=== PATIENT | male | born 1935 | race Asian ===

== ENCOUNTER 2019-03-13 15:57 | Inpatient (IN) | payer BC ==
[~2019-03-13] VITALS: Ht 165.1 cm; Wt 59.9 kg
[~2019-03-13 15:57] MED LIST: AMIODARONE HCL200 MG PO; AMLODIPINE BESY10 MG ORAL; ATORVASTATIN CA10 MG PO; CARTEOLOL HCL5 ML BOTH EYES; CIPRO500 MG PO; DUONEB 0.5-3(2.53 ML HHN; HEPARIN SO5000 UNIT2 SUBQ; LATANOPROST2.5 ML BOTH EYES; MECLIZINE HCL25 M1 ORAL; MIRALAX17 GM ORAL; NORVASC2.5 MG ORAL; ONGLYZA2.5 MG PO; PILOCARPINE BOTH EYES; QVAR7.3 G2 IH; TAMSULOSIN HCL0.4 MG PO; TELMISARTAN80 MG PO; TRUFORM COMPRE1 EACH MC; ZETIA10 MG
[2019-03-13 18:00] VITALS: BP 152/66
--- NOTE | 2019-03-13 18:00 | NUR ---
NURSE NOTES: Pt admitted form ED at [facility] via gurney with 3EMTS and family members. No c/o pAIN. No signs of distress noted. IV RFA 18G SL patent and intact. AOX4. Bed rails x2 up and bed placed in its lowest position and locked. Report recived from Malcolm OLIVEIRA at [phone]). Admitting dx with Syncope but denied LOC. Denied head trauma. Br CT from [place] showing negative for mass or bleed. potline monitor applied. ID band applied. Inventory list updated. Dr. De will be paged for adm orders.
[2019-03-13] MEDS ORDERED: LEVOTHYROXINE75 MCG ORAL (19:39)
--- NOTE | 2019-03-13 19:40 | NUR ---
HAND-OFF: Report given to estephania RN. Pt remains stable..
--- NOTE | 2019-03-13 19:45 | NUR ---
NURSE NOTES: Received report from Ifrah Plata RN. Patient in bed AAO X4 with no complaints of acute pain or discomfort noted. Kept clean, dry, and comfortable in bed. Tolerates RA with no S/S of SOB or resp. distress observed. IV line intact and patent and on continuous cardiac monitoring per protocol. Ambulates with minimal assist to the bathroom and offered urinal PRN at bedside. Safety precaution in place; siderails X2 up, call light within reach, bed in lowest position, brakes and alarm on at all times. Needs and wants anticipated and attended. Will continue plan of care and monitor for any changes noted.
[2019-03-13 20:00] VITALS: BP 132/66
[2019-03-13] MEDS ORDERED: EDARBI40 MG ORAL (20:03)
[2019-03-13] MEDS: NovoLOG Insulin Flexpen SUBQ SCH (21:00)
[2019-03-13] MEDS ORDERED: Pilocarpine 4% Opth 15ml Soln BOTH EYES SCH ×2 (21:00→22:30)
[2019-03-13] MEDS ORDERED: Latanoprost 0.005% Opth 2.5ml Soln BOTH EYES SCH ×2 (21:00→22:30)
[2019-03-13] MEDS: Heparin 5000 units/ml inj SUBQ SCH (21:36)
[2019-03-13] MEDS ORDERED: Pilocarpine 4% Opth Soln BOTH EYES SCH (22:30)
--- NOTE | 2019-03-13 22:45 | NUR ---
NURSE NOTES: Spoke with PX regarding adjusting patient's medication admin time. Will continue to monitor.
--- NOTE | 2019-03-13 23:44 | NUR ---
NURSE NOTES: Spoke with Hiram (Son) regarding patient's condition. Patient in bed comfortable with no complaints of pain or discomfort. Will continue plan of care
[2019-03-14] VITALS (7 sets, daily range): BP systolic 121–160; BP diastolic 60–72
--- NOTE | 2019-03-14 03:00 | NUR ---
NURSE NOTES: Patient in bed asleep with no S/S of distress. Will continue plan of care
[2019-03-14] MEDS: Pilocarpine 4% Opth Soln BOTH EYES SCH ×4 (05:03→23:07)
[2019-03-14] MEDS: NovoLOG Insulin Flexpen SUBQ SCH ×4 (05:30→20:42)
[2019-03-14] MEDS ORDERED: Levothyroxine 25mcg tab ORAL SCH ×2 (06:30→21:00)
--- NOTE | 2019-03-14 07:00 | NUR ---
NURSE NOTES: Received report from Kong OLIVEIRA. Patient AO X4. Denied pain. No complaints of distress noted. On RA. IV line intact and asymptomatic. Ambulates with minimal assist to the bathroom. Bed in its lowest position and locked. Side rails X2 up for safety and call light within reach.
--- NOTE | 2019-03-14 07:00 | NUR ---
HAND-OFF: Report given to Ifrah Plata RN. Patient in bed with no S/S of distress. Endorsed plan of care.
[2019-03-14 07:15] LABS: BASOPHILS % (AUTO) 1.3 % (0.0-2.0); EOSINOPHILS % (AUTO) 6.2 % (0.0-3.0); HEMATOCRIT 40.6 % (42.0-52.0); HEMOGLOBIN 13.7 G/DL (14.2-18.0); LYMPHOCYTES % (AUTO) 29.8 % (20.0-45.0); MEAN CORPUSCULAR VOLUME 102 FL (80-99); MONOCYTES % (AUTO) 10.7 % (1.0-10.0); NEUTROPHILS % (AUTO) 52.1 % (45.0-75.0); PLATELET COUNT 260 K/UL (150-450); RED BLOOD COUNT 3.97 M/UL (4.70-6.10); RED CELL DISTRIBUTION WIDTH 12.7 % (11.6-14.8); WHITE BLOOD COUNT 7.6 K/UL (4.8-10.8)
--- NOTE | 2019-03-14 07:20 | NUR ---
HAND-OFF: Report given to Kong RN. Pt remains stable.
[2019-03-14 07:34] LABS: ANION GAP 6 mmol/L (5-15); BLOOD UREA NITROGEN 17 mg/dL (7-18); CALCIUM 8.5 MG/DL (8.5-10.1); CARBON DIOXIDE 29 MMOL/L (21-32); CHLORIDE 100 MMOL/L (98-107); CHOLESTEROL 133 MG/DL (< 200); CREATININE 1.2 MG/DL (0.55-1.30); HDL CHOLESTEROL 53 MG/DL (40-60); POTASSIUM 4.8 MMOL/L (3.5-5.1); SODIUM 135 MMOL/L (136-145); TRIGLYCERIDES 87 MG/DL (30-150)
--- NOTE | 2019-03-14 08:16 | Consultation ---
History of Present Illness General Date patient seen: Mar 14, 2019 Present Illness HPI 83-year-old with past medical history of hypertension, COPD, and diabetes. The patient presented to the emergency room at [facility] with a chief complaint of dizziness and syncopal episode. Pt was hypotensive with SBP of 70's in the scene. He had a CT of head at [place] which was negative. Allergies: Coded Allergies: AMOXICILLIN (Verified Allergy, Unknown, 03/13/19) CLINDAMYCIN (Verified Allergy, Unknown, 03/13/19) Medication History Scheduled Amiodarone Hcl* (Cordarone*), 200 MG PO DAILY, (Reported) Amlodipine Besylate (Norvasc), 2.5 MG ORAL DAILY Amlodipine Besylate* (Amlodipine Besylate*), 20 MG ORAL DAILY, (Reported) Atorvastatin Calcium* (Lipitor*), 40 MG PO HS, (Reported) Azilsartan Medoxomil (Edarbi), 40 MG ORAL DAILY, (Reported) Carteolol Hcl (Carteolol Hcl), 1 DRP BOTH EYES BID, (Reported) Ciprofloxacin* (Cipro*), 500 MG PO BID Heparin Sod (Porcine) (Heparin Sodium*), 5,000 UNITS SUBQ EVERY 12 HOURS Latanoprost* (Xalatan*), 1 DRP BOTH EYES QID, (Reported) Levothyroxine Sodium* (Levothyroxine Sodium*), 25 MCG ORAL DAILY, (Reported) Meclizine Hcl (Meclizine Hcl), 25 MG ORAL THREE TIMES A DAY, (Reported) Pilocarpine HCl (Pilocarpine HCl), 1 DRP BOTH EYES HS, (Reported) Saxagliptin Hcl (Onglyza), 2.5 MG PO DAILY, (Reported) Tamsulosin Hcl (Tamsulosin Hcl*), 0.4 MG PO DAILY, (Reported) Telmisartan (Telmisartan), 80 MG PO DAILY, (Reported) Scheduled PRN Beclomethasone Dipropionate (Qvar), 7.3 GM IH for Shortness of Breath, (Reported ) Ipratropium/Albuterol Sulfate (DuoNeb 0.5-3(2.5)mg/3ml), 3 ML HHN Q4H PRN for Shortness of Breath Polyethylene Glycol* (Miralax*), 17 GM ORAL HSPRN PRN for Constipation Miscellaneous Medications Ezetimibe (Zetia*), (Reported) Durable Medical Equipment Comp.stocking,Knee,Regular,Lrg (Truform Compression Stocking), 1 EACH , (DME) Patient History Healthcare decision maker Hiram(son) Resuscitation status Full Code Advanced Directive on File Past Medical/Surgical History Past Medical/Surgical History: (1) Cardiac arrhythmia (2) BPH (benign prostatic hyperplasia) (3) Hypothyroid (4) Diabetes mellitus Physical Exam General Appearance: WD/WN, no apparent distress Lines, tubes and drains: peripheral HEENT: normocephalic, atraumatic Neck: non-tender, supple Respiratory/Chest: chest wall non-tender, lungs clear, normal breath sounds Cardiovascular/Chest: normal peripheral pulses Abdomen: normal bowel sounds, non tender Genitourinary/Rectal: normal genital exam Extremities: normal range of motion Last 24 Hour Vital Signs Date Time Temp Pulse Resp B/P (MAP) Pulse Ox O2 Delivery O2 Flow Rate FiO2 03/14/19 04:00 49 03/14/19 04:00 97.9 54 18 160/72 (101) 95 03/14/19 00:00 97.5 56 18 136/65 (88) 97 03/14/19 00:00 55 03/13/19 21:00 61 59 59 03/13/19 21:00 Room Air 03/13/19 20:00 62 03/13/19 20:00 97.9 61 18 132/66 (88) 96 03/13/19 18:25 Room Air 03/13/19 18:00 53 03/13/19 18:00 98.1 52 18 152/66 (94) 96 Laboratory Tests Test 03/14/19 05:50 White Blood Count 7.6 K/UL (4.8-10.8) Red Blood Count 3.97 M/UL (4.70-6.10) L Hemoglobin 13.7 G/DL (14.2-18.0) L Hematocrit 40.6 % (42.0-52.0) L Mean Corpuscular Volume 102 FL (80-99) H Mean Corpuscular Hemoglobin 34.5 PG (27.0-31.0) H Mean Corpuscular Hemoglobin Concent 33.8 G/DL (32.0-36.0) Red Cell Distribution Width 12.7 % (11.6-14.8) Platelet Count 260 K/UL (150-450) Mean Platelet Volume 5.6 FL (6.5-10.1) L Neutrophils (%) (Auto) 52.1 % (45.0-75.0) Lymphocytes (%) (Auto) 29.8 % (20.0-45.0) Monocytes (%) (Auto) 10.7 % (1.0-10.0) H Eosinophils (%) (Auto) 6.2 % (0.0-3.0) H Basophils (%) (Auto) 1.3 % (0.0-2.0) Sodium Level 135 MMOL/L (136-145) L Potassium Level 4.8 MMOL/L (3.5-5.1) Chloride Level 100 MMOL/L (98-107) Carbon Dioxide Level 29 MMOL/L (21-32) Anion Gap 6 mmol/L (5-15) Blood Urea Nitrogen 17 mg/dL (7-18) Creatinine 1.2 MG/DL (0.55-1.30) Estimat Glomerular Filtration Rate mL/min (>60) Glucose Level 88 MG/DL (74-106) Hemoglobin A1c Pending Calcium Level 8.5 MG/DL (8.5-10.1) Troponin I 0.007 ng/mL (0.000-0.056) Pro-B-Type Natriuretic Peptide 454 pg/mL (0-125) H Triglycerides Level 87 MG/DL (30-150) Cholesterol Level 133 MG/DL (< 200) LDL Cholesterol 70 mg/dL (<100) HDL Cholesterol 53 MG/DL (40-60) Cholesterol/HDL Ratio 2.5 (3.3-4.4) L Thyroid Stimulating Hormone (TSH) 81.885 uiU/mL (0.358-3.740) Height (Feet): 5 Height (Inches): 5.00 Weight (Pounds): 133 Medications Current Medications Medications (Trade) Dose Ordered Sig/Lisa Route PRN Reason Start Time Stop Time Status Last Admin Dose Admin Acetaminophen (Tylenol) 650 mg Q6H PRN ORAL Mild Pain/Temp > 100.5 03/14/19 00:00 04/13/19 00:00 Aspirin (Ecotrin) 81 mg DAILY ORAL 03/14/19 09:00 04/13/19 08:59 Atorvastatin Calcium (Lipitor) 40 mg QHS ORAL 03/13/19 21:00 04/12/19 20:59 03/13/19 21:30 Dextrose (Dextrose 50%) 25 ml Q30M PRN IV Hypoglycemia 03/13/19 18:30 04/12/19 18:29 Dextrose (Dextrose 50%) 50 ml Q30M PRN IV Hypoglycemia 03/13/19 18:30 04/12/19 18:29 Heparin Sodium (Porcine) (Heparin 5000 units/ml) 5,000 units EVERY 12 HOURS SUBQ 03/13/19 21:00 04/12/19 20:59 03/13/19 21:36 Insulin Aspart (NovoLOG) BEFORE MEALS AND HS SUBQ 03/13/19 21:00 04/12/19 20:59 Latanoprost (Xalatan) 1 drop Q24H BOTH EYES 03/14/19 23:00 04/13/19 22:59 Levothyroxine Sodium (Synthroid) 25 mcg QHS ORAL 03/14/19 21:00 04/13/19 20:59 Patient Own Medication (Patient's Own Med) 1 ea Q12H BOTH EYES 03/14/19 11:00 04/13/19 10:59 Patient Own Medication (Patient's Own Med) 1 ea Q6H BOTH EYES 03/14/19 05:00 04/13/19 04:59 03/14/19 05:03 Assessment/Plan Problem List: (1) Acute encephalopathy ICD Codes: G93.40 - Encephalopathy, unspecified SNOMED: 68356384, 314437134 (2) Sinus bradycardia ICD Codes: R00.1 - Bradycardia, unspecified SNOMED: 47405903 (3) Severe hypothyroidism ICD Codes: E03.8 - Other specified hypothyroidism SNOMED: 95918693 (4) Cardiac arrhythmia ICD Codes: I49.9 - Cardiac arrhythmia, unspecified SNOMED: 683901900 (5) BPH (benign prostatic hyperplasia) ICD Codes: N40.0 - Benign prostatic hyperplasia without lower urinary tract symptoms SNOMED: 760454952 (6) Diabetes mellitus ICD Codes: E11.9 - Type 2 diabetes mellitus without complications SNOMED: 74182268 Assessment/Plan: echo Endo evaluation hypothyroid most likely causing bradycardia sliding scale hold Amiodarone, check PSA b/o hx of BPH dvt prophylaxis Zoe Lynn MD Mar 14, 2019 08:16
[2019-03-14] MEDS ORDERED: Enalaprilat 1.25mg/ml Inj IV PRN (08:30)
[2019-03-14] MEDS: Aspirin EC 81mg tab ORAL SCH (08:39)
[2019-03-14] MEDS: Heparin 5000 units/ml inj SUBQ SCH ×2 (08:40→20:42)
[2019-03-14] MEDS ORDERED: [UNRECOGNIZED DRUG - OTHER] BOTH EYES SCH (09:00)
[2019-03-14] MEDS: [UNRECOGNIZED DRUG - OTHER] BOTH EYES SCH ×2 (11:25→23:07)
--- NOTE | 2019-03-14 15:15 | NUR ---
CASE MANAGEMENT: INITIAL REVIEW 83 YO M DIRECT ADMIT FROM [place] CC: DIZZINESS AND SYNCOPAL EPISODE PMHx: HTN. COPD. DM. SI:SYNCOPE. T 98.1 HR 52 RR 18 B/P 152/66 SATS 96% ON RA NONE PROVIDED IS: CT HEAD (-) PATIENT ADMITTED TO TELE 03/13/2019 @ 8375 DCP: PATIENT TO BE DISCHARGED TO HOME ONCE MEDICALLY CLEARED. PLAN OF CARE: CAROTID VERTEBRAL DUPLEX VENOUS DUPLEX ORTHO BPs CARDIO EVAL 03/14/2019 SI:SYNCOPE. T 97.5 HR 56 RR 18 B/P 136/65 SATS 97% ON RA NA 135 HA1C 6.2 BNP 454 TSH 81.885 IS: ASA PO QD SYNTHROID PO QD INSULIN ASPART SUBQ AC/HS LIPITOR PO QHS TELE STATUS DCP: PATIENT TO BE DISCHARGED TO HOME ONCE MEDICALLY CLEARED. PLAN OF CARE: CAROTID VERTEBRAL DUPLEX VENOUS DUPLEX ORTHO BPs CARDIO EVAL Addendum: 03/14/19 at 1834 by Alisha Lai CM INTERQUAL MET
--- NOTE | 2019-03-14 16:50 | History & Physical ---
History and Physical History & Physicial Dictated for Int Med-Dr De no. [id number] Micah Contreras MD Mar 14, 2019 16:50
--- NOTE | 2019-03-14 19:15 | Consultation ---
DATE OF CONSULTATION: 03/14/2019 ENDOCRINOLOGY CONSULTATION REFERRING PHYSICIAN: Zoe Lynn M.D. REASON FOR CONSULTATION: Hypothyroidism and diabetes. HISTORY OF PRESENT ILLNESS: The patient is an 83-year-old male with past medical history of diabetes, hypertension, and recently diagnosed hypothyroidism who presented to the emergency room at [facility] with chief complaint of dizziness, syncopal episode, and bradycardia. The patient's blood pressure was low in the 70s. He had a CT of the brain, which was negative. He was bradycardic. At [place], the TSH was obtained, which was 88. A few months ago, the patient was diagnosed with hypothyroidism, afterwards was started on amiodarone and he was started on Synthroid 25 mcg by his division leader and later on most recently he was evaluated by an irs agent, Dr. Kerry Ellis at [facility] and the dosage was increased to 50 mcg, which the patient has not been taking it yet. T4 is normal at 0.8. A1c is 6.2. ALLERGIES: To clindamycin and amoxicillin. MEDICATIONS: Reviewed and reconciled. REVIEW OF SYSTEMS: A 12-point review of systems was performed and pertinent positives and negatives are mentioned in history of present illness. PAST MEDICAL HISTORY: 1. Atrial fibrillation. 2. Cardiac arrhythmia. 3. Hypothyroidism. 4. Diabetes. 5. Hypertension. PAST SURGICAL HISTORY: None. FAMILY HISTORY: Noncontributory. PHYSICAL EXAMINATION: GENERAL: The patient is awake. VITAL SIGNS: Blood pressure is 139/65, pulse of 52, temperature of 97.7 degrees, and respiratory rate of 20. HEENT: Pupils are equal and reactive to light. Sclerae anicteric. NECK: No JVD. HEART: Bradycardic. LUNGS: Clear. ABDOMEN: Positive bowel sounds. EXTREMITIES: No clubbing, cyanosis, or edema. LABORATORY VALUES: Thyroid function and A1c discussed in the history of present illness. WBC 7.6, hemoglobin 13.7, hematocrit 40, and platelets of 260,000. Sodium 135, potassium 4.8, chloride 100, bicarbonate 29, BUN 17, and creatinine 1.2. DIAGNOSES: 1. Asymptomatic bradycardia. 2. Hypertension. 3. Diabetes. 4. Hypothyroidism. PLAN: 1. The patient received a dose of levothyroxine IV. Starting tomorrow, we will start the patient on levothyroxine 75 mcg tablet every morning. 2. TSH and free T4 should be repeated by Dr. Ellis in four weeks. 3. The patient's diabetes seems to be controlled on Onglyza 2.5 mg monotherapy, not formally at [place]. We will start the patient on NovoLog sliding scale a.c. and h.s. If the blood glucose rise, we will start Januvia 50 mg daily. I will follow the patient during the stay. Thank you, Dr. Lynn, for the courtesy of this consultation. Enrique Parks M.D. DR: Carl JOB#: [id number] CC: TOBIN
--- NOTE | 2019-03-14 19:28 | NUR ---
NURSE NOTES: Received report from Ifrah Plata RN. Patient in bed AAO X4 with no complaints of acute pain or discomfort noted. Kept clean, dry, and comfortable in bed. Tolerates RA with no S/S of SOB or resp. distress observed. IV line intact and patent and on continuous cardiac monitoring per protocol. Ambulates with minimal assist to the bathroom and offered urinal PRN at bedside. Safety precaution in place; siderails X2 up, call light within reach, bed in lowest position, brakes and alarm on at all times. Needs and wants anticipated and attended. Will continue plan of care and monitor for any changes noted. Home meds brought in by family. Current medication updated per MD. Will continue plan of care. Orthostatic VS QS
--- NOTE | 2019-03-14 21:15 | History and Physical Report ---
DATE OF ADMISSION: 03/13/2019 CHIEF COMPLAINT: The patient is an 83-year-old male, presents with complaint of "I almost passed out." HISTORY OF PRESENT ILLNESS: The patient himself speaks Kyrgyz. Much of the history and physical is obtained from the patient's daughter and from the patient's chart. The patient apparently was at the grocery store with his daughter when he suddenly felt weak. The patient appeared to have a syncopal episode. Daughter states she was able to catch him before he hit the floor. The patient was transported initially to [facility] Emergency Room. The patient is transferred to [facility] for insurance purposes. The patient is admitted with near syncopal episode. REVIEW OF SYSTEMS: CONSTITUTIONAL: The patient denies weight loss or weight gain. The patient denies fevers or chills. HEENT: The patient denies ear or throat pain. The patient denies headache. CARDIOVASCULAR: The patient denies palpitations or chest pain. CHEST: The patient denies wheeze or shortness of breath. ABDOMEN: The patient denies nausea, vomiting, diarrhea, or constipation. GENITOURINARY: The patient denies dysuria or increased frequency of urination. NEUROMUSCULAR: The patient denies seizures. The patient denies generalized weakness. The patient complains of near syncopal episode as above. PAST MEDICAL HISTORY: Significant for: 1. Atrial fibrillation. 2. Diabetes type 2. 3. Hypertension. 4. Chronic obstructive pulmonary disease. PAST SURGICAL HISTORY: The patient denies. CURRENT MEDICATIONS: 1. Amiodarone 200 mg 1 tab p.o. daily. 2. Amlodipine 10 mg p.o. daily. 3. Atorvastatin 40 mg p.o. at bedtime. 4. Azilsartan 40 mg p.o. daily. 5. Qvar 1 puff p.o. twice daily. 6. Zetia 10 mg p.o. daily. 7. DuoNeb nebulized q. 4h. p.r.n. 8. Latanoprost 1 drop to both eyes 4 times daily. 9. Levothyroxine 25 mcg p.o. daily. 10. Meclizine 25 mg p.o. 3 times daily. 11. Pilocarpine 1 drop to both eyes at bedtime. 12. 2.5 mg p.o. daily. 13. Flomax 0.4 mg p.o. at bedtime.s 14. Telmisartan 80 mg p.o. daily. ALLERGIES: To amoxicillin and clindamycin. SOCIAL HISTORY: The patient is . The patient denies tobacco or alcohol use. PHYSICAL EXAMINATION: VITAL SIGNS: Temperature 97.5, respirations 18, pulse 56, blood pressure 136/65. GENERAL: The patient is well-developed, well-nourished, thin-appearing male, in no apparent distress. HEENT: Eyes, pupils equal responsive to light and accommodation. Extraocular movements are intact. NECK: Supple without lymphadenopathy. CHEST: Lungs are clear to auscultation bilaterally without wheezes or rales. CARDIOVASCULAR: Regular rate. S1, S2 normal without murmurs, rubs, or gallops. ABDOMEN: Soft, nontender, and nondistended. Positive bowel sounds. No evidence of hepatosplenomegaly. Currently, no rebound or guarding noted. EXTREMITIES: Negative for clubbing, cyanosis, or edema. RECTAL/GENITAL: Not performed. NEUROLOGIC: Cranial nerves II through XII are grossly intact without focal deficits. Motor strength is 5/5 bilaterally. Deep tendon reflexes are 2+ plantar. LABORATORY AND DIAGNOSTIC STUDIES: WBC 6.6, hemoglobin 13.2, hematocrit 38.9, platelets 241,000. Sodium 137, potassium 4.9, chloride 101, CO2 25, BUN 17, creatinine 1.45. Glucose 104. Troponin less than 0.02. TSH was elevated at 81.9. A CT scan of the brain from [place] was reported as no acute disease. An EKG demonstrated sinus bradycardia with no acute ST changes or Q-waves noted. ASSESSMENT: This is an 83-year-old male. 1. Near syncopal episode. 2. Bradycardia. 3. History of atrial fibrillation. 4. Diabetes type 2. 5. Hypertension. 6. Chronic obstructive pulmonary disease. 7. Hypothyroidism. 8. Hypercholesterolemia. 9. Glaucoma. 10. Benign prostatic hypertrophy. 11. Near syncope/bradycardia. Cardiology consultation with Dr. Irving Kumar. Bradycardia may be secondary to amiodarone versus underlying cardiac arrhythmia. We will follow recommendations of Cardiology. 12. History of atrial fibrillation. The patient is currently in sinus bradycardia rhythm. 13. Diabetes type 2. The patient has been placed on a NovoLog sliding scale. 14. Hypertension. Continue Norvasc as above. 15. Chronic obstructive pulmonary disease. A Pulmonary consultation obtained with Dr. Zoe Lynn. Continue DuoNeb as above. 16. Hypothyroidism. The patient's TSH is elevated. Continue Synthroid as above. A thyroid panel is pending. 17. Hypercholesterolemia. Continue Zetia as above. 18. Glaucoma. Continue eye drops as above. 19. Benign prostatic hypertrophy. Continue Flomax as above. Micah Contreras M.D. DR: VILMA JOB#: [id number] CC:
[2019-03-14] MEDS: Latanoprost 0.005% Opth 2.5ml Soln BOTH EYES SCH (23:07)
--- NOTE | 2019-03-15 03:04 | NUR ---
NURSE NOTES: Patient in bed with no S/S of distress noted. Will continue to monitor.
[2019-03-15 04:00] VITALS: BP 154/65
[2019-03-15] MEDS: Pilocarpine 4% Opth Soln BOTH EYES SCH ×4 (05:47→23:15)
[2019-03-15] MEDS: NovoLOG Insulin Flexpen SUBQ SCH ×4 (05:53→20:55)
--- NOTE | 2019-03-15 06:28 | General Progress Note ---
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) ICD Codes: E22.2 - SIADH (syndrome of inappropriate ADH production) SNOMED: 39550719 (2) Syncope ICD Codes: R55 - Syncope and collapse SNOMED: 327597385 (3) Diabetes mellitus ICD Codes: E11.9 - Type 2 diabetes mellitus without complications SNOMED: 87406293 (4) Hypothyroid ICD Codes: E03.9 - Hypothyroidism, unspecified SNOMED: 56599052 (5) Sinus bradycardia ICD Codes: R00.1 - Bradycardia, unspecified SNOMED: 64715927 Assessment/Plan: continue Levothyroxine 75 mcg daily repeat thyroid function in one month - followed by endo Dr Kerry Ellis at [facility] NISS ac / hs Subjective Allergies: Coded Allergies: AMOXICILLIN (Verified Allergy, Unknown, 03/13/19) CLINDAMYCIN (Verified Allergy, Unknown, 03/13/19) All Systems: reviewed and negative except above Subjective events noted glucose values are controlled Item Value Date Time Bedside Blood Glucose 81 mg/dl 03/15/19 0609 Bedside Blood Glucose 107 mg/dl 03/14/19 2100 Bedside Blood Glucose 122 mg/dl H 03/14/19 1630 Bedside Blood Glucose 104 mg/dl 03/14/19 1132 Bedside Blood Glucose 83 mg/dl 03/14/19 0630 Objective Last 24 Hour Vital Signs Date Time Temp Pulse Resp B/P (MAP) Pulse Ox O2 Delivery O2 Flow Rate FiO2 03/15/19 04:00 98.0 51 20 154/65 (94) 98 03/15/19 04:00 52 03/15/19 00:00 49 03/14/19 23:23 98.2 52 18 133/65 (87) 98 03/14/19 21:00 Room Air 03/14/19 21:00 51 52 53 03/14/19 20:00 53 03/14/19 20:00 98.0 51 20 121/63 (82) 98 03/14/19 16:00 51 03/14/19 16:00 97.5 52 20 138/63 (88) 94 03/14/19 12:00 97.7 52 20 139/65 (89) 94 03/14/19 12:00 55 03/14/19 09:00 57 53 50 03/14/19 09:00 Room Air 03/14/19 08:00 55 03/14/19 08:00 97.9 51 21 124/60 (81) 94 Intake and Output 03/14/19 03/15/19 19:00 07:00 Intake Total 240 ml Output Total 700 ml Balance -460 ml Intake Oral 240 ml Output Urine Total 700 ml # Voids 7 3 Height (Feet): 5 Height (Inches): 5.00 Weight (Pounds): 133 General Appearance: no apparent distress Neck: normal alignment Cardiovascular: bradycardia Respiratory/Chest: lungs clear Abdomen: normal bowel sounds Pelvis: normal external exam Objective Current Medications Medications (Trade) Dose Ordered Sig/Lisa Route PRN Reason Start Time Stop Time Status Last Admin Dose Admin Acetaminophen (Tylenol) 650 mg Q6H PRN ORAL Mild Pain/Temp > 100.5 03/14/19 00:00 04/13/19 00:00 Aspirin (Ecotrin) 81 mg DAILY ORAL 03/14/19 09:00 04/13/19 08:59 03/14/19 08:39 Atorvastatin Calcium (Lipitor) 40 mg QHS ORAL 03/13/19 21:00 04/12/19 20:59 03/14/19 20:41 Dextrose (Dextrose 50%) 25 ml Q30M PRN IV Hypoglycemia 03/13/19 18:30 04/12/19 18:29 Dextrose (Dextrose 50%) 50 ml Q30M PRN IV Hypoglycemia 03/13/19 18:30 04/12/19 18:29 Enalaprilat (Vasotec) 2.5 mg Q4H PRN IV sbp more than 180 03/14/19 08:30 04/13/19 08:29 Heparin Sodium (Porcine) (Heparin 5000 units/ml) 5,000 units EVERY 12 HOURS SUBQ 03/13/19 21:00 04/12/19 20:59 03/14/19 20:42 Hydralazine HCl (Apresoline) 20 mg Q4H PRN IV sbp more than 160 03/14/19 08:30 04/13/19 08:29 Insulin Aspart (NovoLOG) BEFORE MEALS AND HS SUBQ 03/13/19 21:00 04/12/19 20:59 Latanoprost (Xalatan) 1 drop Q24H BOTH EYES 03/14/19 23:00 04/13/19 22:59 03/14/19 23:07 Levothyroxine Sodium (Synthroid) 75 mcg DAILY@0630 ORAL 03/15/19 06:30 04/14/19 06:29 03/15/19 05:47 Patient Own Medication (Patient's Own Med) 1 ea DAILY ORAL 03/15/19 09:00 04/14/19 08:59 Patient Own Medication (Patient's Own Med) 1 ea DAILY ORAL 03/15/19 09:00 04/14/19 08:59 Patient Own Medication (Patient's Own Med) 1 ea Q12H BOTH EYES 03/14/19 11:00 04/13/19 10:59 03/14/19 23:07 Patient Own Medication (Patient's Own Med) 1 ea Q6H BOTH EYES 03/14/19 05:00 04/13/19 04:59 03/15/19 05:47 Enrique Parks MD Mar 15, 2019 06:28
--- NOTE | 2019-03-15 07:33 | NUR ---
HAND-OFF: Report given to Esteban Plata RN. Patient in bed AAO X3 in stable condition, endorsed plan of care.
[2019-03-15 07:34] LABS: BASOPHILS % (AUTO) 1.4 % (0.0-2.0); EOSINOPHILS % (AUTO) 8.6 % (0.0-3.0); HEMATOCRIT 43.5 % (42.0-52.0); HEMOGLOBIN 14.7 G/DL (14.2-18.0); LYMPHOCYTES % (AUTO) 31.8 % (20.0-45.0); MEAN CORPUSCULAR VOLUME 102 FL (80-99); MONOCYTES % (AUTO) 10.3 % (1.0-10.0); NEUTROPHILS % (AUTO) 47.9 % (45.0-75.0); PLATELET COUNT 273 K/UL (150-450); RED BLOOD COUNT 4.27 M/UL (4.70-6.10); RED CELL DISTRIBUTION WIDTH 12.3 % (11.6-14.8)
--- NOTE | 2019-03-15 07:34 | NUR ---
NURSE NOTES: Received report from ROXANNE Triana. The patient is resting on the bed without acute distress or shortness of breath. The patient's bed in the lowest position, call light in reach, and fall and aspiration precaution reinforced. IV is patent and intact. Will continue plan of care.
[2019-03-15 07:56] LABS: ANION GAP 7 mmol/L (5-15); BLOOD UREA NITROGEN 15 mg/dL (7-18); CALCIUM 8.7 MG/DL (8.5-10.1); CARBON DIOXIDE 28 MMOL/L (21-32); CHLORIDE 101 MMOL/L (98-107); CREATININE 1.1 MG/DL (0.55-1.30); POTASSIUM 4.4 MMOL/L (3.5-5.1); SODIUM 136 MMOL/L (136-145)
[2019-03-15 08:00] VITALS: BP 160/73
[2019-03-15] MEDS: Aspirin EC 81mg tab ORAL SCH (08:29)
[2019-03-15] MEDS: EDARBI 40 MG ORAL SCH (08:29)
[2019-03-15] MEDS: ONGLYZA 2.5 MG ORAL SCH (08:30)
[2019-03-15] MEDS: Heparin 5000 units/ml inj SUBQ SCH ×2 (08:31→21:25)
--- NOTE | 2019-03-15 09:25 | NUR ---
CASE MANAGEMENT:REVIEW 03/15/19 SI: SYNCOPE. BRADYCARDIA. COPD HYPOTHYROIDISM 97.9 54 20 160/73 97% ON RA TSH+88.219 IS: SYNTHROID 75 MCG PO QD ASA PO QD SS INSULIN AC+HS HEPARIN SQ Q12 : TELEMETRY STATUS DCP: FROM HOME PLAN: SYNTHROID DOSE INCREASED
[2019-03-15] MEDS: [UNRECOGNIZED DRUG - OTHER] BOTH EYES SCH ×2 (11:18→23:15)
--- NOTE | 2019-03-15 11:35 | Pulmonology Progress Note ---
Assessment/Plan Problems: (1) Acute encephalopathy (2) Sinus bradycardia (3) Severe hypothyroidism (4) Cardiac arrhythmia (5) BPH (benign prostatic hyperplasia) (6) Diabetes mellitus Assessment/Plan all reviewed On synthyroid 75 ugm/dialy blood sugar controlled off all negative chronotrop agents, still bradycardic cardio to see keep in teli Subjective ROS Limited/Unobtainable: No Constitutional: Reports: no symptoms HEENT: Repors: no symptoms, other Allergies: Coded Allergies: AMOXICILLIN (Verified Allergy, Unknown, 03/13/19) CLINDAMYCIN (Verified Allergy, Unknown, 03/13/19) Objective Last 24 Hour Vital Signs Date Time Temp Pulse Resp B/P (MAP) Pulse Ox O2 Delivery O2 Flow Rate FiO2 03/15/19 09:00 Room Air 03/15/19 08:00 97.9 54 20 160/73 (102) 97 03/15/19 08:00 57 03/15/19 04:00 98.0 51 20 154/65 (94) 98 03/15/19 04:00 52 03/15/19 00:00 49 03/14/19 23:23 98.2 52 18 133/65 (87) 98 03/14/19 21:00 Room Air 03/14/19 21:00 51 52 53 03/14/19 20:00 53 03/14/19 20:00 98.0 51 20 121/63 (82) 98 03/14/19 16:00 51 03/14/19 16:00 97.5 52 20 138/63 (88) 94 03/14/19 12:00 97.7 52 20 139/65 (89) 94 03/14/19 12:00 55 Intake and Output 03/14/19 03/15/19 19:00 07:00 Intake Total 380 ml Output Total 700 ml Balance -320 ml Intake Oral 380 ml Output Urine Total 700 ml # Voids 7 3 General Appearance: WD/WN HEENT: normocephalic, atraumatic Respiratory/Chest: chest wall non-tender, lungs clear Cardiovascular: normal peripheral pulses, regular rhythm Abdomen: normal bowel sounds, soft, non tender Genitourinary: normal external genitalia Neurologic/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 Laboratory Tests 03/15/19 06:27: White Blood Count 7.0, Red Blood Count 4.27L, Hemoglobin 14.7, Hematocrit 43.5, Mean Corpuscular Volume 102H, Mean Corpuscular Hemoglobin 34.3H, Mean Corpuscular Hemoglobin Concent 33.7, Red Cell Distribution Width 12.3, Platelet Count 273, Mean Platelet Volume 6.0L, Neutrophils (%) (Auto) 47.9, Lymphocytes ( %) (Auto) 31.8, Monocytes (%) (Auto) 10.3H, Eosinophils (%) (Auto) 8.6H, Basophils (%) (Auto) 1.4, Sodium Level 136, Potassium Level 4.4, Chloride Level 101, Carbon Dioxide Level 28, Anion Gap 7, Blood Urea Nitrogen 15, Creatinine 1.1, Estimat Glomerular Filtration Rate , Glucose Level 86, Calcium Level 8.7, Troponin I 0.000, Thyroid Stimulating Hormone (TSH) 88.219H, Free Thyroxine 0.91 , Free Triiodothyronine 1.5L Current Medications Medications (Trade) Dose Ordered Sig/Lisa Route PRN Reason Start Time Stop Time Status Last Admin Dose Admin Acetaminophen (Tylenol) 650 mg Q6H PRN ORAL Mild Pain/Temp > 100.5 03/14/19 00:00 04/13/19 00:00 Aspirin (Ecotrin) 81 mg DAILY ORAL 03/14/19 09:00 04/13/19 08:59 03/15/19 08:29 Atorvastatin Calcium (Lipitor) 40 mg QHS ORAL 03/13/19 21:00 04/12/19 20:59 03/14/19 20:41 Dextrose (Dextrose 50%) 25 ml Q30M PRN IV Hypoglycemia 03/13/19 18:30 04/12/19 18:29 Dextrose (Dextrose 50%) 50 ml Q30M PRN IV Hypoglycemia 03/13/19 18:30 04/12/19 18:29 Enalaprilat (Vasotec) 2.5 mg Q4H PRN IV sbp more than 180 03/14/19 08:30 04/13/19 08:29 Heparin Sodium (Porcine) (Heparin 5000 units/ml) 5,000 units EVERY 12 HOURS SUBQ 03/13/19 21:00 04/12/19 20:59 03/15/19 08:31 Hydralazine HCl (Apresoline) 20 mg Q4H PRN IV sbp more than 160 03/14/19 08:30 04/13/19 08:29 Insulin Aspart (NovoLOG) BEFORE MEALS AND HS SUBQ 03/13/19 21:00 04/12/19 20:59 Latanoprost (Xalatan) 1 drop Q24H BOTH EYES 03/14/19 23:00 04/13/19 22:59 03/14/19 23:07 Levothyroxine Sodium (Synthroid) 75 mcg DAILY@0630 ORAL 03/15/19 06:30 04/14/19 06:29 03/15/19 05:47 Patient Own Medication (Patient's Own Med) 1 ea DAILY ORAL 03/15/19 09:00 04/14/19 08:59 03/15/19 08:29 Patient Own Medication (Patient's Own Med) 1 ea DAILY ORAL 03/15/19 09:00 04/14/19 08:59 03/15/19 08:30 Patient Own Medication (Patient's Own Med) 1 ea Q12H BOTH EYES 03/14/19 11:00 04/13/19 10:59 03/15/19 11:18 Patient Own Medication (Patient's Own Med) 1 ea Q6H BOTH EYES 03/14/19 05:00 04/13/19 04:59 03/15/19 11:19 Zoe Lynn MD Mar 15, 2019 11:35
[2019-03-15 12:00] VITALS: BP 128/64
--- NOTE | 2019-03-15 12:00 | NUR ---
NURSE NOTES: The patient is stable without acute distress or shortness of breath. Dr. Kumar was at the bedside and did assessment. Orthostatic vital signs taken. Will continue plan of care for the patient.
--- NOTE | 2019-03-15 14:03 | NUR ---
*-* INSURANCE *-* ALL CLINICALS AND REVIEWS HAVE BEEN FAXED TO: GAY[facility] SHARP FAX ALL CLINICALS TO: [phone] Addendum: 03/16/19 at 1026 by STACEY GUZMÁN CM RICHY REF# [id number] F:[phone]
--- NOTE | 2019-03-15 15:31 | Cardiac Electrophysiology PN ---
Subjective Subjective [id number] Objective Last 24 Hour Vital Signs Date Time Temp Pulse Resp B/P (MAP) Pulse Ox O2 Delivery O2 Flow Rate FiO2 03/15/19 12:00 97.7 54 20 128/64 (85) 96 03/15/19 09:00 Room Air 03/15/19 08:00 97.9 54 20 160/73 (102) 97 03/15/19 08:00 57 03/15/19 04:00 98.0 51 20 154/65 (94) 98 03/15/19 04:00 52 03/15/19 00:00 49 03/14/19 23:23 98.2 52 18 133/65 (87) 98 03/14/19 21:00 Room Air 03/14/19 21:00 51 52 53 03/14/19 20:00 53 03/14/19 20:00 98.0 51 20 121/63 (82) 98 03/14/19 16:00 51 03/14/19 16:00 97.5 52 20 138/63 (88) 94 Intake and Output 03/14/19 03/15/19 18:59 06:59 Intake Total 240 ml Output Total 700 ml Balance -460 ml Intake Oral 240 ml Output Urine Total 700 ml # Voids 7 3 Laboratory Tests Test 03/15/19 06:27 White Blood Count 7.0 K/UL (4.8-10.8) Red Blood Count 4.27 M/UL (4.70-6.10) L Hemoglobin 14.7 G/DL (14.2-18.0) Hematocrit 43.5 % (42.0-52.0) Mean Corpuscular Volume 102 FL (80-99) H Mean Corpuscular Hemoglobin 34.3 PG (27.0-31.0) H Mean Corpuscular Hemoglobin Concent 33.7 G/DL (32.0-36.0) Red Cell Distribution Width 12.3 % (11.6-14.8) Platelet Count 273 K/UL (150-450) Mean Platelet Volume 6.0 FL (6.5-10.1) L Neutrophils (%) (Auto) 47.9 % (45.0-75.0) Lymphocytes (%) (Auto) 31.8 % (20.0-45.0) Monocytes (%) (Auto) 10.3 % (1.0-10.0) H Eosinophils (%) (Auto) 8.6 % (0.0-3.0) H Basophils (%) (Auto) 1.4 % (0.0-2.0) Sodium Level 136 MMOL/L (136-145) Potassium Level 4.4 MMOL/L (3.5-5.1) Chloride Level 101 MMOL/L (98-107) Carbon Dioxide Level 28 MMOL/L (21-32) Anion Gap 7 mmol/L (5-15) Blood Urea Nitrogen 15 mg/dL (7-18) Creatinine 1.1 MG/DL (0.55-1.30) Estimat Glomerular Filtration Rate mL/min (>60) Glucose Level 86 MG/DL (74-106) Calcium Level 8.7 MG/DL (8.5-10.1) Troponin I 0.000 ng/mL (0.000-0.056) Thyroid Stimulating Hormone (TSH) 88.219 uiU/mL (0.358-3.740) Free Thyroxine 0.91 NG/DL (0.76-1.46) Free Triiodothyronine 1.5 pg/mL (2.3-4.2) Irving Tavarez MD Mar 15, 2019 15:31
[2019-03-15 16:00] VITALS: BP 139/75
--- NOTE | 2019-03-15 18:00 | NUR ---
NURSE NOTES: The patient asked laxative for bowel movement. Communicated with Dr. De. Will carry out the order of Miralax and Colace. Will continue plan of care.
[2019-03-15] MEDS ORDERED: Miralax 17gm pkt ORAL PRN (19:00)
--- NOTE | 2019-03-15 19:01 | Internal Med Progress Note ---
Subjective Date of Service: Mar 15, 2019 Physician Name Micah Contreras Attending Physician Neel De MD Current Medications Medications (Trade) Dose Ordered Sig/Lisa Route PRN Reason Start Time Stop Time Status Last Admin Dose Admin Acetaminophen (Tylenol) 650 mg Q6H PRN ORAL Mild Pain/Temp > 100.5 03/14/19 00:00 04/13/19 00:00 Aspirin (Ecotrin) 81 mg DAILY ORAL 03/14/19 09:00 04/13/19 08:59 03/15/19 08:29 Atorvastatin Calcium (Lipitor) 40 mg QHS ORAL 03/15/19 21:00 04/12/19 20:59 Dextrose (Dextrose 50%) 25 ml Q30M PRN IV Hypoglycemia 03/13/19 18:30 04/12/19 18:29 Dextrose (Dextrose 50%) 50 ml Q30M PRN IV Hypoglycemia 03/13/19 18:30 04/12/19 18:29 Docusate Sodium (Colace) 100 mg TWICE A DAY ORAL 03/16/19 09:00 04/15/19 08:59 UNV Enalaprilat (Vasotec) 2.5 mg Q4H PRN IV sbp more than 180 03/14/19 08:30 04/13/19 08:29 Heparin Sodium (Porcine) (Heparin 5000 units/ml) 5,000 units EVERY 12 HOURS SUBQ 03/13/19 21:00 04/12/19 20:59 03/15/19 08:31 Hydralazine HCl (Apresoline) 20 mg Q4H PRN IV sbp more than 160 03/14/19 08:30 04/13/19 08:29 Insulin Aspart (NovoLOG) BEFORE MEALS AND HS SUBQ 03/13/19 21:00 04/12/19 20:59 03/15/19 17:20 Latanoprost (Xalatan) 1 drop Q24H BOTH EYES 03/14/19 23:00 04/13/19 22:59 03/14/19 23:07 Levothyroxine Sodium (Synthroid) 75 mcg DAILY@0630 ORAL 03/15/19 06:30 04/14/19 06:29 03/15/19 05:47 Patient Own Medication (Patient's Own Med) 1 ea DAILY ORAL 03/15/19 09:00 04/14/19 08:59 03/15/19 08:29 Patient Own Medication (Patient's Own Med) 1 ea DAILY ORAL 03/15/19 09:00 04/14/19 08:59 03/15/19 08:30 Patient Own Medication (Patient's Own Med) 1 ea Q12H BOTH EYES 03/14/19 11:00 04/13/19 10:59 03/15/19 11:18 Patient Own Medication (Patient's Own Med) 1 ea Q6H BOTH EYES 03/14/19 05:00 04/13/19 04:59 03/15/19 16:55 Polyethylene Glycol (Miralax) 17 gm DAILY PRN ORAL Constipation 03/15/19 19:00 04/14/19 18:59 UNV Allergies: Coded Allergies: AMOXICILLIN (Verified Allergy, Unknown, 03/13/19) CLINDAMYCIN (Verified Allergy, Unknown, 03/13/19) ROS Limited/Unobtainable: No Constitutional: Reports: no symptoms HEENT: Reports: no symptoms Cardiovascular: Reports: no symptoms Respiratory: Reports: no symptoms Gastrointestinal/Abdominal: Reports: no symptoms Genitourinary: Reports: no symptoms Neurologic/Psychiatric: Reports: no symptoms Subjective 83 YO M admitted with syncope. Now bradycardia. Cover for Int med-Dr De Objective Last Vital Signs Date Time Temp Pulse Resp B/P (MAP) Pulse Ox O2 Delivery O2 Flow Rate FiO2 03/15/19 16:00 98.0 64 18 139/75 (96) 97 03/15/19 09:00 Room Air Laboratory Tests Test 03/15/19 06:27 White Blood Count 7.0 K/UL (4.8-10.8) Red Blood Count 4.27 M/UL (4.70-6.10) L Hemoglobin 14.7 G/DL (14.2-18.0) Hematocrit 43.5 % (42.0-52.0) Mean Corpuscular Volume 102 FL (80-99) H Mean Corpuscular Hemoglobin 34.3 PG (27.0-31.0) H Mean Corpuscular Hemoglobin Concent 33.7 G/DL (32.0-36.0) Red Cell Distribution Width 12.3 % (11.6-14.8) Platelet Count 273 K/UL (150-450) Mean Platelet Volume 6.0 FL (6.5-10.1) L Neutrophils (%) (Auto) 47.9 % (45.0-75.0) Lymphocytes (%) (Auto) 31.8 % (20.0-45.0) Monocytes (%) (Auto) 10.3 % (1.0-10.0) H Eosinophils (%) (Auto) 8.6 % (0.0-3.0) H Basophils (%) (Auto) 1.4 % (0.0-2.0) Sodium Level 136 MMOL/L (136-145) Potassium Level 4.4 MMOL/L (3.5-5.1) Chloride Level 101 MMOL/L (98-107) Carbon Dioxide Level 28 MMOL/L (21-32) Anion Gap 7 mmol/L (5-15) Blood Urea Nitrogen 15 mg/dL (7-18) Creatinine 1.1 MG/DL (0.55-1.30) Estimat Glomerular Filtration Rate mL/min (>60) Glucose Level 86 MG/DL (74-106) Calcium Level 8.7 MG/DL (8.5-10.1) Troponin I 0.000 ng/mL (0.000-0.056) Thyroid Stimulating Hormone (TSH) 88.219 uiU/mL (0.358-3.740) Free Thyroxine 0.91 NG/DL (0.76-1.46) Free Triiodothyronine 1.5 pg/mL (2.3-4.2) L Intake and Output 03/14/19 03/15/19 18:59 06:59 Intake Total 240 ml Output Total 700 ml Balance -460 ml Intake Oral 240 ml Output Urine Total 700 ml # Voids 7 3 Objective PHYSICAL EXAMINATION: GENERAL: The patient is well-developed, well-nourished, thin-appearing male, in no apparent distress. HEENT: Eyes, pupils equal responsive to light and accommodation. Extraocular movements are intact. NECK: Supple without lymphadenopathy. CHEST: Lungs are clear to auscultation bilaterally without wheezes or rales. CARDIOVASCULAR: Regular rate. S1, S2 normal without murmurs, rubs, or gallops. ABDOMEN: Soft, nontender, and nondistended. Positive bowel sounds. No evidence of hepatosplenomegaly. Currently, no rebound or guarding noted. EXTREMITIES: Negative for clubbing, cyanosis, or edema. RECTAL/GENITAL: Not performed. NEUROLOGIC: Cranial nerves II through XII are grossly intact without focal deficits. Motor strength is 5/5 bilaterally. Deep tendon reflexes are 2+ plantar. Assessment/Plan Assessment/Plan ASSESSMENT: This is an 83-year-old male. 1. Near syncopal episode. 2. Bradycardia. 3. History of atrial fibrillation. 4. Diabetes type 2. 5. Hypertension. 6. Chronic obstructive pulmonary disease. 7. Hypothyroidism. 8. Hypercholesterolemia. 9. Glaucoma. 10. Benign prostatic hypertrophy. Plan: 1. Near syncope/bradycardia. Cardiology consultation with Dr. Irving Kumar. Bradycardia may be secondary to amiodarone versus underlying cardiac arrhythmia. We will follow recommendations of Cardiology. 2. History of atrial fibrillation. The patient is currently in sinus bradycardia rhythm. 3. Diabetes type 2. The patient has been placed on a NovoLog sliding scale. 4. Hypertension. Continue Norvasc as above. 5. Chronic obstructive pulmonary disease. A Pulmonary consultation obtained with Dr. Zoe Lynn. Continue DuoNeb as above. 6. Hypothyroidism. The patient's TSH is elevated. Continue Synthroid as above. A thyroid panel is pending. 7. Hypercholesterolemia. Continue Zetia as above. 8. Glaucoma. Continue eye drops as above. 9. Benign prostatic hypertrophy. Continue Flomax as above. Micah Contreras MD Mar 15, 2019 19:01
--- NOTE | 2019-03-15 19:30 | NUR ---
HAND-OFF: Report given to ROXANNE Triana. The patient is resting on the bed without acute distress or shortness of breath. The patient's bed in the lowest position, call light in reach, and fall and aspiration precaution reinforced. Endorsed plan of care.
--- NOTE | 2019-03-15 19:35 | NUR ---
NURSE NOTES: Received report from Esteban Plata RN. Patient in bed AAO X4 with family at bedside, no complaints of acute pain or discomfort noted. Kept clean, dry, and comfortable in bed. Tolerates RA with no S/S of SOB or resp. distress observed. IV line intact and patent and on continuous cardiac monitoring per protocol. Ambulates with minimal assist to the bathroom and offered urinal PRN at bedside. Safety precaution in place; siderails X2 up, call light within reach, bed in lowest position, brakes and alarm on at all times. Needs and wants anticipated and attended. Will continue plan of care and monitor for any changes noted. Seen and examined by MD today, new orders received and carried out.
[2019-03-15 20:00] VITALS: BP 141/69
[2019-03-15] MEDS: Atorvastatin 20mg tab ORAL SCH (21:25)
--- NOTE | 2019-03-15 23:00 | Consultation ---
DATE OF CONSULTATION: 03/15/2019 CARDIOLOGY CONSULTATION CONSULTING PHYSICIAN: Irving Kumar M.D. REFERRING PHYSICIAN: Neel De M.D. REASON FOR CONSULTATION: Syncope and bradycardia. HISTORY OF PRESENT ILLNESS: The patient is an 83-year-old gentleman with history of hypertension, diabetes, and atrial fibrillation, who was recently diagnosed with hypothyroidism, presented to the emergency room at [facility] complaining of dizziness and syncopal episodes. The patient is also noted to be bradycardic. The patient's blood pressure was also low in the 70s. CT of the brain was negative. The patient was then transferred to [facility] and the TSH was 88. The patient was recently diagnosed with hypothyroidism after we started her on amiodarone and then was started on Synthroid. Overnight, the heart rate has remained in the high 40s and low 50s. REVIEW OF SYSTEMS: Negative other than what was mentioned in the history of present illness. PAST MEDICAL HISTORY: As mentioned above. FAMILY HISTORY: Noncontributory. SOCIAL HISTORY: He lives at home with the family. Does not smoke or drink alcohol. PHYSICAL EXAMINATION: VITAL SIGNS: Blood pressure is 128/64, pulse is 54 as well as 49, respirations 18, and temperature 97.7. HEAD AND NECK: Showed no JVD. LUNGS: Clear. CARDIOVASCULAR: Shows bradycardic S1 and S2 with no gallop or murmur. ABDOMEN: Soft. EXTREMITIES: No pitting edema. LABORATORY AND DIAGNOSTIC DATA: His carotid duplex showed no critical stenosis. His labs show white count of 7, hemoglobin of 14, hematocrit of 43, and platelet count of 273,000. Sodium is 136, potassium 4.4, BUN of 15, and creatinine 1.1. Troponin negative x2. ASSESSMENT AND PLAN: 1. Syncope and bradycardia. The patient will be ruled out for myocardial infarction. His TSH is 88 and free T4 of 0.91 and free T3 of 1.5. This may be due to the patient's hypothyroidism. The patient's Synthroid was increased to [address] Parks. We will watch the patient on telemetry. Avoid the patient on any AV trinh blockers. 2. History of atrial fibrillation. The patient is only on aspirin, not on any other anticoagulation. Currently in sinus rhythm. The patient may have sick sinus syndrome due to paroxysmal atrial fibrillation. 3. Hyperlipidemia. On Lipitor. 4. Hypothyroidism. On Synthroid. 5. Hypertension. On p.r.n. hydralazine. Thank you very much, Dr. De, for allowing me to participate in the care of this patient. Please do not hesitate to contact me for any questions regarding my evaluation. Irving Kumar M.D. DR: JAZZY JOB#: [id number] CC:
[2019-03-15] MEDS: Latanoprost 0.005% Opth 2.5ml Soln BOTH EYES SCH (23:14)
[2019-03-16] VITALS: BP 127/70
--- NOTE | 2019-03-16 03:34 | NUR ---
NURSE NOTES: Patient in bed asleep with no S/S of distress. Will continue to monitor.
[2019-03-16 04:00] VITALS: BP 145/82
[2019-03-16] MEDS: Pilocarpine 4% Opth Soln BOTH EYES SCH ×4 (04:52→23:12)
[2019-03-16] MEDS: NovoLOG Insulin Flexpen SUBQ SCH ×4 (05:41→21:53)
[2019-03-16 06:41] LABS: BASOPHILS % (AUTO) 1.1 % (0.0-2.0); EOSINOPHILS % (AUTO) 6.7 % (0.0-3.0); HEMATOCRIT 43.1 % (42.0-52.0); HEMOGLOBIN 14.6 G/DL (14.2-18.0); LYMPHOCYTES % (AUTO) 26.6 % (20.0-45.0); MEAN CORPUSCULAR VOLUME 103 FL (80-99); NEUTROPHILS % (AUTO) 55.6 % (45.0-75.0); PLATELET COUNT 275 K/UL (150-450); RED CELL DISTRIBUTION WIDTH 12.8 % (11.6-14.8); WHITE BLOOD COUNT 8.7 K/UL (4.8-10.8)
[2019-03-16 06:48] LABS: ANION GAP 5 mmol/L (5-15); BLOOD UREA NITROGEN 18 mg/dL (7-18); CALCIUM 9.1 MG/DL (8.5-10.1); CARBON DIOXIDE 31 MMOL/L (21-32); CHLORIDE 101 MMOL/L (98-107); CREATININE 1.2 MG/DL (0.55-1.30); POTASSIUM 4.8 MMOL/L (3.5-5.1); SODIUM 137 MMOL/L (136-145)
--- NOTE | 2019-03-16 07:09 | NUR ---
HAND-OFF: Report given to Esteban Plata RN. Patient in bed in stable condition, endorsed plan of care.
--- NOTE | 2019-03-16 07:10 | NUR ---
NURSE NOTES: Received report from ROXANNE Triana. The patient is having a breakfast on the bed without acute distress or shortness of breath. The patient's bed in the lowest position, call light in reach, and fall and aspiration precaution reinforced. IV is intact and patent. Will continue plan of care.
--- NOTE | 2019-03-16 07:10 | General Progress Note ---
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) ICD Codes: E22.2 - SIADH (syndrome of inappropriate ADH production) SNOMED: 65781349 (2) Syncope ICD Codes: R55 - Syncope and collapse SNOMED: 431370880 (3) Diabetes mellitus ICD Codes: E11.9 - Type 2 diabetes mellitus without complications SNOMED: 74919268 (4) Hypothyroid ICD Codes: E03.9 - Hypothyroidism, unspecified SNOMED: 86808436 (5) Sinus bradycardia ICD Codes: R00.1 - Bradycardia, unspecified SNOMED: 67989176 Assessment/Plan: continue Levothyroxine 75 mcg daily repeat thyroid function in one month - followed by endo Dr Kerry Ellis at [facility] NISS ac / hs Subjective Allergies: Coded Allergies: AMOXICILLIN (Verified Allergy, Unknown, 03/13/19) CLINDAMYCIN (Verified Allergy, Unknown, 03/13/19) All Systems: reviewed and negative except above Subjective events noted glucose values are controlled Item Value Date Time Bedside Blood Glucose 93 mg/dl 03/16/19 0612 Bedside Blood Glucose 96 mg/dl 03/15/19 2100 Bedside Blood Glucose 129 mg/dl H 03/15/19 1720 Bedside Blood Glucose 110 mg/dl 03/15/19 1130 Bedside Blood Glucose 81 mg/dl 03/15/19 0609 Objective Last 24 Hour Vital Signs Date Time Temp Pulse Resp B/P (MAP) Pulse Ox O2 Delivery O2 Flow Rate FiO2 03/16/19 04:00 97.5 52 18 145/82 (103) 96 03/16/19 04:00 51 03/16/19 00:00 56 03/16/19 00:00 97.6 56 19 127/70 (89) 96 03/15/19 21:00 Room Air 03/15/19 21:00 56 57 56 03/15/19 20:00 57 03/15/19 20:00 97.5 58 18 141/69 (93) 95 03/15/19 16:00 57 03/15/19 16:00 98.0 64 18 139/75 (96) 97 03/15/19 12:00 52 03/15/19 12:00 97.7 54 20 128/64 (85) 96 03/15/19 09:10 60 03/15/19 09:05 60 03/15/19 09:00 64 7/29/19 09:00 Room Air 03/15/19 08:00 97.9 54 20 160/73 (102) 97 03/15/19 08:00 57 Intake and Output 03/15/19 03/16/19 19:00 07:00 Intake Total 420 ml 120 ml Output Total 600 ml Balance 420 ml -480 ml Intake Oral 420 ml 120 ml Output Urine Total 600 ml # Voids 3 3 Laboratory Tests 03/16/19 06:00: White Blood Count 8.7, Red Blood Count 4.20L, Hemoglobin 14.6, Hematocrit 43.1, Mean Corpuscular Volume 103H, Mean Corpuscular Hemoglobin 34.7H, Mean Corpuscular Hemoglobin Concent 33.8, Red Cell Distribution Width 12.8, Platelet Count 275, Mean Platelet Volume 5.4L, Neutrophils (%) (Auto) 55.6, Lymphocytes ( %) (Auto) 26.6, Monocytes (%) (Auto) 10.0, Eosinophils (%) (Auto) 6.7H, Basophils (%) (Auto) 1.1, Sodium Level 137, Potassium Level 4.8, Chloride Level 101, Carbon Dioxide Level 31, Anion Gap 5, Blood Urea Nitrogen 18, Creatinine 1.2, Estimat Glomerular Filtration Rate , Glucose Level 102, Calcium Level 9.1 Height (Feet): 5 Height (Inches): 5.00 Weight (Pounds): 133 General Appearance: no apparent distress Neck: normal alignment Cardiovascular: bradycardia Respiratory/Chest: lungs clear Abdomen: normal bowel sounds Objective Current Medications Medications (Trade) Dose Ordered Sig/Lisa Route PRN Reason Start Time Stop Time Status Last Admin Dose Admin Acetaminophen (Tylenol) 650 mg Q6H PRN ORAL Mild Pain/Temp > 100.5 03/14/19 00:00 04/13/19 00:00 Aspirin (Ecotrin) 81 mg DAILY ORAL 03/14/19 09:00 04/13/19 08:59 03/15/19 08:29 Atorvastatin Calcium (Lipitor) 40 mg QHS ORAL 03/15/19 21:00 04/12/19 20:59 03/15/19 21:25 Dextrose (Dextrose 50%) 25 ml Q30M PRN IV Hypoglycemia 03/13/19 18:30 04/12/19 18:29 Dextrose (Dextrose 50%) 50 ml Q30M PRN IV Hypoglycemia 03/13/19 18:30 04/12/19 18:29 Docusate Sodium (Colace) 100 mg TWICE A DAY ORAL 03/16/19 09:00 04/15/19 08:59 Enalaprilat (Vasotec) 2.5 mg Q4H PRN IV sbp more than 180 03/14/19 08:30 04/13/19 08:29 Heparin Sodium (Porcine) (Heparin 5000 units/ml) 5,000 units EVERY 12 HOURS SUBQ 03/13/19 21:00 04/12/19 20:59 03/15/19 21:25 Hydralazine HCl (Apresoline) 20 mg Q4H PRN IV sbp more than 160 03/14/19 08:30 04/13/19 08:29 Insulin Aspart (NovoLOG) BEFORE MEALS AND HS SUBQ 03/13/19 21:00 04/12/19 20:59 03/15/19 17:20 Latanoprost (Xalatan) 1 drop Q24H BOTH EYES 03/14/19 23:00 04/13/19 22:59 03/15/19 23:14 Levothyroxine Sodium (Synthroid) 75 mcg DAILY@0630 ORAL 03/15/19 06:30 04/14/19 06:29 03/16/19 06:00 Patient Own Medication (Patient's Own Med) 1 ea DAILY ORAL 03/15/19 09:00 04/14/19 08:59 03/15/19 08:29 Patient Own Medication (Patient's Own Med) 1 ea DAILY ORAL 03/15/19 09:00 04/14/19 08:59 03/15/19 08:30 Patient Own Medication (Patient's Own Med) 1 ea Q12H BOTH EYES 03/14/19 11:00 04/13/19 10:59 03/15/19 23:15 Patient Own Medication (Patient's Own Med) 1 ea Q6H BOTH EYES 03/14/19 05:00 04/13/19 04:59 03/16/19 04:52 Polyethylene Glycol (Miralax) 17 gm DAILY PRN ORAL Constipation 03/15/19 19:00 04/14/19 18:59 03/15/19 19:04 Enrique Parks MD Mar 16, 2019 07:10
[2019-03-16 08:00] VITALS: BP 138/78
[2019-03-16] MEDS: Docusate 100mg cap ORAL SCH ×2 (08:30→17:10)
[2019-03-16] MEDS: Aspirin EC 81mg tab ORAL SCH (08:30)
[2019-03-16] MEDS: EDARBI 40 MG ORAL SCH (08:30)
[2019-03-16] MEDS: ONGLYZA 2.5 MG ORAL SCH (08:31)
[2019-03-16] MEDS: Heparin 5000 units/ml inj SUBQ SCH ×2 (08:32→21:52)
--- NOTE | 2019-03-16 10:41 | Pulmonology Progress Note ---
Assessment/Plan Problems: (1) Acute encephalopathy (2) Sinus bradycardia (3) Severe hypothyroidism (4) Cardiac arrhythmia (5) BPH (benign prostatic hyperplasia) (6) Diabetes mellitus Assessment/Plan lowest heart rater was 50, right now it is 71. On synthyroid 75 ugm/dialy blood sugar controlled off all negative chronotrop agents, still bradycardic cardio to see keep in teli Subjective ROS Limited/Unobtainable: No Interval Events: cardio note reviewed Constitutional: Reports: no symptoms HEENT: Repors: no symptoms Allergies: Coded Allergies: AMOXICILLIN (Verified Allergy, Unknown, 03/13/19) CLINDAMYCIN (Verified Allergy, Unknown, 03/13/19) Objective Last 24 Hour Vital Signs Date Time Temp Pulse Resp B/P (MAP) Pulse Ox O2 Delivery O2 Flow Rate FiO2 03/16/19 09:10 58 03/16/19 09:05 58 03/16/19 09:00 56 03/16/19 09:00 Room Air 03/16/19 08:00 97.4 58 18 138/78 (98) 96 03/16/19 04:00 97.5 52 18 145/82 (103) 96 03/16/19 04:00 51 03/16/19 00:00 56 03/16/19 00:00 97.6 56 19 127/70 (89) 96 03/15/19 21:00 Room Air 03/15/19 21:00 56 57 56 03/15/19 20:00 57 03/15/19 20:00 97.5 58 18 141/69 (93) 95 03/15/19 16:00 57 03/15/19 16:00 98.0 64 18 139/75 (96) 97 03/15/19 12:00 52 03/15/19 12:00 97.7 54 20 128/64 (85) 96 Intake and Output 03/15/19 03/16/19 19:00 07:00 Intake Total 420 ml 120 ml Output Total 600 ml Balance 420 ml -480 ml Intake Oral 420 ml 120 ml Output Urine Total 600 ml # Voids 3 3 General Appearance: WD/WN HEENT: normocephalic, atraumatic Respiratory/Chest: chest wall non-tender, no respiratory distress Cardiovascular: normal peripheral pulses, normal rate Abdomen: normal bowel sounds, soft, non tender Genitourinary: normal external genitalia Extremities: no cyanosis Laboratory Tests 03/16/19 06:00: White Blood Count 8.7, Red Blood Count 4.20L, Hemoglobin 14.6, Hematocrit 43.1, Mean Corpuscular Volume 103H, Mean Corpuscular Hemoglobin 34.7H, Mean Corpuscular Hemoglobin Concent 33.8, Red Cell Distribution Width 12.8, Platelet Count 275, Mean Platelet Volume 5.4L, Neutrophils (%) (Auto) 55.6, Lymphocytes ( %) (Auto) 26.6, Monocytes (%) (Auto) 10.0, Eosinophils (%) (Auto) 6.7H, Basophils (%) (Auto) 1.1, Sodium Level 137, Potassium Level 4.8, Chloride Level 101, Carbon Dioxide Level 31, Anion Gap 5, Blood Urea Nitrogen 18, Creatinine 1.2, Estimat Glomerular Filtration Rate , Glucose Level 102, Calcium Level 9.1 Current Medications Medications (Trade) Dose Ordered Sig/Lisa Route PRN Reason Start Time Stop Time Status Last Admin Dose Admin Acetaminophen (Tylenol) 650 mg Q6H PRN ORAL Mild Pain/Temp > 100.5 03/14/19 00:00 04/13/19 00:00 Aspirin (Ecotrin) 81 mg DAILY ORAL 03/14/19 09:00 04/13/19 08:59 03/16/19 08:30 Atorvastatin Calcium (Lipitor) 40 mg QHS ORAL 03/15/19 21:00 04/12/19 20:59 03/15/19 21:25 Dextrose (Dextrose 50%) 25 ml Q30M PRN IV Hypoglycemia 03/13/19 18:30 04/12/19 18:29 Dextrose (Dextrose 50%) 50 ml Q30M PRN IV Hypoglycemia 03/13/19 18:30 04/12/19 18:29 Docusate Sodium (Colace) 100 mg TWICE A DAY ORAL 03/16/19 09:00 04/15/19 08:59 03/16/19 08:30 Enalaprilat (Vasotec) 2.5 mg Q4H PRN IV sbp more than 180 03/14/19 08:30 04/13/19 08:29 Heparin Sodium (Porcine) (Heparin 5000 units/ml) 5,000 units EVERY 12 HOURS SUBQ 03/13/19 21:00 04/12/19 20:59 03/16/19 08:32 Hydralazine HCl (Apresoline) 20 mg Q4H PRN IV sbp more than 160 03/14/19 08:30 04/13/19 08:29 Insulin Aspart (NovoLOG) BEFORE MEALS AND HS SUBQ 03/13/19 21:00 04/12/19 20:59 03/15/19 17:20 Latanoprost (Xalatan) 1 drop Q24H BOTH EYES 03/14/19 23:00 04/13/19 22:59 03/15/19 23:14 Levothyroxine Sodium (Synthroid) 75 mcg DAILY@0630 ORAL 03/15/19 06:30 04/14/19 06:29 03/16/19 06:00 Patient Own Medication (Patient's Own Med) 1 ea DAILY ORAL 03/15/19 09:00 04/14/19 08:59 03/16/19 08:30 Patient Own Medication (Patient's Own Med) 1 ea DAILY ORAL 03/15/19 09:00 04/14/19 08:59 03/16/19 08:31 Patient Own Medication (Patient's Own Med) 1 ea Q12H BOTH EYES 03/14/19 11:00 04/13/19 10:59 03/15/19 23:15 Patient Own Medication (Patient's Own Med) 1 ea Q6H BOTH EYES 03/14/19 05:00 04/13/19 04:59 03/16/19 04:52 Polyethylene Glycol (Miralax) 17 gm DAILY PRN ORAL Constipation 03/15/19 19:00 04/14/19 18:59 03/15/19 19:04 Zoe Lynn MD Mar 16, 2019 10:41
[2019-03-16] MEDS: [UNRECOGNIZED DRUG - OTHER] BOTH EYES SCH ×2 (11:09→23:12)
[2019-03-16 12:00] VITALS: BP 138/72
--- NOTE | 2019-03-16 12:00 | NUR ---
NURSE NOTES: The patient is stable without acute distress or shortness of breath. The patient is bed in the lowest position, call light in reach, and fall and aspiration precaution reinforced. Will continue plan of care.
--- NOTE | 2019-03-16 12:32 | CDS Physician Query ---
Clarification is required for compliance, coding accuracy, and to reflect severity of illness for this patient Dear Dr. Zoe Lynn Date: 03/16/2019 Coal Inspector/CDS Name: Bree Beth Clinical documentation shows: 03/13 consult: 83-year-old with past medical history of hypertension, COPD, and diabetes. The patient presented to the emergency room at [facility] with a chief complaint of dizziness and syncopal episode. Pt was hypotensive with SBP of 70's in the scene. He had a CT of head at [facility] which was negative... Acute encephalopathy 03/15 cardio note: Syncope and bradycardia. The patient will be ruled out for myocardial infarction. His TSH is 88 and free T4 of 0.91 and free T3 of 1.5. This may be due to the patient's hypothyroidism Care trends: neurologic: GCS 9 on 03/13 Please indicate the nature and chronicity of the condition below: [x] Metabolic Encephalopathy [] Toxic Encephalopathy [] Toxic - Metabolic Encephalopathy [] Encephalopathy, Other [] Dementia with Delirium [] Hypoxic encephalopathy [] Other: [] Not Applicable Present on Admission: [x] Yes [] No [] Clinically Undetermined Physician signature Date Please also document in your Progress Notes and/or Discharge Summary and indicate if the condition was present on admission. ANGELICD
--- NOTE | 2019-03-16 13:27 | NUR ---
CASE MANAGEMENT:REVIEW 03/16/19 SI: ACUTE ENCEPHALOPATHY BRADYCARDIA. COPD HYPOTHYROIDISM 97.7 57 18 138/72 96% ON RA IS: SYNTHROID 75 MCG PO QD ASA PO QD SS INSULIN AC+HS HEPARIN SQ Q12 : TELEMETRY STATUS DCP: FROM HOME PLAN: SYNTHROID DOSE WAS INCREASED CARDIO WAS CONSULTED WILL CONTINUE TO
--- NOTE | 2019-03-16 15:45 | NUR ---
*-* INSURANCE *-* ALL CLINICALS AND REVIEWS HAVE BEEN FAXED TO: [facility] REF# [id number] F:[phone]
[2019-03-16 16:00] VITALS: BP 132/67
--- NOTE | 2019-03-16 16:57 | Internal Med Progress Note ---
Subjective Date of Service: Mar 16, 2019 Physician Name Micah Contreras Attending Physician Neel De MD Current Medications Medications (Trade) Dose Ordered Sig/Lisa Route PRN Reason Start Time Stop Time Status Last Admin Dose Admin Acetaminophen (Tylenol) 650 mg Q6H PRN ORAL Mild Pain/Temp > 100.5 03/14/19 00:00 04/13/19 00:00 Aspirin (Ecotrin) 81 mg DAILY ORAL 03/14/19 09:00 04/13/19 08:59 03/16/19 08:30 Atorvastatin Calcium (Lipitor) 40 mg QHS ORAL 03/15/19 21:00 04/12/19 20:59 03/15/19 21:25 Dextrose (Dextrose 50%) 25 ml Q30M PRN IV Hypoglycemia 03/13/19 18:30 04/12/19 18:29 Dextrose (Dextrose 50%) 50 ml Q30M PRN IV Hypoglycemia 03/13/19 18:30 04/12/19 18:29 Docusate Sodium (Colace) 100 mg TWICE A DAY ORAL 03/16/19 09:00 04/15/19 08:59 03/16/19 08:30 Enalaprilat (Vasotec) 2.5 mg Q4H PRN IV sbp more than 180 03/14/19 08:30 04/13/19 08:29 Heparin Sodium (Porcine) (Heparin 5000 units/ml) 5,000 units EVERY 12 HOURS SUBQ 03/13/19 21:00 04/12/19 20:59 03/16/19 08:32 Hydralazine HCl (Apresoline) 20 mg Q4H PRN IV sbp more than 160 03/14/19 08:30 04/13/19 08:29 Insulin Aspart (NovoLOG) BEFORE MEALS AND HS SUBQ 03/13/19 21:00 04/12/19 20:59 03/15/19 17:20 Latanoprost (Xalatan) 1 drop Q24H BOTH EYES 03/14/19 23:00 04/13/19 22:59 03/15/19 23:14 Levothyroxine Sodium (Synthroid) 75 mcg DAILY@0630 ORAL 03/15/19 06:30 04/14/19 06:29 03/16/19 06:00 Patient Own Medication (Patient's Own Med) 1 ea DAILY ORAL 03/15/19 09:00 04/14/19 08:59 03/16/19 08:30 Patient Own Medication (Patient's Own Med) 1 ea DAILY ORAL 03/15/19 09:00 04/14/19 08:59 03/16/19 08:31 Patient Own Medication (Patient's Own Med) 1 ea Q12H BOTH EYES 03/14/19 11:00 04/13/19 10:59 03/16/19 11:09 Patient Own Medication (Patient's Own Med) 1 ea Q6H BOTH EYES 03/14/19 05:00 04/13/19 04:59 03/16/19 11:10 Polyethylene Glycol (Miralax) 17 gm DAILY PRN ORAL Constipation 03/15/19 19:00 04/14/19 18:59 03/15/19 19:04 Allergies: Coded Allergies: AMOXICILLIN (Verified Allergy, Unknown, 03/13/19) CLINDAMYCIN (Verified Allergy, Unknown, 03/13/19) ROS Limited/Unobtainable: No Constitutional: Reports: no symptoms HEENT: Reports: no symptoms Cardiovascular: Reports: no symptoms Respiratory: Reports: no symptoms Gastrointestinal/Abdominal: Reports: no symptoms Genitourinary: Reports: no symptoms Neurologic/Psychiatric: Reports: no symptoms Subjective 83 YO M admitted with syncope. Now bradycardia. Cover for Int med-Dr De Objective Last Vital Signs Date Time Temp Pulse Resp B/P (MAP) Pulse Ox O2 Delivery O2 Flow Rate FiO2 03/16/19 12:00 97.7 57 18 138/72 (94) 96 03/16/19 09:00 Room Air Laboratory Tests Test 03/16/19 06:00 White Blood Count 8.7 K/UL (4.8-10.8) Red Blood Count 4.20 M/UL (4.70-6.10) L Hemoglobin 14.6 G/DL (14.2-18.0) Hematocrit 43.1 % (42.0-52.0) Mean Corpuscular Volume 103 FL (80-99) H Mean Corpuscular Hemoglobin 34.7 PG (27.0-31.0) H Mean Corpuscular Hemoglobin Concent 33.8 G/DL (32.0-36.0) Red Cell Distribution Width 12.8 % (11.6-14.8) Platelet Count 275 K/UL (150-450) Mean Platelet Volume 5.4 FL (6.5-10.1) L Neutrophils (%) (Auto) 55.6 % (45.0-75.0) Lymphocytes (%) (Auto) 26.6 % (20.0-45.0) Monocytes (%) (Auto) 10.0 % (1.0-10.0) Eosinophils (%) (Auto) 6.7 % (0.0-3.0) H Basophils (%) (Auto) 1.1 % (0.0-2.0) Sodium Level 137 MMOL/L (136-145) Potassium Level 4.8 MMOL/L (3.5-5.1) Chloride Level 101 MMOL/L (98-107) Carbon Dioxide Level 31 MMOL/L (21-32) Anion Gap 5 mmol/L (5-15) Blood Urea Nitrogen 18 mg/dL (7-18) Creatinine 1.2 MG/DL (0.55-1.30) Estimat Glomerular Filtration Rate mL/min (>60) Glucose Level 102 MG/DL (74-106) Calcium Level 9.1 MG/DL (8.5-10.1) Intake and Output 03/15/19 03/16/19 19:00 07:00 Intake Total 420 ml 120 ml Output Total 600 ml Balance 420 ml -480 ml Intake Oral 420 ml 120 ml Output Urine Total 600 ml # Voids 3 3 Objective PHYSICAL EXAMINATION: GENERAL: The patient is well-developed, well-nourished, thin-appearing male, in no apparent distress. HEENT: Eyes, pupils equal responsive to light and accommodation. Extraocular movements are intact. NECK: Supple without lymphadenopathy. CHEST: Lungs are clear to auscultation bilaterally without wheezes or rales. CARDIOVASCULAR: Regular rate. S1, S2 normal without murmurs, rubs, or gallops. ABDOMEN: Soft, nontender, and nondistended. Positive bowel sounds. No evidence of hepatosplenomegaly. Currently, no rebound or guarding noted. EXTREMITIES: Negative for clubbing, cyanosis, or edema. RECTAL/GENITAL: Not performed. NEUROLOGIC: Cranial nerves II through XII are grossly intact without focal deficits. Motor strength is 5/5 bilaterally. Deep tendon reflexes are 2+ plantar. Assessment/Plan Assessment/Plan ASSESSMENT: This is an 83-year-old male. 1. Near syncopal episode. 2. Bradycardia. 3. History of atrial fibrillation. 4. Diabetes type 2. 5. Hypertension. 6. Chronic obstructive pulmonary disease. 7. Hypothyroidism. 8. Hypercholesterolemia. 9. Glaucoma. 10. Benign prostatic hypertrophy. Plan: 1. Near syncope/bradycardia. Cardiology consultation with Dr. Irving Kumar. Bradycardia may be secondary to amiodarone versus underlying cardiac arrhythmia. We will follow recommendations of Cardiology. 2. History of atrial fibrillation. The patient is currently in sinus bradycardia rhythm. 3. Diabetes type 2. The patient has been placed on a NovoLog sliding scale. 4. Hypertension. Continue Norvasc as above. 5. Chronic obstructive pulmonary disease. A Pulmonary consultation obtained with Dr. Zoe Lynn. Continue DuoNeb as above. 6. Hypothyroidism. The patient's TSH is elevated. Continue Synthroid as above. A thyroid panel is pending. 7. Hypercholesterolemia. Continue Zetia as above. 8. Glaucoma. Continue eye drops as above. 9. Benign prostatic hypertrophy. Continue Flomax as above. Micah Contreras MD Mar 16, 2019 16:57
--- NOTE | 2019-03-16 17:14 | Cardiac Electrophysiology PN ---
Assessment/Plan Assessment/Plan 1. Syncope and bradycardia. Ruled out for myocardial infarction. His TSH is 88 and free T4 of 0.91 and free T3 of 1.5. This may be due to the patient's hypothyroidism. The patient's Synthroid was increased to [address] Parks. We will watch the patient on telemetry. Avoid the patient on any AV trinh blockers. Echo EF 60%. Needs Zio patch as out patient 2. History of atrial fibrillation. The patient is only on aspirin, not on any other anticoagulation. Currently in sinus rhythm. The patient may have sick sinus syndrome due to paroxysmal atrial fibrillation. 3. Hyperlipidemia. On Lipitor. 4. Hypothyroidism. On Synthroid. 5. Hypertension. On p.r.n. hydralazine. DW and son at bedside Subjective Subjective Remained in SR/ SB. No CP or SOB. Family at bedside Objective Last 24 Hour Vital Signs Date Time Temp Pulse Resp B/P (MAP) Pulse Ox O2 Delivery O2 Flow Rate FiO2 03/16/19 12:00 97.7 57 18 138/72 (94) 96 03/16/19 12:00 57 03/16/19 09:10 58 03/16/19 09:05 58 03/16/19 09:00 56 03/16/19 09:00 Room Air 03/16/19 08:00 57 03/16/19 08:00 97.4 58 18 138/78 (98) 96 03/16/19 04:00 97.5 52 18 145/82 (103) 96 03/16/19 04:00 51 03/16/19 00:00 56 03/16/19 00:00 97.6 56 19 127/70 (89) 96 03/15/19 21:00 Room Air 03/15/19 21:00 56 57 56 03/15/19 20:00 57 03/15/19 20:00 97.5 58 18 141/69 (93) 95 Intake and Output 03/15/19 03/16/19 18:59 06:59 Intake Total 560 ml 120 ml Output Total 600 ml Balance 560 ml -480 ml Intake Oral 560 ml 120 ml Output Urine Total 600 ml # Voids 3 3 Laboratory Tests Test 03/16/19 06:00 White Blood Count 8.7 K/UL (4.8-10.8) Red Blood Count 4.20 M/UL (4.70-6.10) L Hemoglobin 14.6 G/DL (14.2-18.0) Hematocrit 43.1 % (42.0-52.0) Mean Corpuscular Volume 103 FL (80-99) H Mean Corpuscular Hemoglobin 34.7 PG (27.0-31.0) H Mean Corpuscular Hemoglobin Concent 33.8 G/DL (32.0-36.0) Red Cell Distribution Width 12.8 % (11.6-14.8) Platelet Count 275 K/UL (150-450) Mean Platelet Volume 5.4 FL (6.5-10.1) L Neutrophils (%) (Auto) 55.6 % (45.0-75.0) Lymphocytes (%) (Auto) 26.6 % (20.0-45.0) Monocytes (%) (Auto) 10.0 % (1.0-10.0) Eosinophils (%) (Auto) 6.7 % (0.0-3.0) H Basophils (%) (Auto) 1.1 % (0.0-2.0) Sodium Level 137 MMOL/L (136-145) Potassium Level 4.8 MMOL/L (3.5-5.1) Chloride Level 101 MMOL/L (98-107) Carbon Dioxide Level 31 MMOL/L (21-32) Anion Gap 5 mmol/L (5-15) Blood Urea Nitrogen 18 mg/dL (7-18) Creatinine 1.2 MG/DL (0.55-1.30) Estimat Glomerular Filtration Rate mL/min (>60) Glucose Level 102 MG/DL (74-106) Calcium Level 9.1 MG/DL (8.5-10.1) Objective HEAD AND NECK: Showed no JVD. LUNGS: Clear. CARDIOVASCULAR: Shows bradycardic S1 and S2 with no gallop or murmur. ABDOMEN: Soft. EXTREMITIES: No pitting edema. Irving Kumar MD Mar 16, 2019 17:14
--- NOTE | 2019-03-16 17:43 | Cardiology Report ---
APPROVED REPORT EKG Measurement Heart [id number] Sinus bradycardia Left anterior fascicular block Nonspecific ST and T wave abnormality Prolonged QT Abnormal ECG
--- NOTE | 2019-03-16 19:45 | NUR ---
NURSE NOTES: Received report from ROXANNE Mcdowell. Patient sitting up high hassan in bed showing no signs of acute distress. Respiration even and non labored on room air. No sob noted. IV noted on right FA 18g SL. Patent and intact. Call light within reach, bed in lowest position, wheels locked and side rails up x2. All needs attended and met. Will continue plan of care.
[2019-03-16 20:00] VITALS: BP 148/75
[2019-03-16] MEDS: Atorvastatin 20mg tab ORAL SCH (21:51)
[2019-03-16] MEDS: Latanoprost 0.005% Opth 2.5ml Soln BOTH EYES SCH (23:12)
[2019-03-17] VITALS: BP 135/70
[2019-03-17 04:00] VITALS: BP 124/98
[2019-03-17] MEDS: NovoLOG Insulin Flexpen SUBQ SCH ×2 (06:01→11:30)
[2019-03-17 06:09] LABS: BASOPHILS % (AUTO) 1.2 % (0.0-2.0); EOSINOPHILS % (AUTO) 6.9 % (0.0-3.0); HEMATOCRIT 41.5 % (42.0-52.0); LYMPHOCYTES % (AUTO) 32.4 % (20.0-45.0); MEAN CORPUSCULAR VOLUME 102 FL (80-99); MONOCYTES % (AUTO) 9.2 % (1.0-10.0); NEUTROPHILS % (AUTO) 50.4 % (45.0-75.0); PLATELET COUNT 263 K/UL (150-450); RED BLOOD COUNT 4.06 M/UL (4.70-6.10); RED CELL DISTRIBUTION WIDTH 12.6 % (11.6-14.8); WHITE BLOOD COUNT 7.4 K/UL (4.8-10.8)
[2019-03-17] MEDS: Pilocarpine 4% Opth Soln BOTH EYES SCH ×2 (06:16→11:14)
[2019-03-17 06:21] LABS: ANION GAP 4 mmol/L (5-15); BLOOD UREA NITROGEN 18 mg/dL (7-18); CALCIUM 8.9 MG/DL (8.5-10.1); CARBON DIOXIDE 29 MMOL/L (21-32); CHLORIDE 101 MMOL/L (98-107); CREATININE 1.1 MG/DL (0.55-1.30); POTASSIUM 4.5 MMOL/L (3.5-5.1); SODIUM 134 MMOL/L (136-145)
--- NOTE | 2019-03-17 07:14 | NUR ---
HAND-OFF: Report given to ROXANNE Mcdowell.
--- NOTE | 2019-03-17 07:15 | NUR ---
NURSE NOTES: Received report from ROXANNE White. The patient is resting on the bed without acute distress, shortness of breath, or dizziness. The patient's bed in the lowest position, call light in reach, and fall and aspiration precaution reinforced. IV intact and patent. Will continue plan of care.
--- NOTE | 2019-03-17 07:23 | General Progress Note ---
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) ICD Codes: E22.2 - SIADH (syndrome of inappropriate ADH production) SNOMED: 40818873 (2) Syncope ICD Codes: R55 - Syncope and collapse SNOMED: 237280758 (3) Diabetes mellitus ICD Codes: E11.9 - Type 2 diabetes mellitus without complications SNOMED: 60410270 (4) Hypothyroid ICD Codes: E03.9 - Hypothyroidism, unspecified SNOMED: 93726874 (5) Sinus bradycardia ICD Codes: R00.1 - Bradycardia, unspecified SNOMED: 16907085 Assessment/Plan: continue Levothyroxine 75 mcg daily repeat thyroid function in one month - followed by endo Dr Kerry Ellis at [facility] ac / hs Subjective Allergies: Coded Allergies: AMOXICILLIN (Verified Allergy, Unknown, 03/13/19) CLINDAMYCIN (Verified Allergy, Unknown, 03/13/19) All Systems: reviewed and negative except above Subjective events noted glucose values are controlled Item Value Date Time Bedside Blood Glucose 101 mg/dl 03/17/19 0630 Bedside Blood Glucose 119 mg/dl 03/16/19 2153 Bedside Blood Glucose 127 mg/dl H 03/16/19 1709 Bedside Blood Glucose 102 mg/dl 03/16/19 1130 Bedside Blood Glucose 93 mg/dl 03/16/19 0612 Objective Last 24 Hour Vital Signs Date Time Temp Pulse Resp B/P (MAP) Pulse Ox O2 Delivery O2 Flow Rate FiO2 03/17/19 04:00 97.0 56 19 124/98 (107) 97 03/17/19 04:00 53 03/17/19 00:00 97.3 56 18 135/70 (91) 99 03/17/19 00:00 58 03/16/19 21:00 Room Air 03/16/19 21:00 56 55 57 03/16/19 20:00 60 03/16/19 20:00 97.1 59 19 148/75 (99) 99 03/16/19 16:00 97.7 55 18 132/67 (88) 95 03/16/19 16:00 54 03/16/19 12:00 97.7 57 18 138/72 (94) 96 03/16/19 12:00 57 03/16/19 09:10 58 03/16/19 09:05 58 03/16/19 09:00 56 03/16/19 09:00 Room Air 03/16/19 08:00 57 03/16/19 08:00 97.4 58 18 138/78 (98) 96 Intake and Output 03/16/19 03/17/19 19:00 07:00 Intake Total 360 ml Output Total 700 ml 800 ml Balance -340 ml -800 ml Intake Oral 360 ml Output Urine Total 700 ml 800 ml # Voids 3 Laboratory Tests 03/17/19 05:50: White Blood Count 7.4, Red Blood Count 4.06L, Hemoglobin 14.0L, Hematocrit 41.5L , Mean Corpuscular Volume 102H, Mean Corpuscular Hemoglobin 34.5H, Mean Corpuscular Hemoglobin Concent 33.7, Red Cell Distribution Width 12.6, Platelet Count 263, Mean Platelet Volume 5.3L, Neutrophils (%) (Auto) 50.4, Lymphocytes ( %) (Auto) 32.4, Monocytes (%) (Auto) 9.2, Eosinophils (%) (Auto) 6.9H, Basophils (%) (Auto) 1.2, Sodium Level 134L, Potassium Level 4.5, Chloride Level 101, Carbon Dioxide Level 29, Anion Gap 4L, Blood Urea Nitrogen 18, Creatinine 1.1, Estimat Glomerular Filtration Rate , Glucose Level 107H, Calcium Level 8.9 Height (Feet): 5 Height (Inches): 5.00 Weight (Pounds): 132 General Appearance: no apparent distress Neck: normal alignment Cardiovascular: normal rate Respiratory/Chest: lungs clear Abdomen: normal bowel sounds Pelvis: normal external exam Objective Current Medications Medications (Trade) Dose Ordered Sig/Lisa Route PRN Reason Start Time Stop Time Status Last Admin Dose Admin Acetaminophen (Tylenol) 650 mg Q6H PRN ORAL Mild Pain/Temp > 100.5 03/14/19 00:00 04/13/19 00:00 Aspirin (Ecotrin) 81 mg DAILY ORAL 03/14/19 09:00 04/13/19 08:59 03/16/19 08:30 Atorvastatin Calcium (Lipitor) 40 mg QHS ORAL 03/15/19 21:00 04/12/19 20:59 03/16/19 21:51 Dextrose (Dextrose 50%) 25 ml Q30M PRN IV Hypoglycemia 03/13/19 18:30 04/12/19 18:29 Dextrose (Dextrose 50%) 50 ml Q30M PRN IV Hypoglycemia 03/13/19 18:30 04/12/19 18:29 Docusate Sodium (Colace) 100 mg TWICE A DAY ORAL 03/16/19 09:00 04/15/19 08:59 03/16/19 17:10 Enalaprilat (Vasotec) 2.5 mg Q4H PRN IV sbp more than 180 03/14/19 08:30 04/13/19 08:29 Heparin Sodium (Porcine) (Heparin 5000 units/ml) 5,000 units EVERY 12 HOURS SUBQ 03/13/19 21:00 04/12/19 20:59 03/16/19 21:52 Hydralazine HCl (Apresoline) 20 mg Q4H PRN IV sbp more than 160 03/14/19 08:30 04/13/19 08:29 Insulin Aspart (NovoLOG) BEFORE MEALS AND HS SUBQ 03/13/19 21:00 04/12/19 20:59 03/16/19 21:53 Latanoprost (Xalatan) 1 drop Q24H BOTH EYES 03/14/19 23:00 04/13/19 22:59 03/16/19 23:12 Levothyroxine Sodium (Synthroid) 75 mcg DAILY@0630 ORAL 03/15/19 06:30 04/14/19 06:29 03/17/19 06:17 Patient Own Medication (Patient's Own Med) 1 ea DAILY ORAL 03/15/19 09:00 04/14/19 08:59 03/16/19 08:30 Patient Own Medication (Patient's Own Med) 1 ea DAILY ORAL 03/15/19 09:00 04/14/19 08:59 03/16/19 08:31 Patient Own Medication (Patient's Own Med) 1 ea Q12H BOTH EYES 03/14/19 11:00 04/13/19 10:59 03/16/19 23:12 Patient Own Medication (Patient's Own Med) 1 ea Q6H BOTH EYES 03/14/19 05:00 04/13/19 04:59 03/17/19 06:16 Polyethylene Glycol (Miralax) 17 gm DAILY PRN ORAL Constipation 03/15/19 19:00 04/14/19 18:59 03/15/19 19:04 Enrique Parks MD Mar 17, 2019 07:23
[2019-03-17 08:00] VITALS: BP 144/72
[2019-03-17] MEDS: Docusate 100mg cap ORAL SCH (08:44)
[2019-03-17] MEDS: Aspirin EC 81mg tab ORAL SCH (08:44)
[2019-03-17] MEDS: ONGLYZA 2.5 MG ORAL SCH (08:45)
[2019-03-17] MEDS: EDARBI 40 MG ORAL SCH (08:45)
[2019-03-17] MEDS: Heparin 5000 units/ml inj SUBQ SCH (08:46)
--- NOTE | 2019-03-17 08:57 | Diagnostic Imaging Report ---
APPROVED REPORT CPT Code: 69208 Present Symptoms Comments: Screening BILATERAL: Imaging reveals a patent deep venous system bilaterally. There is no evidence of thrombus within the femoral, popliteal or tibial segments. The greater saphenous veins are also within normal limits. Doppler indicates normal spontaneous flow within these segments.
--- NOTE | 2019-03-17 08:58 | Diagnostic Imaging Report ---
APPROVED REPORT CPT Code: 29632 Vascular Symptoms Comments: Syncope Doppler Spectral Velocity Analysis RightLeft RIGHT SIDE: CCA - Imaging reveals no significant plaque in the common carotid artery. ICA arteries. The Doppler signal indicates the degree of stenosis is minimal (10-20%) in the internal carotid, and (10-20%) in the external carotid arteries. LEFT SIDE: CCA - Imaging reveals no significant plaque within the extracranial carotid arteries. The Doppler spectral flow analysis is within normal limits throughout the extracranial carotid arteries. VERTEBRAL - The vertebral artery is within normal limits. VERTEBRAL/SUBCLAVIAN- The vertebral artery and subclavian artery are patent, without evidence of stenosis or steal, bilaterally.
--- NOTE | 2019-03-17 10:05 | NUR ---
DISCHARGE PLANNING PER MD'S ORDER REFERRED TO [facility] T: [phone] F: [phone]
--- NOTE | 2019-03-17 11:11 | Pulmonology Progress Note ---
Assessment/Plan Problems: (1) Acute encephalopathy (2) Sinus bradycardia (3) Severe hypothyroidism (4) Cardiac arrhythmia (5) BPH (benign prostatic hyperplasia) (6) Diabetes mellitus Assessment/Plan lowest heart rater was 47-58 On synthyroid 75 ugm/dialy blood sugar controlled off all negative chronotrop agents, still bradycardic cardio f/u dc planning as per cardio Subjective ROS Limited/Unobtainable: No Constitutional: Reports: no symptoms HEENT: Repors: no symptoms Respiratory: Reports: no symptoms Allergies: Coded Allergies: AMOXICILLIN (Verified Allergy, Unknown, 03/13/19) CLINDAMYCIN (Verified Allergy, Unknown, 03/13/19) Objective Last 24 Hour Vital Signs Date Time Temp Pulse Resp B/P (MAP) Pulse Ox O2 Delivery O2 Flow Rate FiO2 03/17/19 09:00 Room Air 03/17/19 08:00 98.4 53 18 144/72 (96) 97 03/17/19 07:59 58 03/17/19 04:00 97.0 56 19 124/98 (107) 97 03/17/19 04:00 53 03/17/19 00:00 97.3 56 18 135/70 (91) 99 03/17/19 00:00 58 03/16/19 21:00 Room Air 03/16/19 21:00 56 55 57 03/16/19 20:00 60 03/16/19 20:00 97.1 59 19 148/75 (99) 99 03/16/19 16:00 97.7 55 18 132/67 (88) 95 03/16/19 16:00 54 03/16/19 12:00 97.7 57 18 138/72 (94) 96 03/16/19 12:00 57 Intake and Output 03/16/19 03/17/19 19:00 07:00 Intake Total 360 ml 140 ml Output Total 700 ml 800 ml Balance -340 ml -660 ml Intake Oral 360 ml 140 ml Output Urine Total 700 ml 800 ml # Voids 3 General Appearance: WD/WN HEENT: normocephalic, atraumatic Respiratory/Chest: chest wall non-tender, lungs clear Cardiovascular: normal peripheral pulses, normal rate Abdomen: normal bowel sounds, no organomegaly Extremities: no cyanosis Skin: no rash 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 Laboratory Tests 03/17/19 05:50: White Blood Count 7.4, Red Blood Count 4.06L, Hemoglobin 14.0L, Hematocrit 41.5L , Mean Corpuscular Volume 102H, Mean Corpuscular Hemoglobin 34.5H, Mean Corpuscular Hemoglobin Concent 33.7, Red Cell Distribution Width 12.6, Platelet Count 263, Mean Platelet Volume 5.3L, Neutrophils (%) (Auto) 50.4, Lymphocytes ( %) (Auto) 32.4, Monocytes (%) (Auto) 9.2, Eosinophils (%) (Auto) 6.9H, Basophils (%) (Auto) 1.2, Sodium Level 134L, Potassium Level 4.5, Chloride Level 101, Carbon Dioxide Level 29, Anion Gap 4L, Blood Urea Nitrogen 18, Creatinine 1.1, Estimat Glomerular Filtration Rate , Glucose Level 107H, Calcium Level 8.9 Current Medications Medications (Trade) Dose Ordered Sig/Lisa Route PRN Reason Start Time Stop Time Status Last Admin Dose Admin Acetaminophen (Tylenol) 650 mg Q6H PRN ORAL Mild Pain/Temp > 100.5 03/14/19 00:00 04/13/19 00:00 Aspirin (Ecotrin) 81 mg DAILY ORAL 03/14/19 09:00 04/13/19 08:59 03/17/19 08:44 Atorvastatin Calcium (Lipitor) 40 mg QHS ORAL 03/15/19 21:00 04/12/19 20:59 03/16/19 21:51 Dextrose (Dextrose 50%) 25 ml Q30M PRN IV Hypoglycemia 03/13/19 18:30 04/12/19 18:29 Dextrose (Dextrose 50%) 50 ml Q30M PRN IV Hypoglycemia 03/13/19 18:30 04/12/19 18:29 Docusate Sodium (Colace) 100 mg TWICE A DAY ORAL 03/16/19 09:00 04/15/19 08:59 03/17/19 08:44 Enalaprilat (Vasotec) 2.5 mg Q4H PRN IV sbp more than 180 03/14/19 08:30 04/13/19 08:29 Heparin Sodium (Porcine) (Heparin 5000 units/ml) 5,000 units EVERY 12 HOURS SUBQ 03/13/19 21:00 04/12/19 20:59 03/17/19 08:46 Hydralazine HCl (Apresoline) 20 mg Q4H PRN IV sbp more than 160 03/14/19 08:30 04/13/19 08:29 Insulin Aspart (NovoLOG) BEFORE MEALS AND HS SUBQ 03/13/19 21:00 04/12/19 20:59 03/16/19 21:53 Latanoprost (Xalatan) 1 drop Q24H BOTH EYES 03/14/19 23:00 04/13/19 22:59 03/16/19 23:12 Levothyroxine Sodium (Synthroid) 75 mcg DAILY@0630 ORAL 03/15/19 06:30 04/14/19 06:29 03/17/19 06:17 Patient Own Medication (Patient's Own Med) 1 ea DAILY ORAL 03/15/19 09:00 04/14/19 08:59 03/17/19 08:45 Patient Own Medication (Patient's Own Med) 1 ea DAILY ORAL 03/15/19 09:00 04/14/19 08:59 03/17/19 08:45 Patient Own Medication (Patient's Own Med) 1 ea Q12H BOTH EYES 03/14/19 11:00 04/13/19 10:59 03/16/19 23:12 Patient Own Medication (Patient's Own Med) 1 ea Q6H BOTH EYES 03/14/19 05:00 04/13/19 04:59 03/17/19 06:16 Polyethylene Glycol (Miralax) 17 gm DAILY PRN ORAL Constipation 03/15/19 19:00 04/14/19 18:59 03/15/19 19:04 Zoe Lynn MD Mar 17, 2019 11:11
[2019-03-17] MEDS: [UNRECOGNIZED DRUG - OTHER] BOTH EYES SCH (11:14)
[2019-03-17] MEDS ORDERED: LEVOTHYROXINE75 MCG ORAL (11:51)
--- NOTE | 2019-03-17 11:54 | NUR ---
NURSE NOTES: Per Dr. Contreras, the patient can be discharged to home with home health. Will carry out the order.
--- NOTE | 2019-03-17 11:59 | Internal Med Progress Note ---
Subjective Date of Service: Mar 17, 2019 Physician Name DianeMicah Attending Physician Neel De MD Current Medications Medications (Trade) Dose Ordered Sig/Lisa Route PRN Reason Start Time Stop Time Status Last Admin Dose Admin Acetaminophen (Tylenol) 650 mg Q6H PRN ORAL Mild Pain/Temp > 100.5 03/14/19 00:00 04/13/19 00:00 Aspirin (Ecotrin) 81 mg DAILY ORAL 03/14/19 09:00 04/13/19 08:59 03/17/19 08:44 Atorvastatin Calcium (Lipitor) 40 mg QHS ORAL 03/15/19 21:00 04/12/19 20:59 03/16/19 21:51 Dextrose (Dextrose 50%) 25 ml Q30M PRN IV Hypoglycemia 03/13/19 18:30 04/12/19 18:29 Dextrose (Dextrose 50%) 50 ml Q30M PRN IV Hypoglycemia 03/13/19 18:30 04/12/19 18:29 Docusate Sodium (Colace) 100 mg TWICE A DAY ORAL 03/16/19 09:00 04/15/19 08:59 03/17/19 08:44 Enalaprilat (Vasotec) 2.5 mg Q4H PRN IV sbp more than 180 03/14/19 08:30 04/13/19 08:29 Heparin Sodium (Porcine) (Heparin 5000 units/ml) 5,000 units EVERY 12 HOURS SUBQ 03/13/19 21:00 04/12/19 20:59 03/17/19 08:46 Hydralazine HCl (Apresoline) 20 mg Q4H PRN IV sbp more than 160 03/14/19 08:30 04/13/19 08:29 Insulin Aspart (NovoLOG) BEFORE MEALS AND HS SUBQ 03/13/19 21:00 04/12/19 20:59 03/16/19 21:53 Latanoprost (Xalatan) 1 drop Q24H BOTH EYES 03/14/19 23:00 04/13/19 22:59 03/16/19 23:12 Levothyroxine Sodium (Synthroid) 75 mcg DAILY@0630 ORAL 03/15/19 06:30 04/14/19 06:29 03/17/19 06:17 Patient Own Medication (Patient's Own Med) 1 ea DAILY ORAL 03/15/19 09:00 04/14/19 08:59 03/17/19 08:45 Patient Own Medication (Patient's Own Med) 1 ea DAILY ORAL 03/15/19 09:00 04/14/19 08:59 03/17/19 08:45 Patient Own Medication (Patient's Own Med) 1 ea Q12H BOTH EYES 03/14/19 11:00 04/13/19 10:59 03/17/19 11:14 Patient Own Medication (Patient's Own Med) 1 ea Q6H BOTH EYES 03/14/19 05:00 04/13/19 04:59 03/17/19 11:14 Polyethylene Glycol (Miralax) 17 gm DAILY PRN ORAL Constipation 03/15/19 19:00 04/14/19 18:59 03/15/19 19:04 Allergies: Coded Allergies: AMOXICILLIN (Verified Allergy, Unknown, 03/13/19) CLINDAMYCIN (Verified Allergy, Unknown, 03/13/19) ROS Limited/Unobtainable: No Constitutional: Reports: no symptoms HEENT: Reports: no symptoms Cardiovascular: Reports: no symptoms Respiratory: Reports: no symptoms Gastrointestinal/Abdominal: Reports: no symptoms Genitourinary: Reports: no symptoms Neurologic/Psychiatric: Reports: no symptoms Subjective 83 YO M admitted with syncope. Now bradycardia. Cover for Int med-Dr De Objective Last Vital Signs Date Time Temp Pulse Resp B/P (MAP) Pulse Ox O2 Delivery O2 Flow Rate FiO2 03/17/19 09:00 Room Air 03/17/19 08:00 98.4 53 18 144/72 (96) 97 Laboratory Tests Test 03/17/19 05:50 White Blood Count 7.4 K/UL (4.8-10.8) Red Blood Count 4.06 M/UL (4.70-6.10) L Hemoglobin 14.0 G/DL (14.2-18.0) L Hematocrit 41.5 % (42.0-52.0) L Mean Corpuscular Volume 102 FL (80-99) H Mean Corpuscular Hemoglobin 34.5 PG (27.0-31.0) H Mean Corpuscular Hemoglobin Concent 33.7 G/DL (32.0-36.0) Red Cell Distribution Width 12.6 % (11.6-14.8) Platelet Count 263 K/UL (150-450) Mean Platelet Volume 5.3 FL (6.5-10.1) L Neutrophils (%) (Auto) 50.4 % (45.0-75.0) Lymphocytes (%) (Auto) 32.4 % (20.0-45.0) Monocytes (%) (Auto) 9.2 % (1.0-10.0) Eosinophils (%) (Auto) 6.9 % (0.0-3.0) H Basophils (%) (Auto) 1.2 % (0.0-2.0) Sodium Level 134 MMOL/L (136-145) L Potassium Level 4.5 MMOL/L (3.5-5.1) Chloride Level 101 MMOL/L (98-107) Carbon Dioxide Level 29 MMOL/L (21-32) Anion Gap 4 mmol/L (5-15) L Blood Urea Nitrogen 18 mg/dL (7-18) Creatinine 1.1 MG/DL (0.55-1.30) Estimat Glomerular Filtration Rate mL/min (>60) Glucose Level 107 MG/DL (74-106) H Calcium Level 8.9 MG/DL (8.5-10.1) Intake and Output 03/16/19 03/17/19 19:00 07:00 Intake Total 360 ml 140 ml Output Total 700 ml 800 ml Balance -340 ml -660 ml Intake Oral 360 ml 140 ml Output Urine Total 700 ml 800 ml # Voids 3 Objective PHYSICAL EXAMINATION: GENERAL: The patient is well-developed, well-nourished, thin-appearing male, in no apparent distress. HEENT: Eyes, pupils equal responsive to light and accommodation. Extraocular movements are intact. NECK: Supple without lymphadenopathy. CHEST: Lungs are clear to auscultation bilaterally without wheezes or rales. CARDIOVASCULAR: Regular rate. S1, S2 normal without murmurs, rubs, or gallops. ABDOMEN: Soft, nontender, and nondistended. Positive bowel sounds. No evidence of hepatosplenomegaly. Currently, no rebound or guarding noted. EXTREMITIES: Negative for clubbing, cyanosis, or edema. RECTAL/GENITAL: Not performed. NEUROLOGIC: Cranial nerves II through XII are grossly intact without focal deficits. Motor strength is 5/5 bilaterally. Deep tendon reflexes are 2+ plantar. Assessment/Plan Assessment/Plan ASSESSMENT: This is an 83-year-old male. 1. Near syncopal episode. 2. Bradycardia. 3. History of atrial fibrillation. 4. Diabetes type 2. 5. Hypertension. 6. Chronic obstructive pulmonary disease. 7. Hypothyroidism. 8. Hypercholesterolemia. 9. Glaucoma. 10. Benign prostatic hypertrophy. Plan: 1. Near syncope/bradycardia. Cardiology consultation with Dr. Irving Kumar. Bradycardia may be secondary to amiodarone versus underlying cardiac arrhythmia. D/C amiodarone per recommendations of Cardiology. 2. History of atrial fibrillation. The patient is currently in sinus bradycardia rhythm. 3. Diabetes type 2. The patient has been placed on a NovoLog sliding scale. 4. Hypertension. Continue Norvasc as above. 5. Chronic obstructive pulmonary disease. A Pulmonary consultation obtained with Dr. Zoe Lynn. Continue DuoNeb as above. 6. Hypothyroidism. The patient's TSH is elevated. Increase Synthroid to 75 mcg daily. See endocrinology note. 7. Hypercholesterolemia. Continue Zetia as above. 8. Glaucoma. Continue eye drops as above. 9. Benign prostatic hypertrophy. Continue Flomax as above. 10. Discharge home today with home health Micah Contreras MD Mar 17, 2019 11:59
[2019-03-17 12:00] VITALS: BP 100/58
--- NOTE | 2019-03-17 13:30 | NUR ---
NURSE NOTES: The patient got discharged to home with home health in a safe manner. Dr. Contreras was at the bedside to explain about the discharge. Informed discharge order to Heather, spouse and Hiram, son. Heather and Hiram was at the bedside to grape picker the patient. The patient denies of acute distress, shortness of breath, or dizziness. The patient's vital signs were stable. The patient's discharge instruction given to the patient and family members and signed by the patient. The patient's belongings checked with the patient and family members and signed by the patient. Prescription given to the patient and signed by the patient. Medication that the patient brought to the hospital was given back to the patient. IV, telebox, and nameband removed. The patient got discharged back to home with home health with family members assistance in a safe manner.
--- NOTE | 2019-03-18 09:15 | Discharge Summary ---
Discharge Summary Discharge Summary _ DATE OF ADMISSION: 03/13/2019 DATE OF DISCHARGE: 03/17/2019 DISCHARGED BY: Dr. De REASON FOR ADMISSION: 83 years old male with past medical history of hypertension, COPD, diabetes mellitus, presented initially to emergency room at [facility] with chief complaint of dizziness and near syncopal episode. Patient was in the grocery store with his daughter , when he felt weak and dizzy, but the daughter was able to catch him before he hit the floor. Patient subsequently was transferred initially to [facility] emergency department. Patient was hypotensive with systolic blood pressure of 70 on the scene per EMS. CT of the head at [place] revealed no evidence of acute intracranial bleeding or mass-effect. Troponin was negative. EKG revealed sinus bradycardia , with no acute ischemic changes. Patient was stabilized and transferred to [facility] for insurance purposes. CONSULTANTS: automatic pinsetter mechanic Dr. Albrecht pulmonary/critical care Dr Lynn financial operations analyst Dr. Parks [facility] COURSE: Patient admitted to telemetry floor. Service Delivery Manager and latcher closely followed. Serial troponin were negative. EKG revealed no acute ischemic changes. Patient was ruled out for acute myocardial infarction. Echocardiogram revealed preserved ejection fraction of 60%. All AV trinh blockers were avoided. Carotid duplex revealed minimal degree of stenosis in the internal and external carotid arteries on the right side. Venous duplex bilateral lower extremity reveal no evidence of acute DVT. Lipid panel was stable. Statin continued. Orthostatic vital signs initially reveal evidence of orthostatic changes. Patient provided with IV hydration. Telemetry showed sinus rhythm. Patient had a history of atrial fibrillation. Patient was not on any anticoagulation , except antiplatelet therapy with aspirin. Per automatic pinsetter mechanic patient may have sick sinus syndrome , due to paroxysmal atrial fibrillation. Service Delivery Manager recommended Zio patch as outpatient. Supplemental oxygen provided as needed to keep pulse oximetry above 92%. Laboratory workup revealed elevated TSH 81.9. BUN 17, creatinine 1.45 Thyroid dose was increased as per financial operations analyst , who closely followed. Repeat thyroid function test in 1 month. Patient follow-up as outpatient with financial operations analyst at [facility]. Per automatic pinsetter mechanic, bradycardia was likely due to severe hypothyroidism,. Blood sugar was managed with sliding scale of insulin. Hemoglobin A1c at goal , 6.2. Glaucoma drops continued. DVT prophylaxis provided. Bowel regimen instituted. Supportive care provided. Patient clinically stabilized and was ready for discharge home with home health services to follow. FINAL DIAGNOSES: Near syncopal episode with bradycardia, possibly due to severe hypothyroidism Severe hypothyroidism with elevated TSH Acute metabolic encephalopathy History of atrial fibrillation Diabetes mellitus type 2 Hypertension Hyperlipidemia COPD Hypercholesterolemia Glaucoma BPH DISCHARGE MEDICATIONS: See Medication Reconciliation list. DISCHARGE INSTRUCTIONS: Patient was discharged home with home health services. Follow up with primary care provider in one week. I have been assigned to dictate discharge summary for this account. I was not involved in the patient's management. Jeanette Willams NP Mar 18, 2019 09:15
--- NOTE | 2019-03-18 14:00 | NUR ---
*-* INSURANCE *-* discharge summary HAVE BEEN FAXED TO: [facility] REF# [id number] F:[phone]
== END 2019-03-17 13:30 | disposition home health service (06) | DRG 308 ==
LOC: 2E 17:20
DX: R00.1 Bradycardia, unspecified (principal); G93.41 Metabolic encephalopathy; E22.2 Syndrome of inappropriate secretion of antidiuretic hormone; R55 Syncope and collapse; E03.9 Hypothyroidism, unspecified; E11.9 Type 2 diabetes mellitus without complications; J44.9 Chronic obstructive pulmonary disease, unspecified; Z88.1 Allergy status to other antibiotic agents; N40.0 Benign prostatic hyperplasia without lower urinary tract symptoms; I48.91 Unspecified atrial fibrillation; E78.00 Pure hypercholesterolemia, unspecified; H40.9 Unspecified glaucoma; I10 Essential (primary) hypertension
CPT/HCPCS: 36415; 80048; 80061; 82962; 83036; 83880; 84439; 84443; 84481; 84484; 85025; 93005; 93306; 93880; 93970; J1815

== ENCOUNTER 2020-01-16 15:50 | Inpatient (IN) | payer BC, MEDICARE ==
[~2020-01-16] VITALS: Ht 154.9 cm; Wt 61.7 kg
[~2020-01-16 15:50] MED LIST changes: +EDARBI40 MG ORAL; +LEVOTHYROXINE75 MCG ORAL
[2020-01-16 16:05] VITALS: BP 143/54
--- NOTE | 2020-01-16 16:05 | NUR ---
ED Nurse Note: Patient walked in to ED from home c/o syncopal episode and low back pain x couple of days. Per pt, he passed out and fell last Friday. Pt is unsure if he hit his head. AAOx4, not in any distress. Pt placed on monitoring coordinator.
[2020-01-16] MEDS ORDERED: Acetaminophen 500mg (ES) tab ORAL ONE (16:15)
[2020-01-16] MEDS ORDERED: Morphine Sulfate 2mg/ml Inj(IV/IM USE ONLY) IVP ONE (16:15)
--- NOTE | 2020-01-16 16:20 | NUR ---
ED Nurse Note: IV line established. Blood specimen collected and sent to lab.
--- NOTE | 2020-01-16 16:41 | NUR ---
ED Nurse Note: Xray at bedside.
[2020-01-16 16:42] LABS: BASOPHILS % (AUTO) 1.3 % (0.0-2.0); EOSINOPHILS % (AUTO) 7.2 % (0.0-3.0); HEMATOCRIT 42.5 % (42.0-52.0); HEMOGLOBIN 13.5 G/DL (14.2-18.0); LYMPHOCYTES % (AUTO) 21.2 % (20.0-45.0); MEAN CORPUSCULAR VOLUME 101 FL (80-99); MONOCYTES % (AUTO) 11.8 % (1.0-10.0); NEUTROPHILS % (AUTO) 58.4 % (45.0-75.0); PLATELET COUNT 251 K/UL (150-450); RED BLOOD COUNT 4.22 M/UL (4.70-6.10); RED CELL DISTRIBUTION WIDTH 12.4 % (11.6-14.8)
--- NOTE | 2020-01-16 16:56 | Diagnostic Imaging Report ---
EXAM: XR Chest, 1 View CLINICAL HISTORY: SYNCOPE TECHNIQUE: Frontal view of the chest. COMPARISON: No relevant prior studies available. FINDINGS: Lungs: Mild infrahilar atelectasis bilaterally. No consolidation. No interstitial edema. Pleural space: No pleural effusion. No pneumothorax. Heart: Unremarkable. No cardiomegaly. Bones/joints: No fracture. IMPRESSION: No acute findings in the chest.
[2020-01-16 17:02] LABS: ANION GAP 11 mmol/L (5-15); BLOOD UREA NITROGEN 15 mg/dL (7-18); CALCIUM 8.6 MG/DL (8.5-10.1); CARBON DIOXIDE 25 MMOL/L (21-32); CHLORIDE 100 MMOL/L (98-107); CREATININE 1.1 MG/DL (0.55-1.30); POTASSIUM 4.4 MMOL/L (3.5-5.1); SODIUM 136 MMOL/L (136-145)
--- NOTE | 2020-01-16 17:11 | Emergency Room Report ---
History of Present Illness General Chief Complaint: Dyspnea/Respdistress Source: Patient Present Illness HPI 84-year-old male presents ED for evaluation. States that a few days ago he fell and passed out. Complaining of back pain. Unsure if he hit his head. States he is also feeling short of breath that day. States he feels okay today. Denies shortness of breath or chest pain at this time. Is complaining of some lower back pain. Dull, 5 out of 10, nonradiating. Is able to walk. Denies any other injuries. No other aggravating relieving factors. 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 Patient History Past Medical History: DM, HTN, COPD Past Surgical History: none Pertinent Family History: none Social History: Denies: smoking, alcohol use, drug use Immunizations: UTD Reviewed Nursing Documentation: PMH: Agreed; PSxH: Agreed Nursing Documentation-PMH Past Medical History: No History, Except For Hx Cardiac Problems: Yes Hx Hypertension: Yes Hx COPD: Yes Hx Diabetes: Yes Hx Cancer: No Hx Gastrointestinal Problems: No Hx Neurological Problems: No Hx Syncope: Yes Hx Weakness: Yes Review of Systems All Other Systems: negative except mentioned in HPI Physical Exam Vital Signs Date Time Temp Pulse Resp B/P (MAP) Pulse Ox O2 Delivery O2 Flow Rate FiO2 01/16/20 16:00 61 14 143/54 (83) 95 Room Air 01/16/20 16:05 98.5 Sp02 EP Interpretation: reviewed, normal General Appearance: no apparent distress, alert, GCS 15, non-toxic Head: normocephalic, atraumatic Eyes: bilateral eye normal inspection, bilateral eye PERRL ENT: hearing grossly normal, normal pharynx, no angioedema, normal voice Neck: full range of motion, supple/symm/no masses Respiratory: chest non-tender, lungs clear, normal breath sounds, speaking full sentences Cardiovascular #1: regular rate, rhythm, no edema Cardiovascular #2: 2+ carotid (R), 2+ carotid (L), 2+ radial (R), 2+ radial (L) , 2+ dorsalis pedis (R), 2+ dorsalis pedis (L) Gastrointestinal: normal bowel sounds, non tender, soft, non-distended, no guarding, no rebound Rectal: deferred Genitourinary: normal inspection, no CVA tenderness Musculoskeletal: back normal, normal range of motion, gait/station normal, non- tender Neurologic: alert, motor strength/tone normal, oriented x3, sensory intact, responsive, speech normal Psychiatric: judgement/insight normal, memory normal, mood/affect normal, no suicidal/homicidal ideation Reflexes: 3+ bicep (R), 3+ bicep (L), 3+ tricep (R), 3+ tricep (L), 3+ knee (R) , 3+ knee (L) Skin: other - see nursing skin notes Lymphatic: no adenopathy Medical Decision Making Diagnostic Impression: Primary Impression: Syncope Qualified Codes: R55 - Syncope and collapse Additional Impressions: Compression fracture of L2 Qualified Codes: S32.020A - Wedge compression fracture of second lumbar vertebra, initial encounter for closed fracture PVCs (premature ventricular contractions) ER Course Hospital Course 84-year-old M presents ED s/p syncopal episode. . c/o back pain due to fall Differential diagnoses include: TX/unstable angina, arrythmia, dehydration, CVA/ TIA Clinical course Patient placed on stretcher. on quality assurance monitor final. After initial history and physical I ordered labs, EKG, chest x-ray, CT L spine, CT Brain labs reviewed- no leukocytosis, hemoglobin/hematocrit ok, electrolytes okay, troponins negative EKG- PVCS noted. no acute ischemic changes interpreted by me Chest x-ray- no acute process CT brain-unremarkable CT L spine - L2 compression fx Patient continues to have pain. Runs of PVCs noted on monitor. I discussed with patient. I believe patient would benefit from admission and observation. Case discussed with Dr. De and he agreed to accept the patient to his service for further care and support I. I feel this is a highly complex case requiring extensive working including EKG/Rhythm strip, Xray/CT/US, Blood/urine lab work, repeat exams while in ED, and administration of strong opiates/narcotics for pain control, admission to hospital or close patient follow up. Diagnosis - syncope, compression fx of L2, PVCs admitted to telemetry in serious condition Labs Test 01/16/20 16:05 White Blood Count 8.0 K/UL (4.8-10.8) Red Blood Count 4.22 M/UL (4.70-6.10) Hemoglobin 13.5 G/DL (14.2-18.0) Hematocrit 42.5 % (42.0-52.0) Mean Corpuscular Volume 101 FL (80-99) Mean Corpuscular Hemoglobin 32.0 PG (27.0-31.0) Mean Corpuscular Hemoglobin Concent 31.8 G/DL (32.0-36.0) Red Cell Distribution Width 12.4 % (11.6-14.8) Platelet Count 251 K/UL (150-450) Mean Platelet Volume 7.9 FL (6.5-10.1) Neutrophils (%) (Auto) 58.4 % (45.0-75.0) Lymphocytes (%) (Auto) 21.2 % (20.0-45.0) Monocytes (%) (Auto) 11.8 % (1.0-10.0) Eosinophils (%) (Auto) 7.2 % (0.0-3.0) Basophils (%) (Auto) 1.3 % (0.0-2.0) Sodium Level 136 MMOL/L (136-145) Potassium Level 4.4 MMOL/L (3.5-5.1) Chloride Level 100 MMOL/L (98-107) Carbon Dioxide Level 25 MMOL/L (21-32) Anion Gap 11 mmol/L (5-15) Blood Urea Nitrogen 15 mg/dL (7-18) Creatinine 1.1 MG/DL (0.55-1.30) Estimat Glomerular Filtration Rate > 60 mL/min (>60) Glucose Level 137 MG/DL (74-106) Calcium Level 8.6 MG/DL (8.5-10.1) Total Bilirubin 0.5 MG/DL (0.2-1.0) Aspartate Amino Transf (AST/SGOT) 20 U/L (15-37) Alanine Aminotransferase (ALT/SGPT) 20 U/L (12-78) Alkaline Phosphatase 85 U/L (46-116) Troponin I 0.000 ng/mL (0.000-0.056) Pro-B-Type Natriuretic Peptide 432 pg/mL (0-125) Total Protein 7.6 G/DL (6.4-8.2) Albumin 3.5 G/DL (3.4-5.0) Globulin 4.1 g/dL Albumin/Globulin Ratio 0.9 (1.0-2.7) EKG Diagnostic Results Rate: normal Rhythm: NSR ST Segments: other - PVCs ASA given to the pt in ED: No Rhythm Strip Diag. Results EP Interpretation: yes Rhythm: NSR, no ectopy Chest X-Ray Diagnostic Results Chest X-Ray Diagnostic Results : Chest X-Ray Ordered: Yes # of Views/Limited/Complete: 1 View Indication: Other - syncope EP Interpretation: Yes Interpretation: no consolidation, no effusion, no pneumothorax, no acute cardiopulmonary disease Impression: No acute disease Electronically Signed by: Electronically signed by Guevara Mohr MD CT/MRI/US Diagnostic Results CT/MRI/US Diagnostic Results #1: Imaging Test Ordered: CT head Impression Procedure: CT Head no Contrast EXAM: CT Head Without Intravenous Contrast CLINICAL HISTORY: SYNCOPE TECHNIQUE: Axial computed tomography images of the head/brain without intravenous contrast. CTDI is 53.4 mGy and DLP is 992 mGy-cm. One or more of the following dose reduction techniques were used: automated exposure control, adjustment of the mA and/or kV according to patient size, use of iterative reconstruction technique. COMPARISON: 03/13/2015 FINDINGS: Brain: No hemorrhage, extra-axial fluid collection, mass effect, or edema. Chronic microvascular ischemic changes. Age-related volume loss. Ventricles: Unremarkable. Bones/joints: Unremarkable. Soft tissues: Unremarkable. Sinuses: Unremarkable as visualized. Mastoid air cells: Unremarkable as visualized. IMPRESSION: 1. No acute intracranial abnormality. CT/MRI/US Diagnostic Results #2: Imaging Test Ordered: CT L spine Impression Procedure: CT L Spine no Contrast EXAM: CT Lumbar Spine Without Intravenous Contrast CLINICAL HISTORY: SYNCOPE TECHNIQUE: Axial computed tomography images of the lumbar spine without intravenous contrast. CTDI is 5.7 mGy and DLP is 250.7 mGy-cm. One or more of the following dose reduction techniques were used: automated exposure control, adjustment of the mA and/or kV according to patient size, use of iterative reconstruction technique. COMPARISON: No relevant prior studies available. FINDINGS: Vertebrae: Superior endplate compression fracture at L2 with approximately 25% height loss and extension to the posterior cortex where there is mild osseous retropulsion causing mild canal stenosis. The bones are osteopenic. There is an additional lucency through the anterior inferior endplate at L1 which is favored chronic. No other fractures. Soft tissues: No acute abnormality. IMPRESSION: Superior endplate compression fracture at L2 with approximately 25% height loss and extension to the posterior cortex where there is mild osseous retropulsion causing mild canal stenosis. Last Vital Signs Date Time Temp Pulse Resp B/P (MAP) Pulse Ox O2 Delivery O2 Flow Rate FiO2 01/16/20 16:05 61 14 Room Air 01/16/20 16:05 98.5 143/54 95 Status: improved Disposition: ADMITTED INPATIENT Condition: Serious Referrals: NON PHYSICIAN (PCP) Guevara Mohr MD January 16, 2020 17:11
[2020-01-16 17:12] LABS: ALANINE AMINOTRANSFERASE 20 U/L (12-78); ALBUMIN 3.5 G/DL (3.4-5.0); ALBUMIN/GLOBULIN RATIO 0.9 (1.0-2.7); ALKALINE PHOSPHATASE 85 U/L (46-116); ASPARTATE AMINO TRANSFERASE 20 U/L (15-37); BILIRUBIN,TOTAL 0.5 MG/DL (0.2-1.0)
--- NOTE | 2020-01-16 17:39 | NUR ---
ED Nurse Note: Pt was taken to CT via gelacio, accompanied by a tech.
--- NOTE | 2020-01-16 17:54 | NUR ---
ED Nurse Note: Pt returned from CT, not in any distress.
--- NOTE | 2020-01-16 18:12 | Diagnostic Imaging Report ---
EXAM: CT Head Without Intravenous Contrast CLINICAL HISTORY: SYNCOPE TECHNIQUE: Axial computed tomography images of the head/brain without intravenous contrast. CTDI is 53.4 mGy and DLP is 992 mGy-cm. One or more of the following dose reduction techniques were used: automated exposure control, adjustment of the mA and/or kV according to patient size, use of iterative reconstruction technique. COMPARISON: 03/13/2015 FINDINGS: Brain: No hemorrhage, extra-axial fluid collection, mass effect, or edema. Chronic microvascular ischemic changes. Age-related volume loss. Ventricles: Unremarkable. Bones/joints: Unremarkable. Soft tissues: Unremarkable. Sinuses: Unremarkable as visualized. Mastoid air cells: Unremarkable as visualized. IMPRESSION: 1. No acute intracranial abnormality.
--- NOTE | 2020-01-16 18:17 | Diagnostic Imaging Report ---
EXAM: CT Lumbar Spine Without Intravenous Contrast CLINICAL HISTORY: SYNCOPE TECHNIQUE: Axial computed tomography images of the lumbar spine without intravenous contrast. CTDI is 5.7 mGy and DLP is 250.7 mGy-cm. One or more of the following dose reduction techniques were used: automated exposure control, adjustment of the mA and/or kV according to patient size, use of iterative reconstruction technique. COMPARISON: No relevant prior studies available. FINDINGS: Vertebrae: Superior endplate compression fracture at L2 with approximately 25% height loss and extension to the posterior cortex where there is mild osseous retropulsion causing mild canal stenosis. The bones are osteopenic. There is an additional lucency through the anterior inferior endplate at L1 which is favored chronic. No other fractures. Soft tissues: No acute abnormality. IMPRESSION: Superior endplate compression fracture at L2 with approximately 25% height loss and extension to the posterior cortex where there is mild osseous retropulsion causing mild canal stenosis.
[2020-01-16 18:30] VITALS: BP 135/72
[2020-01-16] MEDS ORDERED: HYDROcodone/Acetamin 10/325 tab ORAL PRN (19:15)
--- NOTE | 2020-01-16 19:36 | NUR ---
HAND-OFF: Report given to Lizzie OLIVEIRA.
--- NOTE | 2020-01-16 19:45 | NUR ---
ED Nurse Note: Recieved report from am nurse to resume care, pt in bed lying supine, awake, alert and oriented x 4, pt waiting for room for admission, pt has fracture to L2 in spine and c/o pain at 7-8/10, on cardiac monitoring, v/s stable, no cp, or sob, saline lock intact and patent, will resume care as ordered, medicate for pain and monitor for effectiveness while waiting for room for admission.
[2020-01-16] MEDS: Morphine Sulfate 2mg/ml Inj(IV/IM USE ONLY) IVP PRN (20:30)
[2020-01-16 20:35] VITALS: BP 123/60
[2020-01-16] MEDS ORDERED: Zolpidem 5mg tab ORAL PRN (21:00)
[2020-01-16] MEDS ORDERED: Miralax 17gm pkt ORAL PRN (21:00)
--- NOTE | 2020-01-16 21:25 | NUR ---
ED Nurse Note: Placed call to floor nurse for report, waiting for return call. pt resting quietly, belonging list completed.
--- NOTE | 2020-01-16 22:10 | NUR ---
ED Nurse Note: Recieved call back from ROXANNE Jon on floor unit for admission, pt taken to bed via gelacio with rn x 2 and cardiac monitoring, all bleongings with pt, nad noted during pt transfer to floor bed.
--- NOTE | 2020-01-16 22:35 | NUR ---
NURSE NOTES: RECEIVED PT FROM ROXANNE SARAVIA. PT AWAKE, ALERT, AND TALKATIVE. BED IN LOWEST POSITION. SKIN INTACT. PT AMBULATES STEADILY BUT WAS ADVISED TO STAY IN BED. CALL LIGHT WITHIN REACH. DR. ROJAS ENTERED ORDERS IN ALREADY. WILL CONTINUE TO MONITOR.
[2020-01-16 22:36] VITALS: BP 150/53
[2020-01-17 00:21] VITALS: BP 136/51
[2020-01-17 04:00] VITALS: BP 143/55
--- NOTE | 2020-01-17 07:22 | NUR ---
HAND-OFF: Report given to ROXANNE PARKER. PT STABLE.
--- NOTE | 2020-01-17 07:23 | NUR ---
NURSE NOTES: Received patient in bed awake. No SOB or acute distress. IV line intact and patent. HOB elevated. Bed locked in lowest position. Call light within reach. Will continue plan of care.
[2020-01-17 07:32] LABS: BASOPHILS % (AUTO) 1.7 % (0.0-2.0); EOSINOPHILS % (AUTO) 11.9 % (0.0-3.0); HEMOGLOBIN 13.2 G/DL (14.2-18.0); LYMPHOCYTES % (AUTO) 28.3 % (20.0-45.0); MEAN CORPUSCULAR VOLUME 93 FL (80-99); MONOCYTES % (AUTO) 11.1 % (1.0-10.0); PLATELET COUNT 236 K/UL (150-450); RED BLOOD COUNT 4.09 M/UL (4.70-6.10); RED CELL DISTRIBUTION WIDTH 11.5 % (11.6-14.8); WHITE BLOOD COUNT 7.8 K/UL (4.8-10.8)
[2020-01-17 07:50] LABS: ALANINE AMINOTRANSFERASE 15 U/L (12-78); ALBUMIN 3.1 G/DL (3.4-5.0); ALBUMIN/GLOBULIN RATIO 0.8 (1.0-2.7); ALKALINE PHOSPHATASE 76 U/L (46-116); ANION GAP 9 mmol/L (5-15); ASPARTATE AMINO TRANSFERASE 16 U/L (15-37); BILIRUBIN,TOTAL 0.5 MG/DL (0.2-1.0); BLOOD UREA NITROGEN 12 mg/dL (7-18); CALCIUM 8.7 MG/DL (8.5-10.1); CARBON DIOXIDE 26 MMOL/L (21-32); CHLORIDE 102 MMOL/L (98-107); CHOLESTEROL 143 MG/DL (< 200); HDL CHOLESTEROL 32 MG/DL (40-60); SODIUM 137 MMOL/L (136-145); TRIGLYCERIDES 143 MG/DL (30-150)
[2020-01-17 08:00] VITALS: BP 147/48
[2020-01-17] MEDS: Tamsulosin 0.4mg cap ORAL SCH (08:28)
--- NOTE | 2020-01-17 10:20 | NUR ---
*-* NO INSURANCE INFORMATION IN THE BAR UNABLE TO SEND CLINICALS *-*
--- NOTE | 2020-01-17 10:25 | NUR ---
*-* INSURANCE *-* ALL AVAILABLE CLINICALS HAVE BEEN FAXED TO: [employer] F: [phone] Addendum: 01/17/20 at 1652 by STACEY GUZMÁN CM [employer] Ref# [id number] #[phone] fax#[phone]
[2020-01-17 12:00] VITALS: BP 134/59
--- NOTE | 2020-01-17 12:09 | Consultation ---
History of Present Illness General Date patient seen: Jan 17, 2020 Chief Complaint: Dyspnea/Respdistress Present Illness HPI 84-year-old with past medical history of hypertension, COPD, hypothyroid and diabetes presented to ED for evaluation after a fall and passing out. He was complaining of back pain which is dull, 5 out of 10, nonradiating. A CT of L spine showed L2 plate fracture. Pt is admitted for further management. Allergies: Coded Allergies: AMOXICILLIN (Verified Allergy, Unknown, 03/13/19) CLINDAMYCIN (Verified Allergy, Unknown, 03/13/19) Medication History Scheduled Levothyroxine Sodium* (Levothyroxine Sodium*), 75 MCG ORAL DAILY@0630 Pilocarpine HCl (Pilocarpine HCl), 1 DRP BOTH EYES HS, (Reported) Tamsulosin Hcl (Tamsulosin Hcl*), 0.4 MG PO DAILY, (Reported) Patient History Healthcare decision maker Resuscitation status Advanced Directive on File Past Medical/Surgical History Past Medical/Surgical History: (1) Severe hypothyroidism (2) Diabetes mellitus (3) Hypothyroid (4) BPH (benign prostatic hyperplasia) (5) Cardiac arrhythmia Review of Systems Constitutional: Reports: no symptoms Eye: Reports: no symptoms Physical Exam General Appearance: WD/WN Lines, tubes and drains: peripheral HEENT: normocephalic, atraumatic Neck: non-tender, normal alignment Respiratory/Chest: chest wall non-tender, lungs clear Cardiovascular/Chest: normal peripheral pulses, regularly irregular Abdomen: normal bowel sounds Genitourinary/Rectal: normal genital exam Extremities: normal range of motion Skin Exam: normal pigmentation 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 II-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 grossly normal Last 24 Hour Vital Signs Date Time Temp Pulse Resp B/P (MAP) Pulse Ox O2 Delivery O2 Flow Rate FiO2 01/17/20 09:00 Room Air 01/17/20 08:00 70 01/17/20 08:00 98.1 68 147/48 (81) 94 01/17/20 04:00 97.9 62 143/55 (84) 95 01/17/20 03:56 59 01/17/20 00:21 97.5 56 136/51 (79) 95 01/17/20 00:00 59 01/16/20 22:47 Room Air 01/16/20 22:36 97.7 53 150/53 (85) 97 01/16/20 22:10 98.5 60 16 123/60 99 Room Air 01/16/20 21:00 98.5 01/16/20 20:35 98.5 60 16 123/60 99 Room Air 01/16/20 18:30 98.5 59 16 135/72 99 Room Air 01/16/20 16:54 98.5 01/16/20 16:54 98.5 01/16/20 16:05 61 14 Room Air 01/16/20 16:05 98.5 61 14 143/54 95 Room Air 01/16/20 16:00 61 14 143/54 (83) 95 Room Air Intake and Output 01/16/20 01/17/20 19:00 07:00 Output Total 600 ml Balance -600 ml Output Urine Total 600 ml # Voids 1 Laboratory Tests Test 01/16/20 16:05 01/17/20 06:35 White Blood Count 8.0 K/UL (4.8-10.8) 7.8 K/UL (4.8-10.8) Red Blood Count 4.22 M/UL (4.70-6.10) L 4.09 M/UL (4.70-6.10) L Hemoglobin 13.5 G/DL (14.2-18.0) L 13.2 G/DL (14.2-18.0) L Hematocrit 42.5 % (42.0-52.0) 38.0 % (42.0-52.0) L Mean Corpuscular Volume 101 FL (80-99) H 93 FL (80-99) Mean Corpuscular Hemoglobin 32.0 PG (27.0-31.0) H 32.2 PG (27.0-31.0) H Mean Corpuscular Hemoglobin Concent 31.8 G/DL (32.0-36.0) L 34.6 G/DL (32.0-36.0) Red Cell Distribution Width 12.4 % (11.6-14.8) 11.5 % (11.6-14.8) L Platelet Count 251 K/UL (150-450) 236 K/UL (150-450) Mean Platelet Volume 7.9 FL (6.5-10.1) 5.5 FL (6.5-10.1) L Neutrophils (%) (Auto) 58.4 % (45.0-75.0) 47.0 % (45.0-75.0) Lymphocytes (%) (Auto) 21.2 % (20.0-45.0) 28.3 % (20.0-45.0) Monocytes (%) (Auto) 11.8 % (1.0-10.0) H 11.1 % (1.0-10.0) H Eosinophils (%) (Auto) 7.2 % (0.0-3.0) H 11.9 % (0.0-3.0) H Basophils (%) (Auto) 1.3 % (0.0-2.0) 1.7 % (0.0-2.0) Sodium Level 136 MMOL/L (136-145) 137 MMOL/L (136-145) Potassium Level 4.4 MMOL/L (3.5-5.1) 4.0 MMOL/L (3.5-5.1) Chloride Level 100 MMOL/L (98-107) 102 MMOL/L (98-107) Carbon Dioxide Level 25 MMOL/L (21-32) 26 MMOL/L (21-32) Anion Gap 11 mmol/L (5-15) 9 mmol/L (5-15) Blood Urea Nitrogen 15 mg/dL (7-18) 12 mg/dL (7-18) Creatinine 1.1 MG/DL (0.55-1.30) 1.0 MG/DL (0.55-1.30) Estimat Glomerular Filtration Rate > 60 mL/min (>60) > 60 mL/min (>60) Glucose Level 137 MG/DL (74-106) H 99 MG/DL (74-106) Calcium Level 8.6 MG/DL (8.5-10.1) 8.7 MG/DL (8.5-10.1) Total Bilirubin 0.5 MG/DL (0.2-1.0) 0.5 MG/DL (0.2-1.0) Aspartate Amino Transf (AST/SGOT) 20 U/L (15-37) 16 U/L (15-37) Alanine Aminotransferase (ALT/SGPT) 20 U/L (12-78) 15 U/L (12-78) Alkaline Phosphatase 85 U/L (46-116) 76 U/L (46-116) Troponin I 0.000 ng/mL (0.000-0.056) Pro-B-Type Natriuretic Peptide 432 pg/mL (0-125) H Total Protein 7.6 G/DL (6.4-8.2) 7.0 G/DL (6.4-8.2) Albumin 3.5 G/DL (3.4-5.0) 3.1 G/DL (3.4-5.0) L Globulin 4.1 g/dL 3.9 g/dL Albumin/Globulin Ratio 0.9 (1.0-2.7) L 0.8 (1.0-2.7) L Triglycerides Level 143 MG/DL (30-150) Cholesterol Level 143 MG/DL (< 200) LDL Cholesterol 89 mg/dL (<100) HDL Cholesterol 32 MG/DL (40-60) L Cholesterol/HDL Ratio 4.5 (3.3-4.4) H Thyroid Stimulating Hormone (TSH) 7.842 uiU/mL (0.358-3.740) Height (Feet): 5 Height (Inches): 2.00 Weight (Pounds): 130 Medications Current Medications Medications (Trade) Dose Ordered Sig/Lisa Route PRN Reason Start Time Stop Time Status Last Admin Dose Admin Acetaminophen (Tylenol) 650 mg Q4H PRN ORAL fever 01/16/20 19:15 02/15/20 19:14 Acetaminophen/ Hydrocodone Bitart ([place] 10/325) 1 tab Q4H PRN ORAL For Pain 4-6 01/16/20 19:15 01/23/20 19:14 Dextrose (Dextrose 50%) 25 ml Q30MIN PRN IV Hypoglycemia 01/16/20 19:15 04/15/20 19:14 Dextrose (Dextrose 50%) 50 ml Q30MIN PRN IV Hypoglycemia 01/16/20 19:15 04/15/20 19:14 Levothyroxine Sodium (Synthroid) 75 mcg DAILY@0630 ORAL 01/17/20 06:30 02/16/20 06:29 01/17/20 05:53 Morphine Sulfate (Morphine Sulfate) 2 mg EVERY 4 HOURS PRN IVP severe pain 7-10 01/16/20 19:15 01/23/20 19:14 01/16/20 20:30 Ondansetron HCl (Zofran) 4 mg Q6H PRN IVP Nausea & Vomiting 01/16/20 19:15 02/15/20 19:14 Polyethylene Glycol (Miralax) 17 gm HSPRN PRN ORAL Constipation 01/16/20 21:00 02/15/20 20:59 Tamsulosin HCl (Flomax) 0.4 mg DAILY ORAL 01/17/20 09:00 02/16/20 08:59 01/17/20 08:28 Zolpidem Tartrate (Ambien) 5 mg HSPRN PRN ORAL Insomnia 01/16/20 21:00 01/23/20 20:59 Assessment/Plan Problem List: (1) Suspected COVID-19 virus infection ICD Codes: Z20.828 - Contact with and (suspected) exposure to other viral communicable diseases SNOMED: 026564627 (2) Acute encephalopathy ICD Codes: G93.40 - Encephalopathy, unspecified SNOMED: 74839942, 983680851 (3) Syncope ICD Codes: R55 - Syncope and collapse SNOMED: 691060173 Qualifiers: Qualified Codes: R55 - Syncope and collapse (4) Compression fracture of L2 ICD Codes: S32.020A - Wedge compression fracture of second lumbar vertebra, initial encounter for closed fracture SNOMED: 98759628834294334 Qualifiers: Qualified Codes: S32.020A - Wedge compression fracture of second lumbar vertebra, initial encounter for closed fracture (5) Diabetes mellitus ICD Codes: E11.9 - Type 2 diabetes mellitus without complications SNOMED: 81327379 (6) Hypothyroid ICD Codes: E03.9 - Hypothyroidism, unspecified SNOMED: 22771933 (7) BPH (benign prostatic hyperplasia) ICD Codes: N40.0 - Benign prostatic hyperplasia without lower urinary tract symptoms SNOMED: 009837471 (8) Cardiac arrhythmia ICD Codes: I49.9 - Cardiac arrhythmia, unspecified SNOMED: 504335786 Assessment/Plan: telemetry monitoring pain management respiratory treatment might benefit from Kryoplasty sputum for COVID titrate fio2 to sat of 92% pt/ot evaluation dvt prophylaxis. Zoe Lynn MD Jan 17, 2020 12:09
--- NOTE | 2020-01-17 13:29 | NUR ---
CASE MANAGEMENT:REVIEW 84 YR OLD MALE BROUGHT IN BY SON CC:PASSED OUT AND FELL ON FRIDAY. NOW SOB SI: SYNCOPE. COMPRESSION FRACTURE L2 98.5 61 14 143/54 95% ON RA GLUCOSE+137 IS: IV MORPHINE TYLENOL PO CT HEAD CT L SPINE : TO TELEMETRY IS: CT CHEST COVID 19
--- NOTE | 2020-01-17 13:49 | NUR ---
NURSE NOTES: Patient for covid swab. Will await room for transfer prior to swabbing as per charge nurse.
--- NOTE | 2020-01-17 14:58 | NUR ---
NURSE NOTES: Patient transferred to [facility]. Covid swab done, sent to lab.
--- NOTE | 2020-01-17 18:12 | History & Physical ---
History and Physical History & Physicial Dictated for Int Med-DR De no. [id number] Micah Contreras MD Jan 17, 2020 18:12
--- NOTE | 2020-01-17 19:00 | History and Physical Report ---
DATE OF ADMISSION: 01/16/2020 CHIEF COMPLAINT: Patient is an 84-year-old male, who presents with a chief complaint of low back pain. HISTORY OF PRESENT ILLNESS: Patient fell a couple of days ago. Patient states he passed out. Patient presented to [facility] emergency room on 01/16/2020. Patient was complaining of low back pain. A CT scan of the lumbar spine revealed a compression fracture at L2. Patient is admitted with low back pain and fracture of L2 vertebrae. REVIEW OF SYSTEMS: CONSTITUTIONAL: Patient denies weight loss or gain. Patient denies fevers or chills. HEENT: Patient denies ear or throat pain. Patient denies headache. CARDIOVASCULAR: Patient denies palpitations or chest pain. CHEST: Patient denies wheezing or shortness of breath. ABDOMINAL: Patient denies nausea, vomiting, diarrhea, or constipation. GENITOURINARY: Patient denies dysuria or increased frequency of urination. NEUROMUSCULAR: Patient complains of fall and syncopal episode as above. Patient denies seizures or generalized weakness. PAST MEDICAL HISTORY: Significant for: 1. Atrial fibrillation. 2. Diabetes type 2. 3. Hypertension. 4. Chronic obstructive pulmonary disease. 5. Hypothyroidism. 6. Hypercholesterolemia. 7. Glaucoma. 8. Benign prostatic hypertrophy. CURRENT MEDICATIONS: 1. Levothyroxine 75 mcg p.o. daily. 2. Tamsulosin 0.4 mg p.o. daily. ALLERGIES: To amoxicillin and clindamycin. SOCIAL HISTORY: Patient is . Patient denies tobacco or alcohol use. PHYSICAL EXAMINATION: VITAL SIGNS: Temperature 98.5, respirations 14, pulse 69, blood pressure 143/54, pulse ox 95% on room air. GENERAL: Patient is a well-developed and well-nourished thin appearing, male, in no apparent distress. HEENT: Eyes, pupils are equal and responsive to light and accommodation. Extraocular movements are intact. NECK: Supple without lymphadenopathy. CHEST: Lungs are clear to auscultation bilaterally without wheezes or rales. CARDIOVASCULAR: Regular rate. S1, S2 are normal without murmurs, rubs, or gallops. ABDOMEN: Soft, nontender, nondistended. Positive bowel sounds. No evidence of hepatosplenomegaly. Currently, no rebound or guarding noted. EXTREMITIES: Negative for clubbing, cyanosis, edema. RECTAL/GENITAL: Not performed. NEUROLOGIC: Cranial nerves II to XII grossly intact without focal deficits. Motor strength is 5/5 bilaterally. Deep tendon reflexes are 2+ plantar. LABORATORY STUDIES: WBC 8.2, hemoglobin 13.5, hematocrit 42.5, platelets 251,000. Sodium 136, potassium 4.4, chloride 100, CO2 25, BUN 15, creatinine 1.1, glucose 137. BNP elevated at 432. Troponin 0.0. TSH elevated at 7.842. A CT scan of the brain was reported as no acute hemorrhage or infarct. A CT scan of the lumbar spine revealed L2 compression fracture. ASSESSMENT: This is an 84-year-old male. 1. Low back pain. 2. Lumbar level 2 compression fracture. 3. Syncopal episode. 4. Atrial fibrillation. 5. Diabetes type 2. 6. Hypertension. 7. Chronic obstructive pulmonary disease. 8. Hypothyroidism. 9. Hypercholesterolemia. 10. Glaucoma. 11. Benign prostatic hypertrophy. TREATMENT: 1. Low back pain/lumbar level 2 compression fraction. An Orthopedic consultation has been obtained with Dr. Ren Draper. We will follow recommendations of Orthopedic Surgery. 2. Syncopal episode. A CT scan was reported as no acute infarct or hemorrhage. 3. Atrial fibrillation. Patient is currently off amiodarone. 4. Diabetes type 2. Patient is currently off antihyperglycemic medication. 5. Hypertension. Patient is currently off antihypertensive medication. 6. Chronic obstructive pulmonary disease. A Pulmonary consultation has been obtained with Dr. Zoe Lynn. 7. Hypothyroidism. Patient is currently on levothyroxine 75 mcg p.o. daily. TSH is elevated. A thyroid function panel is pending. Patient has been on levothyroxine for approximately one and half months. 8. Hypercholesterolemia. 9. Glaucoma. 10. Benign prostatic hypertrophy. Micah Contreras M.D. DR: ARLINE JOB#: [id number] CC:
--- NOTE | 2020-01-17 19:19 | NUR ---
NURSE NOTES: Per AM nurse Dee, pt complained of green-tinged vision. Communicated to Dr. De - vladimir do CT head without contrast STAT. Orders carried out, will follow up with radiology.
--- NOTE | 2020-01-17 19:23 | NUR ---
NURSE NOTES: Spoke with Kwasi from CT, CT scanner will require sanitization and disinfection first prior to scan. Will call nursing station when ready.
--- NOTE | 2020-01-17 19:25 | NUR ---
HAND-OFF: Report given to Travis OLIVEIRA.
--- NOTE | 2020-01-17 19:34 | NUR ---
NURSE NOTES: Pt received from Dee, RN alert and oriented x4 with no acute s/s of distress noted. On room air. Ccie on - Sinus Rhythm. Per pt, he does not see green-tinged as much as earlier. RN called CT scan and spoke with Kwasi, who stated that he will pick pt up for CT of head.
[2020-01-17 20:00] VITALS: BP 130/55
--- NOTE | 2020-01-17 21:18 | Diagnostic Imaging Report ---
EXAM: CT Head Without Intravenous Contrast CLINICAL HISTORY: ALOC TECHNIQUE: Axial computed tomography images of the head/brain without intravenous contrast. CTDI is 53 mGy and DLP is 1004 mGy-cm. One or more of the following dose reduction techniques were used: automated exposure control, adjustment of the mA and/or kV according to patient size, use of iterative reconstruction technique. COMPARISON: 01/16/2020 FINDINGS: Brain: Parenchymal volume loss. Nonspecific white matter hypoattenuation likely secondary to chronic microvascular ischemia. Cerebrovascular ASVD. No hemorrhage. Ventricles: Unremarkable. No ventriculomegaly. Bones/joints: Unremarkable. No acute fracture. Soft tissues: Unremarkable. Sinuses: Unremarkable as visualized. No acute sinusitis. Mastoid air cells: Unremarkable as visualized. No mastoid effusion. IMPRESSION: 1. No acute intracranial abnormality. 2. Mild chronic senescent findings above. 3. Otherwise unremarkable study.
[2020-01-18] VITALS (7 sets, daily range): BP systolic 91–157; BP diastolic 40–74
[2020-01-18 07:11] LABS: EOSINOPHILS % (AUTO) 4.5 % (0.0-3.0); HEMOGLOBIN 13.8 G/DL (14.2-18.0); MEAN CORPUSCULAR VOLUME 91 FL (80-99); MONOCYTES % (AUTO) 12.1 % (1.0-10.0); NEUTROPHILS % (AUTO) 57.4 % (45.0-75.0); PLATELET COUNT 253 K/UL (150-450); RED BLOOD COUNT 4.27 M/UL (4.70-6.10); RED CELL DISTRIBUTION WIDTH 11.2 % (11.6-14.8); WHITE BLOOD COUNT 9.3 K/UL (4.8-10.8)
--- NOTE | 2020-01-18 07:24 | NUR ---
HAND-OFF: Report given to ROXANNE Ruggiero. Plan of care endorsed.
--- NOTE | 2020-01-18 07:30 | NUR ---
NURSE NOTES: Received patient from Travis RN in bed resting, noted patient has episode of forgetfulness and confusion, asking for things like his jacket at home, re-oriented patient. Patient denies any pain at this time. No s/s of coughing noted at this time. Patient is on RA. IV on LAC 20G SL. Bed is on lowest position with bedside rails up x3. All needs attended to and met. Will continue with the plan of care.
[2020-01-18 07:34] LABS: ANION GAP 9 mmol/L (5-15); BLOOD UREA NITROGEN 14 mg/dL (7-18); CALCIUM 8.8 MG/DL (8.5-10.1); CARBON DIOXIDE 27 MMOL/L (21-32); CHLORIDE 101 MMOL/L (98-107); POTASSIUM 3.9 MMOL/L (3.5-5.1); SODIUM 137 MMOL/L (136-145)
[2020-01-18] MEDS: Tamsulosin 0.4mg cap ORAL SCH (09:04)
[2020-01-18] MEDS: Morphine Sulfate 2mg/ml Inj(IV/IM USE ONLY) IVP PRN (09:18)
--- NOTE | 2020-01-18 11:30 | NUR ---
*-* INSURANCE *-* UPDATED CLINICALS AND REVIEWS HAVE BEEN FAXED TO: Ref# [id number] #[phone] fax#[phone]
--- NOTE | 2020-01-18 12:10 | Diagnostic Imaging Report ---
Clinical Indication: Cough. History of COPD Technique: Spiral acquisitions obtained through the chest. No IV contrast utilized, reason not stated. Multiplanar reconstructions generated. Total dose length product 149 mGycm. CTDIvol(s) 3 mGy. Dose reduction achieved using automated exposure control Comparison: none Findings:There is a linear band in the right upper lobe, at the inferior aspect of which is an irregular masslike opacity which measures 15 x 28 x 13 mm. This contains a central calcification.. There is mild hyperinflation of the upper lobes but no definite bullous changes. There is a small focus of thickening of the minor fissure anteriorly. There are some atelectatic changes and scarring at the right lung base. There are dependent atelectatic changes in the posterior right lower lobe as well as a few areas of subpleural linear scarring. Minimal apical scarring is present bilaterally. The left lung is otherwise clear except for minimal atelectatic changes in the costophrenic sulcus. No effusions. No worrisome groundglass opacity. The heart size is normal. No pericardial effusion. No mediastinal or hilar mass or adenopathy. The thyroid is unremarkable. The esophagus is unremarkable. No axillary or chest wall mass or adenopathy. The bones are unremarkable. The included upper abdominal viscera are unremarkable. Impression: Linear bands the right upper lobe. 15 x 20 x 13 mm irregular masslike opacity with central calcification at the inferior aspect of this. Most likely represents an area of scarring. Underlying mass lesion not completely excludable and follow-up should be considered as clinically indicated. Other chronic changes, as described, mostly involving the right lobe. Minimal upper lobe hyperinflation. No acute abnormality The CT scanner at [facility] is accredited by the [employer] and the scans are performed using protocols designed to limit radiation exposure to as low as reasonably achievable to attain images of sufficient resolution adequate for diagnostic evaluation.
--- NOTE | 2020-01-18 12:37 | Pulmonology Progress Note ---
Subjective Allergies: Coded Allergies: AMOXICILLIN (Verified Allergy, Unknown, 03/13/19) CLINDAMYCIN (Verified Allergy, Unknown, 03/13/19) Objective Last 24 Hour Vital Signs Date Time Temp Pulse Resp B/P (MAP) Pulse Ox O2 Delivery O2 Flow Rate FiO2 01/18/20 09:00 Room Air 01/18/20 08:00 98.1 61 18 157/61 (93) 97 01/18/20 08:00 61 01/18/20 04:00 67 01/18/20 04:00 99.7 64 20 140/53 (82) 95 01/18/20 00:00 69 01/18/20 00:00 98.7 68 20 135/74 (94) 95 01/17/20 21:00 Room Air 01/17/20 20:00 98.9 78 20 130/55 (80) 94 01/17/20 20:00 69 01/17/20 16:00 66 Intake and Output 01/17/20 01/18/20 19:00 07:00 Intake Total 720 ml Output Total 850 ml Balance -130 ml Intake Oral 720 ml Output Urine Total 850 ml # Bowel Movements 1 1 Laboratory Tests 01/18/20 06:00: White Blood Count 9.3, Red Blood Count 4.27L, Hemoglobin 13.8L, Hematocrit 39.0L , Mean Corpuscular Volume 91, Mean Corpuscular Hemoglobin 32.2H, Mean Corpuscular Hemoglobin Concent 35.3, Red Cell Distribution Width 11.2L, Platelet Count 253, Mean Platelet Volume 5.0L, Neutrophils (%) (Auto) 57.4, Lymphocytes (%) (Auto) 25.0, Monocytes (%) (Auto) 12.1H, Eosinophils (%) (Auto) 4.5H, Basophils (%) (Auto) 1.0, Sodium Level 137, Potassium Level 3.9, Chloride Level 101, Carbon Dioxide Level 27, Anion Gap 9, Blood Urea Nitrogen 14, Creatinine 1.0, Estimat Glomerular Filtration Rate > 60, Glucose Level 125H, Calcium Level 8.8, Free Thyroxine 1.37, Triiodothyonine (T3) [Pending], Free Triiodothyronine 2.3, Triiodothyronine (T3) Uptake [Pending] Current Medications Medications (Trade) Dose Ordered Sig/Lisa Route PRN Reason Start Time Stop Time Status Last Admin Dose Admin Acetaminophen (Tylenol) 650 mg Q4H PRN ORAL fever 01/16/20 19:15 02/15/20 19:14 Acetaminophen/ Hydrocodone Bitart ([place] 10/325) 1 tab Q4H PRN ORAL For Pain 4-6 01/16/20 19:15 01/23/20 19:14 Dextrose (Dextrose 50%) 25 ml Q30MIN PRN IV Hypoglycemia 01/16/20 19:15 04/15/20 19:14 Dextrose (Dextrose 50%) 50 ml Q30MIN PRN IV Hypoglycemia 01/16/20 19:15 04/15/20 19:14 Levothyroxine Sodium (Synthroid) 75 mcg DAILY@0630 ORAL 01/17/20 06:30 02/16/20 06:29 01/18/20 05:45 Morphine Sulfate (Morphine Sulfate) 2 mg EVERY 4 HOURS PRN IVP severe pain 7-10 01/16/20 19:15 01/23/20 19:14 01/18/20 09:18 Ondansetron HCl (Zofran) 4 mg Q6H PRN IVP Nausea & Vomiting 01/16/20 19:15 02/15/20 19:14 Polyethylene Glycol (Miralax) 17 gm HSPRN PRN ORAL Constipation 01/16/20 21:00 02/15/20 20:59 Tamsulosin HCl (Flomax) 0.4 mg DAILY ORAL 01/17/20 09:00 02/16/20 08:59 01/18/20 09:04 Zolpidem Tartrate (Ambien) 5 mg HSPRN PRN ORAL Insomnia 01/16/20 21:00 01/23/20 20:59 Assessment/Plan Problems: (1) Suspected COVID-19 virus infection (2) Acute encephalopathy (3) Syncope (4) Compression fracture of L2 (5) Diabetes mellitus (6) Hypothyroid (7) BPH (benign prostatic hyperplasia) (8) Cardiac arrhythmia Assessment/Plan mass on CT, rule out TB, probably old, but because of the age of the patient, there might be some reactivation pt/ot pain management check sputum, sputum induction PPD sliding scale radiology to evaluate for Kyphoplasty Zoe Lynn MD Jan 18, 2020 12:37
--- NOTE | 2020-01-18 13:02 | NUR ---
CASE MANAGEMENT:REVIEW 01/18/20 SI: ACUTE ENCEPHALOPATHY. COMPRESSION FRACTURE SUSPECTED COVID 19.....R/O Tb 99.7 67 20 140/53 95% ON RA H/H-13.8/39.0 GLUCOSE+125 IS: PPD SYNTHROID PO QD FLOMAX PO QD : TELEMETRY STATUS DCP: FROM HOME
[2020-01-18] MEDS ORDERED: PPD Tuberculin Skin Test 5TU IDERMAL ONE (14:00)
--- NOTE | 2020-01-18 14:11 | NUR ---
NURSE NOTES: Abdoul from [employer] called that Catscan department do no do catscan bone mineral study. Will notify Dr. Parks..
--- NOTE | 2020-01-18 15:36 | Internal Med Progress Note ---
Subjective Date of Service: Jan 18, 2020 Physician Name Micah Contreras Attending Physician Neel De MD Current Medications Medications (Trade) Dose Ordered Sig/Lisa Route PRN Reason Start Time Stop Time Status Last Admin Dose Admin Acetaminophen (Tylenol) 650 mg Q4H PRN ORAL fever 01/16/20 19:15 02/15/20 19:14 Acetaminophen/ Hydrocodone Bitart ([place] 10/325) 1 tab Q4H PRN ORAL For Pain 4-6 01/16/20 19:15 01/23/20 19:14 Dextrose (Dextrose 50%) 25 ml Q30MIN PRN IV Hypoglycemia 01/16/20 19:15 04/15/20 19:14 Dextrose (Dextrose 50%) 50 ml Q30MIN PRN IV Hypoglycemia 01/16/20 19:15 04/15/20 19:14 Levothyroxine Sodium (Synthroid) 88 mcg DAILY@0630 ORAL 01/19/20 06:30 02/16/20 06:29 Morphine Sulfate (Morphine Sulfate) 2 mg EVERY 4 HOURS PRN IVP severe pain 7-10 01/16/20 19:15 01/23/20 19:14 01/18/20 09:18 Ondansetron HCl (Zofran) 4 mg Q6H PRN IVP Nausea & Vomiting 01/16/20 19:15 02/15/20 19:14 Polyethylene Glycol (Miralax) 17 gm HSPRN PRN ORAL Constipation 01/16/20 21:00 02/15/20 20:59 Tamsulosin HCl (Flomax) 0.4 mg DAILY ORAL 01/17/20 09:00 02/16/20 08:59 01/18/20 09:04 Zolpidem Tartrate (Ambien) 5 mg HSPRN PRN ORAL Insomnia 01/16/20 21:00 01/23/20 20:59 Allergies: Coded Allergies: AMOXICILLIN (Verified Allergy, Unknown, 03/13/19) CLINDAMYCIN (Verified Allergy, Unknown, 03/13/19) ROS Limited/Unobtainable: No Constitutional: Reports: no symptoms HEENT: Reports: no symptoms Cardiovascular: Reports: no symptoms Respiratory: Reports: no symptoms Gastrointestinal/Abdominal: Reports: no symptoms Genitourinary: Reports: no symptoms Neurologic/Psychiatric: Reports: no symptoms Subjective 84 YO M admitted with back pain. Now compression fracture L2 vertebrae, Ciover for Int Escobar-Dr De Objective Last Vital Signs Date Time Temp Pulse Resp B/P (MAP) Pulse Ox O2 Delivery O2 Flow Rate FiO2 01/18/20 12:00 65 01/18/20 12:00 97.9 20 132/50 (77) 96 01/18/20 09:00 Room Air Laboratory Tests Test 01/18/20 06:00 01/18/20 13:11 White Blood Count 9.3 K/UL (4.8-10.8) Red Blood Count 4.27 M/UL (4.70-6.10) L Hemoglobin 13.8 G/DL (14.2-18.0) L Hematocrit 39.0 % (42.0-52.0) L Mean Corpuscular Volume 91 FL (80-99) Mean Corpuscular Hemoglobin 32.2 PG (27.0-31.0) H Mean Corpuscular Hemoglobin Concent 35.3 G/DL (32.0-36.0) Red Cell Distribution Width 11.2 % (11.6-14.8) L Platelet Count 253 K/UL (150-450) Mean Platelet Volume 5.0 FL (6.5-10.1) L Neutrophils (%) (Auto) 57.4 % (45.0-75.0) Lymphocytes (%) (Auto) 25.0 % (20.0-45.0) Monocytes (%) (Auto) 12.1 % (1.0-10.0) H Eosinophils (%) (Auto) 4.5 % (0.0-3.0) H Basophils (%) (Auto) 1.0 % (0.0-2.0) Sodium Level 137 MMOL/L (136-145) Potassium Level 3.9 MMOL/L (3.5-5.1) Chloride Level 101 MMOL/L (98-107) Carbon Dioxide Level 27 MMOL/L (21-32) Anion Gap 9 mmol/L (5-15) Blood Urea Nitrogen 14 mg/dL (7-18) Creatinine 1.0 MG/DL (0.55-1.30) Estimat Glomerular Filtration Rate > 60 mL/min (>60) Glucose Level 125 MG/DL (74-106) H Hemoglobin A1c 7.8 % (4.3-6.0) H Calcium Level 8.8 MG/DL (8.5-10.1) Lactate Dehydrogenase 335 U/L (81-234) H Free Thyroxine 1.37 NG/DL (0.76-1.46) Triiodothyonine (T3) Pending Free Triiodothyronine 2.3 pg/mL (2.3-4.2) Triiodothyronine (T3) Uptake Pending Carcinoembryonic Antigen Pending Blastomyces Ab Immunodiffusion Pending Coccidioides Antibody (Comp Fix) Pending Histoplasma Mycelial Antibody Pending Histoplasma Antibody w Mycelial Ag Pending Histoplasma Antibody with Yeast Ag Pending Intake and Output 01/17/20 01/18/20 19:00 07:00 Intake Total 720 ml Output Total 850 ml Balance -130 ml Intake Oral 720 ml Output Urine Total 850 ml # Bowel Movements 1 1 Objective PHYSICAL EXAMINATION: GENERAL: Patient is a well-developed and well-nourished thin appearing, male, in no apparent distress. HEENT: Eyes, pupils are equal and responsive to light and accommodation. Extraocular movements are intact. NECK: Supple without lymphadenopathy. CHEST: Lungs are clear to auscultation bilaterally without wheezes or rales. CARDIOVASCULAR: Regular rate. S1, S2 are normal without murmurs, rubs, or gallops. ABDOMEN: Soft, nontender, nondistended. Positive bowel sounds. No evidence of hepatosplenomegaly. Currently, no rebound or guarding noted. EXTREMITIES: Negative for clubbing, cyanosis, edema. RECTAL/GENITAL: Not performed. NEUROLOGIC: Cranial nerves II to XII grossly intact without focal deficits. Motor strength is 5/5 bilaterally. Deep tendon reflexes are 2+ plantar. Assessment/Plan Assessment/Plan ASSESSMENT: This is an 84-year-old male. 1. Low back pain. 2. Lumbar level 2 compression fracture. 3. Syncopal episode. 4. Atrial fibrillation. 5. Diabetes type 2. 6. Hypertension. 7. Chronic obstructive pulmonary disease. 8. Hypothyroidism. 9. Hypercholesterolemia. 10. Glaucoma. 11. Benign prostatic hypertrophy. TREATMENT: 1. Low back pain/lumbar level 2 compression fraction. An Orthopedic consultation has been obtained with Dr. Ren Draper. We will follow recommendations of Orthopedic Surgery. 2. Syncopal episode. A CT scan was reported as no acute infarct or hemorrhage. 3. Atrial fibrillation. Patient is currently off amiodarone. 4. Diabetes type 2. Patient is currently off antihyperglycemic medication. 5. Hypertension. Patient is currently off antihypertensive medication. 6. Chronic obstructive pulmonary disease. A Pulmonary consultation has been obtained with Dr. Zoe Lynn. 7. Hypothyroidism. Patient is currently on levothyroxine 75 mcg p.o. daily. TSH is elevated. A thyroid function panel is pending. Patient has been on levothyroxine for approximately one and half months. 8. Hypercholesterolemia. 9. Glaucoma. 10. Benign prostatic hypertrophy. Micah Contreras MD Jan 18, 2020 15:36
--- NOTE | 2020-01-18 17:14 | Cardiology Progress Note ---
Assessment/Plan Assessment/Plan [id number] difficult to ttell if fall he had 1 week pt was syncope relted and whta tth cause was had svt on telel duratioh unkown as ekg was cuf off orthosttic echo tele trop Objective Last 24 Hour Vital Signs Date Time Temp Pulse Resp B/P (MAP) Pulse Ox O2 Delivery O2 Flow Rate FiO2 01/18/20 16:00 97.7 68 20 121/50 (73) 98 01/18/20 16:00 88 01/18/20 12:00 65 01/18/20 12:00 97.9 65 20 132/50 (77) 96 01/18/20 09:00 Room Air 01/18/20 08:00 98.1 61 18 157/61 (93) 97 01/18/20 08:00 61 01/18/20 04:00 67 01/18/20 04:00 99.7 64 20 140/53 (82) 95 01/18/20 00:00 69 01/18/20 00:00 98.7 68 20 135/74 (94) 95 01/17/20 21:00 Room Air 01/17/20 20:00 98.9 78 20 130/55 (80) 94 01/17/20 20:00 69 Intake and Output 01/17/20 01/18/20 18:59 06:59 Intake Total 720 ml Output Total 850 ml Balance -130 ml Intake Oral 720 ml Output Urine Total 850 ml # Bowel Movements 1 1 Laboratory Tests Test 01/18/20 06:00 01/18/20 13:11 01/18/20 15:05 White Blood Count 9.3 K/UL (4.8-10.8) Red Blood Count 4.27 M/UL (4.70-6.10) L Hemoglobin 13.8 G/DL (14.2-18.0) L Hematocrit 39.0 % (42.0-52.0) L Mean Corpuscular Volume 91 FL (80-99) Mean Corpuscular Hemoglobin 32.2 PG (27.0-31.0) H Mean Corpuscular Hemoglobin Concent 35.3 G/DL (32.0-36.0) Red Cell Distribution Width 11.2 % (11.6-14.8) L Platelet Count 253 K/UL (150-450) Mean Platelet Volume 5.0 FL (6.5-10.1) L Neutrophils (%) (Auto) 57.4 % (45.0-75.0) Lymphocytes (%) (Auto) 25.0 % (20.0-45.0) Monocytes (%) (Auto) 12.1 % (1.0-10.0) H Eosinophils (%) (Auto) 4.5 % (0.0-3.0) H Basophils (%) (Auto) 1.0 % (0.0-2.0) Sodium Level 137 MMOL/L (136-145) Potassium Level 3.9 MMOL/L (3.5-5.1) Chloride Level 101 MMOL/L (98-107) Carbon Dioxide Level 27 MMOL/L (21-32) Anion Gap 9 mmol/L (5-15) Blood Urea Nitrogen 14 mg/dL (7-18) Creatinine 1.0 MG/DL (0.55-1.30) Estimat Glomerular Filtration Rate > 60 mL/min (>60) Glucose Level 125 MG/DL (74-106) H Hemoglobin A1c 7.8 % (4.3-6.0) H Calcium Level 8.8 MG/DL (8.5-10.1) Lactate Dehydrogenase 335 U/L (81-234) H Free Thyroxine 1.37 NG/DL (0.76-1.46) Triiodothyonine (T3) Pending Free Triiodothyronine 2.3 pg/mL (2.3-4.2) Triiodothyronine (T3) Uptake Pending Carcinoembryonic Antigen Pending Blastomyces Ab Immunodiffusion Pending Coccidioides Antibody (Comp Fix) Pending Histoplasma Mycelial Antibody Pending Histoplasma Antibody w Mycelial Ag Pending Histoplasma Antibody with Yeast Ag Pending Urine Legionella Antigen Pending Efrain Plaza MD Jan 18, 2020 17:14
--- NOTE | 2020-01-18 19:45 | NUR ---
NURSE NOTES: Received pt and report from ROXANNE Ruggiero. Observed pt resting in bed with both eyes open and watching television. Pt is A/Ox3, forgetful. boat carpenter is in placed; pt is NSR. IV site intact, asymptomatic, and patent. Pt is on airborne isolation to rule out TB and COVID-19. Bed is in the lowest position and locked. Call light and bedside table is within reach. No signs/symptoms of acute distress noted at this time. Will continue plan of care.
--- NOTE | 2020-01-18 19:51 | NUR ---
HAND-OFF: Report given to Kita RN. Patient is in stable condition.
--- NOTE | 2020-01-18 21:30 | Consultation ---
DATE OF CONSULTATION: 01/18/2020 REFERRING PHYSICIAN: Neel De M.D. REASON FOR CONSULTATION: Abnormal thyroid function test. HISTORY OF PRESENT ILLNESS: The patient is an 84-year-old gentleman with a past medical history of atrial fibrillation, type 2 diabetes, hypertension, and hypothyroidism, was sent to the hospital with a chief complaint of back pain. CT of the spine revealed a compression fracture of the L2. The patient was admitted for evaluation of the fracture. PAST MEDICAL HISTORY: 1. Atrial fibrillation. 2. Type 2 diabetes. 3. Hypertension. 4. COPD. 5. Hypothyroidism. 6. Hypercholesteremia. 7. Glaucoma. 8. BPH. REVIEW OF SYSTEMS: A 12-point review of systems was performed and pertinent positives and negatives are mentioned in history of present illness. ALLERGIES: Amoxicillin and clindamycin. SOCIAL HISTORY: The patient is . No smoking, alcohol, or drug use. FAMILY HISTORY: Noncontributory. PHYSICAL EXAMINATION: GENERAL: The patient is awake. VITAL SIGNS: Blood pressure 140/54, respiratory rate of 18, temperature 98. HEENT: Pupils are equal and reactive to light. Sclerae anicteric. NECK: No JVD. HEART: Regular. LUNGS: Clear. ABDOMEN: Positive bowel sounds. EXTREMITIES: No clubbing, cyanosis, or edema. LABORATORY DATA: Sodium 137, potassium 4.0, chloride 102, bicarb 26, BUN 12, creatinine 1.0, glucose of 125. TSH of 7.8, free T4 of 1.3, free T3 of 2.3. WBC 9, hemoglobin 13, hematocrit 39, and platelets of 253. DIAGNOSES: 1. Compression fracture. 2. Hypothyroidism with elevated TSH. 3. History of diabetes. PLAN: 1. Check hemoglobin A1c. 2. Increase levothyroxine 75 mcg to 88 mcg. Repeat thyroid function in 6 to 8 weeks. 3. Recommended bone density study. If that cannot be done as an an inpatient, we can do it as an outpatient. 4. The patient is a candidate for treatment with anabolic agents, Tymlos versus Forteo to be initiated as an outpatient. I will follow him. Thank you Dr. De for the courtesy of this consultation. Enrique Nazemi, M.D. DR: TESS JOB#: [id number] CC:
--- NOTE | 2020-01-18 23:45 | Consultation ---
DATE OF CONSULTATION: 01/18/2020 CARDIOLOGY CONSULTATION CONSULTING PHYSICIAN: Efrain Plaza MD. REFERRING PHYSICIAN: Neel De MD and Micah Contreras MD. REASON FOR REFERRAL: Syncope. HISTORY OF PRESENT ILLNESS: This is an elderly gentleman, 84 years old, who presented to the emergency room at [facility]. Information is obtained from the patient's chart directly. The patient has been admitted to the hospital because of back pain. He is now in respiratory and droplet isolation pending evaluation. He is person under investigation for possible COVID at this time. Therefore, I have not entered his room. The patient's information from the emergency room apparently told the emergency room physician a few days ago he fell and passed out. He was complaining of some back pain. Unsure if he hit his head. He stated he was feeling short of breath that day. He stated he feels okay today. At the time of admission, he denies any chest pain or shortness of breath. At this time, he is complaining of some lower back pain, dull 5/10, nonradiating. He has been able to walk and denies any other injuries. No other relieving or exacerbating factor identified by the patient. Denies any other associated symptoms. REVIEW OF SYSTEMS: Obtained from Dr. Contreras's chart.CONSTITUTIONAL: Denies any fevers, chills, or weight loss or gain. CARDIAC: The patient denies any palpitation or chest pain. PULMONARY: He denies any wheezing or shortness of breath. GASTROINTESTINAL: He denies any nausea, vomiting, diarrhea, or constipation. GENITOURINARY: He denied any dysuria or discomfort on urination or frequency. PAST MEDICAL HISTORY: Obtained from [facility] records as well as records here. He has previously had syncope secondary to orthostatic hypotension, diabetes mellitus, hypertension, glaucoma, prior history of falls, and benign prostatic hypertrophy. In March of last year, he was hospitalized here and he was diagnosed with near syncopal episodes with bradycardia, possibly secondary to severe hypothyroidism, history of metabolic encephalopathy, history of atrial fibrillation, hyperlipidemia, COPD. ALLERGIES: To amoxicillin and clindamycin. SOCIAL HISTORY: He is . Denies any tobacco or alcohol use. PHYSICAL EXAMINATION: GENERAL: According to the emergency room physician, patient was apparently in no respiratory distress. HEENT: No trauma to his head. NECK: Full range of motion. RESPIRATORY: The chest was nontender. Lungs were clear. Normal breath sounds. Speaking in full sentences. CARDIAC: Regular rate and rhythm. He had good pulses in the carotids, radials, and dorsalis pedis. GASTROINTESTINAL: Normal bowel sounds. Nontender, soft, nondistended. No guarding. No rebound. EXTREMITIES: Reflexes appear to be intact in the lower extremities. LABORATORY AND DIAGNOSTIC DATA: White count is 9.3, hemoglobin 13.8, platelet count 253. His other laboratories A1c of 7.8, LDH of 335, free T4 1.37, TSH was 7.84 down from 88.29 in February of 2019. Sodium 137, potassium 3.9, chloride 101, bicarb of 27, BUN of 14, creatinine 1.0, and glucose of 125. At the time of his admission, his bicarb was 25. His liver function tests are normal. Troponin was normal. ProBNP was only 430 and albumin was 3.1. Total cholesterol 143 with a HDL of 32 and LDL of 89. His free T3 was 2.3. His x-rays that were performed in the emergency room included a CT scan of the spine that showed superior endplate compression fracture at L2, 25% height loss. Head CT showed no acute intracranial abnormalities. A chest x-ray was performed showed no acute findings in the chest. Head CT was repeated again showed no acute abnormalities, some mild chronic senescent findings. A CT of the chest was performed that showed linear band of the right upper lobe. There is a 15 x 20 x 13 mm irregular masslike opacity in the central calcification in the inferior aspect of this and possibly scarring. Underlying mass was not excluded. Telemetry shows sinus rhythm. EKG shows sinus with premature ventricular complexes, a couplet. At the end of the EKG, there was a short run of SVT, but the end of the SVT is not known. ASSESSMENT AND PLAN: 1. Possible syncope. 2. Compression fracture of the lumbar spine. 3. History of paroxysmal atrial fibrillation. 4. Diabetes mellitus. 5. Hypertension. 6. Hyperlipidemia. 7. COPD. 8. History of orthostatic hypotension. This patient was seen in cardiac consultation. His vital signs at time of his initial presentation to the emergency room really did not show any evidence of hypotension, although he presented some time after his initial fall. Difficult to tell whether he may have had orthostatic drop in his blood pressure at the time of his fall. Nevertheless, he should be monitored on telemetry. He should have a set of orthostatic vitals officially evaluated. His heart rate does not appear to be bradycardic at this time. An echocardiogram will be ordered for evaluation of his systolic function if not already performed. Cardiac enzymes will be repeated. A proBNP was not significantly elevated. There is evidence of fluid overload and he should be treated for possibility for this compression fracture where he has pain. He remains at this time in isolation, respiratory isolation as well because of the possibility of a COVID infection, although he does not appear to have any signs or symptoms to suggest according to the chart. I will follow the patient along with you. Efrain Plaza M.D. DR: DEONNA JOB#: [id number] CC:
[2020-01-19] VITALS (7 sets, daily range): BP systolic 103–117; BP diastolic 47–52
--- NOTE | 2020-01-19 07:13 | General Progress Note ---
Assessment/Plan Problem List: (1) Diabetes mellitus (2) Hypothyroid (3) Compression fracture of L2 Assessment/Plan: A1c is elevated start Novolog sliding scale ac / hs continue Levothyroxine 88 mcg daily repeat TSH, free T4 in 6 weeks follow bone density results candidate for Tymlos vs Forteo as OP Subjective Allergies: Coded Allergies: AMOXICILLIN (Verified Allergy, Unknown, 03/13/19) CLINDAMYCIN (Verified Allergy, Unknown, 03/13/19) All Systems: reviewed and negative except above Subjective events noted in isolation for r/o TB Objective Last 24 Hour Vital Signs Date Time Temp Pulse Resp B/P (MAP) Pulse Ox O2 Delivery O2 Flow Rate FiO2 01/19/20 04:00 65 01/19/20 04:00 98.6 65 16 112/47 (68) 94 64 01/19/20 00:00 99.0 77 18 112/47 (68) 94 77 01/19/20 00:00 81 01/18/20 21:00 Room Air 01/18/20 20:00 98.1 86 16 112/59 (76) 95 01/18/20 20:00 82 01/18/20 17:46 78 103/40 (61) 82 100/48 (65) 85 91/40 (57) 01/18/20 17:43 78 82 85 01/18/20 16:00 97.7 68 20 121/50 (73) 98 01/18/20 16:00 88 01/18/20 12:00 65 01/18/20 12:00 97.9 65 20 132/50 (77) 96 01/18/20 09:00 Room Air 01/18/20 08:00 98.1 61 18 157/61 (93) 97 01/18/20 08:00 61 Intake and Output 01/18/20 01/19/20 19:00 07:00 Intake Total 240 ml Output Total 400 ml Balance -160 ml Intake Oral 240 ml Output Urine Total 400 ml # Bowel Movements 1 Laboratory Tests 01/18/20 13:11: Carcinoembryonic Antigen [Pending], Blastomyces Ab Immunodiffusion [Pending], Coccidioides Antibody (Comp Fix) [Pending], Histoplasma Mycelial Antibody [ Pending], Histoplasma Antibody w Mycelial Ag [Pending], Histoplasma Antibody with Yeast Ag [Pending] 01/18/20 15:05: Urine Legionella Antigen [Pending] 01/19/20 06:50: White Blood Count [Pending], Red Blood Count [Pending], Hemoglobin [Pending], Hematocrit [Pending], Mean Corpuscular Volume [Pending], Mean Corpuscular Hemoglobin [Pending], Mean Corpuscular Hemoglobin Concent [Pending], Red Cell Distribution Width [Pending], Platelet Count [Pending], Mean Platelet Volume [ Pending], Neutrophils (%) (Auto) [Pending], Lymphocytes (%) (Auto) [Pending], Monocytes (%) (Auto) [Pending], Eosinophils (%) (Auto) [Pending], Basophils (%) (Auto) [Pending], Sodium Level [Pending], Potassium Level [Pending], Chloride Level [Pending], Carbon Dioxide Level [Pending], Blood Urea Nitrogen [Pending], Creatinine [Pending], Estimat Glomerular Filtration Rate [Pending], Glucose Level [Pending], Calcium Level [Pending], Cryptococcus Antigen [Pending], TB Test (T-Spot) [Pending], TB Test Nil Control (T-Spot) [Pending], TB Test Panel A (T-Spot) [Pending], TB Test Panel B (T-Spot) [Pending], TB Test Positive Control (T-Spot) [Pending] Height (Feet): 5 Height (Inches): 2.00 Weight (Pounds): 138 General Appearance: no apparent distress Neck: normal alignment Cardiovascular: normal rate Respiratory/Chest: lungs clear Abdomen: normal bowel sounds Pelvis: normal external exam Objective Current Medications Medications (Trade) Dose Ordered Sig/Lisa Route PRN Reason Start Time Stop Time Status Last Admin Dose Admin Acetaminophen (Tylenol) 650 mg Q4H PRN ORAL fever 01/16/20 19:15 02/15/20 19:14 Acetaminophen/ Hydrocodone Bitart ([place] 10/325) 1 tab Q4H PRN ORAL For Pain 4-6 01/16/20 19:15 01/23/20 19:14 Dextrose (Dextrose 50%) 25 ml Q30MIN PRN IV Hypoglycemia 01/16/20 19:15 04/15/20 19:14 Dextrose (Dextrose 50%) 50 ml Q30MIN PRN IV Hypoglycemia 01/16/20 19:15 04/15/20 19:14 Levothyroxine Sodium (Synthroid) 88 mcg DAILY@0630 ORAL 01/19/20 06:30 02/16/20 06:29 01/19/20 06:33 Morphine Sulfate (Morphine Sulfate) 2 mg EVERY 4 HOURS PRN IVP severe pain 7-10 01/16/20 19:15 01/23/20 19:14 01/18/20 09:18 Ondansetron HCl (Zofran) 4 mg Q6H PRN IVP Nausea & Vomiting 01/16/20 19:15 02/15/20 19:14 Polyethylene Glycol (Miralax) 17 gm HSPRN PRN ORAL Constipation 01/16/20 21:00 02/15/20 20:59 Tamsulosin HCl (Flomax) 0.4 mg DAILY ORAL 01/17/20 09:00 02/16/20 08:59 01/18/20 09:04 Zolpidem Tartrate (Ambien) 5 mg HSPRN PRN ORAL Insomnia 01/16/20 21:00 01/23/20 20:59 Enrique Parks MD Jan 19, 2020 07:13
[2020-01-19 07:28] LABS: EOSINOPHILS % (AUTO) 2.9 % (0.0-3.0); HEMOGLOBIN 12.9 G/DL (14.2-18.0); LYMPHOCYTES % (AUTO) 32.5 % (20.0-45.0); MEAN CORPUSCULAR VOLUME 90 FL (80-99); MONOCYTES % (AUTO) 13.2 % (1.0-10.0); NEUTROPHILS % (AUTO) 50.5 % (45.0-75.0); PLATELET COUNT 278 K/UL (150-450); RED BLOOD COUNT 3.88 M/UL (4.70-6.10); RED CELL DISTRIBUTION WIDTH 11.1 % (11.6-14.8); WHITE BLOOD COUNT 8.9 K/UL (4.8-10.8)
--- NOTE | 2020-01-19 07:31 | NUR ---
NURSE NOTES: Received patient from Kita RN in bed resting comfortably. Patient denies any pain at this time. No s/s of coughing or fever noted at this time. Patient is on RA. IV on LAC 20G SL. Bed is on lowest position with bedside rails up x3. All needs attended to and met. Will continue with the plan of care.
[2020-01-19 07:43] LABS: ANION GAP 5 mmol/L (5-15); BLOOD UREA NITROGEN 22 mg/dL (7-18); CALCIUM 8.9 MG/DL (8.5-10.1); CARBON DIOXIDE 32 MMOL/L (21-32); CHLORIDE 105 MMOL/L (98-107); SODIUM 142 MMOL/L (136-145)
--- NOTE | 2020-01-19 07:52 | NUR ---
HAND-OFF: Report given to ROXANNE Ruggiero. Plan of care endorsed.
[2020-01-19] MEDS: Tamsulosin 0.4mg cap ORAL SCH (08:54)
--- NOTE | 2020-01-19 10:29 | NUR ---
CASE MANAGEMENT:REVIEW 01/19/20 SI: ACUTE ENCEPHALOPATHY. COMPRESSION FRACTURE COVID 19 NEGATIVE.....R/O Tb 96.9 62 18 117/51 98% ON RA H/H-12.9/35.0 BUN+22 GLUCOSE+116 IS: SYNTHROID PO QD FLOMAX PO QD : TELEMETRY STATUS DCP: FROM HOME PLAN: CT (+) MASS...R/O Tb, PROBABLY OLD BUT MIGHT BE REACTIVATED
--- NOTE | 2020-01-19 11:33 | Internal Med Progress Note ---
Subjective Date of Service: Jan 19, 2020 Physician Name Micah Contreras Attending Physician Neel De MD Current Medications Medications (Trade) Dose Ordered Sig/Lisa Route PRN Reason Start Time Stop Time Status Last Admin Dose Admin Acetaminophen (Tylenol) 650 mg Q4H PRN ORAL fever 01/16/20 19:15 02/15/20 19:14 01/19/20 08:54 Acetaminophen/ Hydrocodone Bitart ([place] 10/325) 1 tab Q4H PRN ORAL For Pain 4-6 01/16/20 19:15 01/23/20 19:14 Dextrose (Dextrose 50%) 25 ml Q30MIN PRN IV Hypoglycemia 01/16/20 19:15 04/15/20 19:14 Dextrose (Dextrose 50%) 50 ml Q30MIN PRN IV Hypoglycemia 01/16/20 19:15 04/15/20 19:14 Levothyroxine Sodium (Synthroid) 88 mcg DAILY@0630 ORAL 01/19/20 06:30 02/16/20 06:29 01/19/20 06:33 Morphine Sulfate (Morphine Sulfate) 2 mg EVERY 4 HOURS PRN IVP severe pain 7-10 01/16/20 19:15 01/23/20 19:14 01/18/20 09:18 Ondansetron HCl (Zofran) 4 mg Q6H PRN IVP Nausea & Vomiting 01/16/20 19:15 02/15/20 19:14 Polyethylene Glycol (Miralax) 17 gm HSPRN PRN ORAL Constipation 01/16/20 21:00 02/15/20 20:59 Tamsulosin HCl (Flomax) 0.4 mg DAILY ORAL 01/17/20 09:00 02/16/20 08:59 01/19/20 08:54 Zolpidem Tartrate (Ambien) 5 mg HSPRN PRN ORAL Insomnia 01/16/20 21:00 01/23/20 20:59 Allergies: Coded Allergies: AMOXICILLIN (Verified Allergy, Unknown, 03/13/19) CLINDAMYCIN (Verified Allergy, Unknown, 03/13/19) ROS Limited/Unobtainable: No Constitutional: Reports: no symptoms HEENT: Reports: no symptoms Cardiovascular: Reports: no symptoms Respiratory: Reports: no symptoms Gastrointestinal/Abdominal: Reports: no symptoms Genitourinary: Reports: no symptoms Neurologic/Psychiatric: Reports: no symptoms Subjective 84 YO M admitted with back pain. Now compression fracture L2 vertebrae, Ciover for Int Escobar-Dr De Objective Last Vital Signs Date Time Temp Pulse Resp B/P (MAP) Pulse Ox O2 Delivery O2 Flow Rate FiO2 01/19/20 09:00 Room Air 01/19/20 09:00 65 62 65 01/19/20 08:00 96.9 18 117/51 (73) 98 Laboratory Tests Test 01/18/20 13:11 01/18/20 15:05 01/19/20 06:50 Carcinoembryonic Antigen 1.5 ng/mL (0.0-4.7) Blastomyces Ab Immunodiffusion Pending Coccidioides Antibody (Comp Fix) Pending Histoplasma Mycelial Antibody Pending Histoplasma Antibody w Mycelial Ag Pending Histoplasma Antibody with Yeast Ag Pending Urine Legionella Antigen Pending White Blood Count 8.9 K/UL (4.8-10.8) Red Blood Count 3.88 M/UL (4.70-6.10) L Hemoglobin 12.9 G/DL (14.2-18.0) L Hematocrit 35.0 % (42.0-52.0) L Mean Corpuscular Volume 90 FL (80-99) Mean Corpuscular Hemoglobin 33.2 PG (27.0-31.0) H Mean Corpuscular Hemoglobin Concent 36.7 G/DL (32.0-36.0) H Red Cell Distribution Width 11.1 % (11.6-14.8) L Platelet Count 278 K/UL (150-450) Mean Platelet Volume 5.0 FL (6.5-10.1) L Neutrophils (%) (Auto) 50.5 % (45.0-75.0) Lymphocytes (%) (Auto) 32.5 % (20.0-45.0) Monocytes (%) (Auto) 13.2 % (1.0-10.0) H Eosinophils (%) (Auto) 2.9 % (0.0-3.0) Basophils (%) (Auto) 1.0 % (0.0-2.0) Sodium Level 142 MMOL/L (136-145) Potassium Level 4.0 MMOL/L (3.5-5.1) Chloride Level 105 MMOL/L (98-107) Carbon Dioxide Level 32 MMOL/L (21-32) Anion Gap 5 mmol/L (5-15) Blood Urea Nitrogen 22 mg/dL (7-18) H Creatinine 1.0 MG/DL (0.55-1.30) Estimat Glomerular Filtration Rate > 60 mL/min (>60) Glucose Level 116 MG/DL (74-106) H Calcium Level 8.9 MG/DL (8.5-10.1) Cryptococcus Antigen Pending TB Test (T-Spot) Pending TB Test Nil Control (T-Spot) Pending TB Test Panel A (T-Spot) Pending TB Test Panel B (T-Spot) Pending TB Test Positive Control (T-Spot) Pending Microbiology Date/Time Source Procedure Growth Status 01/17/20 14:50 Nasopharynx Coronavirus COVID-19 PCR ([facility]) - Final Complete Intake and Output 01/18/20 01/19/20 19:00 07:00 Intake Total 240 ml Output Total 400 ml Balance -160 ml Intake Oral 240 ml Output Urine Total 400 ml # Bowel Movements 1 Objective PHYSICAL EXAMINATION: GENERAL: Patient is a well-developed and well-nourished thin appearing, male, in no apparent distress. HEENT: Eyes, pupils are equal and responsive to light and accommodation. Extraocular movements are intact. NECK: Supple without lymphadenopathy. CHEST: Lungs are clear to auscultation bilaterally without wheezes or rales. CARDIOVASCULAR: Regular rate. S1, S2 are normal without murmurs, rubs, or gallops. ABDOMEN: Soft, nontender, nondistended. Positive bowel sounds. No evidence of hepatosplenomegaly. Currently, no rebound or guarding noted. EXTREMITIES: Negative for clubbing, cyanosis, edema. RECTAL/GENITAL: Not performed. NEUROLOGIC: Cranial nerves II to XII grossly intact without focal deficits. Motor strength is 5/5 bilaterally. Deep tendon reflexes are 2+ plantar. Assessment/Plan Assessment/Plan ASSESSMENT: This is an 84-year-old male. 1. Low back pain. 2. Lumbar level 2 compression fracture. 3. Syncopal episode. 4. Atrial fibrillation. 5. Diabetes type 2. 6. Hypertension. 7. Chronic obstructive pulmonary disease. 8. Hypothyroidism. 9. Hypercholesterolemia. 10. Glaucoma. 11. Benign prostatic hypertrophy. TREATMENT: 1. Low back pain/lumbar level 2 compression fraction. An Orthopedic consultation has been obtained with Dr. Ren Draper. We will follow recommendations of Orthopedic Surgery. 2. Syncopal episode. A CT scan was reported as no acute infarct or hemorrhage. 3. Atrial fibrillation. Patient is currently off amiodarone. 4. Diabetes type 2. Patient is currently off antihyperglycemic medication. 5. Hypertension. Patient is currently off antihypertensive medication. 6. Chronic obstructive pulmonary disease. A Pulmonary consultation has been obtained with Dr. Zoe Lynn. 7. Hypothyroidism. Patient is currently on levothyroxine 75 mcg p.o. daily. TSH is elevated. A thyroid function panel is pending. Patient has been on levothyroxine for approximately one and half months. 8. Hypercholesterolemia. 9. Glaucoma. 10. Benign prostatic hypertrophy. Micah Contreras MD Jan 19, 2020 11:33
--- NOTE | 2020-01-19 11:47 | NUR ---
*-* INSURANCE *-* UPDATED CLINICALS AND REVIEWS HAVE BEEN FAXED TO: Ref# [id number] #[phone] fax#[phone]
--- NOTE | 2020-01-19 12:29 | Pulmonology Progress Note ---
Subjective ROS Limited/Unobtainable: No Constitutional: Reports: no symptoms HEENT: Repors: no symptoms Allergies: Coded Allergies: AMOXICILLIN (Verified Allergy, Unknown, 03/13/19) CLINDAMYCIN (Verified Allergy, Unknown, 03/13/19) All Systems: reviewed and negative except above Objective Last 24 Hour Vital Signs Date Time Temp Pulse Resp B/P (MAP) Pulse Ox O2 Delivery O2 Flow Rate FiO2 01/19/20 09:00 Room Air 01/19/20 09:00 65 62 65 01/19/20 08:00 96.9 62 18 117/51 (73) 98 01/19/20 08:00 62 01/19/20 04:00 65 01/19/20 04:00 98.6 65 16 112/47 (68) 94 64 01/19/20 00:00 99.0 77 18 112/47 (68) 94 77 01/19/20 00:00 81 01/18/20 21:00 Room Air 01/18/20 20:00 98.1 86 16 112/59 (76) 95 01/18/20 20:00 82 01/18/20 17:46 78 103/40 (61) 82 100/48 (65) 85 91/40 (57) 01/18/20 17:43 78 82 85 01/18/20 16:00 97.7 68 20 121/50 (73) 98 01/18/20 16:00 88 Intake and Output 01/18/20 01/19/20 19:00 07:00 Intake Total 240 ml Output Total 400 ml Balance -160 ml Intake Oral 240 ml Output Urine Total 400 ml # Bowel Movements 1 General Appearance: WD/WN HEENT: normocephalic, atraumatic Respiratory: chest wall non-tender, lungs clear Cardiovascular: normal peripheral pulses, normal rate Abdomen: normal bowel sounds, soft, non tender Genitourinary: normal external genitalia Extremities: no cyanosis Skin: no rash Neurologic: hospital housekeeper II-XII grossly normal Microbiology Date/Time Source Procedure Growth Status 01/17/20 14:50 Nasopharynx Coronavirus COVID-19 PCR ([facility]) - Final Complete Laboratory Tests 01/18/20 13:11: Carcinoembryonic Antigen 1.5, Blastomyces Ab Immunodiffusion [Pending], Coccidioides Antibody (Comp Fix) [Pending], Histoplasma Mycelial Antibody [ Pending], Histoplasma Antibody w Mycelial Ag [Pending], Histoplasma Antibody with Yeast Ag [Pending] 01/18/20 15:05: Urine Legionella Antigen [Pending] 01/19/20 06:50: White Blood Count 8.9, Red Blood Count 3.88L, Hemoglobin 12.9L, Hematocrit 35.0L , Mean Corpuscular Volume 90, Mean Corpuscular Hemoglobin 33.2H, Mean Corpuscular Hemoglobin Concent 36.7H, Red Cell Distribution Width 11.1L, Platelet Count 278, Mean Platelet Volume 5.0L, Neutrophils (%) (Auto) 50.5, Lymphocytes (%) (Auto) 32.5, Monocytes (%) (Auto) 13.2H, Eosinophils (%) (Auto) 2.9, Basophils (%) (Auto) 1.0, Sodium Level 142, Potassium Level 4.0, Chloride Level 105, Carbon Dioxide Level 32, Anion Gap 5, Blood Urea Nitrogen 22H, Creatinine 1.0, Estimat Glomerular Filtration Rate > 60, Glucose Level 116H, Calcium Level 8.9, Cryptococcus Antigen [Pending], TB Test (T-Spot) [Pending], TB Test Nil Control (T-Spot) [Pending], TB Test Panel A (T-Spot) [Pending], TB Test Panel B (T-Spot) [Pending], TB Test Positive Control (T-Spot) [Pending] Current Medications Medications (Trade) Dose Ordered Sig/Lisa Route PRN Reason Start Time Stop Time Status Last Admin Dose Admin Acetaminophen (Tylenol) 650 mg Q4H PRN ORAL fever 01/16/20 19:15 02/15/20 19:14 01/19/20 08:54 Acetaminophen/ Hydrocodone Bitart ([place] 10/325) 1 tab Q4H PRN ORAL For Pain 4-6 01/16/20 19:15 01/23/20 19:14 Dextrose (Dextrose 50%) 25 ml Q30MIN PRN IV Hypoglycemia 01/16/20 19:15 04/15/20 19:14 Dextrose (Dextrose 50%) 50 ml Q30MIN PRN IV Hypoglycemia 01/16/20 19:15 04/15/20 19:14 Levothyroxine Sodium (Synthroid) 88 mcg DAILY@0630 ORAL 01/19/20 06:30 02/16/20 06:29 01/19/20 06:33 Morphine Sulfate (Morphine Sulfate) 2 mg EVERY 4 HOURS PRN IVP severe pain 7-10 01/16/20 19:15 01/23/20 19:14 01/18/20 09:18 Ondansetron HCl (Zofran) 4 mg Q6H PRN IVP Nausea & Vomiting 01/16/20 19:15 02/15/20 19:14 Polyethylene Glycol (Miralax) 17 gm HSPRN PRN ORAL Constipation 01/16/20 21:00 02/15/20 20:59 Tamsulosin HCl (Flomax) 0.4 mg DAILY ORAL 01/17/20 09:00 02/16/20 08:59 01/19/20 08:54 Zolpidem Tartrate (Ambien) 5 mg HSPRN PRN ORAL Insomnia 01/16/20 21:00 01/23/20 20:59 Assessment/Plan Problems: (1) Suspected COVID-19 virus infection (2) Acute encephalopathy (3) Syncope (4) Compression fracture of L2 (5) Diabetes mellitus (6) Hypothyroid (7) BPH (benign prostatic hyperplasia) (8) Cardiac arrhythmia Assessment/Plan comfortable mass on CT, rule out TB, probably old, but because of the age of the patient, there might be some reactivation pt/ot pain management check sputum, sputum induction PPD sliding scale serology pending radiology to evaluate for Kyphoplasty after TB and COVID are ruled out Zoe Lynn MD Jan 19, 2020 12:28
[2020-01-19] MEDS: NovoLOG Insulin Flexpen SUBQ SCH ×2 (16:30→21:00)
--- NOTE | 2020-01-19 16:41 | Consultation ---
History of Present Illness General Date patient seen: Jan 19, 2020 Chief Complaint: Dyspnea/Respdistress Present Illness HPI 84 y/o M with hx of orthostatic hypotension and prior syncopal episode, hypothyroidism, Afib, HLD, COPD, HTN, BPH, Dm2, glaucoma presented to ED on after a fall few days ago and passing out. He complains of back pain and it is unsure if he hit his head. The day of the fall he felt SOB but not upon admission. CT of the spine revealed a compression fracture of the L2. Denied f/c, chest pain, wheezing, n/v/d, dysuria upon admission Denied cough, SOB, night sweats, hemoptysis, wt loss. Born in [place]. Has always lived in [place]. 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 Allergies: Coded Allergies: AMOXICILLIN (Verified Allergy, Unknown, 03/13/19) CLINDAMYCIN (Verified Allergy, Unknown, 03/13/19) Medication History Scheduled Levothyroxine Sodium* (Levothyroxine Sodium*), 75 MCG ORAL DAILY@0630 Pilocarpine HCl (Pilocarpine HCl), 1 DRP BOTH EYES HS, (Reported) Tamsulosin Hcl (Tamsulosin Hcl*), 0.4 MG PO DAILY, (Reported) Discontinued Medications Amlodipine Besylate (Norvasc), 2.5 MG ORAL DAILY Discontinued Reason: Pt stopped taking med Atorvastatin Calcium* (Lipitor*), 40 MG PO HS, (Reported) Discontinued Reason: Pt stopped taking med Azilsartan Medoxomil (Edarbi), 40 MG ORAL DAILY, (Reported) Discontinued Reason: Pt stopped taking med Beclomethasone Dipropionate (Qvar), 7.3 GM IH for Shortness of Breath, (Reported ) Discontinued Reason: Pt stopped taking med Carteolol Hcl (Carteolol Hcl), 1 DRP BOTH EYES BID, (Reported) Discontinued Reason: Pt stopped taking med Comp.stocking,Knee,Regular,Lrg (Truform Compression Stocking), 1 EACH MC, (DME) Discontinued Reason: Pt stopped taking med Ezetimibe (Zetia*), (Reported) Discontinued Reason: Pt stopped taking med Ipratropium/Albuterol Sulfate (DuoNeb 0.5-3(2.5)mg/3ml), 3 ML HHN Q4H PRN for Shortness of Breath Discontinued Reason: Pt stopped taking med Latanoprost* (Xalatan*), 1 DRP BOTH EYES QID, (Reported) Discontinued Reason: Pt stopped taking med Meclizine Hcl (Meclizine Hcl), 25 MG ORAL THREE TIMES A DAY, (Reported) Discontinued Reason: Pt stopped taking med Polyethylene Glycol* (Miralax*), 17 GM ORAL HSPRN PRN for Constipation Discontinued Reason: Pt stopped taking med Saxagliptin Hcl (Onglyza), 2.5 MG PO DAILY, (Reported) Discontinued Reason: Pt stopped taking med Telmisartan (Telmisartan), 80 MG PO DAILY, (Reported) Discontinued Reason: Pt stopped taking med Patient History Healthcare decision maker Resuscitation status Advanced Directive on File Patient History Narrative Pmhx: as above SHx: He is . Denies any tobacco or alcohol use. Fhx: non contributory Review of Systems All Other Systems: negative except mentioned in HPI Physical Exam Physical Exam Narrative GENERAL: Patient is a well-developed and well-nourished thin appearing, male, in no apparent distress. HEENT: Eyes, pupils are equal and responsive to light and accommodation. Extraocular movements are intact. NECK: Supple without lymphadenopathy. CHEST: Lungs are clear to auscultation bilaterally without wheezes or rales. CARDIOVASCULAR: Regular rate. S1, S2 are normal without murmurs, rubs, or gallops. ABDOMEN: Soft, nontender, nondistended. Positive bowel sounds. No evidence of hepatosplenomegaly. Currently, no rebound or guarding noted. EXTREMITIES: Negative for clubbing, cyanosis, edema. Last 24 Hour Vital Signs Date Time Temp Pulse Resp B/P (MAP) Pulse Ox O2 Delivery O2 Flow Rate FiO2 01/19/20 12:00 60 01/19/20 12:00 97.0 60 20 109/52 (71) 97 01/19/20 09:00 Room Air 01/19/20 09:00 65 62 65 01/19/20 08:00 96.9 62 18 117/51 (73) 98 01/19/20 08:00 62 01/19/20 04:00 65 01/19/20 04:00 98.6 65 16 112/47 (68) 94 64 01/19/20 00:00 99.0 77 18 112/47 (68) 94 77 6/3/20 00:00 81 01/18/20 21:00 Room Air 01/18/20 20:00 98.1 86 16 112/59 (76) 95 01/18/20 20:00 82 01/18/20 17:46 78 103/40 (61) 82 100/48 (65) 85 91/40 (57) 01/18/20 17:43 78 82 85 Intake and Output 01/18/20 01/19/20 19:00 07:00 Intake Total 240 ml Output Total 400 ml Balance -160 ml Intake Oral 240 ml Output Urine Total 400 ml # Bowel Movements 1 Laboratory Tests Test 01/19/20 06:50 White Blood Count 8.9 K/UL (4.8-10.8) Red Blood Count 3.88 M/UL (4.70-6.10) L Hemoglobin 12.9 G/DL (14.2-18.0) L Hematocrit 35.0 % (42.0-52.0) L Mean Corpuscular Volume 90 FL (80-99) Mean Corpuscular Hemoglobin 33.2 PG (27.0-31.0) H Mean Corpuscular Hemoglobin Concent 36.7 G/DL (32.0-36.0) H Red Cell Distribution Width 11.1 % (11.6-14.8) L Platelet Count 278 K/UL (150-450) Mean Platelet Volume 5.0 FL (6.5-10.1) L Neutrophils (%) (Auto) 50.5 % (45.0-75.0) Lymphocytes (%) (Auto) 32.5 % (20.0-45.0) Monocytes (%) (Auto) 13.2 % (1.0-10.0) H Eosinophils (%) (Auto) 2.9 % (0.0-3.0) Basophils (%) (Auto) 1.0 % (0.0-2.0) Sodium Level 142 MMOL/L (136-145) Potassium Level 4.0 MMOL/L (3.5-5.1) Chloride Level 105 MMOL/L (98-107) Carbon Dioxide Level 32 MMOL/L (21-32) Anion Gap 5 mmol/L (5-15) Blood Urea Nitrogen 22 mg/dL (7-18) H Creatinine 1.0 MG/DL (0.55-1.30) Estimat Glomerular Filtration Rate > 60 mL/min (>60) Glucose Level 116 MG/DL (74-106) H Calcium Level 8.9 MG/DL (8.5-10.1) Cryptococcus Antigen Pending TB Test (T-Spot) Pending TB Test Nil Control (T-Spot) Pending TB Test Panel A (T-Spot) Pending TB Test Panel B (T-Spot) Pending TB Test Positive Control (T-Spot) Pending Height (Feet): 5 Height (Inches): 2.00 Weight (Pounds): 138 Medications Current Medications Medications (Trade) Dose Ordered Sig/Lisa Route PRN Reason Start Time Stop Time Status Last Admin Dose Admin Acetaminophen (Tylenol) 650 mg Q4H PRN ORAL fever 01/16/20 19:15 02/15/20 19:14 01/19/20 08:54 Acetaminophen/ Hydrocodone Bitart ([place] 10/325) 1 tab Q4H PRN ORAL For Pain 4-6 01/16/20 19:15 01/23/20 19:14 Dextrose (Dextrose 50%) 25 ml Q30MIN PRN IV Hypoglycemia 01/16/20 19:15 04/15/20 19:14 Dextrose (Dextrose 50%) 50 ml Q30MIN PRN IV Hypoglycemia 01/16/20 19:15 04/15/20 19:14 Insulin Aspart (NovoLOG) BEFORE MEALS AND HS SUBQ 01/19/20 16:30 04/18/20 16:29 Levothyroxine Sodium (Synthroid) 88 mcg DAILY@0630 ORAL 01/19/20 06:30 02/16/20 06:29 01/19/20 06:33 Morphine Sulfate (Morphine Sulfate) 2 mg EVERY 4 HOURS PRN IVP severe pain 7-10 01/16/20 19:15 01/23/20 19:14 01/18/20 09:18 Ondansetron HCl (Zofran) 4 mg Q6H PRN IVP Nausea & Vomiting 01/16/20 19:15 02/15/20 19:14 Polyethylene Glycol (Miralax) 17 gm HSPRN PRN ORAL Constipation 01/16/20 21:00 02/15/20 20:59 Tamsulosin HCl (Flomax) 0.4 mg DAILY ORAL 01/17/20 09:00 02/16/20 08:59 01/19/20 08:54 Zolpidem Tartrate (Ambien) 5 mg HSPRN PRN ORAL Insomnia 01/16/20 21:00 01/23/20 20:59 Assessment/Plan Assessment/Plan: Abx: None Assessment: COVID neg x1 -01/16 SARS-COV2 PCR neg Syncopal episode Recent fall w/resultant L2 compression facture -CT L spine: Superior endplate compression fracture at L2 with approximately 25% height loss and extension to the posterior cortex where there is mild osseous retropulsion causing mild canal stenosis. -CT head: No acute intracranial abnormality. Mild chronic senescent findings above. Otherwise unremarkable study. ?Lung mass- likely scar as per radiologist interpretation- patient has no pulmonary symptoms or systemic symptoms that would suggest active infection. -01/16 CT chest: Linear bands the right upper lobe. 15 x 20 x 13 mm irregular masslike opacity with central calcification at the inferior aspect of this. Most likely represents an area of scarring. Underlying mass lesion not completely excludable and follow-up should be considered as clinically indicated.Other chronic changes, as described, mostly involving the right lobe. Minimal upper lobe hyperinflation. No acute abnormality. -01/15 CXR: No acute findings in the chest. Afebrile No leukocytosis orthostatic hypotension hx of prior syncopal episode- thought 2ry to bradycardia from severe hypothyroidism hypothyroidism Afib HLD COPD HTN BPH Dm2 glaucoma Plan: -Continue to monitor off abx -f/u cx -Monitor CBC/CMP, temperature -f/u AFB x3, airborne isolation, MTB PCR, T s-pot -f/u fungal serologies Thank you for consulting [facility]. Will continue to follow along with you. Tresa Moreau M.D. Jan 19, 2020 16:41
--- NOTE | 2020-01-19 17:16 | Cardiology Progress Note ---
Assessment/Plan Assessment/Plan 1. Possible syncope. 2. Compression fracture of the lumbar spine. 3. History of paroxysmal atrial fibrillation. 4. Diabetes mellitus. 5. Hypertension. 6. Hyperlipidemia. 7. COPD. 8. History of orthostatic hypotension. 9. lung mass vs scar covid neg but now on tb isolation orthostatic vital never performed bp seem fien id and pulm patiño noted tele sinus occasional pvc personally reviewed ekg personally reviewed sinus echo prelim report normal lv function kyphoplasty post id patiño Subjective Subjective bed resting comfortably. Patient denies any pain at this time. No s/s of coughing or fever noted at this time. Patient is on RA Objective Last 24 Hour Vital Signs Date Time Temp Pulse Resp B/P (MAP) Pulse Ox O2 Delivery O2 Flow Rate FiO2 01/19/20 12:00 60 01/19/20 12:00 97.0 60 20 109/52 (71) 97 01/19/20 09:00 Room Air 01/19/20 09:00 65 62 65 01/19/20 08:00 96.9 62 18 117/51 (73) 98 01/19/20 08:00 62 01/19/20 04:00 65 01/19/20 04:00 98.6 65 16 112/47 (68) 94 64 01/19/20 00:00 99.0 77 18 112/47 (68) 94 77 01/19/20 00:00 81 01/18/20 21:00 Room Air 01/18/20 20:00 98.1 86 16 112/59 (76) 95 01/18/20 20:00 82 01/18/20 17:46 78 103/40 (61) 82 100/48 (65) 85 91/40 (57) 01/18/20 17:43 78 82 85 Intake and Output 01/18/20 01/19/20 18:59 06:59 Intake Total 240 ml Output Total 400 ml Balance -160 ml Intake Oral 240 ml Output Urine Total 400 ml # Bowel Movements 1 Laboratory Tests Test 01/19/20 06:50 White Blood Count 8.9 K/UL (4.8-10.8) Red Blood Count 3.88 M/UL (4.70-6.10) L Hemoglobin 12.9 G/DL (14.2-18.0) L Hematocrit 35.0 % (42.0-52.0) L Mean Corpuscular Volume 90 FL (80-99) Mean Corpuscular Hemoglobin 33.2 PG (27.0-31.0) H Mean Corpuscular Hemoglobin Concent 36.7 G/DL (32.0-36.0) H Red Cell Distribution Width 11.1 % (11.6-14.8) L Platelet Count 278 K/UL (150-450) Mean Platelet Volume 5.0 FL (6.5-10.1) L Neutrophils (%) (Auto) 50.5 % (45.0-75.0) Lymphocytes (%) (Auto) 32.5 % (20.0-45.0) Monocytes (%) (Auto) 13.2 % (1.0-10.0) H Eosinophils (%) (Auto) 2.9 % (0.0-3.0) Basophils (%) (Auto) 1.0 % (0.0-2.0) Sodium Level 142 MMOL/L (136-145) Potassium Level 4.0 MMOL/L (3.5-5.1) Chloride Level 105 MMOL/L (98-107) Carbon Dioxide Level 32 MMOL/L (21-32) Anion Gap 5 mmol/L (5-15) Blood Urea Nitrogen 22 mg/dL (7-18) H Creatinine 1.0 MG/DL (0.55-1.30) Estimat Glomerular Filtration Rate > 60 mL/min (>60) Glucose Level 116 MG/DL (74-106) H Calcium Level 8.9 MG/DL (8.5-10.1) Cryptococcus Antigen Pending TB Test (T-Spot) Pending TB Test Nil Control (T-Spot) Pending TB Test Panel A (T-Spot) Pending TB Test Panel B (T-Spot) Pending TB Test Positive Control (T-Spot) Pending Microbiology Date/Time Source Procedure Growth Status 01/17/20 14:50 Nasopharynx Coronavirus COVID-19 PCR ([facility]) - Final Complete Objective in isolation per dr cannon Respiratory: chest wall non-tender, lungs clear Cardiovascular: normal peripheral pulses, normal rate Abdomen: normal bowel sounds, soft, non tender Genitourinary: normal external genitalia Extremities: no cyanosis Efrain Plaza MD Jan 19, 2020 17:16
--- NOTE | 2020-01-19 19:37 | NUR ---
HAND-OFF: Report given to Ajit OLIVEIRA. Endorsed plan of care.Patient is in stable condition.
--- NOTE | 2020-01-19 19:40 | NUR ---
NURSE NOTES: Got report from Monik OLIVEIRA. Pt in stable condition. No s/s of distress or discomfort noted. Pt resting in bed comfortably. Bed in low and locked position, call light within reach, bedside table within reach. Continue to monitor.
[2020-01-20] VITALS: BP 104/51
[2020-01-20 04:00] VITALS: BP 119/53
[2020-01-20] MEDS: NovoLOG Insulin Flexpen SUBQ SCH ×4 (06:07→21:00)
[2020-01-20 06:35] LABS: BASOPHILS % (AUTO) 1.2 % (0.0-2.0); EOSINOPHILS % (AUTO) 5.9 % (0.0-3.0); HEMATOCRIT 36.9 % (42.0-52.0); HEMOGLOBIN 13.1 G/DL (14.2-18.0); LYMPHOCYTES % (AUTO) 35.4 % (20.0-45.0); MEAN CORPUSCULAR VOLUME 92 FL (80-99); MONOCYTES % (AUTO) 13.4 % (1.0-10.0); PLATELET COUNT 285 K/UL (150-450); RED BLOOD COUNT 4.01 M/UL (4.70-6.10); RED CELL DISTRIBUTION WIDTH 11.2 % (11.6-14.8); WHITE BLOOD COUNT 8.3 K/UL (4.8-10.8)
[2020-01-20 06:53] LABS: ANION GAP 8 mmol/L (5-15); BLOOD UREA NITROGEN 15 mg/dL (7-18); CALCIUM 8.7 MG/DL (8.5-10.1); CARBON DIOXIDE 29 MMOL/L (21-32); CHLORIDE 102 MMOL/L (98-107); CREATININE 0.9 MG/DL (0.55-1.30); POTASSIUM 3.9 MMOL/L (3.5-5.1); SODIUM 139 MMOL/L (136-145)
--- NOTE | 2020-01-20 07:07 | General Progress Note ---
Assessment/Plan Problem List: (1) Diabetes mellitus ICD Codes: E11.9 - Type 2 diabetes mellitus without complications SNOMED: 18946231 (2) Hypothyroid ICD Codes: E03.9 - Hypothyroidism, unspecified SNOMED: 31349071 (3) Compression fracture of L2 ICD Codes: S32.020A - Wedge compression fracture of second lumbar vertebra, initial encounter for closed fracture SNOMED: 95976446902726179 Qualifiers: Qualified Codes: S32.020A - Wedge compression fracture of second lumbar vertebra, initial encounter for closed fracture Assessment/Plan: continue Novolog sliding scale ac / hs continue Levothyroxine 88 mcg daily repeat TSH, free T4 in 6 weeks follow bone density results candidate for Tymlos vs Forteo as OP Subjective ROS Limited/Unobtainable: Yes Allergies: Coded Allergies: AMOXICILLIN (Verified Allergy, Unknown, 03/13/19) CLINDAMYCIN (Verified Allergy, Unknown, 03/13/19) Subjective events noted fair glycemic control Item Value Date Time Bedside Blood Glucose 122 mg/dl H 01/20/20 0630 Bedside Blood Glucose 123 mg/dl H 01/19/20 2100 Bedside Blood Glucose 120 mg/dl 01/19/20 1630 Objective Last 24 Hour Vital Signs Date Time Temp Pulse Resp B/P (MAP) Pulse Ox O2 Delivery O2 Flow Rate FiO2 01/20/20 04:00 97.9 62 19 119/53 (75) 96 01/20/20 04:00 59 01/20/20 00:00 97.5 64 19 104/51 (68) 95 01/20/20 00:00 77 01/19/20 21:00 Room Air 01/19/20 20:00 98.8 66 19 103/50 (67) 95 01/19/20 20:00 64 01/19/20 17:14 97.2 58 18 110/52 (71) 96 01/19/20 17:14 58 01/19/20 16:00 97.2 58 18 110/52 (71) 97 01/19/20 12:00 60 01/19/20 12:00 97.0 60 20 109/52 (71) 97 01/19/20 09:00 Room Air 01/19/20 09:00 65 62 65 01/19/20 08:00 96.9 62 18 117/51 (73) 98 01/19/20 08:00 62 Intake and Output 01/19/20 01/20/20 19:00 07:00 Intake Total 360 ml Output Total 550 ml Balance -190 ml Intake Oral 360 ml Output Urine Total 550 ml Laboratory Tests 01/20/20 04:00: White Blood Count 8.3, Red Blood Count 4.01L, Hemoglobin 13.1L, Hematocrit 36.9L , Mean Corpuscular Volume 92, Mean Corpuscular Hemoglobin 32.8H, Mean Corpuscular Hemoglobin Concent 35.6, Red Cell Distribution Width 11.2L, Platelet Count 285, Mean Platelet Volume 4.8L, Neutrophils (%) (Auto) 44.0L, Lymphocytes (%) (Auto) 35.4, Monocytes (%) (Auto) 13.4H, Eosinophils (%) (Auto) 5.9H, Basophils (%) (Auto) 1.2, Sodium Level [Pending], Potassium Level [Pending ], Chloride Level [Pending], Carbon Dioxide Level [Pending], Blood Urea Nitrogen [Pending], Creatinine [Pending], Estimat Glomerular Filtration Rate [ Pending], Glucose Level [Pending], Calcium Level [Pending] Height (Feet): 5 Height (Inches): 2.00 Weight (Pounds): 138 General Appearance: no apparent distress Neck: normal alignment Cardiovascular: normal rate Respiratory/Chest: decreased breath sounds Abdomen: normal bowel sounds Objective Current Medications Medications (Trade) Dose Ordered Sig/Lisa Route PRN Reason Start Time Stop Time Status Last Admin Dose Admin Acetaminophen (Tylenol) 650 mg Q4H PRN ORAL fever 01/16/20 19:15 02/15/20 19:14 01/19/20 08:54 Acetaminophen/ Hydrocodone Bitart ([place] 10/325) 1 tab Q4H PRN ORAL For Pain 4-6 01/16/20 19:15 01/23/20 19:14 Dextrose (Dextrose 50%) 25 ml Q30MIN PRN IV Hypoglycemia 01/16/20 19:15 04/15/20 19:14 Dextrose (Dextrose 50%) 50 ml Q30MIN PRN IV Hypoglycemia 01/16/20 19:15 04/15/20 19:14 Insulin Aspart (NovoLOG) BEFORE MEALS AND HS SUBQ 01/19/20 16:30 04/18/20 16:29 Levothyroxine Sodium (Synthroid) 88 mcg DAILY@0630 ORAL 01/19/20 06:30 02/16/20 06:29 01/20/20 06:07 Morphine Sulfate (Morphine Sulfate) 2 mg EVERY 4 HOURS PRN IVP severe pain 7-10 01/16/20 19:15 01/23/20 19:14 01/18/20 09:18 Ondansetron HCl (Zofran) 4 mg Q6H PRN IVP Nausea & Vomiting 01/16/20 19:15 02/15/20 19:14 Polyethylene Glycol (Miralax) 17 gm HSPRN PRN ORAL Constipation 01/16/20 21:00 02/15/20 20:59 01/19/20 18:30 Tamsulosin HCl (Flomax) 0.4 mg DAILY ORAL 01/17/20 09:00 02/16/20 08:59 01/19/20 08:54 Zolpidem Tartrate (Ambien) 5 mg HSPRN PRN ORAL Insomnia 01/16/20 21:00 01/23/20 20:59 Enrique Parks MD Jan 20, 2020 07:07
--- NOTE | 2020-01-20 07:30 | NUR ---
NURSE NOTES: Received pt from ROXANNE Cuevas, pt is awake and alert, pt is in RA, no SOB or acute respiratory distress noted. pt is on continues heart monitoring. pt has intact iv access RAC 20G SL. all needs attended, bed is locked and is in the lowest position, call light within easy reach. will continue to monitor.
--- NOTE | 2020-01-20 07:45 | NUR ---
HAND-OFF: Report given to Tess OLIVEIRA.
[2020-01-20 08:00] VITALS: BP 142/52
[2020-01-20] MEDS: Tamsulosin 0.4mg cap ORAL SCH (08:31)
[2020-01-20] MEDS: Morphine Sulfate 2mg/ml Inj(IV/IM USE ONLY) IVP PRN (08:31)
--- NOTE | 2020-01-20 08:47 | NUR ---
NURSE NOTES: pt complained back pain and when RN offered him ,morphine pt refused and morphine returned to pexis.
--- NOTE | 2020-01-20 08:49 | NUR ---
NURSE NOTES: sputum sent [facility], waiting for result.
[2020-01-20 11:56] VITALS: BP 118/52
--- NOTE | 2020-01-20 12:05 | NUR ---
CASE MANAGEMENT:REVIEW 01/20/20 SI: ACUTE ENCEPHALOPATHY. COMPRESSION FRACTURE COVID 19 NEGATIVE.....R/O Tb 97.7 66 20 118/52 93% ON RA H/H-13.1/36.9 IS: SS INSULIN AC+HS SYNTHROID PO QD FLOMAX PO QD : TELEMETRY STATUS DCP: FROM HOME PLAN: CT (+) MASS...R/O Tb, PROBABLY OLD BUT MIGHT BE REACTIVATED ISOLATION PENDING AFB RESULTS AND MTB PCR
--- NOTE | 2020-01-20 13:14 | Pulmonology Progress Note ---
Subjective ROS Limited/Unobtainable: Yes Constitutional: Reports: no symptoms HEENT: Repors: no symptoms Allergies: Coded Allergies: AMOXICILLIN (Verified Allergy, Unknown, 03/13/19) CLINDAMYCIN (Verified Allergy, Unknown, 03/13/19) All Systems: reviewed and negative except above Objective Last 24 Hour Vital Signs Date Time Temp Pulse Resp B/P (MAP) Pulse Ox O2 Delivery O2 Flow Rate FiO2 01/20/20 11:56 97.7 66 20 118/52 (74) 93 01/20/20 11:41 67 01/20/20 09:00 60 60 68 01/20/20 09:00 Room Air 01/20/20 08:00 97.5 60 20 142/52 (82) 94 01/20/20 07:50 59 01/20/20 04:00 97.9 62 19 119/53 (75) 96 01/20/20 04:00 59 01/20/20 00:00 97.5 64 19 104/51 (68) 95 01/20/20 00:00 77 01/19/20 21:00 Room Air 01/19/20 20:00 98.8 66 19 103/50 (67) 95 01/19/20 20:00 64 01/19/20 17:14 97.2 58 18 110/52 (71) 96 01/19/20 17:14 58 01/19/20 16:00 97.2 58 18 110/52 (71) 97 Intake and Output 01/19/20 01/20/20 19:00 07:00 Intake Total 360 ml Output Total 550 ml Balance -190 ml Intake Oral 360 ml Output Urine Total 550 ml General Appearance: WD/WN HEENT: normocephalic, atraumatic Respiratory: chest wall non-tender, lungs clear Cardiovascular: normal peripheral pulses, normal rate Abdomen: normal bowel sounds, soft, non tender Genitourinary: normal external genitalia Extremities: no cyanosis Skin: no rash Neurologic: showroom consultant II-XII grossly normal Lymphatic: no neck adenopathy Microbiology Date/Time Source Procedure Growth Status 01/17/20 14:50 Nasopharynx Coronavirus COVID-19 PCR ([facility]) - Final Complete Laboratory Tests 01/20/20 04:00: White Blood Count 8.3, Red Blood Count 4.01L, Hemoglobin 13.1L, Hematocrit 36.9L , Mean Corpuscular Volume 92, Mean Corpuscular Hemoglobin 32.8H, Mean Corpuscular Hemoglobin Concent 35.6, Red Cell Distribution Width 11.2L, Platelet Count 285, Mean Platelet Volume 4.8L, Neutrophils (%) (Auto) 44.0L, Lymphocytes (%) (Auto) 35.4, Monocytes (%) (Auto) 13.4H, Eosinophils (%) (Auto) 5.9H, Basophils (%) (Auto) 1.2, Sodium Level 139, Potassium Level 3.9, Chloride Level 102, Carbon Dioxide Level 29, Anion Gap 8, Blood Urea Nitrogen 15, Creatinine 0.9, Estimat Glomerular Filtration Rate > 60, Glucose Level 113H, Calcium Level 8.7 Current Medications Medications (Trade) Dose Ordered Sig/Lisa Route PRN Reason Start Time Stop Time Status Last Admin Dose Admin Acetaminophen (Tylenol) 650 mg Q4H PRN ORAL fever 01/16/20 19:15 02/15/20 19:14 01/19/20 08:54 Acetaminophen/ Hydrocodone Bitart ([place] 10/325) 1 tab Q4H PRN ORAL For Pain 4-6 01/16/20 19:15 01/23/20 19:14 Artificial Tears (Lacri-Lube) 1 applic PRN PRN BOTH EYES eye dry 01/20/20 13:15 02/19/20 13:14 UNV Dextrose (Dextrose 50%) 25 ml Q30MIN PRN IV Hypoglycemia 01/16/20 19:15 04/15/20 19:14 Dextrose (Dextrose 50%) 50 ml Q30MIN PRN IV Hypoglycemia 01/16/20 19:15 04/15/20 19:14 Insulin Aspart (NovoLOG) BEFORE MEALS AND HS SUBQ 01/19/20 16:30 04/18/20 16:29 01/20/20 11:25 Levothyroxine Sodium (Synthroid) 88 mcg DAILY@0630 ORAL 01/19/20 06:30 02/16/20 06:29 01/20/20 06:07 Morphine Sulfate (Morphine Sulfate) 2 mg EVERY 4 HOURS PRN IVP severe pain 7-10 01/16/20 19:15 01/23/20 19:14 01/18/20 09:18 Ondansetron HCl (Zofran) 4 mg Q6H PRN IVP Nausea & Vomiting 01/16/20 19:15 02/15/20 19:14 Polyethylene Glycol (Miralax) 17 gm HSPRN PRN ORAL Constipation 01/16/20 21:00 02/15/20 20:59 01/19/20 18:30 Tamsulosin HCl (Flomax) 0.4 mg DAILY ORAL 01/17/20 09:00 02/16/20 08:59 01/20/20 08:31 Zolpidem Tartrate (Ambien) 5 mg HSPRN PRN ORAL Insomnia 01/16/20 21:00 01/23/20 20:59 Assessment/Plan Problems: (1) Suspected COVID-19 virus infection (2) Acute encephalopathy (3) Syncope (4) Compression fracture of L2 (5) Diabetes mellitus (6) Hypothyroid (7) BPH (benign prostatic hyperplasia) (8) Cardiac arrhythmia Assessment/Plan comfortable mass on CT, rule out TB, probably old, but because of the age of the patient, there might be some reactivation pt/ot pain management check sputum, sputum induction PPD sliding scale serology pending radiology to evaluate for Kyphoplasty after TB and COVID are ruled out Zoe Lynn MD Jan 20, 2020 13:14
[2020-01-20] MEDS ORDERED: Lacri-Lube Opth Oint 3.5gm BOTH EYES PRN (13:15)
--- NOTE | 2020-01-20 14:45 | Infectious Diseases Prog Note ---
Assessment/Plan Assessment/Plan Assessment: COVID neg x1 -01/16 SARS-COV2 PCR neg Syncopal episode Recent fall w/resultant L2 compression facture -CT L spine: Superior endplate compression fracture at L2 with approximately 25% height loss and extension to the posterior cortex where there is mild osseous retropulsion causing mild canal stenosis. -CT head: No acute intracranial abnormality. Mild chronic senescent findings above. Otherwise unremarkable study. ?Lung mass- likely scar as per radiologist interpretation- patient has no pulmonary symptoms or systemic symptoms that would suggest active infection. -AFB smear neg x1 -01/16 CT chest: Linear bands the right upper lobe. 15 x 20 x 13 mm irregular masslike opacity with central calcification at the inferior aspect of this. Most likely represents an area of scarring. Underlying mass lesion not completely excludable and follow-up should be considered as clinically indicated.Other chronic changes, as described, mostly involving the right lobe. Minimal upper lobe hyperinflation. No acute abnormality. -01/15 CXR: No acute findings in the chest. Afebrile No leukocytosis orthostatic hypotension hx of prior syncopal episode- thought 2ry to bradycardia from severe hypothyroidism hypothyroidism Afib HLD COPD HTN BPH Dm2 glaucoma Plan: -Continue to monitor off abx -f/u cx -Monitor CBC/CMP, temperature -f/u AFB x3, airborne isolation, MTB PCR, T s-pot -f/u fungal serologies -COVID neg x1- ok to dc covid isolation Thank you for consulting [facility]. Will continue to follow along with you. Subjective Allergies: Coded Allergies: AMOXICILLIN (Verified Allergy, Unknown, 03/13/19) CLINDAMYCIN (Verified Allergy, Unknown, 03/13/19) Subjective afebrile at RA Objective Vital Signs Last 24 Hour Vital Signs Date Time Temp Pulse Resp B/P (MAP) Pulse Ox O2 Delivery O2 Flow Rate FiO2 01/20/20 11:56 97.7 66 20 118/52 (74) 93 01/20/20 11:41 67 01/20/20 09:00 60 60 68 01/20/20 09:00 Room Air 01/20/20 08:00 97.5 60 20 142/52 (82) 94 01/20/20 07:50 59 01/20/20 04:00 97.9 62 19 119/53 (75) 96 01/20/20 04:00 59 01/20/20 00:00 97.5 64 19 104/51 (68) 95 01/20/20 00:00 77 01/19/20 21:00 Room Air 01/19/20 20:00 98.8 66 19 103/50 (67) 95 01/19/20 20:00 64 01/19/20 17:14 97.2 58 18 110/52 (71) 96 01/19/20 17:14 58 01/19/20 16:00 97.2 58 18 110/52 (71) 97 Height (Feet): 5 Height (Inches): 2.00 Weight (Pounds): 138 Objective GENERAL: Patient is a well-developed and well-nourished thin appearing, male, in no apparent distress. HEENT: Eyes, pupils are equal and responsive to light and accommodation. Extraocular movements are intact. NECK: Supple without lymphadenopathy. CHEST: Lungs are clear to auscultation bilaterally without wheezes or rales. CARDIOVASCULAR: Regular rate. S1, S2 are normal without murmurs, rubs, or gallops. ABDOMEN: Soft, nontender, nondistended. Positive bowel sounds. No evidence of hepatosplenomegaly. Currently, no rebound or guarding noted. EXTREMITIES: Negative for clubbing, cyanosis, edema. Microbiology Date/Time Source Procedure Growth Status 01/19/20 12:35 Sputum AFB Specimen Processing Tissue - Final Resulted 01/19/20 12:35 Sputum Acid Fast Bacilli Smear - Final Resulted 01/19/20 12:35 Sputum Acid Fast Bacilli Culture Pending Resulted 01/17/20 14:50 Nasopharynx Coronavirus COVID-19 PCR ([facility]) - Final Complete Laboratory Tests Test 01/20/20 04:00 White Blood Count 8.3 K/UL (4.8-10.8) Red Blood Count 4.01 M/UL (4.70-6.10) L Hemoglobin 13.1 G/DL (14.2-18.0) L Hematocrit 36.9 % (42.0-52.0) L Mean Corpuscular Volume 92 FL (80-99) Mean Corpuscular Hemoglobin 32.8 PG (27.0-31.0) H Mean Corpuscular Hemoglobin Concent 35.6 G/DL (32.0-36.0) Red Cell Distribution Width 11.2 % (11.6-14.8) L Platelet Count 285 K/UL (150-450) Mean Platelet Volume 4.8 FL (6.5-10.1) L Neutrophils (%) (Auto) 44.0 % (45.0-75.0) L Lymphocytes (%) (Auto) 35.4 % (20.0-45.0) Monocytes (%) (Auto) 13.4 % (1.0-10.0) H Eosinophils (%) (Auto) 5.9 % (0.0-3.0) H Basophils (%) (Auto) 1.2 % (0.0-2.0) Sodium Level 139 MMOL/L (136-145) Potassium Level 3.9 MMOL/L (3.5-5.1) Chloride Level 102 MMOL/L (98-107) Carbon Dioxide Level 29 MMOL/L (21-32) Anion Gap 8 mmol/L (5-15) Blood Urea Nitrogen 15 mg/dL (7-18) Creatinine 0.9 MG/DL (0.55-1.30) Estimat Glomerular Filtration Rate > 60 mL/min (>60) Glucose Level 113 MG/DL (74-106) H Calcium Level 8.7 MG/DL (8.5-10.1) Current Medications Medications (Trade) Dose Ordered Sig/Lisa Route PRN Reason Start Time Stop Time Status Last Admin Dose Admin Acetaminophen (Tylenol) 650 mg Q4H PRN ORAL fever 01/16/20 19:15 02/15/20 19:14 01/19/20 08:54 Acetaminophen/ Hydrocodone Bitart ([place] 10/325) 1 tab Q4H PRN ORAL For Pain 4-6 01/16/20 19:15 01/23/20 19:14 Artificial Tears (Lacri-Lube) 1 applic PRN PRN BOTH EYES eye dry 01/20/20 13:15 02/19/20 13:14 Dextrose (Dextrose 50%) 25 ml Q30MIN PRN IV Hypoglycemia 01/16/20 19:15 04/15/20 19:14 Dextrose (Dextrose 50%) 50 ml Q30MIN PRN IV Hypoglycemia 01/16/20 19:15 04/15/20 19:14 Insulin Aspart (NovoLOG) BEFORE MEALS AND HS SUBQ 01/19/20 16:30 04/18/20 16:29 01/20/20 11:25 Levothyroxine Sodium (Synthroid) 88 mcg DAILY@0630 ORAL 01/19/20 06:30 02/16/20 06:29 01/20/20 06:07 Morphine Sulfate (Morphine Sulfate) 2 mg EVERY 4 HOURS PRN IVP severe pain 7-10 01/16/20 19:15 01/23/20 19:14 01/18/20 09:18 Ondansetron HCl (Zofran) 4 mg Q6H PRN IVP Nausea & Vomiting 01/16/20 19:15 02/15/20 19:14 Polyethylene Glycol (Miralax) 17 gm HSPRN PRN ORAL Constipation 01/16/20 21:00 02/15/20 20:59 01/19/20 18:30 Tamsulosin HCl (Flomax) 0.4 mg DAILY ORAL 01/17/20 09:00 02/16/20 08:59 01/20/20 08:31 Zolpidem Tartrate (Ambien) 5 mg HSPRN PRN ORAL Insomnia 01/16/20 21:00 01/23/20 20:59 Tresa Moreau M.D. Jan 20, 2020 14:45
--- NOTE | 2020-01-20 15:05 | Internal Med Progress Note ---
Subjective Date of Service: Jan 20, 2020 Physician Name Micah Contreras Attending Physician Neel De MD Current Medications Medications (Trade) Dose Ordered Sig/Lisa Route PRN Reason Start Time Stop Time Status Last Admin Dose Admin Acetaminophen (Tylenol) 650 mg Q4H PRN ORAL fever 01/16/20 19:15 02/15/20 19:14 01/19/20 08:54 Acetaminophen/ Hydrocodone Bitart ([place] 10/325) 1 tab Q4H PRN ORAL For Pain 4-6 01/16/20 19:15 01/23/20 19:14 Artificial Tears (Lacri-Lube) 1 applic PRN PRN BOTH EYES eye dry 01/20/20 13:15 02/19/20 13:14 Dextrose (Dextrose 50%) 25 ml Q30MIN PRN IV Hypoglycemia 01/16/20 19:15 04/15/20 19:14 Dextrose (Dextrose 50%) 50 ml Q30MIN PRN IV Hypoglycemia 01/16/20 19:15 04/15/20 19:14 Insulin Aspart (NovoLOG) BEFORE MEALS AND HS SUBQ 01/19/20 16:30 04/18/20 16:29 01/20/20 11:25 Levothyroxine Sodium (Synthroid) 88 mcg DAILY@0630 ORAL 01/19/20 06:30 02/16/20 06:29 01/20/20 06:07 Morphine Sulfate (Morphine Sulfate) 2 mg EVERY 4 HOURS PRN IVP severe pain 7-10 01/16/20 19:15 01/23/20 19:14 01/18/20 09:18 Ondansetron HCl (Zofran) 4 mg Q6H PRN IVP Nausea & Vomiting 01/16/20 19:15 02/15/20 19:14 Polyethylene Glycol (Miralax) 17 gm HSPRN PRN ORAL Constipation 01/16/20 21:00 02/15/20 20:59 01/19/20 18:30 Tamsulosin HCl (Flomax) 0.4 mg DAILY ORAL 01/17/20 09:00 02/16/20 08:59 01/20/20 08:31 Zolpidem Tartrate (Ambien) 5 mg HSPRN PRN ORAL Insomnia 01/16/20 21:00 01/23/20 20:59 Allergies: Coded Allergies: AMOXICILLIN (Verified Allergy, Unknown, 03/13/19) CLINDAMYCIN (Verified Allergy, Unknown, 03/13/19) ROS Limited/Unobtainable: No Constitutional: Reports: no symptoms HEENT: Reports: no symptoms Cardiovascular: Reports: no symptoms Respiratory: Reports: no symptoms Gastrointestinal/Abdominal: Reports: no symptoms Genitourinary: Reports: no symptoms Neurologic/Psychiatric: Reports: no symptoms Subjective 84 YO M admitted with back pain. Now compression fracture L2 vertebrae, Ciover for Int Med-Dr De Objective Last Vital Signs Date Time Temp Pulse Resp B/P (MAP) Pulse Ox O2 Delivery O2 Flow Rate FiO2 01/20/20 11:56 97.7 66 20 118/52 (74) 93 01/20/20 09:00 Room Air Laboratory Tests Test 01/20/20 04:00 White Blood Count 8.3 K/UL (4.8-10.8) Red Blood Count 4.01 M/UL (4.70-6.10) L Hemoglobin 13.1 G/DL (14.2-18.0) L Hematocrit 36.9 % (42.0-52.0) L Mean Corpuscular Volume 92 FL (80-99) Mean Corpuscular Hemoglobin 32.8 PG (27.0-31.0) H Mean Corpuscular Hemoglobin Concent 35.6 G/DL (32.0-36.0) Red Cell Distribution Width 11.2 % (11.6-14.8) L Platelet Count 285 K/UL (150-450) Mean Platelet Volume 4.8 FL (6.5-10.1) L Neutrophils (%) (Auto) 44.0 % (45.0-75.0) L Lymphocytes (%) (Auto) 35.4 % (20.0-45.0) Monocytes (%) (Auto) 13.4 % (1.0-10.0) H Eosinophils (%) (Auto) 5.9 % (0.0-3.0) H Basophils (%) (Auto) 1.2 % (0.0-2.0) Sodium Level 139 MMOL/L (136-145) Potassium Level 3.9 MMOL/L (3.5-5.1) Chloride Level 102 MMOL/L (98-107) Carbon Dioxide Level 29 MMOL/L (21-32) Anion Gap 8 mmol/L (5-15) Blood Urea Nitrogen 15 mg/dL (7-18) Creatinine 0.9 MG/DL (0.55-1.30) Estimat Glomerular Filtration Rate > 60 mL/min (>60) Glucose Level 113 MG/DL (74-106) H Calcium Level 8.7 MG/DL (8.5-10.1) Microbiology Date/Time Source Procedure Growth Status 01/19/20 12:35 Sputum AFB Specimen Processing Tissue - Final Resulted 01/19/20 12:35 Sputum Acid Fast Bacilli Smear - Final Resulted 01/19/20 12:35 Sputum Acid Fast Bacilli Culture Pending Resulted Intake and Output 01/19/20 01/20/20 19:00 07:00 Intake Total 360 ml Output Total 550 ml Balance -190 ml Intake Oral 360 ml Output Urine Total 550 ml Objective PHYSICAL EXAMINATION: GENERAL: Patient is a well-developed and well-nourished thin appearing, male, in no apparent distress. HEENT: Eyes, pupils are equal and responsive to light and accommodation. Extraocular movements are intact. NECK: Supple without lymphadenopathy. CHEST: Lungs are clear to auscultation bilaterally without wheezes or rales. CARDIOVASCULAR: Regular rate. S1, S2 are normal without murmurs, rubs, or gallops. ABDOMEN: Soft, nontender, nondistended. Positive bowel sounds. No evidence of hepatosplenomegaly. Currently, no rebound or guarding noted. EXTREMITIES: Negative for clubbing, cyanosis, edema. RECTAL/GENITAL: Not performed. NEUROLOGIC: Cranial nerves II to XII grossly intact without focal deficits. Motor strength is 5/5 bilaterally. Deep tendon reflexes are 2+ plantar. Assessment/Plan Assessment/Plan ASSESSMENT: This is an 84-year-old male. 1. Low back pain. 2. Lumbar level 2 compression fracture. 3. Syncopal episode. 4. Atrial fibrillation. 5. Diabetes type 2. 6. Hypertension. 7. Chronic obstructive pulmonary disease. 8. Hypothyroidism. 9. Hypercholesterolemia. 10. Glaucoma. 11. Benign prostatic hypertrophy. TREATMENT: 1. Low back pain/lumbar level 2 compression fraction. An Orthopedic consultation has been obtained with Dr. Ren Draper. We will follow recommendations of Orthopedic Surgery. 2. Syncopal episode. A CT scan was reported as no acute infarct or hemorrhage. 3. Atrial fibrillation. Patient is currently off amiodarone. 4. Diabetes type 2. Patient is currently off antihyperglycemic medication. 5. Hypertension. Patient is currently off antihypertensive medication. 6. Chronic obstructive pulmonary disease. A Pulmonary consultation has been obtained with Dr. Zoe Lynn. 7. Hypothyroidism. Patient is currently on levothyroxine 75 mcg p.o. daily. TSH is elevated. A thyroid function panel is pending. Patient has been on levothyroxine for approximately one and half months. 8. Hypercholesterolemia. 9. Glaucoma. 10. Benign prostatic hypertrophy. Micah Contreras MD Jan 20, 2020 15:05
--- NOTE | 2020-01-20 15:34 | NUR ---
*-* INSURANCE *-* UPDATED CLINICALS AND REVIEWS HAVE BEEN FAXED TO: Ref# [id number] #[phone] fax#[phone]
[2020-01-20 15:53] VITALS: BP 122/53
--- NOTE | 2020-01-20 18:23 | Cardiology Progress Note ---
Assessment/Plan Assessment/Plan 1. Possible syncope. 2. Compression fracture of the lumbar spine. 3. History of paroxysmal atrial fibrillation. 4. Diabetes mellitus. 5. Hypertension. 6. Hyperlipidemia. 7. COPD. 8. History of orthostatic hypotension. 9. lung mass vs scar covid neg but now on tb isolation today orthostatic vital neg by bp but per rn was very dizzy and need assistance to stand bp seem fien id and pulm patiño noted tele sinus personally reviewed ekg personally reviewed sinus echo prelim report normal lv function kyphoplasty post id patiño consider neuro eval for possible imbalance as a cause of dizziness and falls Subjective Subjective per rn pt is awake and alert, pt is in RA, no SOB or acute respiratory distress noted. pt is on continues heart monitoring Objective Last 24 Hour Vital Signs Date Time Temp Pulse Resp B/P (MAP) Pulse Ox O2 Delivery O2 Flow Rate FiO2 01/20/20 15:53 97.7 66 20 122/53 (76) 95 01/20/20 15:41 66 01/20/20 11:56 97.7 66 20 118/52 (74) 93 01/20/20 11:41 67 01/20/20 09:00 60 60 68 01/20/20 09:00 Room Air 01/20/20 08:00 97.5 60 20 142/52 (82) 94 01/20/20 07:50 59 01/20/20 04:00 97.9 62 19 119/53 (75) 96 01/20/20 04:00 59 01/20/20 00:00 97.5 64 19 104/51 (68) 95 01/20/20 00:00 77 01/19/20 21:00 Room Air 01/19/20 20:00 98.8 66 19 103/50 (67) 95 01/19/20 20:00 64 Intake and Output 01/19/20 01/20/20 19:00 07:00 Intake Total 360 ml Output Total 550 ml Balance -190 ml Intake Oral 360 ml Output Urine Total 550 ml Laboratory Tests Test 01/20/20 04:00 White Blood Count 8.3 K/UL (4.8-10.8) Red Blood Count 4.01 M/UL (4.70-6.10) L Hemoglobin 13.1 G/DL (14.2-18.0) L Hematocrit 36.9 % (42.0-52.0) L Mean Corpuscular Volume 92 FL (80-99) Mean Corpuscular Hemoglobin 32.8 PG (27.0-31.0) H Mean Corpuscular Hemoglobin Concent 35.6 G/DL (32.0-36.0) Red Cell Distribution Width 11.2 % (11.6-14.8) L Platelet Count 285 K/UL (150-450) Mean Platelet Volume 4.8 FL (6.5-10.1) L Neutrophils (%) (Auto) 44.0 % (45.0-75.0) L Lymphocytes (%) (Auto) 35.4 % (20.0-45.0) Monocytes (%) (Auto) 13.4 % (1.0-10.0) H Eosinophils (%) (Auto) 5.9 % (0.0-3.0) H Basophils (%) (Auto) 1.2 % (0.0-2.0) Sodium Level 139 MMOL/L (136-145) Potassium Level 3.9 MMOL/L (3.5-5.1) Chloride Level 102 MMOL/L (98-107) Carbon Dioxide Level 29 MMOL/L (21-32) Anion Gap 8 mmol/L (5-15) Blood Urea Nitrogen 15 mg/dL (7-18) Creatinine 0.9 MG/DL (0.55-1.30) Estimat Glomerular Filtration Rate > 60 mL/min (>60) Glucose Level 113 MG/DL (74-106) H Calcium Level 8.7 MG/DL (8.5-10.1) Microbiology Date/Time Source Procedure Growth Status 01/19/20 12:35 Sputum AFB Specimen Processing Tissue - Final Resulted 01/19/20 12:35 Sputum Acid Fast Bacilli Smear - Final Resulted 01/19/20 12:35 Sputum Acid Fast Bacilli Culture Pending Resulted Objective in isolation per dr cannon Respiratory: chest wall non-tender, lungs clear Cardiovascular: normal peripheral pulses, normal rate Abdomen: normal bowel sounds, soft, non tender Genitourinary: normal external genitalia Extremities: no cyanosis Efrain Plaza MD Jan 20, 2020 18:23
--- NOTE | 2020-01-20 19:15 | NUR ---
NURSE NOTES: Received report from ROXANNE Pulido. Patient is awake, alert and oriented x 3. On CCHO (medium) instructed and amenable. cardiac monitor technician is on, shows Sinus rhythm. Patient is on room air with no SOB or desaturation reported. IV site is on left AC G-20 saline lock that is patent and intact. Safety measures are on, bed in lowest and lock position, bed alarm is on, side rails up x 2. Call light and bedside table within reach. Will continue plan of care.
--- NOTE | 2020-01-20 19:46 | NUR ---
HAND-OFF: Report given to ROXANNE Roberson. Pt is awake, Endorsed plan of care.
--- NOTE | 2020-01-20 19:47 | NUR ---
NURSE NOTES: Patient had an episodes of bigeminy PVC, and HR of 41. RN checked on patient, assessments done. Patient is on comfortable position, denies any chest pain, nor any discomfort at this time. Informed Dr. Plaza and send all the EKG strips, he responded but no orders made. Will continue plan of care,
[2020-01-20 20:00] VITALS: BP 106/56
[2020-01-21] VITALS: BP 108/52
[2020-01-21 04:00] VITALS: BP 123/62
[2020-01-21 05:31] LABS: BASOPHILS % (AUTO) 1.4 % (0.0-2.0); EOSINOPHILS % (AUTO) 9.5 % (0.0-3.0); HEMATOCRIT 35.2 % (42.0-52.0); HEMOGLOBIN 12.5 G/DL (14.2-18.0); LYMPHOCYTES % (AUTO) 36.4 % (20.0-45.0); MEAN CORPUSCULAR VOLUME 91 FL (80-99); MONOCYTES % (AUTO) 10.8 % (1.0-10.0); NEUTROPHILS % (AUTO) 41.9 % (45.0-75.0); PLATELET COUNT 333 K/UL (150-450); RED BLOOD COUNT 3.85 M/UL (4.70-6.10); WHITE BLOOD COUNT 9.1 K/UL (4.8-10.8)
[2020-01-21 05:53] LABS: ALANINE AMINOTRANSFERASE 24 U/L (12-78); ALBUMIN 2.9 G/DL (3.4-5.0); ALBUMIN/GLOBULIN RATIO 0.8 (1.0-2.7); ALKALINE PHOSPHATASE 81 U/L (46-116); ANION GAP 7 mmol/L (5-15); ASPARTATE AMINO TRANSFERASE 20 U/L (15-37); BILIRUBIN,TOTAL 0.6 MG/DL (0.2-1.0); BLOOD UREA NITROGEN 15 mg/dL (7-18); CALCIUM 8.7 MG/DL (8.5-10.1); CARBON DIOXIDE 30 MMOL/L (21-32); CHLORIDE 103 MMOL/L (98-107); CREATININE 1.1 MG/DL (0.55-1.30); PHOSPHORUS 3.4 MG/DL (2.5-4.9); POTASSIUM 4.4 MMOL/L (3.5-5.1); SODIUM 140 MMOL/L (136-145)
[2020-01-21] MEDS: NovoLOG Insulin Flexpen SUBQ SCH ×4 (06:11→21:00)
--- NOTE | 2020-01-21 07:08 | General Progress Note ---
Assessment/Plan Problem List: (1) Diabetes mellitus ICD Codes: E11.9 - Type 2 diabetes mellitus without complications SNOMED: 54334681 (2) Hypothyroid ICD Codes: E03.9 - Hypothyroidism, unspecified SNOMED: 87191061 (3) Compression fracture of L2 ICD Codes: S32.020A - Wedge compression fracture of second lumbar vertebra, initial encounter for closed fracture SNOMED: 05897441668915541 Qualifiers: Qualified Codes: S32.020A - Wedge compression fracture of second lumbar vertebra, initial encounter for closed fracture Assessment/Plan: continue Novolog sliding scale ac / hs continue Levothyroxine 88 mcg daily repeat TSH, free T4 in 6 weeks follow bone density results candidate for Tymlos vs Forteo as OP Subjective ROS Limited/Unobtainable: Yes Allergies: Coded Allergies: AMOXICILLIN (Verified Allergy, Unknown, 03/13/19) CLINDAMYCIN (Verified Allergy, Unknown, 03/13/19) Subjective events noted fair glycemic control Item Value Date Time Bedside Blood Glucose 125 mg/dl H 01/21/20 0630 Bedside Blood Glucose 124 mg/dl H 01/20/20 2100 Bedside Blood Glucose 120 mg/dl 01/20/20 1630 Bedside Blood Glucose 148 mg/dl H 01/20/20 1125 Bedside Blood Glucose 122 mg/dl H 01/20/20 0630 Objective Last 24 Hour Vital Signs Date Time Temp Pulse Resp B/P (MAP) Pulse Ox O2 Delivery O2 Flow Rate FiO2 01/21/20 04:00 64 01/21/20 04:00 98.0 75 19 123/62 (82) 98 01/21/20 00:00 97.9 72 19 108/52 (70) 96 01/21/20 00:00 63 01/20/20 21:00 Room Air 01/20/20 20:00 97.7 65 19 106/56 (73) 98 01/20/20 20:00 41 01/20/20 15:53 97.7 66 20 122/53 (76) 95 01/20/20 15:41 66 01/20/20 11:56 97.7 66 20 118/52 (74) 93 01/20/20 11:41 67 01/20/20 09:00 60 60 68 01/20/20 09:00 Room Air 01/20/20 08:00 97.5 60 20 142/52 (82) 94 01/20/20 07:50 59 Laboratory Tests 01/21/20 04:00: White Blood Count 9.1, Red Blood Count 3.85L, Hemoglobin 12.5L, Hematocrit 35.2L , Mean Corpuscular Volume 91, Mean Corpuscular Hemoglobin 32.4H, Mean Corpuscular Hemoglobin Concent 35.5, Red Cell Distribution Width 11.0L, Platelet Count 333, Mean Platelet Volume 4.8L, Neutrophils (%) (Auto) 41.9L, Lymphocytes (%) (Auto) 36.4, Monocytes (%) (Auto) 10.8H, Eosinophils (%) (Auto) 9.5H, Basophils (%) (Auto) 1.4, Erythrocyte Sedimentation Rate [Pending], Sodium Level 140, Potassium Level 4.4, Chloride Level 103, Carbon Dioxide Level 30, Anion Gap 7, Blood Urea Nitrogen 15, Creatinine 1.1, Estimat Glomerular Filtration Rate > 60, Glucose Level 114H, Calcium Level 8.7, Phosphorus Level 3.4, Magnesium Level 2.1, Total Bilirubin 0.6, Aspartate Amino Transf (AST/SGOT ) 20, Alanine Aminotransferase (ALT/SGPT) 24, Alkaline Phosphatase 81, C- Reactive Protein, Quantitative 2.0H, Total Protein 6.6, Albumin 2.9L, Globulin 3.7, Albumin/Globulin Ratio 0.8L Height (Feet): 5 Height (Inches): 2.00 Weight (Pounds): 138 General Appearance: no apparent distress Cardiovascular: normal rate Respiratory/Chest: decreased breath sounds Abdomen: normal bowel sounds Objective Current Medications Medications (Trade) Dose Ordered Sig/Lisa Route PRN Reason Start Time Stop Time Status Last Admin Dose Admin Acetaminophen (Tylenol) 650 mg Q4H PRN ORAL fever 01/16/20 19:15 02/15/20 19:14 01/19/20 08:54 Acetaminophen/ Hydrocodone Bitart ([place] 10/325) 1 tab Q4H PRN ORAL For Pain 4-6 01/16/20 19:15 01/23/20 19:14 Artificial Tears (Lacri-Lube) 1 applic PRN PRN BOTH EYES eye dry 01/20/20 13:15 02/19/20 13:14 Dextrose (Dextrose 50%) 25 ml Q30MIN PRN IV Hypoglycemia 01/16/20 19:15 04/15/20 19:14 Dextrose (Dextrose 50%) 50 ml Q30MIN PRN IV Hypoglycemia 01/16/20 19:15 04/15/20 19:14 Insulin Aspart (NovoLOG) BEFORE MEALS AND HS SUBQ 01/19/20 16:30 04/18/20 16:29 01/20/20 11:25 Levothyroxine Sodium (Synthroid) 88 mcg DAILY@0630 ORAL 01/19/20 06:30 02/16/20 06:29 01/21/20 06:03 Morphine Sulfate (Morphine Sulfate) 2 mg EVERY 4 HOURS PRN IVP severe pain 7-10 01/16/20 19:15 01/23/20 19:14 01/18/20 09:18 Ondansetron HCl (Zofran) 4 mg Q6H PRN IVP Nausea & Vomiting 01/16/20 19:15 02/15/20 19:14 Polyethylene Glycol (Miralax) 17 gm HSPRN PRN ORAL Constipation 01/16/20 21:00 02/15/20 20:59 01/19/20 18:30 Tamsulosin HCl (Flomax) 0.4 mg DAILY ORAL 01/17/20 09:00 02/16/20 08:59 01/20/20 08:31 Zolpidem Tartrate (Ambien) 5 mg HSPRN PRN ORAL Insomnia 01/16/20 21:00 01/23/20 20:59 Enrique Parks MD Jan 21, 2020 07:08
--- NOTE | 2020-01-21 07:11 | NUR ---
NURSE NOTES: Patient had another episode of extreme bradycardia, HR of 38. RN made assessment, patient is doing well no complaints nor chest pain noted at this time. Notify Dr. Plaza and send the strips, will continue to monitor,
--- NOTE | 2020-01-21 07:30 | NUR ---
NURSE NOTES: Received pt from ROXANNE Roberson, pt is awake and alert, pt is in RA, no SOB or acute respiratory distress noted. pt is on continues heart monitoring, pt has an episode of bradycardia HR 38, strip sent to Dr Plaza, waiting to call back. pt has intact iv access LAC 20G SL. all needs attended, bed is locked and is in the lowest position, call light within easy reach. will continue to monitor.
--- NOTE | 2020-01-21 07:30 | NUR ---
HAND-OFF: Report given to ROXANNE Pulido. Patient is in stable condition, no chest pain nor desaturation noted at this time. Will continue plan of care.
[2020-01-21 08:00] VITALS: BP 121/54
--- NOTE | 2020-01-21 08:17 | NUR ---
RESPIRATORY NOTE: instructed pt for AFB specimen. cup in room. ROXANNE Roberson in room
[2020-01-21] MEDS: Tamsulosin 0.4mg cap ORAL SCH (08:19)
--- NOTE | 2020-01-21 08:30 | NUR ---
NURSE NOTES: ECG stat done and with the result of orthostatic BP sent to Dr Plaza, waiting to call back.
--- NOTE | 2020-01-21 10:33 | NUR ---
CASE MANAGEMENT:REVIEW 01/21/20 SI: ACUTE ENCEPHALOPATHY. COMPRESSION FRACTURE COVID 19 NEGATIVE.....R/O Tb 97.7 66 18 121/54 93% ON RA H/H-12.5/35.2 GLUCOSE+114 IS: SS INSULIN AC+HS SYNTHROID PO QD FLOMAX PO QD : TELEMETRY STATUS DCP: FROM HOME PLAN: AFB SCHEDULE...12/20/19....12/21/19.....12/22/19
--- NOTE | 2020-01-21 10:54 | NUR ---
NURSE NOTES: RN sent other strips as miller and block to at [address] Plaza called back and no new order to RN. Will continue to monitor.
[2020-01-21 12:00] VITALS: BP 131/79
--- NOTE | 2020-01-21 13:10 | NUR ---
*-* INSURANCE *-* UPDATED CLINICALS AND REVIEWS HAVE BEEN FAXED TO: Ref# [id number] #[phone] fax#[phone]
--- NOTE | 2020-01-21 13:23 | Pulmonology Progress Note ---
Subjective ROS Limited/Unobtainable: Yes Constitutional: Reports: no symptoms HEENT: Repors: no symptoms Allergies: Coded Allergies: AMOXICILLIN (Verified Allergy, Unknown, 03/13/19) CLINDAMYCIN (Verified Allergy, Unknown, 03/13/19) All Systems: reviewed and negative except above Objective Last 24 Hour Vital Signs Date Time Temp Pulse Resp B/P (MAP) Pulse Ox O2 Delivery O2 Flow Rate FiO2 01/21/20 13:05 40 66 75 01/21/20 12:15 76 01/21/20 12:00 98.6 78 18 131/79 (96) 97 01/21/20 09:22 74 01/21/20 09:00 Room Air 01/21/20 09:00 40 66 75 01/21/20 08:37 69 01/21/20 08:00 97.7 66 18 121/54 (76) 93 01/21/20 06:00 65 62 72 01/21/20 04:00 64 01/21/20 04:00 98.0 75 19 123/62 (82) 98 01/21/20 00:00 97.9 72 19 108/52 (70) 96 01/21/20 00:00 63 01/20/20 21:00 Room Air 01/20/20 20:00 97.7 65 19 106/56 (73) 98 01/20/20 20:00 41 01/20/20 15:53 97.7 66 20 122/53 (76) 95 01/20/20 15:41 66 General Appearance: WD/WN HEENT: normocephalic, atraumatic Respiratory: chest wall non-tender, lungs clear Cardiovascular: normal peripheral pulses, normal rate Abdomen: normal bowel sounds, soft, non tender Genitourinary: normal external genitalia Extremities: no cyanosis Skin: no rash 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 grossly normal Lymphatic: no neck adenopathy Microbiology Date/Time Source Procedure Growth Status 01/19/20 12:35 Sputum AFB Specimen Processing Tissue - Final Resulted 01/19/20 12:35 Sputum Acid Fast Bacilli Smear - Final Resulted 01/19/20 12:35 Sputum Acid Fast Bacilli Culture Pending Resulted Laboratory Tests 01/21/20 04:00: White Blood Count 9.1, Red Blood Count 3.85L, Hemoglobin 12.5L, Hematocrit 35.2L , Mean Corpuscular Volume 91, Mean Corpuscular Hemoglobin 32.4H, Mean Corpuscular Hemoglobin Concent 35.5, Red Cell Distribution Width 11.0L, Platelet Count 333, Mean Platelet Volume 4.8L, Neutrophils (%) (Auto) 41.9L, Lymphocytes (%) (Auto) 36.4, Monocytes (%) (Auto) 10.8H, Eosinophils (%) (Auto) 9.5H, Basophils (%) (Auto) 1.4, Erythrocyte Sedimentation Rate 58H, Sodium Level 140, Potassium Level 4.4, Chloride Level 103, Carbon Dioxide Level 30, Anion Gap 7, Blood Urea Nitrogen 15, Creatinine 1.1, Estimat Glomerular Filtration Rate > 60, Glucose Level 114H, Calcium Level 8.7, Phosphorus Level 3.4, Magnesium Level 2.1, Total Bilirubin 0.6, Aspartate Amino Transf (AST/SGOT ) 20, Alanine Aminotransferase (ALT/SGPT) 24, Alkaline Phosphatase 81, C- Reactive Protein, Quantitative 2.0H, Total Protein 6.6, Albumin 2.9L, Globulin 3.7, Albumin/Globulin Ratio 0.8L 01/21/20 09:05: M. tuberculosis Complex DNA (PCR) [Pending] Current Medications Medications (Trade) Dose Ordered Sig/Lisa Route PRN Reason Start Time Stop Time Status Last Admin Dose Admin Acetaminophen (Tylenol) 650 mg Q4H PRN ORAL fever 01/16/20 19:15 02/15/20 19:14 01/19/20 08:54 Acetaminophen/ Hydrocodone Bitart ([place] 10/325) 1 tab Q4H PRN ORAL For Pain 4-6 01/16/20 19:15 01/23/20 19:14 Artificial Tears (Lacri-Lube) 1 applic PRN PRN BOTH EYES eye dry 01/20/20 13:15 02/19/20 13:14 Dextrose (Dextrose 50%) 25 ml Q30MIN PRN IV Hypoglycemia 01/16/20 19:15 04/15/20 19:14 Dextrose (Dextrose 50%) 50 ml Q30MIN PRN IV Hypoglycemia 01/16/20 19:15 04/15/20 19:14 Insulin Aspart (NovoLOG) BEFORE MEALS AND HS SUBQ 01/19/20 16:30 04/18/20 16:29 6/4/20 11:25 Levothyroxine Sodium (Synthroid) 88 mcg DAILY@0630 ORAL 01/19/20 06:30 02/16/20 06:29 01/21/20 06:03 Morphine Sulfate (Morphine Sulfate) 2 mg EVERY 4 HOURS PRN IVP severe pain 7-10 01/16/20 19:15 01/23/20 19:14 01/18/20 09:18 Ondansetron HCl (Zofran) 4 mg Q6H PRN IVP Nausea & Vomiting 01/16/20 19:15 02/15/20 19:14 Polyethylene Glycol (Miralax) 17 gm HSPRN PRN ORAL Constipation 01/16/20 21:00 02/15/20 20:59 01/19/20 18:30 Tamsulosin HCl (Flomax) 0.4 mg DAILY ORAL 01/17/20 09:00 02/16/20 08:59 01/21/20 08:19 Zolpidem Tartrate (Ambien) 5 mg HSPRN PRN ORAL Insomnia 01/16/20 21:00 01/23/20 20:59 Assessment/Plan Problems: (1) Suspected COVID-19 virus infection (2) Acute encephalopathy (3) Syncope (4) Compression fracture of L2 (5) Diabetes mellitus (6) Hypothyroid (7) BPH (benign prostatic hyperplasia) (8) Cardiac arrhythmia Assessment/Plan comfortable mass on CT, rule out TB, probably old, but because of the age of the patient, there might be some reactivation pt/ot pain management check sputum, sputum induction PPD sliding scale serology pending radiology to evaluate for Kyphoplasty after TB and COVID are ruled out Zoe Lynn MD Jan 21, 2020 13:23
--- NOTE | 2020-01-21 15:11 | NUR ---
NURSE NOTES: Dr De visited pt and is aware about deepti cardia and bigeminal and the other heart problems, Dr De will F/U, no new order to RN.
[2020-01-21 16:00] VITALS: BP 133/79
--- NOTE | 2020-01-21 16:00 | Internal Med Progress Note ---
Subjective Physician Name Neel De Attending Physician Neel De MD Current Medications Medications (Trade) Dose Ordered Sig/Lisa Route PRN Reason Start Time Stop Time Status Last Admin Dose Admin Acetaminophen (Tylenol) 650 mg Q4H PRN ORAL fever 01/16/20 19:15 02/15/20 19:14 01/19/20 08:54 Acetaminophen/ Hydrocodone Bitart ([place] 10/325) 1 tab Q4H PRN ORAL For Pain 4-6 01/16/20 19:15 01/23/20 19:14 Artificial Tears (Lacri-Lube) 1 applic PRN PRN BOTH EYES eye dry 01/20/20 13:15 02/19/20 13:14 Dextrose (Dextrose 50%) 25 ml Q30MIN PRN IV Hypoglycemia 01/16/20 19:15 04/15/20 19:14 Dextrose (Dextrose 50%) 50 ml Q30MIN PRN IV Hypoglycemia 01/16/20 19:15 04/15/20 19:14 Insulin Aspart (NovoLOG) BEFORE MEALS AND HS SUBQ 01/19/20 16:30 04/18/20 16:29 01/20/20 11:25 Levothyroxine Sodium (Synthroid) 88 mcg DAILY@0630 ORAL 01/19/20 06:30 02/16/20 06:29 01/21/20 06:03 Morphine Sulfate (Morphine Sulfate) 2 mg EVERY 4 HOURS PRN IVP severe pain 7-10 01/16/20 19:15 01/23/20 19:14 01/18/20 09:18 Ondansetron HCl (Zofran) 4 mg Q6H PRN IVP Nausea & Vomiting 01/16/20 19:15 02/15/20 19:14 Polyethylene Glycol (Miralax) 17 gm HSPRN PRN ORAL Constipation 01/16/20 21:00 02/15/20 20:59 01/19/20 18:30 Tamsulosin HCl (Flomax) 0.4 mg DAILY ORAL 01/17/20 09:00 02/16/20 08:59 01/21/20 08:19 Zolpidem Tartrate (Ambien) 5 mg HSPRN PRN ORAL Insomnia 01/16/20 21:00 01/23/20 20:59 Allergies: Coded Allergies: AMOXICILLIN (Verified Allergy, Unknown, 03/13/19) CLINDAMYCIN (Verified Allergy, Unknown, 03/13/19) Subjective Awake, alert, responsive, episodes of bradycardia. Denies any chest pain or shortness of breath. Objective Last Vital Signs Date Time Temp Pulse Resp B/P (MAP) Pulse Ox O2 Delivery O2 Flow Rate FiO2 01/21/20 13:05 40 66 75 01/21/20 12:00 98.6 18 131/79 (96) 97 01/21/20 09:00 Room Air Laboratory Tests Test 01/21/20 04:00 01/21/20 09:05 White Blood Count 9.1 K/UL (4.8-10.8) Red Blood Count 3.85 M/UL (4.70-6.10) L Hemoglobin 12.5 G/DL (14.2-18.0) L Hematocrit 35.2 % (42.0-52.0) L Mean Corpuscular Volume 91 FL (80-99) Mean Corpuscular Hemoglobin 32.4 PG (27.0-31.0) H Mean Corpuscular Hemoglobin Concent 35.5 G/DL (32.0-36.0) Red Cell Distribution Width 11.0 % (11.6-14.8) L Platelet Count 333 K/UL (150-450) Mean Platelet Volume 4.8 FL (6.5-10.1) L Neutrophils (%) (Auto) 41.9 % (45.0-75.0) L Lymphocytes (%) (Auto) 36.4 % (20.0-45.0) Monocytes (%) (Auto) 10.8 % (1.0-10.0) H Eosinophils (%) (Auto) 9.5 % (0.0-3.0) H Basophils (%) (Auto) 1.4 % (0.0-2.0) Erythrocyte Sedimentation Rate 58 MM/HR (0-20) H Sodium Level 140 MMOL/L (136-145) Potassium Level 4.4 MMOL/L (3.5-5.1) Chloride Level 103 MMOL/L (98-107) Carbon Dioxide Level 30 MMOL/L (21-32) Anion Gap 7 mmol/L (5-15) Blood Urea Nitrogen 15 mg/dL (7-18) Creatinine 1.1 MG/DL (0.55-1.30) Estimat Glomerular Filtration Rate > 60 mL/min (>60) Glucose Level 114 MG/DL (74-106) H Calcium Level 8.7 MG/DL (8.5-10.1) Phosphorus Level 3.4 MG/DL (2.5-4.9) Magnesium Level 2.1 MG/DL (1.8-2.4) Total Bilirubin 0.6 MG/DL (0.2-1.0) Aspartate Amino Transf (AST/SGOT) 20 U/L (15-37) Alanine Aminotransferase (ALT/SGPT) 24 U/L (12-78) Alkaline Phosphatase 81 U/L (46-116) C-Reactive Protein, Quantitative 2.0 mg/dL (0.00-0.90) H Total Protein 6.6 G/DL (6.4-8.2) Albumin 2.9 G/DL (3.4-5.0) L Globulin 3.7 g/dL Albumin/Globulin Ratio 0.8 (1.0-2.7) L M. tuberculosis Complex DNA (PCR) Pending Microbiology Date/Time Source Procedure Growth Status 01/20/20 10:29 Sputum AFB Specimen Processing Tissue - Final Resulted 01/20/20 10:29 Sputum Acid Fast Bacilli Smear - Final Resulted 01/20/20 10:29 Sputum Acid Fast Bacilli Culture Pending Resulted 01/19/20 12:35 Sputum AFB Specimen Processing Tissue - Final Resulted 01/19/20 12:35 Sputum Acid Fast Bacilli Smear - Final Resulted 01/19/20 12:35 Sputum Acid Fast Bacilli Culture Pending Resulted Objective General: No acute distress, awake and alert HEENT: NCAT, sclera anicteric, PERRL, EOMI. Neck: Supple, no significant jugular venous distention, Lungs: Good inspiratory effort, clear to auscultation bilaterally, no Wheeze or Rales. Heart: Regular rate and rhythm, normal S1/S2, no murmurs Abdomen: soft, nontender, nondistended. Normoactive bowel sounds. / Rectal: Refused and deferred. Extremities: No Cyanosis , clubbing or edema. Neuro: A&O x 3, Able to move all extremities Skin: warm, no rashes or lesions Psych: Normal mood and affect Assessment/Plan Assessment/Plan ASSESSMENT: This is an 84-year-old male. 1. Low back pain. 2. Lumbar level 2 compression fracture. 3. Syncopal episode. 4. Atrial fibrillation. 5. Diabetes type 2. 6. Hypertension. 7. Chronic obstructive pulmonary disease. 8. Hypothyroidism. 9. Hypercholesterolemia. 10. Glaucoma. 11. Benign prostatic hypertrophy. 12. Right Lung Mass TREATMENT: 1. Low back pain/lumbar level 2 compression fraction. An Orthopedic consultation has been obtained with Dr. Ren Draper. We will follow recommendations of Orthopedic Surgery. 2. Syncopal episode. CT head noted. 3. Atrial fibrillation. Patient is currently off amiodarone. 4. Diabetes type 2. Patient is currently off antihyperglycemic medication. 5. Hypertension. Patient is currently off antihypertensive medication. 6. Chronic obstructive pulmonary disease. A Pulmonary consultation has been obtained with Dr. Zoe Lynn. 7. Hypothyroidism. Patient is currently on levothyroxine 75 mcg p.o. daily. 8. Hypercholesterolemia. 9. Glaucoma. 10. Benign prostatic hypertrophy. 11. Right Lung Mass, CT chest: Impression: Linear bands the right upper lobe. 15 x 20 x 13 mm irregular masslike opacity with central calcification at the inferior aspect of this. Most likely represents an area of scarring. Underlying mass lesion not completely excludable and follow-up should be considered as clinically indicated. Other chronic changes, as described, mostly involving the right lobe. Minimal upper lobe hyperinflation. No acute abnormality Off Abx Full code Neel De MD Jan 21, 2020 16:00
--- NOTE | 2020-01-21 19:16 | Cardiology Progress Note ---
Assessment/Plan Assessment/Plan 1. Possible syncope. 2. Compression fracture of the lumbar spine. 3. History of paroxysmal atrial fibrillation. 4. Diabetes mellitus. 5. Hypertension. 6. Hyperlipidemia. 7. COPD. 8. History of orthostatic hypotension. 9. lung mass vs scar 10. bradycardia ncpac? 11 tachy atrial flutter covid neg but now on tb isolation 2 sputum neg for afb yest orthostatic vital neg by bp but per rn was very dizzy and need assistance to stand today orthstatic neg but ther was some drop i was called multiple time by staff today for deepti and eventually tachy , deepti samy to 38 per staff sustained appear may be non conducted pac tachy apper suggestive of aflutte with 2:1 d/w pt son as well it is possible that he ehas 2 problem 1 with hypotension and one with arrthymia i asked dr brandon to see reg possibl pacer implantation for tachy deepti to allow treatment of tachy with out causing sig deepti id and pulm patiño noted tele sinus personally reviewed ekg personally reviewed sinus echo prelim report normal lv function kyphoplasty post id patiño Subjective Cardiovascular: Denies: chest pain, lightheadedness, palpitations Gastrointestinal/Abdominal: Denies: abdominal pain Objective Last 24 Hour Vital Signs Date Time Temp Pulse Resp B/P (MAP) Pulse Ox O2 Delivery O2 Flow Rate FiO2 01/21/20 16:00 98.1 82 19 133/79 (97) 97 01/21/20 15:41 66 01/21/20 13:05 40 66 75 01/21/20 12:15 76 01/21/20 12:00 98.6 78 18 131/79 (96) 97 01/21/20 09:22 74 01/21/20 09:00 Room Air 01/21/20 09:00 40 66 75 01/21/20 08:37 69 01/21/20 08:00 97.7 66 18 121/54 (76) 93 01/21/20 06:00 65 62 72 01/21/20 04:00 64 01/21/20 04:00 98.0 75 19 123/62 (82) 98 01/21/20 00:00 97.9 72 19 108/52 (70) 96 01/21/20 00:00 63 01/20/20 21:00 Room Air 01/20/20 20:00 97.7 65 19 106/56 (73) 98 01/20/20 20:00 41 General Appearance: no apparent distress, alert Neck: supple Cardiovascular: normal rate Respiratory/Chest: lungs clear Abdomen: normal bowel sounds, non tender, soft Extremities: no swelling Laboratory Tests Test 01/21/20 04:00 01/21/20 09:05 White Blood Count 9.1 K/UL (4.8-10.8) Red Blood Count 3.85 M/UL (4.70-6.10) L Hemoglobin 12.5 G/DL (14.2-18.0) L Hematocrit 35.2 % (42.0-52.0) L Mean Corpuscular Volume 91 FL (80-99) Mean Corpuscular Hemoglobin 32.4 PG (27.0-31.0) H Mean Corpuscular Hemoglobin Concent 35.5 G/DL (32.0-36.0) Red Cell Distribution Width 11.0 % (11.6-14.8) L Platelet Count 333 K/UL (150-450) Mean Platelet Volume 4.8 FL (6.5-10.1) L Neutrophils (%) (Auto) 41.9 % (45.0-75.0) L Lymphocytes (%) (Auto) 36.4 % (20.0-45.0) Monocytes (%) (Auto) 10.8 % (1.0-10.0) H Eosinophils (%) (Auto) 9.5 % (0.0-3.0) H Basophils (%) (Auto) 1.4 % (0.0-2.0) Erythrocyte Sedimentation Rate 58 MM/HR (0-20) H Sodium Level 140 MMOL/L (136-145) Potassium Level 4.4 MMOL/L (3.5-5.1) Chloride Level 103 MMOL/L (98-107) Carbon Dioxide Level 30 MMOL/L (21-32) Anion Gap 7 mmol/L (5-15) Blood Urea Nitrogen 15 mg/dL (7-18) Creatinine 1.1 MG/DL (0.55-1.30) Estimat Glomerular Filtration Rate > 60 mL/min (>60) Glucose Level 114 MG/DL (74-106) H Calcium Level 8.7 MG/DL (8.5-10.1) Phosphorus Level 3.4 MG/DL (2.5-4.9) Magnesium Level 2.1 MG/DL (1.8-2.4) Total Bilirubin 0.6 MG/DL (0.2-1.0) Aspartate Amino Transf (AST/SGOT) 20 U/L (15-37) Alanine Aminotransferase (ALT/SGPT) 24 U/L (12-78) Alkaline Phosphatase 81 U/L (46-116) C-Reactive Protein, Quantitative 2.0 mg/dL (0.00-0.90) H Total Protein 6.6 G/DL (6.4-8.2) Albumin 2.9 G/DL (3.4-5.0) L Globulin 3.7 g/dL Albumin/Globulin Ratio 0.8 (1.0-2.7) L M. tuberculosis Complex DNA (PCR) Pending Microbiology Date/Time Source Procedure Growth Status 01/20/20 10:29 Sputum AFB Specimen Processing Tissue - Final Resulted 01/20/20 10:29 Sputum Acid Fast Bacilli Smear - Final Resulted 01/20/20 10:29 Sputum Acid Fast Bacilli Culture Pending Resulted 01/19/20 12:35 Sputum AFB Specimen Processing Tissue - Final Resulted 01/19/20 12:35 Sputum Acid Fast Bacilli Smear - Final Resulted 01/19/20 12:35 Sputum Acid Fast Bacilli Culture Pending Resulted Objective in isolation per dr cannon Respiratory: chest wall non-tender, lungs clear Cardiovascular: normal peripheral pulses, normal rate Abdomen: normal bowel sounds, soft, non tender Genitourinary: normal external genitalia Extremities: no cyanosis Efrain Plaza MD Jan 21, 2020 19:16
--- NOTE | 2020-01-21 19:41 | NUR ---
HAND-OFF: Report given to ROXANNE Parson. pt is awake and astable, Endorsed plan of care.
--- NOTE | 2020-01-21 19:59 | NUR ---
NURSE NOTES: Received patient in bed awake, alert, oriented x 3/4, on room air, IV site is clean dry and intact, call light is within reach, bed is lowered, locked, alarm is on. Will continue to monitor for comfort and safety.
[2020-01-21 20:00] VITALS: BP 136/59
--- NOTE | 2020-01-21 20:07 | Consultation ---
Consult Note Consult Note Cardiac EP Full consult dictated #[id number] Felicia Morales MD Jan 21, 2020 20:07
[2020-01-22] VITALS (10 sets, daily range): BP systolic 96–128; BP diastolic 43–74
--- NOTE | 2020-01-22 01:30 | Consultation ---
DATE OF CONSULTATION: 01/21/2020 CARDIAC ELECTROPHYSIOLOGY CONSULTATION CONSULTING PHYSICIAN: Felicia Morales MD. REASON FOR CONSULTATION: Bradycardia and syncope. HISTORY OF PRESENT ILLNESS: The patient is an 84-year-old [place] man with history of hypothyroidism, paroxysmal atrial fibrillation, and recurrent syncope. He reports at least 3 episodes of syncope over the past few years; one occurred while sitting in the bathroom. He recalls that he lost consciousness, but does not recall any preceding symptoms. He had at least 2 other episodes while in stores associated with dizziness. He has been noted to have orthostatic hypotension. The episode that prompted this admission occurred last week. He was standing in his kitchen, felt dizzy, and then lost consciousness. He presented to the ER a few days later and was admitted for further evaluation and treatment. On telemetry today, he was noted to have sinus rhythm with blocked PACs and ventricular rate of 38 beats per minute. This occurred at 8:30 a.m., and again at 10:30 a.m. He also has had sinus pauses of about two seconds. About 2 hours ago, he had an episode of atrial flutter with ventricular rate in the 130s. He is not aware of any dizziness, palpitations, or lightheadedness since admission. He has ruled out for COVID. He was noted to have an abnormality on chest x-ray and is being ruled out for tuberculosis. The initial 2 sputum samples are negative. MEDICATIONS: On admission, the patient reports taking levothyroxine 75 mcg daily, Zetia 10 mg daily, and a statin. The home medication list also includes pilocarpine and tamsulosin. ALLERGIES: Amoxicillin caused swelling. Clindamycin (question reaction). PAST MEDICAL HISTORY: As noted above. Also, history of glaucoma, type 2 diabetes, benign prostatic hypertrophy, hypothyroidism, hyperlipidemia, and COPD. SOCIAL HISTORY: The patient has no history of tobacco or alcohol use. PHYSICAL EXAMINATION: VITAL SIGNS: Blood pressure is 133/79, pulse 82 and regular, respirations 19, afebrile. GENERAL: Alert, well-developed male, in no acute distress. HEENT: Normocephalic and atraumatic. Pupils are equal, round, and reactive to light. Sclerae anicteric. Oral mucosa moist. NECK: Supple. There is no jugular venous distention. Carotid pulses are 2+ bilaterally without bruits. LUNGS: Clear to auscultation bilaterally. HEART: Regular S1 and S2. No murmurs, rubs, or S3. ABDOMEN: Soft, nontender, nondistended. No palpable mass. EXTREMITIES: No cyanosis, clubbing, or edema. LABORATORY AND DIAGNOSTIC DATA: Hemoglobin 13, white blood count 8000, and platelets 251,000. Sodium 140, potassium 4.4, BUN 15, and creatinine 1.1. TSH on admission 7.8, free T4 of 1.37, and free T3 of 2.3. Chest x-ray shows mild infrahilar atelectasis; no edema or cardiomegaly. Chest CT showed linear bands in the right upper lobe, 1 x 2 x 1 mass-like opacity with central calcification consistent with scarring. EKG from today shows sinus rhythm with bigeminal PVCs versus PACs with right bundle-branch block aberrancy. Telemetry strips show episodes of heart rates in the 30s with sinus rhythm and 2:1 conduction versus blocked PACs with short pauses as well as the episode of atrial flutter with rapid ventricular rate tonight. ASSESSMENT AND RECOMMENDATIONS: The patient is an 84-year-old man with multiple chronic medical issues as described above, who was admitted following a syncopal episode at home. He is noted to have episodes of bradycardia as well as atrial flutter with rapid ventricular rate. It is uncertain if his syncopal episodes are due to bradyarrhythmia versus orthostatic hypotension. He has been minimally orthostatic since admission here (blood pressure from 110 to the 90s systolic); however, given his bradycardia alternating with tachycardia, it appears that he has sick sinus syndrome and possible AV trinh conduction disease. Given his history of recurrent syncope as well as need for treatment of his rapid atrial flutter, I would favor placement of a permanent dual-chamber pacemaker. I discussed this recommendation with him and his son. The procedure including potential risks and benefits were discussed. He understands and wishes to proceed. The procedure will be scheduled for tomorrow. Felicia Morales M.D. DR: Eric JOB#: [id number] CC:
[2020-01-22] MEDS: NovoLOG Insulin Flexpen SUBQ SCH ×4 (06:29→21:00)
--- NOTE | 2020-01-22 07:12 | NUR ---
HAND-OFF: Report given to Josselyn OLIVEIRA.
--- NOTE | 2020-01-22 07:30 | NUR ---
NURSE NOTES: Received report from ROXANNE Parson. Found patient watching TV in bed, AAO x4. No signs of distress or pain. Denies dizziness, speech is clear. Radial pulses palpable bilaterally, SR 60s. Breathing regular, unlabored. Breath sounds clear to auscultate bilaterally. Left AC 20 g flushed and patent, saline locked. Bed low and locked. Yellow socks and gown on. Bed rails x3 raised. Bed alarm on. Call light and phone in reach. Fall education provided. Will continue to monitor.
[2020-01-22 09:00] LABS: ANION GAP 7 mmol/L (5-15); BLOOD UREA NITROGEN 14 mg/dL (7-18); CALCIUM 8.7 MG/DL (8.5-10.1); CARBON DIOXIDE 30 MMOL/L (21-32); CHLORIDE 102 MMOL/L (98-107); CREATININE 0.9 MG/DL (0.55-1.30); POTASSIUM 3.7 MMOL/L (3.5-5.1); SODIUM 139 MMOL/L (136-145)
[2020-01-22] MEDS: Vancomycin 1 GM in D5W 275 ML IVPB SCH (09:00)
[2020-01-22 09:12] LABS: INR 0.9 (0.9-1.1)
[2020-01-22] MEDS: Tamsulosin 0.4mg cap ORAL SCH (09:27)
[2020-01-22] MEDS ORDERED: fentaNYL 100 mcg/2 mL IV ONE (10:39)
--- NOTE | 2020-01-22 10:57 | Anethesia Preoperative Eval ---
Anesthesia Pre-op PMH/ROS General Date of Evaluation: Jan 22, 2020 Time of Evaluation: 10:53 Anesthesiologist: Eran ASA Score: ASA 3 Mallampati Score Class I : Soft palate, uvula, fauces, pillars visible Class II: Soft palate, uvula, fauces visible Class III: Soft palate, base of uvula visible Class IV: Only hard plate visible Mallampati Classification: Class II Surgeon: Andrew Diagnosis: Sick sinus syndrom Surgical Procedure: Pacemaker placement Anesthesia History: none Social History: smoking - h/o Family History: no anesthesia problems Allergies: Coded Allergies: AMOXICILLIN (Verified Allergy, Unknown, 03/13/19) CLINDAMYCIN (Verified Allergy, Unknown, 03/13/19) Medications: see eMAR Patient NPO?: Yes Past Medical History Cardiovascular: Reports: HTN - stable, arrhythmia - symptomatic bradycardia repeat syncopal episodes; Denies: CAD, MA, valve dz, other Pulmonary: Reports: COPD, other - suspected TB smear negative, culture pending ; Denies: asthma, MICHAEL Gastrointestinal/Genitourinary: Reports: GERD, CRI; Denies: ESRD, other Neurologic/Psychiatric: Reports: depression/anxiety; Denies: dementia, CVA, TIA, other Endocrine: Reports: DM, hypothyroidism; Denies: steroids, other HEENT: Denies: cataract (L), cataract (R), glaucoma, BLACKFEET (L), BLACKFEET (R), other Hematology/Immune: Reports: anemia - mild; Denies: DVT, bleeding disorder, other Musculoskeletal/Integumentary: Reports: OA; Denies: RA, DJD, DDD, edema, other PMH Narrative: as above PSxH Narrative: see H&P Anesthesia Pre-op Phys. Exam Physician Exam Last Vital Signs Date Time Temp Pulse Resp B/P (MAP) Pulse Ox O2 Delivery O2 Flow Rate FiO2 01/22/20 09:00 Room Air 01/22/20 08:00 97.1 76 20 110/52 (71) 93 Constitutional: NAD Neurologic: CN 2-12 intact Cardiovascular: RRR, no M/R/G Respiratory: CTA Gastrointestinal: S/NT/ND Airway Exam Mallampati Score: Class II MO: limited Neck: stiff ROM: limited Teeth: missing Dentures: no upper, no lower Anesthesia Pre-op A/P Labs Coagulation Test 01/22/20 07:30 Prothrombin Time 10.4 SEC (9.30-11.50) Prothromb Time International Ratio 0.9 (0.9-1.1) Activated Partial Thromboplast Time 26 SEC (23-33) Chemistry Test 01/22/20 07:30 Sodium Level 139 MMOL/L (136-145) Potassium Level 3.7 MMOL/L (3.5-5.1) Chloride Level 102 MMOL/L (98-107) Carbon Dioxide Level 30 MMOL/L (21-32) Anion Gap 7 mmol/L (5-15) Blood Urea Nitrogen 14 mg/dL (7-18) Creatinine 0.9 MG/DL (0.55-1.30) Estimat Glomerular Filtration Rate > 60 mL/min (>60) Glucose Level 111 MG/DL (74-106) H Calcium Level 8.7 MG/DL (8.5-10.1) Risk Assessment & Plan Assessment: ASA 3 Plan: MAC Status Change Before Surgery: No Pre-Antibiotics Drug: Ancef 1gr. Given Within 1 Hr of Incision: Yes Time Given: 11:22 Ruben Barillas MD Jan 22, 2020 10:57
[2020-01-22] MEDS ORDERED: fentaNYL 100 mcg/2 mL IV PRN (11:00)
[2020-01-22] MEDS ORDERED: Lidocaine 1% Plain 30 ml INJ ONE (11:06)
[2020-01-22] MEDS ORDERED: Bupivacaine 0.5% Inj 30 ml vial INJ ONE (11:06)
[2020-01-22] MEDS ORDERED: Bacitracin 50000 Units Vial ONE (11:06)
--- NOTE | 2020-01-22 11:13 | Pre-Procedure Note/Attestation ---
Pre-Procedure Note/Attestation Complete Prior to Procedure Planned Procedure: not applicable Procedure Narrative: Pt w/ syncope, sick sinus syndrome Indications for Procedure Pre-Operative Diagnosis: sick sinus syndrome Attestation I attest that I discussed the nature of the procedure; its benefits; risks and complications; and alternatives (and the risks and benefits of such alternatives ), prior to the procedure, with the patient (or the patient's legal surgical device sales representative). I attest that, if there was a reasonable possibility of needing a blood transfusion, the patient (or the patient's legal surgical device sales representative) was given the [facility] standardized written summary, pursuant to the Mann Rob Blood Safety Act ([place] Health and Safety Code # 1645, as amended). I attest that I re-evaluated the patient just prior to the surgery and that there has been no change in the patient's H&P, except as documented below: Felicia Morales MD Jan 22, 2020 11:13
--- NOTE | 2020-01-22 11:15 | NUR ---
CASE MANAGEMENT:REVIEW SI;ACUTE ENCEPHALOPATHY. R/O Tb COMPRESSION FRACTURE OF LUMBAR SPINE. 97.9 74 20 122/67 93% ON RA IS;IVF NS @ 70 ML/HR MIDODRINE PO TID VANCOMYCIN IV INSULIN NOVOLOG AC + HS TELE STATUS DCP;FROM HOME PLAN;AFB ~ RESULTS PENDING
--- NOTE | 2020-01-22 11:18 | Cardiac Electrophysiology PN ---
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 Possible contribution of orthostatic hypotension as well He also has PAF/ AFL, needing rate control medication. Cannot start antiarrhythmic agents at this point, as would likely worsen bradyarrhythmia. Assessment/Plan Plan for permanent pacemaker today. d/w pt, family. Pt understands and is agreeable to proceeding. D/w pt's PMD, Dr Putnam, and Dr. Plaza Subjective ROS Limited/Unobtainable: No Subjective Pt alert, in NAD Objective Last 24 Hour Vital Signs Date Time Temp Pulse Resp B/P (MAP) Pulse Ox O2 Delivery O2 Flow Rate FiO2 01/22/20 09:00 Room Air 01/22/20 08:00 97.1 76 20 110/52 (71) 93 01/22/20 07:52 60 01/22/20 07:10 74 68 01/22/20 04:00 61 01/22/20 04:00 97.5 68 18 115/74 (88) 97 01/22/20 00:00 97.9 74 18 122/67 (85) 99 01/22/20 00:00 72 01/22/20 00:00 70 01/21/20 21:50 Room Air 01/21/20 20:00 70 01/21/20 20:00 98.0 65 19 136/59 (84) 98 01/21/20 16:00 98.1 82 19 133/79 (97) 97 01/21/20 15:41 66 01/21/20 13:05 40 66 75 01/21/20 12:15 76 01/21/20 12:00 98.6 78 18 131/79 (96) 97 General Appearance: WD/WN, no apparent distress, alert EENT: PERRL/EOMI Neck: supple Rhythm: NSR Cardiovascular: normal rate, regular rhythm, no gallop/murmur Respiratory/Chest: lungs clear Abdomen: normal bowel sounds, soft Extremities: no swelling CXR: other - SR w/ blocked PACs vs 2nd deg avb with 2:1 conduction and ventriculophasic sinus arrhythmia. HR 36 bpm at 10 30 am 2D Echo: Telemetry - SR with blocked PACs vs second deg 2:1 av block with ventricul Laboratory Tests Test 01/22/20 05:30 01/22/20 07:30 M. tuberculosis Complex DNA (PCR) Pending Prothrombin Time 10.4 SEC (9.30-11.50) Prothromb Time International Ratio 0.9 (0.9-1.1) Activated Partial Thromboplast Time 26 SEC (23-33) Sodium Level 139 MMOL/L (136-145) Potassium Level 3.7 MMOL/L (3.5-5.1) Chloride Level 102 MMOL/L (98-107) Carbon Dioxide Level 30 MMOL/L (21-32) Anion Gap 7 mmol/L (5-15) Blood Urea Nitrogen 14 mg/dL (7-18) Creatinine 0.9 MG/DL (0.55-1.30) Estimat Glomerular Filtration Rate > 60 mL/min (>60) Glucose Level 111 MG/DL (74-106) H Calcium Level 8.7 MG/DL (8.5-10.1) Microbiology Date/Time Source Procedure Growth Status 01/20/20 10:29 Sputum AFB Specimen Processing Tissue - Final Resulted 01/20/20 10:29 Sputum Acid Fast Bacilli Smear - Final Resulted 01/20/20 10:29 Sputum Acid Fast Bacilli Culture Pending Resulted 01/19/20 12:35 Sputum AFB Specimen Processing Tissue - Final Resulted 01/19/20 12:35 Sputum Acid Fast Bacilli Smear - Final Resulted 01/19/20 12:35 Sputum Acid Fast Bacilli Culture Pending Resulted Felicia Morales MD Jan 22, 2020 11:18
--- NOTE | 2020-01-22 11:30 | NUR ---
NURSE NOTES: Patient's off the unit for Pacemaker placement, consent signed, Pre-op check list documented. off tele order in. Patient's in stable condition, AO x 4, denies pain, no s/s of distress or SOB. Will get updated from OR.
--- NOTE | 2020-01-22 11:35 | NUR ---
NURSE NOTES: Nurse report given to OR nurse, endorse that patient has Vancomycin medication that should be given during Preop, already spoke to pharmacist to confirmed that. OR nurse aware.
[2020-01-22] MEDS ORDERED: Isovue-M 300 15ml INJ ONE (12:18)
[2020-01-22] MEDS ORDERED: Iothalamate Meglumine 60% 30ML INJ ONE (12:19)
--- NOTE | 2020-01-22 13:29 | Operative Note - PDOC ---
Operative Note Operative Note Date of Operation/Procedure: Jan 22, 2020 Pre-op Diagnosis: sick sinus syndrome Post-op Diagnosis: same as pre-op Anesthesia: local, MAC, moderate sedation Specimen: none Complications: none Condition: stable Estimated Blood Loss: minimal Drains: none Implant(s) used?: Yes Indications for Procedure Full op note dictated [id number] indication: syncope, severe bradycardia Description of Procedure see dictation #[id number] Felicia Morales MD Jan 22, 2020 13:29
[2020-01-22] MEDS ORDERED: Acetaminophen 500mg (ES) tab ORAL PRN (13:30)
[2020-01-22] MEDS ORDERED: Tylenol #3 tab (300mg/30mg) ORAL PRN (13:30)
--- NOTE | 2020-01-22 13:32 | Immediate Post-Op Evaluation ---
Immediate Post-Op Evalulation Immediate Post-Op Evalulation Procedure: Permanent pacemaker placement Date of Evaluation: Jan 22, 2020 Time of Evaluation: 13:31 IV Fluids: 400 Blood Products: none Estimated Blood Loss: min Urinary Output: none Blood Pressure Systolic: 123 Blood Pressure Diastolic: 68 Pulse Rate: 62 Respiratory Rate: 20 O2 Sat by Pulse Oximetry: 99 Temperature (Fahrenheit): 97.7 Pain Score (1-10): 1 Nausea: No Vomiting: No Complications none Patient Status: awake, patent, none Hydration Status: adequate Ruben Barillas MD Jan 22, 2020 13:32
--- NOTE | 2020-01-22 13:33 | 48 Hour Post Anesthesia Eval ---
Post Anesthesia Evaluation Procedure: Permanent pacemaker placement Date of Evaluation: Jan 22, 2020 Time of Evaluation: 15:20 Blood Pressure Systolic: 116 0: 72 Pulse Rate: 61 Respiratory Rate: 18 Temperature (Fahrenheit): 97.6 O2 Sat by Pulse Oximetry: 98 Airway: patent Nausea: No Vomiting: No Pain Intensity: 1 Hydration Status: adequate Cardiopulmonary Status: stable Mental Status/LOC: patient returned to baseline Follow-up Care/Observations: n/a Post-Anesthesia Complications: none Follow-up care needed: N/A Ruben Barillas MD Jan 22, 2020 13:33
--- NOTE | 2020-01-22 13:55 | General Progress Note ---
Assessment/Plan Problem List: (1) Diabetes mellitus (2) Hypothyroid (3) Compression fracture of L2 Assessment/Plan: continue Novolog sliding scale ac / hs no need for oral diabetic medications for now continue Levothyroxine 88 mcg daily repeat TSH, free T4 in 6 weeks follow bone density results candidate for Tymlos vs Forteo as OP Kyphoplasty is planned after TB is ruled out Subjective ROS Limited/Unobtainable: Yes Allergies: Coded Allergies: AMOXICILLIN (Verified Allergy, Unknown, 03/13/19) CLINDAMYCIN (Verified Allergy, Unknown, 03/13/19) Subjective events noted - interval notes reviewed COVID test negative sputum results for TB is pending PPM placed glucose values are stable Item Value Date Time Bedside Blood Glucose 101 mg/dl 01/22/20 0629 Bedside Blood Glucose 129 mg/dl H 01/21/20 2216 Bedside Blood Glucose 127 mg/dl H 01/21/20 1630 Bedside Blood Glucose 133 mg/dl H 01/21/20 1130 Objective Last 24 Hour Vital Signs Date Time Temp Pulse Resp B/P (MAP) Pulse Ox O2 Delivery O2 Flow Rate FiO2 01/22/20 13:40 97.4 60 18 112/53 100 Nasal Cannula 3 01/22/20 13:33 61 18 98 01/22/20 13:32 62 20 99 01/22/20 13:30 61 16 102/43 100 Nasal Cannula 3 01/22/20 13:25 66 14 96/48 100 Simple Mask 6 01/22/20 13:20 97.2 72 15 128/53 100 Simple Mask 6 01/22/20 11:25 63 01/22/20 09:00 Room Air 01/22/20 08:00 97.1 76 20 110/52 (71) 93 01/22/20 07:52 60 01/22/20 07:10 74 68 01/22/20 04:00 61 01/22/20 04:00 97.5 68 18 115/74 (88) 97 01/22/20 00:00 97.9 74 18 122/67 (85) 99 01/22/20 00:00 72 01/22/20 00:00 70 01/21/20 21:50 Room Air 01/21/20 20:00 70 01/21/20 20:00 98.0 65 19 136/59 (84) 98 01/21/20 16:00 98.1 82 19 133/79 (97) 97 01/21/20 15:41 66 Laboratory Tests 01/22/20 05:30: M. tuberculosis Complex DNA (PCR) [Pending] 01/22/20 07:30: Prothrombin Time 10.4, Prothromb Time International Ratio 0.9, Activated Partial Thromboplast Time 26, Sodium Level 139, Potassium Level 3.7, Chloride Level 102, Carbon Dioxide Level 30, Anion Gap 7, Blood Urea Nitrogen 14, Creatinine 0.9, Estimat Glomerular Filtration Rate > 60, Glucose Level 111H, Calcium Level 8.7 Height (Feet): 5 Height (Inches): 1.00 Weight (Pounds): 136 General Appearance: no apparent distress Neck: normal alignment Cardiovascular: bradycardia Respiratory/Chest: lungs clear Abdomen: normal bowel sounds Objective Current Medications Medications (Trade) Dose Ordered Sig/Lisa Route PRN Reason Start Time Stop Time Status Last Admin Dose Admin Acetaminophen (Tylenol) 500 mg Q4H PRN ORAL Mild Pain (Pain Scale 1-3) 01/22/20 13:30 02/21/20 13:29 Acetaminophen (Tylenol) 650 mg Q4H PRN ORAL fever 01/16/20 19:15 02/15/20 19:14 01/19/20 08:54 Acetaminophen/ Codeine Phosphate (Tylenol #3) 1 tab Q6H PRN ORAL For Pain 01/22/20 13:30 01/29/20 13:29 UNV Acetaminophen/ Hydrocodone Bitart ([place] 10/325) 1 tab Q4H PRN ORAL For Pain 4-6 01/16/20 19:15 01/23/20 19:14 Artificial Tears (Lacri-Lube) 1 applic PRN PRN BOTH EYES eye dry 01/20/20 13:15 02/19/20 13:14 Dextrose (Dextrose 50%) 25 ml Q30MIN PRN IV Hypoglycemia 01/16/20 19:15 04/15/20 19:14 Dextrose (Dextrose 50%) 50 ml Q30MIN PRN IV Hypoglycemia 01/16/20 19:15 04/15/20 19:14 Fentanyl Citrate (Sublimaze 100 mcg/2 mL) 25 mcg Q10M PRN IV Moderate Pain (Pain Scale 4-6) 01/22/20 11:00 01/22/20 16:00 Insulin Aspart (NovoLOG) BEFORE MEALS AND HS SUBQ 01/19/20 16:30 04/18/20 16:29 01/20/20 11:25 Levothyroxine Sodium (Synthroid) 88 mcg DAILY@0630 ORAL 01/19/20 06:30 02/16/20 06:29 01/22/20 06:21 Midodrine (Pro-Amatine) 2.5 mg THREE TIMES A DAY ORAL 01/22/20 09:00 04/21/20 08:59 01/22/20 09:27 Morphine Sulfate (Morphine Sulfate) 2 mg EVERY 4 HOURS PRN IVP severe pain 7-10 01/16/20 19:15 01/23/20 19:14 01/18/20 09:18 Ondansetron HCl (Zofran) 4 mg Q1H PRN IVP Nausea & Vomiting 01/22/20 11:00 01/22/20 16:00 Ondansetron HCl (Zofran) 4 mg Q6H PRN IVP Nausea & Vomiting 01/16/20 19:15 02/15/20 19:14 Polyethylene Glycol (Miralax) 17 gm HSPRN PRN ORAL Constipation 01/16/20 21:00 02/15/20 20:59 01/19/20 18:30 Tamsulosin HCl (Flomax) 0.4 mg DAILY ORAL 01/17/20 09:00 02/16/20 08:59 01/22/20 09:27 Vancomycin HCl 1 gm/Dextrose 275 ml @ 183.708 mls/hr ONCE ONCE IVPB 01/23/20 09:00 01/23/20 10:29 Zolpidem Tartrate (Ambien) 5 mg HSPRN PRN ORAL Insomnia 01/16/20 21:00 01/23/20 20:59 Enrique Parks MD Jan 22, 2020 13:55
--- NOTE | 2020-01-22 14:00 | NUR ---
NURSE NOTES: Patient's back from surgery by hospital bed. Patient's in stable condition, denies pain at surgical site. Surgical site is intact, ice pack applied, no s/s of active bleeding at site. Patient's AO x 4, on 2L nasal cannula. IV is running fluid, no s/s of infiltration or tenderness. retail key holder applied. SCDs applied back on bilateral lower legs. Surgery report given by ROXANNE Currie, was endorsed Vancomycin was not given. Will notify MD Morales. Otherwise, patient's stable, VS 125/60, RR 76, O2 100%, RR 19, Temp 98.7. Will continue to monitor.
--- NOTE | 2020-01-22 14:38 | Internal Med Progress Note ---
Subjective Date of Service: Jan 22, 2020 Physician Name Micah Contreras Attending Physician Neel De MD Current Medications Medications (Trade) Dose Ordered Sig/Lisa Route PRN Reason Start Time Stop Time Status Last Admin Dose Admin Acetaminophen (Tylenol) 500 mg Q4H PRN ORAL Mild Pain (Pain Scale 1-3) 01/22/20 13:30 02/21/20 13:29 Acetaminophen (Tylenol) 650 mg Q4H PRN ORAL fever 01/16/20 19:15 02/15/20 19:14 01/19/20 08:54 Acetaminophen/ Codeine Phosphate (Tylenol #3) 1 tab Q6H PRN ORAL Moderate Pain (Pain Scale 4-6) 01/22/20 13:30 01/29/20 13:29 Acetaminophen/ Hydrocodone Bitart ([place] 10/325) 1 tab Q4H PRN ORAL For Pain 4-6 01/16/20 19:15 01/23/20 19:14 Artificial Tears (Lacri-Lube) 1 applic PRN PRN BOTH EYES eye dry 01/20/20 13:15 02/19/20 13:14 Dextrose (Dextrose 50%) 25 ml Q30MIN PRN IV Hypoglycemia 01/16/20 19:15 04/15/20 19:14 Dextrose (Dextrose 50%) 50 ml Q30MIN PRN IV Hypoglycemia 01/16/20 19:15 04/15/20 19:14 Insulin Aspart (NovoLOG) BEFORE MEALS AND HS SUBQ 01/19/20 16:30 04/18/20 16:29 01/20/20 11:25 Levothyroxine Sodium (Synthroid) 88 mcg DAILY@0630 ORAL 01/19/20 06:30 02/16/20 06:29 01/22/20 06:21 Midodrine (Pro-Amatine) 2.5 mg THREE TIMES A DAY ORAL 01/22/20 09:00 04/21/20 08:59 01/22/20 09:27 Morphine Sulfate (Morphine Sulfate) 2 mg EVERY 4 HOURS PRN IVP severe pain 7-10 01/16/20 19:15 01/23/20 19:14 01/18/20 09:18 Ondansetron HCl (Zofran) 4 mg Q6H PRN IVP Nausea & Vomiting 01/16/20 19:15 02/15/20 19:14 Polyethylene Glycol (Miralax) 17 gm HSPRN PRN ORAL Constipation 01/16/20 21:00 02/15/20 20:59 01/19/20 18:30 Tamsulosin HCl (Flomax) 0.4 mg DAILY ORAL 01/17/20 09:00 02/16/20 08:59 01/22/20 09:27 Vancomycin HCl 1 gm/Dextrose 275 ml @ 183.708 mls/hr ONCE ONCE IVPB 01/23/20 09:00 01/23/20 10:29 Zolpidem Tartrate (Ambien) 5 mg HSPRN PRN ORAL Insomnia 01/16/20 21:00 01/23/20 20:59 Allergies: Coded Allergies: AMOXICILLIN (Verified Allergy, Unknown, 03/13/19) CLINDAMYCIN (Verified Allergy, Unknown, 03/13/19) ROS Limited/Unobtainable: No Constitutional: Reports: no symptoms HEENT: Reports: no symptoms Cardiovascular: Reports: no symptoms Respiratory: Reports: no symptoms Gastrointestinal/Abdominal: Reports: no symptoms Genitourinary: Reports: no symptoms Neurologic/Psychiatric: Reports: no symptoms Subjective 84 YO M admitted with back pain. Now compression fracture L2 vertebrae, Ciover for Int Med-Dr De Objective Last Vital Signs Date Time Temp Pulse Resp B/P (MAP) Pulse Ox O2 Delivery O2 Flow Rate FiO2 01/22/20 13:40 97.4 60 18 112/53 100 Nasal Cannula 3 Laboratory Tests Test 01/22/20 05:30 01/22/20 07:30 M. tuberculosis Complex DNA (PCR) Pending Prothrombin Time 10.4 SEC (9.30-11.50) Prothromb Time International Ratio 0.9 (0.9-1.1) Activated Partial Thromboplast Time 26 SEC (23-33) Sodium Level 139 MMOL/L (136-145) Potassium Level 3.7 MMOL/L (3.5-5.1) Chloride Level 102 MMOL/L (98-107) Carbon Dioxide Level 30 MMOL/L (21-32) Anion Gap 7 mmol/L (5-15) Blood Urea Nitrogen 14 mg/dL (7-18) Creatinine 0.9 MG/DL (0.55-1.30) Estimat Glomerular Filtration Rate > 60 mL/min (>60) Glucose Level 111 MG/DL (74-106) H Calcium Level 8.7 MG/DL (8.5-10.1) Microbiology Date/Time Source Procedure Growth Status 01/21/20 09:05 Sputum AFB Specimen Processing Tissue - Final Resulted 01/21/20 09:05 Sputum Acid Fast Bacilli Smear - Final Resulted 01/21/20 09:05 Sputum Acid Fast Bacilli Culture Pending Resulted 01/20/20 10:29 Sputum AFB Specimen Processing Tissue - Final Resulted 01/20/20 10:29 Sputum Acid Fast Bacilli Smear - Final Resulted 01/20/20 10:29 Sputum Acid Fast Bacilli Culture Pending Resulted Objective PHYSICAL EXAMINATION: GENERAL: Patient is a well-developed and well-nourished thin appearing, male, in no apparent distress. HEENT: Eyes, pupils are equal and responsive to light and accommodation. Extraocular movements are intact. NECK: Supple without lymphadenopathy. CHEST: Lungs are clear to auscultation bilaterally without wheezes or rales. CARDIOVASCULAR: Regular rate. S1, S2 are normal without murmurs, rubs, or gallops. ABDOMEN: Soft, nontender, nondistended. Positive bowel sounds. No evidence of hepatosplenomegaly. Currently, no rebound or guarding noted. EXTREMITIES: Negative for clubbing, cyanosis, edema. RECTAL/GENITAL: Not performed. NEUROLOGIC: Cranial nerves II to XII grossly intact without focal deficits. Motor strength is 5/5 bilaterally. Deep tendon reflexes are 2+ plantar. Assessment/Plan Assessment/Plan ASSESSMENT: This is an 84-year-old male. 1. Low back pain. 2. Lumbar level 2 compression fracture. 3. Syncopal episode. 4. Atrial fibrillation. 5. Diabetes type 2. 6. Hypertension. 7. Chronic obstructive pulmonary disease. 8. Hypothyroidism. 9. Hypercholesterolemia. 10. Glaucoma. 11. Benign prostatic hypertrophy. 12. Right lung mass TREATMENT: 1. Low back pain/lumbar level 2 compression fraction. An Orthopedic consultation has been obtained with Dr. Ren Draper. We will follow recommendations of Orthopedic Surgery. 2. Syncopal episode. A CT scan was reported as no acute infarct or hemorrhage. 3. Atrial fibrillation. Patient is currently off amiodarone. 4. Diabetes type 2. Patient is currently off antihyperglycemic medication. 5. Hypertension. Patient is currently off antihypertensive medication. 6. Chronic obstructive pulmonary disease. A Pulmonary consultation has been obtained with Dr. Zoe Lynn. 7. Hypothyroidism. Patient is currently on levothyroxine 75 mcg p.o. daily. TSH is elevated. A thyroid function panel is pending. Patient has been on levothyroxine for approximately one and half months. 8. Hypercholesterolemia. 9. Glaucoma. 10. Benign prostatic hypertrophy. 11. Await AFB culture results. Off antibiotics. ID=Micah Daniels MD Jan 22, 2020 14:38
[2020-01-22] MEDS ORDERED: Morphine Sulfate 2mg/ml Inj(IV/IM USE ONLY) IVP PRN (15:00)
[2020-01-22] MEDS ORDERED: Zolpidem 5mg tab ORAL PRN (15:00)
[2020-01-22] MEDS ORDERED: HYDROcodone/Acetamin 10/325 tab ORAL PRN (15:15)
--- NOTE | 2020-01-22 15:26 | Diagnostic Imaging Report ---
EXAM: XR Chest, 1 View CLINICAL HISTORY: Pneumothorax TECHNIQUE: Frontal view of the chest. COMPARISON: Chest CT of 01/17/20 FINDINGS/IMPRESSION: Interval placement of a dual-lead pacer device in a left subclavian approach. No clear pneumothorax, though overlying material, potentially dressing or cold pack, does obscure some detail.
--- NOTE | 2020-01-22 16:33 | Pulmonology Progress Note ---
Subjective ROS Limited/Unobtainable: No Constitutional: Reports: no symptoms HEENT: Repors: no symptoms Respiratory: Reports: no symptoms Allergies: Coded Allergies: AMOXICILLIN (Verified Allergy, Unknown, 03/13/19) CLINDAMYCIN (Verified Allergy, Unknown, 03/13/19) All Systems: reviewed and negative except above Objective Last 24 Hour Vital Signs Date Time Temp Pulse Resp B/P (MAP) Pulse Ox O2 Delivery O2 Flow Rate FiO2 01/22/20 16:00 97.7 73 16 115/47 (69) 98 01/22/20 13:40 97.4 60 18 112/53 100 Nasal Cannula 3 01/22/20 13:33 61 18 98 01/22/20 13:32 62 20 99 01/22/20 13:30 61 16 102/43 100 Nasal Cannula 3 01/22/20 13:25 66 14 96/48 100 Simple Mask 6 01/22/20 13:20 97.2 72 15 128/53 100 Simple Mask 6 01/22/20 11:25 63 01/22/20 09:00 Room Air 01/22/20 08:00 97.1 76 20 110/52 (71) 93 01/22/20 07:52 60 01/22/20 07:10 74 68 01/22/20 04:00 61 01/22/20 04:00 97.5 68 18 115/74 (88) 97 01/22/20 00:00 97.9 74 18 122/67 (85) 99 01/22/20 00:00 72 01/22/20 00:00 70 01/21/20 21:50 Room Air 01/21/20 20:00 70 01/21/20 20:00 98.0 65 19 136/59 (84) 98 General Appearance: WD/WN HEENT: normocephalic, atraumatic Respiratory: chest wall non-tender, lungs clear Cardiovascular: normal peripheral pulses, normal rate Abdomen: normal bowel sounds, soft, non tender Genitourinary: normal external genitalia Extremities: no cyanosis Skin: no rash Neurologic: perfusionist II-XII grossly normal Lymphatic: no neck adenopathy Microbiology Date/Time Source Procedure Growth Status 01/21/20 09:05 Sputum AFB Specimen Processing Tissue - Final Resulted 01/21/20 09:05 Sputum Acid Fast Bacilli Smear - Final Resulted 01/21/20 09:05 Sputum Acid Fast Bacilli Culture Pending Resulted 01/20/20 10:29 Sputum AFB Specimen Processing Tissue - Final Resulted 01/20/20 10:29 Sputum Acid Fast Bacilli Smear - Final Resulted 01/20/20 10:29 Sputum Acid Fast Bacilli Culture Pending Resulted Laboratory Tests 01/22/20 05:30: M. tuberculosis Complex DNA (PCR) [Pending] 01/22/20 07:30: Prothrombin Time 10.4, Prothromb Time International Ratio 0.9, Activated Partial Thromboplast Time 26, Sodium Level 139, Potassium Level 3.7, Chloride Level 102, Carbon Dioxide Level 30, Anion Gap 7, Blood Urea Nitrogen 14, Creatinine 0.9, Estimat Glomerular Filtration Rate > 60, Glucose Level 111H, Calcium Level 8.7 Current Medications Medications (Trade) Dose Ordered Sig/Lisa Route PRN Reason Start Time Stop Time Status Last Admin Dose Admin Acetaminophen (Tylenol) 500 mg Q4H PRN ORAL Mild Pain (Pain Scale 1-3) 01/22/20 13:30 02/21/20 13:29 Acetaminophen (Tylenol) 650 mg Q4H PRN ORAL fever 01/16/20 19:15 02/15/20 19:14 01/19/20 08:54 Acetaminophen/ Codeine Phosphate (Tylenol #3) 1 tab Q6H PRN ORAL Moderate Pain (Pain Scale 4-6) 01/22/20 13:30 01/29/20 13:29 Acetaminophen/ Hydrocodone Bitart ([place] 10/325) 1 tab Q4H PRN ORAL For Pain 4-6 01/22/20 15:15 01/29/20 15:14 Artificial Tears (Lacri-Lube) 1 applic PRN PRN BOTH EYES eye dry 01/20/20 13:15 02/19/20 13:14 Dextrose (Dextrose 50%) 25 ml Q30MIN PRN IV Hypoglycemia 01/16/20 19:15 04/15/20 19:14 Dextrose (Dextrose 50%) 50 ml Q30MIN PRN IV Hypoglycemia 01/16/20 19:15 04/15/20 19:14 Insulin Aspart (NovoLOG) BEFORE MEALS AND HS SUBQ 01/19/20 16:30 04/18/20 16:29 01/20/20 11:25 Levothyroxine Sodium (Synthroid) 88 mcg DAILY@0630 ORAL 01/19/20 06:30 02/16/20 06:29 01/22/20 06:21 Midodrine (Pro-Amatine) 2.5 mg THREE TIMES A DAY ORAL 01/22/20 09:00 04/21/20 08:59 01/22/20 09:27 Morphine Sulfate (Morphine Sulfate) 2 mg Q4H PRN IVP severe pain 7-10 01/22/20 15:00 01/29/20 14:59 Ondansetron HCl (Zofran) 4 mg Q6H PRN IVP Nausea & Vomiting 01/16/20 19:15 02/15/20 19:14 Polyethylene Glycol (Miralax) 17 gm HSPRN PRN ORAL Constipation 01/16/20 21:00 02/15/20 20:59 01/19/20 18:30 Tamsulosin HCl (Flomax) 0.4 mg DAILY ORAL 01/17/20 09:00 02/16/20 08:59 01/22/20 09:27 Vancomycin HCl 1 gm/Dextrose 275 ml @ 183.708 mls/hr ONCE ONCE IVPB 01/23/20 09:00 01/23/20 10:29 Zolpidem Tartrate (Ambien) 5 mg HSPRN PRN ORAL Insomnia 01/22/20 15:00 01/29/20 14:59 Assessment/Plan Problems: (1) Acute encephalopathy (2) Suspected COVID-19 virus infection (3) Syncope (4) Compression fracture of L2 (5) Diabetes mellitus (6) Hypothyroid (7) BPH (benign prostatic hyperplasia) (8) Cardiac arrhythmia Assessment/Plan comfortable mass on CT, rule out TB, probably old, but because of the age of the patient, there might be some reactivation covid negative times one pt/ot pain management check sputum, sputum induction PPD sliding scale serology pending radiology to evaluate for Kyphoplasty after TB and COVID are ruled out Zoe Lynn MD Jan 22, 2020 16:33
--- NOTE | 2020-01-22 19:00 | NUR ---
NURSE NOTES: Received report from Josselyn/Elissa OLIVEIRA. Patient is asleep, arousable to name, lying in semi hassan's; resting comfortably. A/Ox4. Denies pain at this time. No signs of acute distress noted. Checked IV site and flushed. No erythema, bleeding or infiltration noted. Bed at lowest position, brakes on, [id number]. Call light within reach. Will continue to monitor.
--- NOTE | 2020-01-22 19:06 | Infectious Diseases Prog Note ---
Assessment/Plan Assessment/Plan Assessment: COVID neg x1 -01/16 SARS-COV2 PCR neg Syncopal episode Recent fall w/resultant L2 compression facture -CT L spine: Superior endplate compression fracture at L2 with approximately 25% height loss and extension to the posterior cortex where there is mild osseous retropulsion causing mild canal stenosis. -CT head: No acute intracranial abnormality. Mild chronic senescent findings above. Otherwise unremarkable study. ?Lung mass- likely scar as per radiologist interpretation- patient has no pulmonary symptoms or systemic symptoms that would suggest active infection. -AFB smear neg x1 -T SPOT negative -01/16 CT chest: Linear bands the right upper lobe. 15 x 20 x 13 mm irregular masslike opacity with central calcification at the inferior aspect of this. Most likely represents an area of scarring. Underlying mass lesion not completely excludable and follow-up should be considered as clinically indicated.Other chronic changes, as described, mostly involving the right lobe. Minimal upper lobe hyperinflation. No acute abnormality. -01/15 CXR: No acute findings in the chest. Afebrile No leukocytosis orthostatic hypotension hx of prior syncopal episode- thought 2ry to bradycardia from severe hypothyroidism hypothyroidism Afib HLD COPD HTN BPH Dm2 glaucoma Plan: -Continue to monitor off abx -f/u cx -Monitor CBC/CMP, temperature -f/u AFB x3, airborne isolation, MTB PCR -f/u fungal serologies -COVID neg x1- ok to dc covid isolation NIKKI RN Thank you for consulting [facility]. Will continue to follow along with you. Subjective Allergies: Coded Allergies: AMOXICILLIN (Verified Allergy, Unknown, 03/13/19) CLINDAMYCIN (Verified Allergy, Unknown, 03/13/19) Subjective Afebrile. on 3L NC. comfortable Objective Vital Signs Last 24 Hour Vital Signs Date Time Temp Pulse Resp B/P (MAP) Pulse Ox O2 Delivery O2 Flow Rate FiO2 01/22/20 16:00 61 01/22/20 16:00 97.7 73 16 115/47 (69) 98 01/22/20 13:40 97.4 60 18 112/53 100 Nasal Cannula 3 01/22/20 13:33 61 18 98 01/22/20 13:32 62 20 99 01/22/20 13:30 61 16 102/43 100 Nasal Cannula 3 01/22/20 13:25 66 14 96/48 100 Simple Mask 6 01/22/20 13:20 97.2 72 15 128/53 100 Simple Mask 6 01/22/20 11:25 63 01/22/20 09:00 Room Air 01/22/20 08:00 97.1 76 20 110/52 (71) 93 01/22/20 07:52 60 01/22/20 07:10 74 68 01/22/20 04:00 61 01/22/20 04:00 97.5 68 18 115/74 (88) 97 01/22/20 00:00 97.9 74 18 122/67 (85) 99 01/22/20 00:00 72 01/22/20 00:00 70 01/21/20 21:50 Room Air 01/21/20 20:00 70 01/21/20 20:00 98.0 65 19 136/59 (84) 98 Height (Feet): 5 Height (Inches): 1.00 Weight (Pounds): 136 General Appearance: no acute distress HEENT: normocephalic, atraumatic, anicteric Respiratory/Chest: no respiratory distress, no accessory muscle use Abdomen: soft, non tender, no mass Skin: no rash Microbiology Date/Time Source Procedure Growth Status 01/21/20 09:05 Sputum AFB Specimen Processing Tissue - Final Resulted 01/21/20 09:05 Sputum Acid Fast Bacilli Smear - Final Resulted 01/21/20 09:05 Sputum Acid Fast Bacilli Culture Pending Resulted 01/20/20 10:29 Sputum AFB Specimen Processing Tissue - Final Resulted 01/20/20 10:29 Sputum Acid Fast Bacilli Smear - Final Resulted 01/20/20 10:29 Sputum Acid Fast Bacilli Culture Pending Resulted Laboratory Tests Test 01/22/20 05:30 01/22/20 07:30 M. tuberculosis Complex DNA (PCR) Pending Prothrombin Time 10.4 SEC (9.30-11.50) Prothromb Time International Ratio 0.9 (0.9-1.1) Activated Partial Thromboplast Time 26 SEC (23-33) Sodium Level 139 MMOL/L (136-145) Potassium Level 3.7 MMOL/L (3.5-5.1) Chloride Level 102 MMOL/L (98-107) Carbon Dioxide Level 30 MMOL/L (21-32) Anion Gap 7 mmol/L (5-15) Blood Urea Nitrogen 14 mg/dL (7-18) Creatinine 0.9 MG/DL (0.55-1.30) Estimat Glomerular Filtration Rate > 60 mL/min (>60) Glucose Level 111 MG/DL (74-106) H Calcium Level 8.7 MG/DL (8.5-10.1) Current Medications Medications (Trade) Dose Ordered Sig/Lisa Route PRN Reason Start Time Stop Time Status Last Admin Dose Admin Acetaminophen (Tylenol) 500 mg Q4H PRN ORAL Mild Pain (Pain Scale 1-3) 01/22/20 13:30 02/21/20 13:29 Acetaminophen (Tylenol) 650 mg Q4H PRN ORAL fever 01/16/20 19:15 02/15/20 19:14 01/19/20 08:54 Acetaminophen/ Codeine Phosphate (Tylenol #3) 1 tab Q6H PRN ORAL Moderate Pain (Pain Scale 4-6) 01/22/20 13:30 01/29/20 13:29 Acetaminophen/ Hydrocodone Bitart ([place] 10/325) 1 tab Q4H PRN ORAL For Pain 4-6 01/22/20 15:15 01/29/20 15:14 Artificial Tears (Lacri-Lube) 1 applic PRN PRN BOTH EYES eye dry 01/20/20 13:15 02/19/20 13:14 Dextrose (Dextrose 50%) 25 ml Q30MIN PRN IV Hypoglycemia 01/16/20 19:15 04/15/20 19:14 Dextrose (Dextrose 50%) 50 ml Q30MIN PRN IV Hypoglycemia 01/16/20 19:15 04/15/20 19:14 Insulin Aspart (NovoLOG) BEFORE MEALS AND HS SUBQ 01/19/20 16:30 04/18/20 16:29 01/20/20 11:25 Levothyroxine Sodium (Synthroid) 88 mcg DAILY@0630 ORAL 01/19/20 06:30 02/16/20 06:29 01/22/20 06:21 Midodrine (Pro-Amatine) 2.5 mg THREE TIMES A DAY ORAL 01/22/20 18:00 04/21/20 08:59 01/22/20 18:30 Morphine Sulfate (Morphine Sulfate) 2 mg Q4H PRN IVP severe pain 7-10 01/22/20 15:00 01/29/20 14:59 Ondansetron HCl (Zofran) 4 mg Q6H PRN IVP Nausea & Vomiting 01/16/20 19:15 02/15/20 19:14 Polyethylene Glycol (Miralax) 17 gm HSPRN PRN ORAL Constipation 01/16/20 21:00 02/15/20 20:59 01/19/20 18:30 Tamsulosin HCl (Flomax) 0.4 mg DAILY ORAL 01/17/20 09:00 02/16/20 08:59 01/22/20 09:27 Vancomycin HCl 1 gm/Dextrose 275 ml @ 183.708 mls/hr ONCE ONCE IVPB 01/23/20 09:00 01/23/20 10:29 Zolpidem Tartrate (Ambien) 5 mg HSPRN PRN ORAL Insomnia 01/22/20 15:00 01/29/20 14:59 Rosa Murillo MD Jan 22, 2020 19:06
--- NOTE | 2020-01-22 19:29 | NUR ---
HAND-OFF: Report given to ROXANNE Brito. Patient stable, no signs of distress. Plan of care endorsed.
--- NOTE | 2020-01-22 22:00 | Operative Note - Dictated ---
DATE OF OPERATION: 01/22/2020 SURGEON: Felicia Morales M.D. PROCEDURE PERFORMED: Permanent dual-chamber pacemaker. INDICATIONS: Syncope and bradycardia. CLINICAL HISTORY: The patient is an 84-year-old man with recurrent syncope, noted to have pauses 2:1 second-degree AV block versus sinus bradycardia with blocked PACs. Heart rates in the 30s. The implanted leads in the atrium is [employer] [id number], serial number [id number] and the ventricle is a [employer] 2088TC, serial number [id number]. The pacemaker generator is a [employer], [id number], serial number [id number] pacing and sensing. In the atrium, sensing is 2.9 millivolts and the in ventricle 11.7 millivolts. Pacing threshold 0.75 volts at 0.4 milliseconds in the atrium, 0.5 volts at 0.4 milliseconds in the ventricle. Lead impedances are 450 ohms in the atrium, 700 ohms in the ventricle. ANESTHESIA: Local and intravenous sedation. DESCRIPTION OF PROCEDURE: The patient was brought to the operating room, received sedation as per the anesthesiologist, Dr. Barillas. The left chest was sterilely prepped and draped in the usual manner. The skin and underlying soft tissues over the left deltopectoral groove were infiltrated with 1% Xylocaine local anesthetic. An incision was made in the left deltopectoral groove of about 3 cm and this was carried down to the prepectoral fascia using blunt and Bovie dissection. The left cephalic vein was small and could not be dissected and cannulated; therefore, subclavian venipuncture was performed after a subclavian venogram was performed. The vein was punctured with a micropuncture and a 6-Beninese introducer placed. The introducer was aspirated and flushed with sterile saline. The ventricular lead was then positioned in the right ventricular apex under fluoroscopy. The screw was advanced under fluoroscopy. The above pacing and sensing thresholds were obtained. There was no diaphragmatic stimulation with pacing at 10 volts. The lead was secured with 2 nonabsorbable sutures via the suture sleeves. Next, the atrial lead was placed through a second 6-Beninese introducer that was placed over the guidewire, which had been previously placed in the subclavian vein. The atrial lead was passed through a 6-Beninese introducer, which had been placed over a guidewire when the subclavian vein was cannulated. The atrial lead was positioned in the right atrial appendage. The screw was advanced under fluoroscopy. The above pacing and sensing thresholds were obtained. There was no diaphragmatic stimulation with pacing at 10 volts. The lead was secured with two nonabsorbable sutures via the suture sleeves. An intramuscular pocket was created using blunt and Bovie dissection. The pocket was flushed with an antibiotic solution. The generator was brought to the field. Atrial and ventricular leads were attached. The setscrews were tightened and checked. The leads and generator placed into the intramuscular pocket with the excess lead coiled around the generator, the incision was then closed in 3 layers with 2-0 and 4-0 Monocryl absorbable suture. A sterile dressing was applied. The patient tolerated the procedure well and was transferred to the recovery area in stable condition. Felicia Morales M.D. DR: ROBIN JOB#: [id number] CC:
[2020-01-23] VITALS (8 sets, daily range): BP systolic 99–135; BP diastolic 41–72
--- NOTE | 2020-01-23 02:00 | NUR ---
NURSE NOTES: Resting throughout the night. No significant change of condition noted. Will continue to monitor.
[2020-01-23] MEDS: NovoLOG Insulin Flexpen SUBQ SCH ×4 (06:06→21:00)
--- NOTE | 2020-01-23 07:01 | NUR ---
HAND-OFF: Report given to Josselyn/Alisha OLIVEIRA. Plan of care endorsed.
--- NOTE | 2020-01-23 07:12 | Pulmonology Progress Note ---
Subjective Allergies: Coded Allergies: AMOXICILLIN (Verified Allergy, Unknown, 03/13/19) CLINDAMYCIN (Verified Allergy, Unknown, 03/13/19) All Systems: reviewed and negative except above Subjective on O2 via NC no signs of resp distress remains afebrile, no leukocytosis s/p pacemaker placement 01/21 denies any CP, SOB, dizziness, + back pain Objective Last 24 Hour Vital Signs Date Time Temp Pulse Resp B/P (MAP) Pulse Ox O2 Delivery O2 Flow Rate FiO2 01/23/20 04:00 68 01/23/20 04:00 97.4 70 18 119/59 (79) 97 01/23/20 00:00 98.2 64 19 121/48 (72) 98 01/23/20 00:00 62 01/22/20 21:00 Room Air 01/22/20 20:00 98.0 60 20 112/65 (81) 97 01/22/20 20:00 62 01/22/20 17:00 123/45 (71) 01/22/20 16:00 61 01/22/20 16:00 97.7 73 16 115/47 (69) 98 01/22/20 13:40 97.4 60 18 112/53 100 Nasal Cannula 3 01/22/20 13:33 61 18 98 01/22/20 13:32 62 20 99 01/22/20 13:30 61 16 102/43 100 Nasal Cannula 3 01/22/20 13:25 66 14 96/48 100 Simple Mask 6 01/22/20 13:20 97.2 72 15 128/53 100 Simple Mask 6 01/22/20 11:25 63 01/22/20 09:00 Room Air 01/22/20 08:00 97.1 76 20 110/52 (71) 93 01/22/20 07:52 60 Intake and Output 01/22/20 01/23/20 19:00 07:00 Intake Total 804 ml Output Total 220 ml Balance 584 ml Intake Oral 240 ml IV Total 564 ml Output Urine Total 200 ml Estimated Blood Loss 20 ml General Appearance: WD/WN - elderly male in NAD HEENT: normocephalic, atraumatic, mucous membranes moist Respiratory: chest wall non-tender, lungs clear, other - pacemaler Cardiovascular: normal peripheral pulses, normal rate Abdomen: normal bowel sounds, soft, non tender Extremities: no cyanosis, other - arm sling for support Skin: no rash 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 Lymphatic: no neck adenopathy Musculoskeletal: atrophy - BLE Microbiology Date/Time Source Procedure Growth Status 01/21/20 09:05 Sputum AFB Specimen Processing Tissue - Final Resulted 01/21/20 09:05 Sputum Acid Fast Bacilli Smear - Final Resulted 01/21/20 09:05 Sputum Acid Fast Bacilli Culture Pending Resulted 01/20/20 10:29 Sputum AFB Specimen Processing Tissue - Final Resulted 01/20/20 10:29 Sputum Acid Fast Bacilli Smear - Final Resulted 01/20/20 10:29 Sputum Acid Fast Bacilli Culture Pending Resulted Laboratory Tests 01/22/20 07:30: Prothrombin Time 10.4, Prothromb Time International Ratio 0.9, Activated Partial Thromboplast Time 26, Sodium Level 139, Potassium Level 3.7, Chloride Level 102, Carbon Dioxide Level 30, Anion Gap 7, Blood Urea Nitrogen 14, Creatinine 0.9, Estimat Glomerular Filtration Rate > 60, Glucose Level 111H, Calcium Level 8.7 Current Medications Medications (Trade) Dose Ordered Sig/Lisa Route PRN Reason Start Time Stop Time Status Last Admin Dose Admin Acetaminophen (Tylenol) 500 mg Q4H PRN ORAL Mild Pain (Pain Scale 1-3) 01/22/20 13:30 02/21/20 13:29 Acetaminophen (Tylenol) 650 mg Q4H PRN ORAL fever 01/16/20 19:15 02/15/20 19:14 01/19/20 08:54 Acetaminophen/ Codeine Phosphate (Tylenol #3) 1 tab Q6H PRN ORAL Moderate Pain (Pain Scale 4-6) 01/22/20 13:30 01/29/20 13:29 Acetaminophen/ Hydrocodone Bitart ([place] 10/325) 1 tab Q4H PRN ORAL For Pain 4-6 01/22/20 15:15 01/29/20 15:14 Artificial Tears (Lacri-Lube) 1 applic PRN PRN BOTH EYES eye dry 01/20/20 13:15 02/19/20 13:14 Dextrose (Dextrose 50%) 25 ml Q30MIN PRN IV Hypoglycemia 01/16/20 19:15 04/15/20 19:14 Dextrose (Dextrose 50%) 50 ml Q30MIN PRN IV Hypoglycemia 01/16/20 19:15 04/15/20 19:14 Insulin Aspart (NovoLOG) BEFORE MEALS AND HS SUBQ 01/19/20 16:30 04/18/20 16:29 01/20/20 11:25 Levothyroxine Sodium (Synthroid) 88 mcg DAILY@0630 ORAL 01/19/20 06:30 02/16/20 06:29 01/23/20 05:43 Midodrine (Pro-Amatine) 2.5 mg THREE TIMES A DAY ORAL 01/22/20 18:00 04/21/20 08:59 01/22/20 18:30 Morphine Sulfate (Morphine Sulfate) 2 mg Q4H PRN IVP severe pain 7-01/22/20 15:00 01/29/20 14:59 Ondansetron HCl (Zofran) 4 mg Q6H PRN IVP Nausea & Vomiting 01/16/20 19:15 02/15/20 19:14 Polyethylene Glycol (Miralax) 17 gm HSPRN PRN ORAL Constipation 01/16/20 21:00 02/15/20 20:59 01/19/20 18:30 Tamsulosin HCl (Flomax) 0.4 mg DAILY ORAL 01/17/20 09:00 02/16/20 08:59 01/22/20 09:27 Vancomycin HCl 1 gm/Dextrose 275 ml @ 183.708 mls/hr ONCE ONCE IVPB 01/23/20 09:00 01/23/20 10:29 Zolpidem Tartrate (Ambien) 5 mg HSPRN PRN ORAL Insomnia 01/22/20 15:00 01/29/20 14:59 Assessment/Plan Assessment/Plan ASSESSMENT COPD R lung mass vs scaring Suspected COVID-19 infection - ruled out Syncopal episode 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
--- NOTE | 2020-01-23 07:30 | NUR ---
NURSE NOTES: Nurse report given by ROXANNE Brito. Patient's sleeping in bed but easily awaken. AO x 3, denies pain , no complains of chest pain, no complain of pain at surgical site, L arm is still on sling to keep arm close to body. No active bleeding at surgical site, dressing intact. Bed low and locked, call light within reach, side rails x 3, SCDs on, no edematous noted. Eyes open spontaneously, breathing regular and unlabored, lungs sound clear. IV is saline locked, flushed, patent and asymptomatic. Will continue to monitor.
[2020-01-23 07:48] LABS: BASOPHILS % (AUTO) 1.1 % (0.0-2.0); EOSINOPHILS % (AUTO) 7.4 % (0.0-3.0); HEMATOCRIT 35.9 % (42.0-52.0); HEMOGLOBIN 12.6 G/DL (14.2-18.0); LYMPHOCYTES % (AUTO) 23.2 % (20.0-45.0); MEAN CORPUSCULAR VOLUME 92 FL (80-99); MONOCYTES % (AUTO) 11.2 % (1.0-10.0); NEUTROPHILS % (AUTO) 57.1 % (45.0-75.0); PLATELET COUNT 351 K/UL (150-450); RED CELL DISTRIBUTION WIDTH 11.2 % (11.6-14.8); WHITE BLOOD COUNT 10.2 K/UL (4.8-10.8)
[2020-01-23 08:03] LABS: ANION GAP 6 mmol/L (5-15); BLOOD UREA NITROGEN 15 mg/dL (7-18); CALCIUM 8.8 MG/DL (8.5-10.1); CARBON DIOXIDE 30 MMOL/L (21-32); CHLORIDE 103 MMOL/L (98-107); CREATININE 0.9 MG/DL (0.55-1.30); POTASSIUM 4.2 MMOL/L (3.5-5.1); SODIUM 139 MMOL/L (136-145)
[2020-01-23] MEDS: Tamsulosin 0.4mg cap ORAL SCH (08:51)
[2020-01-23] MEDS ORDERED: Vancomycin 1 GM in D5W 275 ML IVPB ONE (09:00)
--- NOTE | 2020-01-23 13:33 | Cardiology Progress Note ---
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 Possible contribution of orthostatic hypotension as well He also has PAF/ AFL, needing rate control medication. He is s/p dual chamber pacemaker on 01/21 - XR limited quality - cannot r/o ptx Assessment/Plan Normal pacemaker function. Pacing threshold 0.75 v/0.4 ms atr 0.375 v/0.4 ms ventr, Sensing 5 mv atr, 10 mv ventr impedances: 480 ohm atr, 640 ohm ventr No further AF/ AFL on telemetry ? anticoagulation Will repeat CXR today, as previous study not adequate to r/o Ptx Subjective ROS Limited/Unobtainable: No Subjective Mr Berman has no c/o pain, dyspnea. Events noted Objective Last 24 Hour Vital Signs Date Time Temp Pulse Resp B/P (MAP) Pulse Ox O2 Delivery O2 Flow Rate FiO2 01/23/20 13:17 71 16 99/41 (60) 93 01/23/20 12:00 98.1 67 18 105/72 (83) 94 01/23/20 09:49 Nasal Cannula 2.0 01/23/20 09:00 67 79 89 01/23/20 08:00 97.7 85 18 135/61 (85) 98 01/23/20 04:00 68 01/23/20 04:00 97.4 70 18 119/59 (79) 97 01/23/20 00:00 98.2 64 19 121/48 (72) 98 01/23/20 00:00 62 01/22/20 21:00 Room Air 01/22/20 20:00 98.0 60 20 112/65 (81) 97 01/22/20 20:00 62 01/22/20 17:00 123/45 (71) 01/22/20 16:00 61 01/22/20 16:00 97.7 73 16 115/47 (69) 98 01/22/20 13:40 97.4 60 18 112/53 100 Nasal Cannula 3 01/22/20 13:33 61 18 98 01/22/20 13:32 62 20 99 01/22/20 13:30 61 16 102/43 100 Nasal Cannula 3 General Appearance: WD/WN, no apparent distress, alert EENT: PERRL/EOMI Neck: no JVD Rhythm: NSR Cardiovascular: normal rate, regular rhythm Respiratory/Chest: other - L infraclav incision - clean, no hematoma Abdomen: normal bowel sounds, non tender, soft Extremities: no swelling Intake and Output 01/22/20 01/23/20 19:00 07:00 Intake Total 804 ml Output Total 220 ml Balance 584 ml Intake Oral 240 ml IV Total 564 ml Output Urine Total 200 ml Estimated Blood Loss 20 ml Laboratory Tests Test 01/23/20 07:00 White Blood Count 10.2 K/UL (4.8-10.8) Red Blood Count 3.90 M/UL (4.70-6.10) L Hemoglobin 12.6 G/DL (14.2-18.0) L Hematocrit 35.9 % (42.0-52.0) L Mean Corpuscular Volume 92 FL (80-99) Mean Corpuscular Hemoglobin 32.3 PG (27.0-31.0) H Mean Corpuscular Hemoglobin Concent 35.0 G/DL (32.0-36.0) Red Cell Distribution Width 11.2 % (11.6-14.8) L Platelet Count 351 K/UL (150-450) Mean Platelet Volume 4.8 FL (6.5-10.1) L Neutrophils (%) (Auto) 57.1 % (45.0-75.0) Lymphocytes (%) (Auto) 23.2 % (20.0-45.0) Monocytes (%) (Auto) 11.2 % (1.0-10.0) H Eosinophils (%) (Auto) 7.4 % (0.0-3.0) H Basophils (%) (Auto) 1.1 % (0.0-2.0) Sodium Level 139 MMOL/L (136-145) Potassium Level 4.2 MMOL/L (3.5-5.1) Chloride Level 103 MMOL/L (98-107) Carbon Dioxide Level 30 MMOL/L (21-32) Anion Gap 6 mmol/L (5-15) Blood Urea Nitrogen 15 mg/dL (7-18) Creatinine 0.9 MG/DL (0.55-1.30) Estimat Glomerular Filtration Rate > 60 mL/min (>60) Glucose Level 108 MG/DL (74-106) H Calcium Level 8.8 MG/DL (8.5-10.1) Microbiology Date/Time Source Procedure Growth Status 01/21/20 09:05 Sputum AFB Specimen Processing Tissue - Final Resulted 01/21/20 09:05 Sputum Acid Fast Bacilli Smear - Final Resulted 01/21/20 09:05 Sputum Acid Fast Bacilli Culture Pending Resulted Felicia Morales MD Jan 23, 2020 13:33
--- NOTE | 2020-01-23 14:32 | Internal Med Progress Note ---
Subjective Date of Service: Jan 23, 2020 Physician Name Micah Contreras Attending Physician Neel De MD Current Medications Medications (Trade) Dose Ordered Sig/Lisa Route PRN Reason Start Time Stop Time Status Last Admin Dose Admin Acetaminophen (Tylenol) 500 mg Q4H PRN ORAL Mild Pain (Pain Scale 1-3) 01/22/20 13:30 02/21/20 13:29 Acetaminophen (Tylenol) 650 mg Q4H PRN ORAL fever 01/16/20 19:15 02/15/20 19:14 01/19/20 08:54 Acetaminophen/ Codeine Phosphate (Tylenol #3) 1 tab Q6H PRN ORAL Moderate Pain (Pain Scale 4-6) 01/22/20 13:30 01/29/20 13:29 Acetaminophen/ Hydrocodone Bitart ([place] 10/325) 1 tab Q4H PRN ORAL For Pain 4-6 01/22/20 15:15 01/29/20 15:14 Artificial Tears (Lacri-Lube) 1 applic PRN PRN BOTH EYES eye dry 01/20/20 13:15 02/19/20 13:14 Dextrose (Dextrose 50%) 25 ml Q30MIN PRN IV Hypoglycemia 01/16/20 19:15 04/15/20 19:14 Dextrose (Dextrose 50%) 50 ml Q30MIN PRN IV Hypoglycemia 01/16/20 19:15 04/15/20 19:14 Insulin Aspart (NovoLOG) BEFORE MEALS AND HS SUBQ 01/19/20 16:30 04/18/20 16:29 01/20/20 11:25 Levothyroxine Sodium (Synthroid) 88 mcg DAILY@0630 ORAL 01/19/20 06:30 02/16/20 06:29 01/23/20 05:43 Midodrine (Pro-Amatine) 2.5 mg THREE TIMES A DAY ORAL 01/22/20 18:00 04/21/20 08:59 01/23/20 13:12 Morphine Sulfate (Morphine Sulfate) 2 mg Q4H PRN IVP severe pain 7-10 01/22/20 15:00 01/29/20 14:59 Ondansetron HCl (Zofran) 4 mg Q6H PRN IVP Nausea & Vomiting 01/16/20 19:15 02/15/20 19:14 Polyethylene Glycol (Miralax) 17 gm HSPRN PRN ORAL Constipation 01/16/20 21:00 02/15/20 20:59 01/19/20 18:30 Tamsulosin HCl (Flomax) 0.4 mg DAILY ORAL 01/17/20 09:00 02/16/20 08:59 01/23/20 08:51 Zolpidem Tartrate (Ambien) 5 mg HSPRN PRN ORAL Insomnia 01/22/20 15:00 01/29/20 14:59 Allergies: Coded Allergies: AMOXICILLIN (Verified Allergy, Unknown, 03/13/19) CLINDAMYCIN (Verified Allergy, Unknown, 03/13/19) ROS Limited/Unobtainable: Yes Subjective 84 YO M admitted with back pain. Now compression fracture L2 vertebrae. S/P pacemaker implantation 01/22/20. Cover for Int Med-Dr De Objective Last Vital Signs Date Time Temp Pulse Resp B/P (MAP) Pulse Ox O2 Delivery O2 Flow Rate FiO2 01/23/20 13:17 71 16 99/41 (60) 93 01/23/20 12:00 98.1 01/23/20 09:49 Nasal Cannula 2.0 Laboratory Tests Test 01/23/20 07:00 White Blood Count 10.2 K/UL (4.8-10.8) Red Blood Count 3.90 M/UL (4.70-6.10) L Hemoglobin 12.6 G/DL (14.2-18.0) L Hematocrit 35.9 % (42.0-52.0) L Mean Corpuscular Volume 92 FL (80-99) Mean Corpuscular Hemoglobin 32.3 PG (27.0-31.0) H Mean Corpuscular Hemoglobin Concent 35.0 G/DL (32.0-36.0) Red Cell Distribution Width 11.2 % (11.6-14.8) L Platelet Count 351 K/UL (150-450) Mean Platelet Volume 4.8 FL (6.5-10.1) L Neutrophils (%) (Auto) 57.1 % (45.0-75.0) Lymphocytes (%) (Auto) 23.2 % (20.0-45.0) Monocytes (%) (Auto) 11.2 % (1.0-10.0) H Eosinophils (%) (Auto) 7.4 % (0.0-3.0) H Basophils (%) (Auto) 1.1 % (0.0-2.0) Sodium Level 139 MMOL/L (136-145) Potassium Level 4.2 MMOL/L (3.5-5.1) Chloride Level 103 MMOL/L (98-107) Carbon Dioxide Level 30 MMOL/L (21-32) Anion Gap 6 mmol/L (5-15) Blood Urea Nitrogen 15 mg/dL (7-18) Creatinine 0.9 MG/DL (0.55-1.30) Estimat Glomerular Filtration Rate > 60 mL/min (>60) Glucose Level 108 MG/DL (74-106) H Calcium Level 8.8 MG/DL (8.5-10.1) Microbiology Date/Time Source Procedure Growth Status 01/21/20 09:05 Sputum AFB Specimen Processing Tissue - Final Resulted 01/21/20 09:05 Sputum Acid Fast Bacilli Smear - Final Resulted 01/21/20 09:05 Sputum Acid Fast Bacilli Culture Pending Resulted Intake and Output 01/22/20 01/23/20 19:00 07:00 Intake Total 804 ml Output Total 220 ml Balance 584 ml Intake Oral 240 ml IV Total 564 ml Output Urine Total 200 ml Estimated Blood Loss 20 ml Objective PHYSICAL EXAMINATION: GENERAL: Patient is a well-developed and well-nourished thin appearing, male, in no apparent distress. HEENT: Eyes, pupils are equal and responsive to light and accommodation. Extraocular movements are intact. NECK: Supple without lymphadenopathy. CHEST: Lungs are clear to auscultation bilaterally without wheezes or rales. CARDIOVASCULAR: Regular rate. S1, S2 are normal without murmurs, rubs, or gallops. ABDOMEN: Soft, nontender, nondistended. Positive bowel sounds. No evidence of hepatosplenomegaly. Currently, no rebound or guarding noted. EXTREMITIES: Negative for clubbing, cyanosis, edema. RECTAL/GENITAL: Not performed. NEUROLOGIC: Cranial nerves II to XII grossly intact without focal deficits. Motor strength is 5/5 bilaterally. Deep tendon reflexes are 2+ plantar. Assessment/Plan Assessment/Plan ASSESSMENT: This is an 84-year-old male. 1. Low back pain. 2. Lumbar level 2 compression fracture. 3. Syncopal episode. 4. Atrial fibrillation. 5. Diabetes type 2. 6. Hypertension. 7. Chronic obstructive pulmonary disease. 8. Hypothyroidism. 9. Hypercholesterolemia. 10. Glaucoma. 11. Benign prostatic hypertrophy. 12. Right lung mass 13. Symptomatic Bradycardia TREATMENT: 1. Low back pain/lumbar level 2 compression fraction. An Orthopedic consultation has been obtained with Dr. Ren Draper. We will follow recommendations of Orthopedic Surgery. 2. Syncopal episode. A CT scan was reported as no acute infarct or hemorrhage. 3. Atrial fibrillation. Patient is currently off amiodarone. 4. Diabetes type 2. Patient is currently off antihyperglycemic medication. 5. Hypertension. Patient is currently off antihypertensive medication. 6. Chronic obstructive pulmonary disease. A Pulmonary consultation has been obtained with Dr. Zoe Lynn. 7. Hypothyroidism. Patient is currently on levothyroxine 75 mcg p.o. daily. TSH is elevated. A thyroid function panel is pending. Patient has been on levothyroxine for approximately one and half months. 8. Hypercholesterolemia. 9. Glaucoma. 10. Benign prostatic hypertrophy. 11. Await AFB culture results. Off antibiotics. ID=Dr Moreau 12. S/P pacemeker implantation 01/22/20 by Micah Leslie MD Jan 23, 2020 14:32
--- NOTE | 2020-01-23 14:47 | General Progress Note ---
Assessment/Plan Problem List: (1) Diabetes mellitus ICD Codes: E11.9 - Type 2 diabetes mellitus without complications SNOMED: 01882467 (2) Hypothyroid ICD Codes: E03.9 - Hypothyroidism, unspecified SNOMED: 93322047 (3) Compression fracture of L2 ICD Codes: S32.020A - Wedge compression fracture of second lumbar vertebra, initial encounter for closed fracture SNOMED: 94103515302769540 Qualifiers: Qualified Codes: S32.020A - Wedge compression fracture of second lumbar vertebra, initial encounter for closed fracture Status: stable, progressing Assessment/Plan: continue Novolog sliding scale ac / hs no need for oral diabetic medications for now continue Levothyroxine 88 mcg daily repeat TSH, free T4 in 6 weeks follow bone density results candidate for Tymlos vs Forteo as OP Kyphoplasty is planned after TB is ruled out Subjective Allergies: Coded Allergies: AMOXICILLIN (Verified Allergy, Unknown, 03/13/19) CLINDAMYCIN (Verified Allergy, Unknown, 03/13/19) Subjective events noted - interval notes reviewed COVID test negative sputum results for TB is pending PPM placed glucose values are stable Item Value Date Time Bedside Blood Glucose 124 mg/dl H 01/23/20 1130 Bedside Blood Glucose 102 mg/dl 01/23/20 0606 Bedside Blood Glucose 117 mg/dl 01/22/20 2100 Bedside Blood Glucose 107 mg/dl 01/22/20 1630 Objective Last 24 Hour Vital Signs Date Time Temp Pulse Resp B/P (MAP) Pulse Ox O2 Delivery O2 Flow Rate FiO2 01/23/20 13:17 71 16 99/41 (60) 93 01/23/20 12:00 73 01/23/20 12:00 98.1 67 18 105/72 (83) 94 01/23/20 09:49 Nasal Cannula 2.0 01/23/20 09:00 67 79 89 01/23/20 08:00 97.7 85 18 135/61 (85) 98 01/23/20 04:00 68 01/23/20 04:00 97.4 70 18 119/59 (79) 97 01/23/20 00:00 98.2 64 19 121/48 (72) 98 01/23/20 00:00 62 01/22/20 21:00 Room Air 01/22/20 20:00 98.0 60 20 112/65 (81) 97 01/22/20 20:00 62 01/22/20 17:00 123/45 (71) 01/22/20 16:00 61 01/22/20 16:00 97.7 73 16 115/47 (69) 98 Intake and Output 01/22/20 01/23/20 19:00 07:00 Intake Total 804 ml Output Total 220 ml Balance 584 ml Intake Oral 240 ml IV Total 564 ml Output Urine Total 200 ml Estimated Blood Loss 20 ml Laboratory Tests 01/23/20 07:00: White Blood Count 10.2, Red Blood Count 3.90L, Hemoglobin 12.6L, Hematocrit 35.9L, Mean Corpuscular Volume 92, Mean Corpuscular Hemoglobin 32.3H, Mean Corpuscular Hemoglobin Concent 35.0, Red Cell Distribution Width 11.2L, Platelet Count 351, Mean Platelet Volume 4.8L, Neutrophils (%) (Auto) 57.1, Lymphocytes (%) (Auto) 23.2, Monocytes (%) (Auto) 11.2H, Eosinophils (%) (Auto) 7.4H, Basophils (%) (Auto) 1.1, Sodium Level 139, Potassium Level 4.2, Chloride Level 103, Carbon Dioxide Level 30, Anion Gap 6, Blood Urea Nitrogen 15, Creatinine 0.9, Estimat Glomerular Filtration Rate > 60, Glucose Level 108H, Calcium Level 8.8 Height (Feet): 5 Height (Inches): 1.00 Weight (Pounds): 136 General Appearance: no apparent distress Neck: normal alignment Cardiovascular: normal rate Respiratory/Chest: lungs clear Abdomen: normal bowel sounds Pelvis: normal external exam Objective Current Medications Medications (Trade) Dose Ordered Sig/Lisa Route PRN Reason Start Time Stop Time Status Last Admin Dose Admin Acetaminophen (Tylenol) 500 mg Q4H PRN ORAL Mild Pain (Pain Scale 1-3) 01/22/20 13:30 02/21/20 13:29 Acetaminophen (Tylenol) 650 mg Q4H PRN ORAL fever 01/16/20 19:15 02/15/20 19:14 01/19/20 08:54 Acetaminophen/ Codeine Phosphate (Tylenol #3) 1 tab Q6H PRN ORAL Moderate Pain (Pain Scale 4-6) 01/22/20 13:30 01/29/20 13:29 Acetaminophen/ Hydrocodone Bitart ([place] 10/325) 1 tab Q4H PRN ORAL For Pain 4-6 01/22/20 15:15 01/29/20 15:14 Artificial Tears (Lacri-Lube) 1 applic PRN PRN BOTH EYES eye dry 01/20/20 13:15 02/19/20 13:14 Dextrose (Dextrose 50%) 25 ml Q30MIN PRN IV Hypoglycemia 01/16/20 19:15 04/15/20 19:14 Dextrose (Dextrose 50%) 50 ml Q30MIN PRN IV Hypoglycemia 01/16/20 19:15 04/15/20 19:14 Insulin Aspart (NovoLOG) BEFORE MEALS AND HS SUBQ 01/19/20 16:30 04/18/20 16:29 01/20/20 11:25 Levothyroxine Sodium (Synthroid) 88 mcg DAILY@0630 ORAL 01/19/20 06:30 02/16/20 06:29 01/23/20 05:43 Midodrine (Pro-Amatine) 2.5 mg THREE TIMES A DAY ORAL 01/22/20 18:00 04/21/20 08:59 01/23/20 13:12 Morphine Sulfate (Morphine Sulfate) 2 mg Q4H PRN IVP severe pain 7-10 01/22/20 15:00 01/29/20 14:59 Ondansetron HCl (Zofran) 4 mg Q6H PRN IVP Nausea & Vomiting 01/16/20 19:15 02/15/20 19:14 Polyethylene Glycol (Miralax) 17 gm HSPRN PRN ORAL Constipation 01/16/20 21:00 02/15/20 20:59 01/19/20 18:30 Tamsulosin HCl (Flomax) 0.4 mg DAILY ORAL 01/17/20 09:00 02/16/20 08:59 01/23/20 08:51 Zolpidem Tartrate (Ambien) 5 mg HSPRN PRN ORAL Insomnia 01/22/20 15:00 01/29/20 14:59 Enrique Parks MD Jan 23, 2020 14:47
--- NOTE | 2020-01-23 15:01 | NUR ---
NURSE NOTES: Covid swab sent
--- NOTE | 2020-01-23 16:35 | NUR ---
NURSE NOTES: Made Dr. Lynn and Dr. Murillo aware that the PPD was done for the patient on 01/17 was never been read and documented. Patient and family members want patient to be discharged. Dr. Murillo stated to wait for AFB result to come back in order for him to be discharged. Dr Lynn stated patient cannot be discharge either. Will notify the patient and patient's son.
--- NOTE | 2020-01-23 19:36 | NUR ---
HAND-OFF: Report given to ROXANNE Jon.
--- NOTE | 2020-01-23 19:50 | NUR ---
NURSE NOTES: RECEIVED PT FROM ROXANNE DASILVA. PT AWAKE, ALERT, AND TALKATIVE. BED IN LOWEST POSITION. CALL LIGHT WITHIN REACH. WILL CONTINUE TO MONITOR
[2020-01-24] VITALS: BP 109/62
[2020-01-24 04:00] VITALS: BP 120/69
--- NOTE | 2020-01-24 04:02 | NUR ---
NURSE NOTES: CALLED AND LEFT A MESSAGE WITH DR. MON AND DR. OCHOA REGARDING PTS 39 BEATS OF V-TACH. STRIP IN THE CHART.
--- NOTE | 2020-01-24 04:23 | NUR ---
NURSE NOTES: DR. MON CALLED BACK WITH ORDERS TO DRAW MAG, TROPONIN, CMP. WILL INPUT ORDERS AND WILL CONTINUE TO MONITOR.
[2020-01-24] MEDS: NovoLOG Insulin Flexpen SUBQ SCH ×4 (06:29→21:00)
--- NOTE | 2020-01-24 07:10 | NUR ---
NURSE NOTES: Nurse report given by ROXANNE Jon. Patient's sleeping in bed but easily awaken, AAO x 4, denies chest pain, denies pain at surgical site, eyes open spontaneously, breathing regular and unlabored, no s/s of distress or SOB. Bed low and locked, call light within reach, side rails x2. Denies to have recent bowel movement, denies feeling constipation, bowel sounds hyperactive, no distended, soft, flat; offered assist him to the bathroom but patient preferred to have bedpan but not right now. IV is saline locked, flushed, patent and asymptomatic. SCDs on. Patient's on the sling on Left Arm to keep surgical site in place, no s/s of active bleeding, patient denied pain at site. Will continue to monitor.
--- NOTE | 2020-01-24 07:11 | NUR ---
HAND-OFF: Report given to ROXANNE DASILVA. PT STABLE.
--- NOTE | 2020-01-24 07:50 | General Progress Note ---
Assessment/Plan Problem List: (1) Diabetes mellitus ICD Codes: E11.9 - Type 2 diabetes mellitus without complications SNOMED: 18667866 (2) Hypothyroid ICD Codes: E03.9 - Hypothyroidism, unspecified SNOMED: 33775957 (3) Compression fracture of L2 ICD Codes: S32.020A - Wedge compression fracture of second lumbar vertebra, initial encounter for closed fracture SNOMED: 76696238418433893 Qualifiers: Qualified Codes: S32.020A - Wedge compression fracture of second lumbar vertebra, initial encounter for closed fracture Status: stable, progressing Assessment/Plan: continue Novolog sliding scale ac / hs no need for oral diabetic medications for now continue Levothyroxine 88 mcg daily repeat TSH, free T4 in 6 weeks follow bone density results candidate for Tymlos vs Forteo as OP Kyphoplasty is planned after TB is ruled out Subjective Allergies: Coded Allergies: AMOXICILLIN (Verified Allergy, Unknown, 03/13/19) CLINDAMYCIN (Verified Allergy, Unknown, 03/13/19) All Systems: reviewed and negative except above Subjective events noted - interval notes reviewed COVID test negative sputum results for TB is pending PPM placed glucose values are stable Item Value Date Time Bedside Blood Glucose 127 mg/dl H 01/24/20 0623 Bedside Blood Glucose 120 mg/dl 01/23/20 2100 Bedside Blood Glucose 109 mg/dl 01/23/20 1630 Bedside Blood Glucose 124 mg/dl H 01/23/20 1130 Bedside Blood Glucose 102 mg/dl 01/23/20 0606 Objective Last 24 Hour Vital Signs Date Time Temp Pulse Resp B/P (MAP) Pulse Ox O2 Delivery O2 Flow Rate FiO2 01/24/20 04:00 98.8 131 18 120/69 (86) 94 01/24/20 04:00 84 01/24/20 00:00 98.6 80 17 109/62 (78) 97 01/24/20 00:00 92 01/23/20 21:00 Room Air 01/23/20 20:00 98.8 85 16 105/64 (78) 98 01/23/20 20:00 80 01/23/20 17:44 79 124/44 (70) 01/23/20 16:00 74 01/23/20 15:58 98.3 70 18 104/47 (66) 93 01/23/20 13:17 71 16 99/41 (60) 93 01/23/20 12:00 73 01/23/20 12:00 98.1 67 18 105/72 (83) 94 01/23/20 09:49 Nasal Cannula 2.0 01/23/20 09:00 67 79 89 01/23/20 08:00 97.7 85 18 135/61 (85) 98 Intake and Output 01/23/20 01/24/20 19:00 07:00 Intake Total 860 ml Output Total 500 ml 1000 ml Balance 360 ml -1000 ml Intake Oral 860 ml Output Urine Total 500 ml 1000 ml # Voids 2 Height (Feet): 5 Height (Inches): 1.00 Weight (Pounds): 136 General Appearance: no apparent distress Neck: normal alignment Cardiovascular: normal rate Respiratory/Chest: lungs clear Abdomen: normal bowel sounds Objective Current Medications Medications (Trade) Dose Ordered Sig/Lisa Route PRN Reason Start Time Stop Time Status Last Admin Dose Admin Acetaminophen (Tylenol) 500 mg Q4H PRN ORAL Mild Pain (Pain Scale 1-3) 01/22/20 13:30 02/21/20 13:29 Acetaminophen (Tylenol) 650 mg Q4H PRN ORAL fever 01/16/20 19:15 02/15/20 19:14 01/19/20 08:54 Acetaminophen/ Codeine Phosphate (Tylenol #3) 1 tab Q6H PRN ORAL Moderate Pain (Pain Scale 4-6) 01/22/20 13:30 01/29/20 13:29 Acetaminophen/ Hydrocodone Bitart ([place] 10/325) 1 tab Q4H PRN ORAL For Pain 4-6 01/22/20 15:15 01/29/20 15:14 Artificial Tears (Lacri-Lube) 1 applic PRN PRN BOTH EYES eye dry 01/20/20 13:15 02/19/20 13:14 Dextrose (Dextrose 50%) 25 ml Q30MIN PRN IV Hypoglycemia 01/16/20 19:15 04/15/20 19:14 Dextrose (Dextrose 50%) 50 ml Q30MIN PRN IV Hypoglycemia 01/16/20 19:15 04/15/20 19:14 Insulin Aspart (NovoLOG) BEFORE MEALS AND HS SUBQ 01/19/20 16:30 04/18/20 16:29 01/20/20 11:25 Levothyroxine Sodium (Synthroid) 88 mcg DAILY@0630 ORAL 01/19/20 06:30 02/16/20 06:29 01/24/20 06:29 Midodrine (Pro-Amatine) 2.5 mg THREE TIMES A DAY ORAL 01/22/20 18:00 04/21/20 08:59 01/23/20 17:38 Morphine Sulfate (Morphine Sulfate) 2 mg Q4H PRN IVP severe pain 7-10 01/22/20 15:00 01/29/20 14:59 Ondansetron HCl (Zofran) 4 mg Q6H PRN IVP Nausea & Vomiting 01/16/20 19:15 02/15/20 19:14 Polyethylene Glycol (Miralax) 17 gm HSPRN PRN ORAL Constipation 01/16/20 21:00 02/15/20 20:59 01/19/20 18:30 Tamsulosin HCl (Flomax) 0.4 mg DAILY ORAL 01/17/20 09:00 02/16/20 08:59 01/23/20 08:51 Zolpidem Tartrate (Ambien) 5 mg HSPRN PRN ORAL Insomnia 01/22/20 15:00 01/29/20 14:59 Enrique Parks MD Jan 24, 2020 07:50
[2020-01-24 08:00] VITALS: BP 100/49
[2020-01-24 08:48] LABS: BASOPHILS % (AUTO) 0.7 % (0.0-2.0); EOSINOPHILS % (AUTO) 2.5 % (0.0-3.0); HEMATOCRIT 35.5 % (42.0-52.0); HEMOGLOBIN 12.7 G/DL (14.2-18.0); LYMPHOCYTES % (AUTO) 19.3 % (20.0-45.0); MEAN CORPUSCULAR VOLUME 91 FL (80-99); MONOCYTES % (AUTO) 11.4 % (1.0-10.0); NEUTROPHILS % (AUTO) 66.1 % (45.0-75.0); PLATELET COUNT 322 K/UL (150-450); RED BLOOD COUNT 3.91 M/UL (4.70-6.10); RED CELL DISTRIBUTION WIDTH 11.4 % (11.6-14.8); WHITE BLOOD COUNT 12.3 K/UL (4.8-10.8)
[2020-01-24 08:56] LABS: ANION GAP 4 mmol/L (5-15); BLOOD UREA NITROGEN 12 mg/dL (7-18); CALCIUM 8.3 MG/DL (8.5-10.1); CARBON DIOXIDE 33 MMOL/L (21-32); CHLORIDE 101 MMOL/L (98-107); POTASSIUM 4.3 MMOL/L (3.5-5.1); SODIUM 138 MMOL/L (136-145)
[2020-01-24] MEDS: Tamsulosin 0.4mg cap ORAL SCH (09:25)
--- NOTE | 2020-01-24 10:50 | NUR ---
RADIOLOGY DEPT., CHEST X-RAY DONE.-P.DYE
--- NOTE | 2020-01-24 11:41 | Pulmonology Progress Note ---
Subjective ROS Limited/Unobtainable: No Interval Events: spidoses of Vtach Allergies: Coded Allergies: AMOXICILLIN (Verified Allergy, Unknown, 03/13/19) CLINDAMYCIN (Verified Allergy, Unknown, 03/13/19) All Systems: reviewed and negative except above Objective Last 24 Hour Vital Signs Date Time Temp Pulse Resp B/P (MAP) Pulse Ox O2 Delivery O2 Flow Rate FiO2 01/24/20 09:00 Room Air 01/24/20 08:00 98.2 65 20 100/49 (66) 98 01/24/20 08:00 96 01/24/20 04:00 98.8 131 18 120/69 (86) 94 01/24/20 04:00 84 01/24/20 00:00 98.6 80 17 109/62 (78) 97 01/24/20 00:00 92 01/23/20 21:00 Room Air 01/23/20 20:00 98.8 85 16 105/64 (78) 98 01/23/20 20:00 80 01/23/20 17:44 79 124/44 (70) 01/23/20 16:00 74 01/23/20 15:58 98.3 70 18 104/47 (66) 93 01/23/20 13:17 71 16 99/41 (60) 93 01/23/20 12:00 73 01/23/20 12:00 98.1 67 18 105/72 (83) 94 Intake and Output 01/23/20 01/24/20 19:00 07:00 Intake Total 860 ml Output Total 500 ml 1000 ml Balance 360 ml -1000 ml Intake Oral 860 ml Output Urine Total 500 ml 1000 ml # Voids 2 General Appearance: WD/WN - elderly male in NAD HEENT: normocephalic, atraumatic, mucous membranes moist Respiratory: chest wall non-tender, lungs clear, other - pacemaler Cardiovascular: normal peripheral pulses, normal rate Abdomen: normal bowel sounds, soft, non tender Extremities: no cyanosis, other - arm sling for support Skin: no rash 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 grossly normal Lymphatic: no neck adenopathy Musculoskeletal: atrophy - BLE Microbiology Date/Time Source Procedure Growth Status 01/22/20 05:30 Sputum AFB Specimen Processing Tissue - Final Resulted 01/22/20 05:30 Sputum Acid Fast Bacilli Smear - Final Resulted 01/22/20 05:30 Sputum Acid Fast Bacilli Culture Pending Resulted Laboratory Tests 01/24/20 07:20: White Blood Count 12.3H, Red Blood Count 3.91L, Hemoglobin 12.7L, Hematocrit 35.5L, Mean Corpuscular Volume 91, Mean Corpuscular Hemoglobin 32.4H, Mean Corpuscular Hemoglobin Concent 35.7, Red Cell Distribution Width 11.4L, Platelet Count 322, Mean Platelet Volume 4.5L, Neutrophils (%) (Auto) 66.1, Lymphocytes (%) (Auto) 19.3L, Monocytes (%) (Auto) 11.4H, Eosinophils (%) (Auto ) 2.5, Basophils (%) (Auto) 0.7, Sodium Level 138, Potassium Level 4.3, Chloride Level 101, Carbon Dioxide Level 33H, Anion Gap 4L, Blood Urea Nitrogen 12, Creatinine 1.0, Estimat Glomerular Filtration Rate > 60, Glucose Level 120H , Calcium Level 8.3L, Magnesium Level 2.0, Troponin I 0.002 Current Medications Medications (Trade) Dose Ordered Sig/Lisa Route PRN Reason Start Time Stop Time Status Last Admin Dose Admin Acetaminophen (Tylenol) 500 mg Q4H PRN ORAL Mild Pain (Pain Scale 1-3) 01/22/20 13:30 02/21/20 13:29 Acetaminophen (Tylenol) 650 mg Q4H PRN ORAL fever 01/16/20 19:15 02/15/20 19:14 01/19/20 08:54 Acetaminophen/ Codeine Phosphate (Tylenol #3) 1 tab Q6H PRN ORAL Moderate Pain (Pain Scale 4-6) 01/22/20 13:30 01/29/20 13:29 Acetaminophen/ Hydrocodone Bitart ([place] 10/325) 1 tab Q4H PRN ORAL For Pain 4-6 01/22/20 15:15 01/29/20 15:14 Artificial Tears (Lacri-Lube) 1 applic PRN PRN BOTH EYES eye dry 01/20/20 13:15 02/19/20 13:14 Dextrose (Dextrose 50%) 25 ml Q30MIN PRN IV Hypoglycemia 01/16/20 19:15 04/15/20 19:14 Dextrose (Dextrose 50%) 50 ml Q30MIN PRN IV Hypoglycemia 01/16/20 19:15 04/15/20 19:14 Insulin Aspart (NovoLOG) BEFORE MEALS AND HS SUBQ 01/19/20 16:30 04/18/20 16:29 01/20/20 11:25 Levothyroxine Sodium (Synthroid) 88 mcg DAILY@0630 ORAL 01/19/20 06:30 02/16/20 06:29 01/24/20 06:29 Midodrine (Pro-Amatine) 2.5 mg THREE TIMES A DAY ORAL 01/22/20 18:00 04/21/20 08:59 01/24/20 09:25 Morphine Sulfate (Morphine Sulfate) 2 mg Q4H PRN IVP severe pain 7-10 01/22/20 15:00 01/29/20 14:59 Ondansetron HCl (Zofran) 4 mg Q6H PRN IVP Nausea & Vomiting 01/16/20 19:15 02/15/20 19:14 Polyethylene Glycol (Miralax) 17 gm HSPRN PRN ORAL Constipation 01/16/20 21:00 02/15/20 20:59 01/19/20 18:30 Tamsulosin HCl (Flomax) 0.4 mg DAILY ORAL 01/17/20 09:00 02/16/20 08:59 01/24/20 09:25 Zolpidem Tartrate (Ambien) 5 mg HSPRN PRN ORAL Insomnia 01/22/20 15:00 01/29/20 14:59 Assessment/Plan Problems: (1) Acute encephalopathy (2) Suspected COVID-19 virus infection (3) Syncope (4) Compression fracture of L2 (5) Diabetes mellitus (6) Hypothyroid (7) BPH (benign prostatic hyperplasia) (8) Cardiac arrhythmia Assessment/Plan comfortable covid negative times one pt/ot pain management check sputum, sputum induction, AFB negative PPD was done, but the results were never documented sliding scale serology pending radiology to evaluate for Kyphoplasty after TB and COVID are ruled out Zoe Lynn MD Jan 24, 2020 11:41
--- NOTE | 2020-01-24 11:42 | Diagnostic Imaging Report ---
Indication: Reason For Exam: SOB Technique: One view of the chest Comparison: 01/22/2020, also recent chest CT 01/17/2020 Findings: Right apical 1 cm nodular opacity is more apparent on the current than on the previous study noted; however, no corresponding abnormality is seen on recent chest CT inspiration is suboptimal, with crowding of bronchovascular markings at the lung bases. No definite infiltrates. No effusions. Left chest pacemaker is again demonstrated. Impression: Right apical 1 cm nodular opacity. May be a small acute inflammatory focus as no corresponding abnormality is seen on CT scan of 7 days earlier. Recommend follow-up radiographs to resolution. No acute process otherwise. Findings as noted
--- NOTE | 2020-01-24 11:57 | NUR ---
*-* INSURANCE *-* UPDATED CLINICALS AND REVIEWS HAVE BEEN FAXED TO: Ref# [id number] #[phone] fax#[phone]
[2020-01-24 12:00] VITALS: BP 107/51
--- NOTE | 2020-01-24 12:06 | NUR ---
RD ASSESSMENT & RECOMMENDATIONS SEE CARE ACTIVITY FOR COMPLETE ASSESSMENT DAILY ESTIMATED NEEDS: Needs based on DM/ 62kg 25-30 kcals/kg 7457-7183 total kcals 1-1.3 g protein/kg 62-81 g total protein 25-30 mL/kg 2678-9850 total fluid mLs NUTRITION DIAGNOSIS: Altered nutrition related lab values R/T DM as evidenced by mildly elev BGs , POC (109-127). CURRENT DIET:CCHO LOW, soft easy chew PO DIET RECOMMENDATIONS: CCHO MED/ texture as tolerated ADDITIONAL RECOMMENDATIONS: * Standing wt for accurate CBW * Monitor for improving PO intake * A1C for eval of BG control * Monitor BM regularity: last recorded on 01/17, pt on Miralax daily
--- NOTE | 2020-01-24 13:03 | Internal Med Progress Note ---
Subjective Date of Service: Jan 24, 2020 Physician Name Micah Contreras Attending Physician Neel De MD Current Medications Medications (Trade) Dose Ordered Sig/Lisa Route PRN Reason Start Time Stop Time Status Last Admin Dose Admin Acetaminophen (Tylenol) 500 mg Q4H PRN ORAL Mild Pain (Pain Scale 1-3) 01/22/20 13:30 02/21/20 13:29 Acetaminophen (Tylenol) 650 mg Q4H PRN ORAL fever 01/16/20 19:15 02/15/20 19:14 01/19/20 08:54 Acetaminophen/ Codeine Phosphate (Tylenol #3) 1 tab Q6H PRN ORAL Moderate Pain (Pain Scale 4-6) 01/22/20 13:30 01/29/20 13:29 Acetaminophen/ Hydrocodone Bitart ([place] 10/325) 1 tab Q4H PRN ORAL For Pain 4-6 01/22/20 15:15 01/29/20 15:14 Artificial Tears (Lacri-Lube) 1 applic PRN PRN BOTH EYES eye dry 01/20/20 13:15 02/19/20 13:14 Dextrose (Dextrose 50%) 25 ml Q30MIN PRN IV Hypoglycemia 01/16/20 19:15 04/15/20 19:14 Dextrose (Dextrose 50%) 50 ml Q30MIN PRN IV Hypoglycemia 01/16/20 19:15 04/15/20 19:14 Insulin Aspart (NovoLOG) BEFORE MEALS AND HS SUBQ 01/19/20 16:30 04/18/20 16:29 01/20/20 11:25 Levothyroxine Sodium (Synthroid) 88 mcg DAILY@0630 ORAL 01/19/20 06:30 02/16/20 06:29 01/24/20 06:29 Midodrine (Pro-Amatine) 2.5 mg THREE TIMES A DAY ORAL 01/22/20 18:00 04/21/20 08:59 01/24/20 09:25 Morphine Sulfate (Morphine Sulfate) 2 mg Q4H PRN IVP severe pain 7-10 01/22/20 15:00 01/29/20 14:59 Ondansetron HCl (Zofran) 4 mg Q6H PRN IVP Nausea & Vomiting 01/16/20 19:15 02/15/20 19:14 Polyethylene Glycol (Miralax) 17 gm HSPRN PRN ORAL Constipation 01/16/20 21:00 02/15/20 20:59 01/19/20 18:30 Tamsulosin HCl (Flomax) 0.4 mg DAILY ORAL 01/17/20 09:00 02/16/20 08:59 01/24/20 09:25 Zolpidem Tartrate (Ambien) 5 mg HSPRN PRN ORAL Insomnia 01/22/20 15:00 01/29/20 14:59 Allergies: Coded Allergies: AMOXICILLIN (Verified Allergy, Unknown, 03/13/19) CLINDAMYCIN (Verified Allergy, Unknown, 03/13/19) ROS Limited/Unobtainable: No Constitutional: Reports: no symptoms HEENT: Reports: no symptoms Cardiovascular: Reports: no symptoms Respiratory: Reports: no symptoms Gastrointestinal/Abdominal: Reports: no symptoms Genitourinary: Reports: no symptoms Neurologic/Psychiatric: Reports: no symptoms Subjective 84 YO M admitted with back pain. Now compression fracture L2 vertebrae. S/P pacemaker implantation 01/22/20. Cover for Int Escobar-Dr De Objective Last Vital Signs Date Time Temp Pulse Resp B/P (MAP) Pulse Ox O2 Delivery O2 Flow Rate FiO2 01/24/20 12:00 98.7 78 20 107/51 (69) 96 01/24/20 09:00 Room Air 01/23/20 09:49 2.0 Laboratory Tests Test 01/24/20 07:20 White Blood Count 12.3 K/UL (4.8-10.8) H Red Blood Count 3.91 M/UL (4.70-6.10) L Hemoglobin 12.7 G/DL (14.2-18.0) L Hematocrit 35.5 % (42.0-52.0) L Mean Corpuscular Volume 91 FL (80-99) Mean Corpuscular Hemoglobin 32.4 PG (27.0-31.0) H Mean Corpuscular Hemoglobin Concent 35.7 G/DL (32.0-36.0) Red Cell Distribution Width 11.4 % (11.6-14.8) L Platelet Count 322 K/UL (150-450) Mean Platelet Volume 4.5 FL (6.5-10.1) L Neutrophils (%) (Auto) 66.1 % (45.0-75.0) Lymphocytes (%) (Auto) 19.3 % (20.0-45.0) L Monocytes (%) (Auto) 11.4 % (1.0-10.0) H Eosinophils (%) (Auto) 2.5 % (0.0-3.0) Basophils (%) (Auto) 0.7 % (0.0-2.0) Sodium Level 138 MMOL/L (136-145) Potassium Level 4.3 MMOL/L (3.5-5.1) Chloride Level 101 MMOL/L (98-107) Carbon Dioxide Level 33 MMOL/L (21-32) H Anion Gap 4 mmol/L (5-15) L Blood Urea Nitrogen 12 mg/dL (7-18) Creatinine 1.0 MG/DL (0.55-1.30) Estimat Glomerular Filtration Rate > 60 mL/min (>60) Glucose Level 120 MG/DL (74-106) H Calcium Level 8.3 MG/DL (8.5-10.1) L Magnesium Level 2.0 MG/DL (1.8-2.4) Troponin I 0.002 ng/mL (0.000-0.056) Microbiology Date/Time Source Procedure Growth Status 01/22/20 05:30 Sputum AFB Specimen Processing Tissue - Final Resulted 01/22/20 05:30 Sputum Acid Fast Bacilli Smear - Final Resulted 01/22/20 05:30 Sputum Acid Fast Bacilli Culture Pending Resulted Intake and Output 01/23/20 01/24/20 19:00 07:00 Intake Total 860 ml Output Total 500 ml 1000 ml Balance 360 ml -1000 ml Intake Oral 860 ml Output Urine Total 500 ml 1000 ml # Voids 2 Objective PHYSICAL EXAMINATION: GENERAL: Patient is a well-developed and well-nourished thin appearing, male, in no apparent distress. HEENT: Eyes, pupils are equal and responsive to light and accommodation. Extraocular movements are intact. NECK: Supple without lymphadenopathy. CHEST: Lungs are clear to auscultation bilaterally without wheezes or rales. CARDIOVASCULAR: Regular rate. S1, S2 are normal without murmurs, rubs, or gallops. ABDOMEN: Soft, nontender, nondistended. Positive bowel sounds. No evidence of hepatosplenomegaly. Currently, no rebound or guarding noted. EXTREMITIES: Negative for clubbing, cyanosis, edema. RECTAL/GENITAL: Not performed. NEUROLOGIC: Cranial nerves II to XII grossly intact without focal deficits. Motor strength is 5/5 bilaterally. Deep tendon reflexes are 2+ plantar. Assessment/Plan Assessment/Plan ASSESSMENT: This is an 84-year-old male. 1. Low back pain. 2. Lumbar level 2 compression fracture. 3. Syncopal episode. 4. Atrial fibrillation. 5. Diabetes type 2. 6. Hypertension. 7. Chronic obstructive pulmonary disease. 8. Hypothyroidism. 9. Hypercholesterolemia. 10. Glaucoma. 11. Benign prostatic hypertrophy. 12. Right lung mass 13. Symptomatic Bradycardia TREATMENT: 1. Low back pain/lumbar level 2 compression fraction. An Orthopedic consultation has been obtained with Dr. Ren Draper. We will follow recommendations of Orthopedic Surgery. 2. Syncopal episode. A CT scan was reported as no acute infarct or hemorrhage. 3. Atrial fibrillation. Patient is currently off amiodarone. 4. Diabetes type 2. Patient is currently off antihyperglycemic medication. 5. Hypertension. Patient is currently off antihypertensive medication. 6. Chronic obstructive pulmonary disease. A Pulmonary consultation has been obtained with Dr. Zoe Lynn. 7. Hypothyroidism. Patient is currently on levothyroxine 75 mcg p.o. daily. TSH is elevated. A thyroid function panel is pending. Patient has been on levothyroxine for approximately one and half months. 8. Hypercholesterolemia. 9. Glaucoma. 10. Benign prostatic hypertrophy. 11. Await AFB culture results. Off antibiotics. ID=Dr Moreau 12. S/P pacemeker implantation 01/22/20 by Micah Leslie MD Jan 24, 2020 13:03
[2020-01-24] MEDS ORDERED: Heparin 25,000u/D5W 500ml 500 ML IV SCH ×2 (13:45→17:28)
--- NOTE | 2020-01-24 13:49 | Cardiac Electrophysiology PN ---
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 Possible contribution of orthostatic hypotension as well He is s/p dual chamber pacemaker on 01/21 - normal device function. His rhythm has reverted to AFl last pm, with intermittent RVR. There was one episode of underdetection, resulting in pacing at upper rate limit Assessment/Plan Normal pacemaker function. Pacing threshold 0.75 v/0.4 ms atr 0.375 v/0.4 ms ventr, Sensing 5 mv atr, 10 mv ventr impedances: 480 ohm atr, 640 ohm ventr anticoagulation w/ eliquis will be started Pacemaker reprogrammed to shorter blanking periods and lower detect rates. Will also give b blockers for rate control in AFL consider for EP/ablation of AFL - can be done as outpt Subjective Subjective Mr Berman has no c/o palpitations, dyspnea, dizziness. Events noted - pt in AFL overnight w/ RVR at times Objective Last 24 Hour Vital Signs Date Time Temp Pulse Resp B/P (MAP) Pulse Ox O2 Delivery O2 Flow Rate FiO2 01/24/20 12:00 98.7 78 20 107/51 (69) 96 01/24/20 09:00 Room Air 01/24/20 09:00 65 67 89 01/24/20 08:00 98.2 65 20 100/49 (66) 98 01/24/20 08:00 96 01/24/20 04:00 98.8 131 18 120/69 (86) 94 01/24/20 04:00 84 01/24/20 00:00 98.6 80 17 109/62 (78) 97 01/24/20 00:00 92 01/23/20 21:00 Room Air 01/23/20 20:00 98.8 85 16 105/64 (78) 98 01/23/20 20:00 80 01/23/20 17:44 79 124/44 (70) 01/23/20 16:00 74 01/23/20 15:58 98.3 70 18 104/47 (66) 93 General Appearance: WD/WN, no apparent distress, alert EENT: PERRL/EOMI Neck: non-tender, no JVD Rhythm: other - afl w/ rvr Cardiovascular: regular rhythm, tachycardia Respiratory/Chest: lungs clear, other - chest : Abdomen: non tender, soft - L infraclav site - clean,no hematoma Neurologic: alert, oriented x 3 Intake and Output 01/23/20 01/24/20 19:00 07:00 Intake Total 860 ml Output Total 500 ml 1000 ml Balance 360 ml -1000 ml Intake Oral 860 ml Output Urine Total 500 ml 1000 ml # Voids 2 Laboratory Tests Test 01/24/20 07:20 White Blood Count 12.3 K/UL (4.8-10.8) H Red Blood Count 3.91 M/UL (4.70-6.10) L Hemoglobin 12.7 G/DL (14.2-18.0) L Hematocrit 35.5 % (42.0-52.0) L Mean Corpuscular Volume 91 FL (80-99) Mean Corpuscular Hemoglobin 32.4 PG (27.0-31.0) H Mean Corpuscular Hemoglobin Concent 35.7 G/DL (32.0-36.0) Red Cell Distribution Width 11.4 % (11.6-14.8) L Platelet Count 322 K/UL (150-450) Mean Platelet Volume 4.5 FL (6.5-10.1) L Neutrophils (%) (Auto) 66.1 % (45.0-75.0) Lymphocytes (%) (Auto) 19.3 % (20.0-45.0) L Monocytes (%) (Auto) 11.4 % (1.0-10.0) H Eosinophils (%) (Auto) 2.5 % (0.0-3.0) Basophils (%) (Auto) 0.7 % (0.0-2.0) Sodium Level 138 MMOL/L (136-145) Potassium Level 4.3 MMOL/L (3.5-5.1) Chloride Level 101 MMOL/L (98-107) Carbon Dioxide Level 33 MMOL/L (21-32) H Anion Gap 4 mmol/L (5-15) L Blood Urea Nitrogen 12 mg/dL (7-18) Creatinine 1.0 MG/DL (0.55-1.30) Estimat Glomerular Filtration Rate > 60 mL/min (>60) Glucose Level 120 MG/DL (74-106) H Calcium Level 8.3 MG/DL (8.5-10.1) L Magnesium Level 2.0 MG/DL (1.8-2.4) Troponin I 0.002 ng/mL (0.000-0.056) Microbiology Date/Time Source Procedure Growth Status 01/22/20 05:30 Sputum AFB Specimen Processing Tissue - Final Resulted 01/22/20 05:30 Sputum Acid Fast Bacilli Smear - Final Resulted 01/22/20 05:30 Sputum Acid Fast Bacilli Culture Pending Resulted Felicia Morales MD Jan 24, 2020 13:49
[2020-01-24 14:35] LABS: BASOPHILS % (AUTO) 0.9 % (0.0-2.0); EOSINOPHILS % (AUTO) 1.3 % (0.0-3.0); HEMOGLOBIN 12.7 G/DL (14.2-18.0); LYMPHOCYTES % (AUTO) 18.7 % (20.0-45.0); MEAN CORPUSCULAR VOLUME 91 FL (80-99); NEUTROPHILS % (AUTO) 67.1 % (45.0-75.0); PLATELET COUNT 313 K/UL (150-450); RED BLOOD COUNT 3.95 M/UL (4.70-6.10); RED CELL DISTRIBUTION WIDTH 11.4 % (11.6-14.8); WHITE BLOOD COUNT 12.7 K/UL (4.8-10.8)
--- NOTE | 2020-01-24 15:17 | Infectious Diseases Prog Note ---
Assessment/Plan Assessment/Plan Assessment: COVID neg x2 -01/16 SARS-COV2 PCR neg; 01/22 neg Syncopal episode Recent fall w/resultant L2 compression facture -CT L spine: Superior endplate compression fracture at L2 with approximately 25% height loss and extension to the posterior cortex where there is mild osseous retropulsion causing mild canal stenosis. -CT head: No acute intracranial abnormality. Mild chronic senescent findings above. Otherwise unremarkable study. ?Lung mass- likely scar as per radiologist interpretation- patient has no pulmonary symptoms or systemic symptoms that would suggest active infection. -AFB smear neg x4; cx p, MTB PCT neg -T SPOT negative -01/16 CT chest: Linear bands the right upper lobe. 15 x 20 x 13 mm irregular masslike opacity with central calcification at the inferior aspect of this. Most likely represents an area of scarring. Underlying mass lesion not completely excludable and follow-up should be considered as clinically indicated.Other chronic changes, as described, mostly involving the right lobe. Minimal upper lobe hyperinflation. No acute abnormality. -01/15 CXR: No acute findings in the chest. Afebrile No leukocytosis orthostatic hypotension hx of prior syncopal episode- thought 2ry to bradycardia from severe hypothyroidism hypothyroidism Afib HLD COPD HTN BPH Dm2 glaucoma Plan: -Continue to monitor off abx -f/u cx -Monitor CBC/CMP, temperature -f/u AFB cx, MTB PCR -Will continue airborne isolation pending MTB PCR- if neg will dc -f/u fungal serologies -COVID neg x2- ok to dc covid isolation NIKKI OLIVEIRA Thank you for consulting [facility]. Will continue to follow along with you. Subjective Allergies: Coded Allergies: AMOXICILLIN (Verified Allergy, Unknown, 03/13/19) CLINDAMYCIN (Verified Allergy, Unknown, 03/13/19) Subjective afebrile at RA mild leukocytosis covid neg x2 Objective Vital Signs Last 24 Hour Vital Signs Date Time Temp Pulse Resp B/P (MAP) Pulse Ox O2 Delivery O2 Flow Rate FiO2 01/24/20 14:09 78 107/51 01/24/20 12:00 83 01/24/20 12:00 98.7 78 20 107/51 (69) 96 01/24/20 09:00 Room Air 01/24/20 09:00 65 67 89 01/24/20 08:00 98.2 65 20 100/49 (66) 98 01/24/20 08:00 96 01/24/20 04:00 98.8 131 18 120/69 (86) 94 01/24/20 04:00 84 01/24/20 00:00 98.6 80 17 109/62 (78) 97 01/24/20 00:00 92 01/23/20 21:00 Room Air 01/23/20 20:00 98.8 85 16 105/64 (78) 98 01/23/20 20:00 80 01/23/20 17:44 79 124/44 (70) 01/23/20 16:00 74 01/23/20 15:58 98.3 70 18 104/47 (66) 93 Height (Feet): 5 Height (Inches): 1.00 Weight (Pounds): 136 Objective GENERAL: Patient is a well-developed and well-nourished thin appearing, male, in no apparent distress. HEENT: Eyes, pupils are equal and responsive to light and accommodation. Extraocular movements are intact. NECK: Supple without lymphadenopathy. CHEST: Lungs are clear to auscultation bilaterally without wheezes or rales. CARDIOVASCULAR: Regular rate. S1, S2 are normal without murmurs, rubs, or gallops. ABDOMEN: Soft, nontender, nondistended. Positive bowel sounds. No evidence of hepatosplenomegaly. Currently, no rebound or guarding noted. EXTREMITIES: Negative for clubbing, cyanosis, edema. Microbiology Date/Time Source Procedure Growth Status 01/23/20 14:45 Nasopharynx Coronavirus COVID-19 PCR ([facility]) - Final Complete 01/22/20 05:30 Sputum AFB Specimen Processing Tissue - Final Resulted 01/22/20 05:30 Sputum Acid Fast Bacilli Smear - Final Resulted 01/22/20 05:30 Sputum Acid Fast Bacilli Culture Pending Resulted Laboratory Tests Test 01/24/20 07:20 01/24/20 14:14 White Blood Count 12.3 K/UL (4.8-10.8) H 12.7 K/UL (4.8-10.8) H Red Blood Count 3.91 M/UL (4.70-6.10) L 3.95 M/UL (4.70-6.10) L Hemoglobin 12.7 G/DL (14.2-18.0) L 12.7 G/DL (14.2-18.0) L Hematocrit 35.5 % (42.0-52.0) L 36.0 % (42.0-52.0) L Mean Corpuscular Volume 91 FL (80-99) 91 FL (80-99) Mean Corpuscular Hemoglobin 32.4 PG (27.0-31.0) H 32.1 PG (27.0-31.0) H Mean Corpuscular Hemoglobin Concent 35.7 G/DL (32.0-36.0) 35.3 G/DL (32.0-36.0) Red Cell Distribution Width 11.4 % (11.6-14.8) L 11.4 % (11.6-14.8) L Platelet Count 322 K/UL (150-450) 313 K/UL (150-450) Mean Platelet Volume 4.5 FL (6.5-10.1) L 4.6 FL (6.5-10.1) L Neutrophils (%) (Auto) 66.1 % (45.0-75.0) 67.1 % (45.0-75.0) Lymphocytes (%) (Auto) 19.3 % (20.0-45.0) L 18.7 % (20.0-45.0) L Monocytes (%) (Auto) 11.4 % (1.0-10.0) H 12.0 % (1.0-10.0) H Eosinophils (%) (Auto) 2.5 % (0.0-3.0) 1.3 % (0.0-3.0) Basophils (%) (Auto) 0.7 % (0.0-2.0) 0.9 % (0.0-2.0) Sodium Level 138 MMOL/L (136-145) Potassium Level 4.3 MMOL/L (3.5-5.1) Chloride Level 101 MMOL/L (98-107) Carbon Dioxide Level 33 MMOL/L (21-32) H Anion Gap 4 mmol/L (5-15) L Blood Urea Nitrogen 12 mg/dL (7-18) Creatinine 1.0 MG/DL (0.55-1.30) Estimat Glomerular Filtration Rate > 60 mL/min (>60) Glucose Level 120 MG/DL (74-106) H Calcium Level 8.3 MG/DL (8.5-10.1) L Magnesium Level 2.0 MG/DL (1.8-2.4) Troponin I 0.002 ng/mL (0.000-0.056) Activated Partial Thromboplast Time 28 SEC (23-33) Current Medications Medications (Trade) Dose Ordered Sig/Lisa Route PRN Reason Start Time Stop Time Status Last Admin Dose Admin Acetaminophen (Tylenol) 500 mg Q4H PRN ORAL Mild Pain (Pain Scale 1-3) 01/22/20 13:30 02/21/20 13:29 Acetaminophen (Tylenol) 650 mg Q4H PRN ORAL fever 01/16/20 19:15 02/15/20 19:14 01/19/20 08:54 Acetaminophen/ Codeine Phosphate (Tylenol #3) 1 tab Q6H PRN ORAL Moderate Pain (Pain Scale 4-6) 01/22/20 13:30 01/29/20 13:29 Acetaminophen/ Hydrocodone Bitart ([place] 10/325) 1 tab Q4H PRN ORAL For Pain 4-6 01/22/20 15:15 01/29/20 15:14 Apixaban (Eliquis) 2.5 mg BID ORAL 01/24/20 18:00 04/23/20 17:59 Artificial Tears (Lacri-Lube) 1 applic PRN PRN BOTH EYES eye dry 01/20/20 13:15 02/19/20 13:14 Dextrose (Dextrose 50%) 25 ml Q30MIN PRN IV Hypoglycemia 01/16/20 19:15 04/15/20 19:14 Dextrose (Dextrose 50%) 50 ml Q30MIN PRN IV Hypoglycemia 01/16/20 19:15 04/15/20 19:14 Insulin Aspart (NovoLOG) BEFORE MEALS AND HS SUBQ 01/19/20 16:30 04/18/20 16:29 01/20/20 11:25 Levothyroxine Sodium (Synthroid) 88 mcg DAILY@0630 ORAL 01/19/20 06:30 02/16/20 06:29 01/24/20 06:29 Metoprolol Tartrate (Lopressor) 25 mg Q12HR ORAL 01/24/20 13:45 04/23/20 13:44 01/24/20 14:09 Midodrine (Pro-Amatine) 2.5 mg THREE TIMES A DAY ORAL 01/22/20 18:00 04/21/20 08:59 01/24/20 13:11 Morphine Sulfate (Morphine Sulfate) 2 mg Q4H PRN IVP severe pain 7-10 01/22/20 15:00 01/29/20 14:59 Ondansetron HCl (Zofran) 4 mg Q6H PRN IVP Nausea & Vomiting 01/16/20 19:15 02/15/20 19:14 Polyethylene Glycol (Miralax) 17 gm HSPRN PRN ORAL Constipation 01/16/20 21:00 02/15/20 20:59 01/19/20 18:30 Tamsulosin HCl (Flomax) 0.4 mg DAILY ORAL 01/17/20 09:00 02/16/20 08:59 01/24/20 09:25 Zolpidem Tartrate (Ambien) 5 mg HSPRN PRN ORAL Insomnia 01/22/20 15:00 01/29/20 14:59 Tresa Moreau M.D. Jan 24, 2020 15:17
--- NOTE | 2020-01-24 15:46 | NUR ---
CASE MANAGEMENT:REVIEW 01/24/20 SI: SYNCOPE. BRADYCARDIA POD #2 S/P PACEMAKER. R/O Tb 98.7 78 20 107/51 96% ON RA WBC+12.7 CO2+33 IS: ELIQUIS PO BID LOPRESSOR PO Q12 MIDODRINE PO TID SYNTHROID PO QD FLOMAX PO QD : TELEMETRY STATUS DCP: PATIENT IS FROM HOME IS: PLAN: COVID NOT DETECTED X2 AFB'S NEGATIVE X4 MRB PCR PENDING
[2020-01-24 16:00] VITALS: BP 101/56
--- NOTE | 2020-01-24 16:21 | NUR ---
NURSE NOTES: Done 12 Lead EKG on patient and Dr Morales at bedside. MD order to have Heparin by Pharmacy dose and MD informed patient will have cardio ablation and will be transferred to [facility]. Facesheet already faxed to [facility]. Order acknowledged and carried out.
--- NOTE | 2020-01-24 16:30 | NUR ---
NURSE NOTES: spoke to Mariola from Dr. Morales's office to notify message for MD that pharmacy want to clarify if patient is going to have full bolus, half bolus or none. Staff informed MD is busy at this time, MD will call back later. Awaiting for response.
[2020-01-24] MEDS ORDERED: Heparin 5000 units/ml inj IV SCH (17:28)
[2020-01-24] MEDS ORDERED: Eliquis 2.5mg tablet ORAL SCH (18:00)
--- NOTE | 2020-01-24 19:18 | NUR ---
HAND-OFF: Report given to ROXANNE Tapia. Patient's stable, plan of care endorsed. Patients' on Hep Drip running, no s/s of active bleeding.
--- NOTE | 2020-01-24 19:23 | Cardiology Progress Note ---
Assessment/Plan Assessment/Plan 1. Possible syncope. 2. Compression fracture of the lumbar spine. 3. History of paroxysmal atrial fibrillation. 4. Diabetes mellitus. 5. Hypertension. 6. Hyperlipidemia. 7. COPD. 8. History of orthostatic hypotension. 9. lung mass vs scar 10. 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 treat with med due to potential orthostatic hypotension i have asked dr brandon to arrange for atril flutter ablation will need transfer to [facility] for ablation if we can get him there Objective Last 24 Hour Vital Signs Date Time Temp Pulse Resp B/P (MAP) Pulse Ox O2 Delivery O2 Flow Rate FiO2 01/24/20 16:00 130 01/24/20 16:00 99.9 71 18 101/56 (71) 96 01/24/20 14:09 78 107/51 01/24/20 12:00 83 01/24/20 12:00 98.7 78 20 107/51 (69) 96 01/24/20 09:00 Room Air 01/24/20 09:00 65 67 89 01/24/20 08:00 98.2 65 20 100/49 (66) 98 01/24/20 08:00 96 01/24/20 04:00 98.8 131 18 120/69 (86) 94 01/24/20 04:00 84 01/24/20 00:00 98.6 80 17 109/62 (78) 97 01/24/20 00:00 92 01/23/20 21:00 Room Air 01/23/20 20:00 98.8 85 16 105/64 (78) 98 01/23/20 20:00 80 Intake and Output 01/23/20 01/24/20 19:00 07:00 Intake Total 860 ml Output Total 500 ml 1000 ml Balance 360 ml -1000 ml Intake Oral 860 ml Output Urine Total 500 ml 1000 ml # Voids 2 Laboratory Tests Test 01/24/20 07:20 01/24/20 14:14 White Blood Count 12.3 K/UL (4.8-10.8) H 12.7 K/UL (4.8-10.8) H Red Blood Count 3.91 M/UL (4.70-6.10) L 3.95 M/UL (4.70-6.10) L Hemoglobin 12.7 G/DL (14.2-18.0) L 12.7 G/DL (14.2-18.0) L Hematocrit 35.5 % (42.0-52.0) L 36.0 % (42.0-52.0) L Mean Corpuscular Volume 91 FL (80-99) 91 FL (80-99) Mean Corpuscular Hemoglobin 32.4 PG (27.0-31.0) H 32.1 PG (27.0-31.0) H Mean Corpuscular Hemoglobin Concent 35.7 G/DL (32.0-36.0) 35.3 G/DL (32.0-36.0) Red Cell Distribution Width 11.4 % (11.6-14.8) L 11.4 % (11.6-14.8) L Platelet Count 322 K/UL (150-450) 313 K/UL (150-450) Mean Platelet Volume 4.5 FL (6.5-10.1) L 4.6 FL (6.5-10.1) L Neutrophils (%) (Auto) 66.1 % (45.0-75.0) 67.1 % (45.0-75.0) Lymphocytes (%) (Auto) 19.3 % (20.0-45.0) L 18.7 % (20.0-45.0) L Monocytes (%) (Auto) 11.4 % (1.0-10.0) H 12.0 % (1.0-10.0) H Eosinophils (%) (Auto) 2.5 % (0.0-3.0) 1.3 % (0.0-3.0) Basophils (%) (Auto) 0.7 % (0.0-2.0) 0.9 % (0.0-2.0) Sodium Level 138 MMOL/L (136-145) Potassium Level 4.3 MMOL/L (3.5-5.1) Chloride Level 101 MMOL/L (98-107) Carbon Dioxide Level 33 MMOL/L (21-32) H Anion Gap 4 mmol/L (5-15) L Blood Urea Nitrogen 12 mg/dL (7-18) Creatinine 1.0 MG/DL (0.55-1.30) Estimat Glomerular Filtration Rate > 60 mL/min (>60) Glucose Level 120 MG/DL (74-106) H Calcium Level 8.3 MG/DL (8.5-10.1) L Magnesium Level 2.0 MG/DL (1.8-2.4) Troponin I 0.002 ng/mL (0.000-0.056) Activated Partial Thromboplast Time 28 SEC (23-33) Microbiology Date/Time Source Procedure Growth Status 01/23/20 14:45 Nasopharynx Coronavirus COVID-19 PCR ([facility]) - Final Complete 01/22/20 05:30 Sputum AFB Specimen Processing Tissue - Final Resulted 01/22/20 05:30 Sputum Acid Fast Bacilli Smear - Final Resulted 01/22/20 05:30 Sputum Acid Fast Bacilli Culture Pending Resulted Objective in isolation per dr cannon Respiratory: chest wall non-tender, lungs clear Cardiovascular: normal peripheral pulses, normal rate Abdomen: normal bowel sounds, soft, non tender Genitourinary: normal external genitalia Extremities: no cyanosis Efrain Plaza MD Jan 24, 2020 19:23
--- NOTE | 2020-01-24 19:30 | NUR ---
NURSE NOTES: Received report from ROXANNE Arcos. Patient is awake, alert and oriented x 3. On room air with no shortness of breath reported, saturating 95%. Patient is on CCHO (Medium), soft, chopped, instructed and amenable. factory expert is on shows Sinus rhythm with no chest pain or any discomfort noted at this time. IV site is on right forearm G-22, running heparin drip @ 22.2 cc/hour that is patent and intact. Safety measures are in placed, bed in lowest and lock position, bed alarm is on, side rails up x 2. Call light and bedside table within reach, will continue plan of care.
[2020-01-24 20:00] VITALS: BP 117/56
[2020-01-25] VITALS: BP 116/50
[2020-01-25] MEDS ORDERED: Heparin 25,000u/D5W 500ml 500 ML IV SCH (01:15)
[2020-01-25 04:00] VITALS: BP 120/78
[2020-01-25] MEDS: NovoLOG Insulin Flexpen SUBQ SCH ×3 (06:30→17:07)
[2020-01-25 07:02] LABS: BASOPHILS % (AUTO) 0.9 % (0.0-2.0); EOSINOPHILS % (AUTO) 1.6 % (0.0-3.0); HEMATOCRIT 31.9 % (42.0-52.0); HEMOGLOBIN 11.6 G/DL (14.2-18.0); LYMPHOCYTES % (AUTO) 30.5 % (20.0-45.0); MEAN CORPUSCULAR VOLUME 90 FL (80-99); MONOCYTES % (AUTO) 9.6 % (1.0-10.0); NEUTROPHILS % (AUTO) 57.5 % (45.0-75.0); PLATELET COUNT 297 K/UL (150-450); RED BLOOD COUNT 3.53 M/UL (4.70-6.10); RED CELL DISTRIBUTION WIDTH 11.1 % (11.6-14.8); WHITE BLOOD COUNT 11.6 K/UL (4.8-10.8)
--- NOTE | 2020-01-25 07:30 | NUR ---
NURSE NOTES: Received pt from ROXANNE Roberson, pt is awake and alert, pt is in RA, no SOB or acute respiratory distress noted. pt is on continues heart monitoring, pt has intact iv access RFA 22G Hep drip is running. all needs attended, bed is locked and is in the lowest position, call light within easy reach. will continue to monitor.
[2020-01-25 07:45] LABS: ANION GAP 10 mmol/L (5-15); BLOOD UREA NITROGEN 18 mg/dL (7-18); CALCIUM 8.2 MG/DL (8.5-10.1); CARBON DIOXIDE 28 MMOL/L (21-32); CHLORIDE 98 MMOL/L (98-107); CREATININE 0.9 MG/DL (0.55-1.30); POTASSIUM 3.7 MMOL/L (3.5-5.1); SODIUM 136 MMOL/L (136-145)
--- NOTE | 2020-01-25 07:46 | NUR ---
HAND-OFF: Report given to Tess OLIVEIRA. Patient is in stable condition, no complaints made at this time. RN made aware of PTT blood drawn. Plan of care endorsed.
[2020-01-25 08:00] VITALS: BP 119/59
--- NOTE | 2020-01-25 08:30 | General Progress Note ---
Assessment/Plan Problem List: (1) Diabetes mellitus ICD Codes: E11.9 - Type 2 diabetes mellitus without complications SNOMED: 69636270 (2) Hypothyroid ICD Codes: E03.9 - Hypothyroidism, unspecified SNOMED: 59995267 (3) Compression fracture of L2 ICD Codes: S32.020A - Wedge compression fracture of second lumbar vertebra, initial encounter for closed fracture SNOMED: [id number] Qualifiers: Qualified Codes: S32.020A - Wedge compression fracture of second lumbar vertebra, initial encounter for closed fracture Status: stable Assessment/Plan: continue Novolog sliding scale ac / hs no need for oral diabetic medications for now continue Levothyroxine 88 mcg daily repeat TSH, free T4 in 6 weeks follow bone density results candidate for Tymlos vs Forteo as OP Kyphoplasty is planned after TB is ruled out Subjective Allergies: Coded Allergies: AMOXICILLIN (Verified Allergy, Unknown, 03/13/19) CLINDAMYCIN (Verified Allergy, Unknown, 03/13/19) Subjective events noted - interval notes reviewed COVID test negative sputum results for TB is pending PPM placed glucose values are stable Item Value Date Time Bedside Blood Glucose 113 mg/dl 01/25/20 0630 Bedside Blood Glucose 132 mg/dl H 01/24/20 2100 Bedside Blood Glucose 124 mg/dl H 01/24/20 1630 Bedside Blood Glucose 119 mg/dl 01/24/20 1130 Bedside Blood Glucose 127 mg/dl H 01/24/20 0623 Objective Last 24 Hour Vital Signs Date Time Temp Pulse Resp B/P (MAP) Pulse Ox O2 Delivery O2 Flow Rate FiO2 01/25/20 04:00 70 01/25/20 04:00 99.5 98 20 120/78 (92) 96 01/25/20 00:00 74 01/25/20 00:00 99.2 95 18 116/50 (72) 95 01/24/20 21:37 111 119/56 01/24/20 21:00 Room Air 01/24/20 20:00 99.7 111 20 117/56 (76) 97 01/24/20 20:00 136 01/24/20 16:00 130 01/24/20 16:00 99.9 71 18 101/56 (71) 96 01/24/20 14:09 78 107/51 01/24/20 12:00 83 01/24/20 12:00 98.7 78 20 107/51 (69) 96 01/24/20 09:00 Room Air 01/24/20 09:00 65 67 89 Intake and Output 01/24/20 01/25/20 19:00 07:00 Intake Total 600 ml Output Total 1050 ml Balance -450 ml Intake Oral 600 ml Output Urine Total 1050 ml # Voids 5 Laboratory Tests 01/24/20 14:14: White Blood Count 12.7H, Red Blood Count 3.95L, Hemoglobin 12.7L, Hematocrit 36.0L, Mean Corpuscular Volume 91, Mean Corpuscular Hemoglobin 32.1H, Mean Corpuscular Hemoglobin Concent 35.3, Red Cell Distribution Width 11.4L, Platelet Count 313, Mean Platelet Volume 4.6L, Neutrophils (%) (Auto) 67.1, Lymphocytes (%) (Auto) 18.7L, Monocytes (%) (Auto) 12.0H, Eosinophils (%) (Auto ) 1.3, Basophils (%) (Auto) 0.9, Activated Partial Thromboplast Time 28 01/25/20 00:15: Activated Partial Thromboplast Time 98H 01/25/20 05:30: White Blood Count 11.6H, Red Blood Count 3.53L, Hemoglobin 11.6L, Hematocrit 31.9L, Mean Corpuscular Volume 90, Mean Corpuscular Hemoglobin 32.9H, Mean Corpuscular Hemoglobin Concent 36.4H, Red Cell Distribution Width 11.1L, Platelet Count 297, Mean Platelet Volume 4.8L, Neutrophils (%) (Auto) 57.5, Lymphocytes (%) (Auto) 30.5, Monocytes (%) (Auto) 9.6, Eosinophils (%) (Auto) 1.6, Basophils (%) (Auto) 0.9, Sodium Level 136, Potassium Level 3.7, Chloride Level 98, Carbon Dioxide Level 28, Anion Gap 10, Blood Urea Nitrogen 18, Creatinine 0.9, Estimat Glomerular Filtration Rate > 60, Glucose Level 111H, Calcium Level 8.2L, Pro-B-Type Natriuretic Peptide 1993H 01/25/20 07:45: Activated Partial Thromboplast Time 95H Height (Feet): 5 Height (Inches): 1.00 Weight (Pounds): 136 General Appearance: no apparent distress Neck: normal alignment Cardiovascular: normal rate Respiratory/Chest: decreased breath sounds Abdomen: normal bowel sounds Pelvis: normal external exam Objective Current Medications Medications (Trade) Dose Ordered Sig/Lisa Route PRN Reason Start Time Stop Time Status Last Admin Dose Admin Acetaminophen (Tylenol) 500 mg Q4H PRN ORAL Mild Pain (Pain Scale 1-3) 01/22/20 13:30 02/21/20 13:29 Acetaminophen (Tylenol) 650 mg Q4H PRN ORAL fever 01/16/20 19:15 02/15/20 19:14 01/19/20 08:54 Acetaminophen/ Codeine Phosphate (Tylenol #3) 1 tab Q6H PRN ORAL Moderate Pain (Pain Scale 4-6) 01/22/20 13:30 01/29/20 13:29 Acetaminophen/ Hydrocodone Bitart ([place] 10/325) 1 tab Q4H PRN ORAL For Pain 4-6 01/22/20 15:15 01/29/20 15:14 Artificial Tears (Lacri-Lube) 1 applic PRN PRN BOTH EYES eye dry 01/20/20 13:15 02/19/20 13:14 Dextrose (Dextrose 50%) 25 ml Q30MIN PRN IV Hypoglycemia 01/16/20 19:15 04/15/20 19:14 Dextrose (Dextrose 50%) 50 ml Q30MIN PRN IV Hypoglycemia 01/16/20 19:15 04/15/20 19:14 Heparin Sodium/ Dextrose 500 ml @ 19.74 mls/ hr ADJUST PER PROTOCOL IV 01/25/20 01:15 02/23/20 17:27 01/25/20 01:43 Insulin Aspart (NovoLOG) BEFORE MEALS AND HS SUBQ 01/19/20 16:30 04/18/20 16:29 01/20/20 11:25 Levothyroxine Sodium (Synthroid) 88 mcg DAILY@0630 ORAL 01/19/20 06:30 02/16/20 06:29 01/25/20 06:26 Metoprolol Tartrate (Lopressor) 25 mg Q12HR ORAL 01/24/20 13:45 04/23/20 13:44 01/24/20 21:37 Midodrine (Pro-Amatine) 2.5 mg THREE TIMES A DAY ORAL 01/22/20 18:00 04/21/20 08:59 01/24/20 17:53 Morphine Sulfate (Morphine Sulfate) 2 mg Q4H PRN IVP severe pain 7-10 01/22/20 15:00 01/29/20 14:59 Ondansetron HCl (Zofran) 4 mg Q6H PRN IVP Nausea & Vomiting 01/16/20 19:15 02/15/20 19:14 Polyethylene Glycol (Miralax) 17 gm HSPRN PRN ORAL Constipation 01/16/20 21:00 02/15/20 20:59 01/19/20 18:30 Tamsulosin HCl (Flomax) 0.4 mg DAILY ORAL 01/17/20 09:00 02/16/20 08:59 01/24/20 09:25 Zolpidem Tartrate (Ambien) 5 mg HSPRN PRN ORAL Insomnia 01/22/20 15:00 01/29/20 14:59 Enrique Parks MD Jan 25, 2020 08:30
[2020-01-25] MEDS: Tamsulosin 0.4mg cap ORAL SCH (10:09)
--- NOTE | 2020-01-25 11:08 | NUR ---
NURSE NOTES: Pharmacist is aware about APTT 95, stated no change in hep drip, will continue to monitor.
--- NOTE | 2020-01-25 11:42 | NUR ---
DISCHARGE PLAN RECEIVED ORDER TO TRANSFER PATIENT TO [facility] FOR HIGHER LEVEL OF CARE PATIENT WILL GO TO [facility] [address] [facility] [address] T: [phone] FOR REPORT TO BE CALLED CHART NEEDS TO BE COPIED AND ALL FILM NEEDS TO BE PLACED ON DISC AMBULANCE [facility] TRANSPORT HAS BEEN ARRANGED FOR 1330 FIXED INCOME PORTFOLIO MANAGER DISCUSSED ALL OF THE ABOVE WITH TIFFANI OLIVEIRA Addendum: 01/25/20 at 1205 by BRAYAN DONAHUE LVN LVN PATIENT IS TRANSFERRING TO A HIGHER LEVEL OF CARE FOR ABLATION CALLED AND UPDATED SON,ROSANNE,WHO IS IN AGREEMENT WITH TRANSFER [facility] REGARDING APPROPRIATENESS OF TRANSFER AND REQUEST FURTHER INSTRUCTIONS
[2020-01-25 12:00] VITALS: BP 109/49
--- NOTE | 2020-01-25 12:29 | General Progress Note ---
Assessment/Plan Status: stable Assessment/Plan: pt has been going in and out of aflutter with tachy hsi bp at time low not allow for safe administration of meds to control heart rate control need ablation of flutter at [facility] Subjective Allergies: Coded Allergies: AMOXICILLIN (Verified Allergy, Unknown, 03/13/19) CLINDAMYCIN (Verified Allergy, Unknown, 03/13/19) Objective Last 24 Hour Vital Signs Date Time Temp Pulse Resp B/P (MAP) Pulse Ox O2 Delivery O2 Flow Rate FiO2 01/25/20 10:09 83 119/59 01/25/20 09:00 Room Air 01/25/20 08:00 96.8 83 20 119/59 (79) 96 01/25/20 07:24 70 01/25/20 04:00 70 01/25/20 04:00 99.5 98 20 120/78 (92) 96 01/25/20 00:00 74 01/25/20 00:00 99.2 95 18 116/50 (72) 95 01/24/20 21:37 111 119/56 01/24/20 21:00 Room Air 01/24/20 20:00 99.7 111 20 117/56 (76) 97 01/24/20 20:00 136 01/24/20 16:00 130 01/24/20 16:00 99.9 71 18 101/56 (71) 96 01/24/20 14:09 78 107/51 Intake and Output 01/24/20 01/25/20 19:00 07:00 Intake Total 600 ml Output Total 1050 ml Balance -450 ml Intake Oral 600 ml Output Urine Total 1050 ml # Voids 5 Laboratory Tests 01/24/20 14:14: White Blood Count 12.7H, Red Blood Count 3.95L, Hemoglobin 12.7L, Hematocrit 36.0L, Mean Corpuscular Volume 91, Mean Corpuscular Hemoglobin 32.1H, Mean Corpuscular Hemoglobin Concent 35.3, Red Cell Distribution Width 11.4L, Platelet Count 313, Mean Platelet Volume 4.6L, Neutrophils (%) (Auto) 67.1, Lymphocytes (%) (Auto) 18.7L, Monocytes (%) (Auto) 12.0H, Eosinophils (%) (Auto ) 1.3, Basophils (%) (Auto) 0.9, Activated Partial Thromboplast Time 28 01/25/20 00:15: Activated Partial Thromboplast Time 98H 01/25/20 05:30: White Blood Count 11.6H, Red Blood Count 3.53L, Hemoglobin 11.6L, Hematocrit 31.9L, Mean Corpuscular Volume 90, Mean Corpuscular Hemoglobin 32.9H, Mean Corpuscular Hemoglobin Concent 36.4H, Red Cell Distribution Width 11.1L, Platelet Count 297, Mean Platelet Volume 4.8L, Neutrophils (%) (Auto) 57.5, Lymphocytes (%) (Auto) 30.5, Monocytes (%) (Auto) 9.6, Eosinophils (%) (Auto) 1.6, Basophils (%) (Auto) 0.9, Sodium Level 136, Potassium Level 3.7, Chloride Level 98, Carbon Dioxide Level 28, Anion Gap 10, Blood Urea Nitrogen 18, Creatinine 0.9, Estimat Glomerular Filtration Rate > 60, Glucose Level 111H, Calcium Level 8.2L, Pro-B-Type Natriuretic Peptide 01/25/20 07:45: Activated Partial Thromboplast Time 95H Height (Feet): 5 Height (Inches): 1.00 Weight (Pounds): 136 Efrain Plaza MD Jan 25, 2020 12:29
--- NOTE | 2020-01-25 12:34 | Pulmonology Progress Note ---
Subjective ROS Limited/Unobtainable: No Interval Events: spidoses of Vtach Constitutional: Reports: no symptoms HEENT: Repors: no symptoms Cardiovascular: Reports: no symptoms Allergies: Coded Allergies: AMOXICILLIN (Verified Allergy, Unknown, 03/13/19) CLINDAMYCIN (Verified Allergy, Unknown, 03/13/19) All Systems: reviewed and negative except above Objective Last 24 Hour Vital Signs Date Time Temp Pulse Resp B/P (MAP) Pulse Ox O2 Delivery O2 Flow Rate FiO2 01/25/20 10:09 83 119/59 01/25/20 09:00 Room Air 01/25/20 08:00 96.8 83 20 119/59 (79) 96 01/25/20 07:24 70 01/25/20 04:00 70 01/25/20 04:00 99.5 98 20 120/78 (92) 96 01/25/20 00:00 74 01/25/20 00:00 99.2 95 18 116/50 (72) 95 01/24/20 21:37 111 119/56 01/24/20 21:00 Room Air 01/24/20 20:00 99.7 111 20 117/56 (76) 97 01/24/20 20:00 136 01/24/20 16:00 130 01/24/20 16:00 99.9 71 18 101/56 (71) 96 01/24/20 14:09 78 107/51 Intake and Output 01/24/20 01/25/20 19:00 07:00 Intake Total 600 ml Output Total 1050 ml Balance -450 ml Intake Oral 600 ml Output Urine Total 1050 ml # Voids 5 General Appearance: WD/WN - elderly male in NAD HEENT: normocephalic, atraumatic, mucous membranes moist Respiratory: chest wall non-tender, lungs clear, other - pacemaler Cardiovascular: normal peripheral pulses, normal rate Abdomen: normal bowel sounds, soft, non tender Extremities: no cyanosis, other - arm sling for support Skin: no rash Neurologic: frame tender II-XII grossly normal Lymphatic: no neck adenopathy Musculoskeletal: atrophy - BLE Microbiology Date/Time Source Procedure Growth Status 01/23/20 14:45 Nasopharynx Coronavirus COVID-19 PCR ([facility]) - Final Complete Laboratory Tests 01/24/20 14:14: White Blood Count 12.7H, Red Blood Count 3.95L, Hemoglobin 12.7L, Hematocrit 36.0L, Mean Corpuscular Volume 91, Mean Corpuscular Hemoglobin 32.1H, Mean Corpuscular Hemoglobin Concent 35.3, Red Cell Distribution Width 11.4L, Platelet Count 313, Mean Platelet Volume 4.6L, Neutrophils (%) (Auto) 67.1, Lymphocytes (%) (Auto) 18.7L, Monocytes (%) (Auto) 12.0H, Eosinophils (%) (Auto ) 1.3, Basophils (%) (Auto) 0.9, Activated Partial Thromboplast Time 28 01/25/20 00:15: Activated Partial Thromboplast Time 98H 01/25/20 05:30: White Blood Count 11.6H, Red Blood Count 3.53L, Hemoglobin 11.6L, Hematocrit 31.9L, Mean Corpuscular Volume 90, Mean Corpuscular Hemoglobin 32.9H, Mean Corpuscular Hemoglobin Concent 36.4H, Red Cell Distribution Width 11.1L, Platelet Count 297, Mean Platelet Volume 4.8L, Neutrophils (%) (Auto) 57.5, Lymphocytes (%) (Auto) 30.5, Monocytes (%) (Auto) 9.6, Eosinophils (%) (Auto) 1.6, Basophils (%) (Auto) 0.9, Sodium Level 136, Potassium Level 3.7, Chloride Level 98, Carbon Dioxide Level 28, Anion Gap 10, Blood Urea Nitrogen 18, Creatinine 0.9, Estimat Glomerular Filtration Rate > 60, Glucose Level 111H, Calcium Level 8.2L, Pro-B-Type Natriuretic Peptide 1993H 01/25/20 07:45: Activated Partial Thromboplast Time 95H Current Medications Medications (Trade) Dose Ordered Sig/Lisa Route PRN Reason Start Time Stop Time Status Last Admin Dose Admin Acetaminophen (Tylenol) 500 mg Q4H PRN ORAL Mild Pain (Pain Scale 1-3) 01/22/20 13:30 02/21/20 13:29 Acetaminophen (Tylenol) 650 mg Q4H PRN ORAL fever 01/16/20 19:15 02/15/20 19:14 01/19/20 08:54 Acetaminophen/ Codeine Phosphate (Tylenol #3) 1 tab Q6H PRN ORAL Moderate Pain (Pain Scale 4-6) 01/22/20 13:30 01/29/20 13:29 Acetaminophen/ Hydrocodone Bitart ([place] 10/325) 1 tab Q4H PRN ORAL For Pain 4-6 01/22/20 15:15 01/29/20 15:14 Artificial Tears (Lacri-Lube) 1 applic PRN PRN BOTH EYES eye dry 01/20/20 13:15 02/19/20 13:14 Dextrose (Dextrose 50%) 25 ml Q30MIN PRN IV Hypoglycemia 01/16/20 19:15 04/15/20 19:14 Dextrose (Dextrose 50%) 50 ml Q30MIN PRN IV Hypoglycemia 01/16/20 19:15 04/15/20 19:14 Heparin Sodium/ Dextrose 500 ml @ 19.74 mls/ hr ADJUST PER PROTOCOL IV 01/25/20 01:15 02/23/20 17:27 01/25/20 01:43 Insulin Aspart (NovoLOG) BEFORE MEALS AND HS SUBQ 01/19/20 16:30 04/18/20 16:29 01/25/20 12:19 Levothyroxine Sodium (Synthroid) 88 mcg DAILY@0630 ORAL 01/19/20 06:30 02/16/20 06:29 01/25/20 06:26 Metoprolol Tartrate (Lopressor) 25 mg Q12HR ORAL 01/24/20 13:45 04/23/20 13:44 01/25/20 10:09 Midodrine (Pro-Amatine) 2.5 mg THREE TIMES A DAY ORAL 01/22/20 18:00 04/21/20 08:59 01/25/20 12:04 Morphine Sulfate (Morphine Sulfate) 2 mg Q4H PRN IVP severe pain 7-10 01/22/20 15:00 01/29/20 14:59 Ondansetron HCl (Zofran) 4 mg Q6H PRN IVP Nausea & Vomiting 01/16/20 19:15 02/15/20 19:14 Polyethylene Glycol (Miralax) 17 gm HSPRN PRN ORAL Constipation 01/16/20 21:00 02/15/20 20:59 01/19/20 18:30 Tamsulosin HCl (Flomax) 0.4 mg DAILY ORAL 01/17/20 09:00 02/16/20 08:59 01/25/20 10:09 Zolpidem Tartrate (Ambien) 5 mg HSPRN PRN ORAL Insomnia 01/22/20 15:00 01/29/20 14:59 Assessment/Plan Problems: (1) Acute encephalopathy (2) Suspected COVID-19 virus infection (3) Syncope (4) Compression fracture of L2 (5) Diabetes mellitus (6) Hypothyroid (7) BPH (benign prostatic hyperplasia) (8) Cardiac arrhythmia Assessment/Plan comfortable -"Will continue airborne isolation pending MTB PCR" covid negative times one pt/ot pain management check sputum, sputum induction, AFB negative PPD was done, but the results were never documented sliding scale serology pending radiology to evaluate for Kyphoplasty after TB and COVID are ruled out Zoe Lynn MD Jan 25, 2020 12:34
--- NOTE | 2020-01-25 13:12 | Diagnostic Imaging Report ---
INDICATION: Pain, intraoperative TECHNIQUE: Intraoperative imaging Fluoroscopy time: 358.4 seconds Total dose: 1.1 mGym2 Total number of images: 4 COMPARISON: None FINDINGS: Intraoperative images demonstrates patent left axillary vein. There is narrowing of the left subclavian vein. IMPRESSION: Intraoperative imaging, as described
--- NOTE | 2020-01-25 13:55 | NUR ---
TRANSFER ON HOLD RECEIVED CALL FROM DANNY AT [facility] ASKING US TO HOLD THE TRANSFER FOR NOW. THEY NEED TO CHANGE ROOMS TO ACCOMMODATE FOR ISOLATION PER DANNY HE WILL CALL WITH NEW ROOM ASSIGNMENT CALLED [facility] TRANSFER ON HOLD FAXED COMPLETED H-845 FORM TO [facility] T: [phone] F: [phone] Addendum: 01/25/20 at 1414 by BRAYAN DONAHUE LVN LVN CALLED THE MAIN LINE AT THE HEALTH DEPARTMENT AND WAS ONLY ABLE TO LEAVE A MESSAGE REQUESTED APPROVAL FOR URGENT TRANSFER TO [facility] FOR ABLATION Addendum: 01/25/20 at 1519 by BRAYAN DONAHUE LVN LVN SECOND CALL PLACED TO HEALTH DEPARTMENT SECOND MESSAGE LEFT T: [phone]
--- NOTE | 2020-01-25 14:16 | NUR ---
CASE MANAGEMENT:REVIEW 01/25/20 SI: SYNCOPE. BRADYCARDIA. AFLUTTER POD #3 S/P PACEMAKER. R/O Tb 98.1 79 18 109/49 96% ON RA WBC+11.6 H/H-11.6/31.9 GLUCOSE+111 BNP+1992 IS: HEPARIN GTT ELIQUIS PO BID LOPRESSOR PO Q12 MIDODRINE PO TID SYNTHROID PO QD FLOMAX PO QD : TELEMETRY STATUS DCP: PATIENT IS FROM HOME PLAN: COVID NOT DETECTED X2 AFB'S NEGATIVE X4 MRB PCR PENDING FAXED H-610 FORM TO HEALTH DEPARTMENT REQUESTING APPROVAL TO TRANSFER TO HIGHER LEVEL OF CARE FOR HEART ABLATION
--- NOTE | 2020-01-25 14:26 | Infectious Diseases Prog Note ---
Assessment/Plan Assessment/Plan Assessment: COVID neg x2 -01/16 SARS-COV2 PCR neg; 01/22 neg Syncopal episode Recent fall w/resultant L2 compression facture -CT L spine: Superior endplate compression fracture at L2 with approximately 25% height loss and extension to the posterior cortex where there is mild osseous retropulsion causing mild canal stenosis. -CT head: No acute intracranial abnormality. Mild chronic senescent findings above. Otherwise unremarkable study. ?Lung mass- likely scar as per radiologist interpretation- patient has no pulmonary symptoms or systemic symptoms that would suggest active infection. Doubt TB -AFB smear neg x4; cx p, MTB PCR p -T SPOT negative Probable developing acute PNA -01/23 CXR: : Right apical 1 cm nodular opacity. May be a small acute inflammatory focus as no corresponding abnormality is seen on CT scan of 7 days earlier. Recommend follow-up radiographs to resolution. No acute process otherwise. Findings as noted -01/16 CT chest: Linear bands the right upper lobe. 15 x 20 x 13 mm irregular masslike opacity with central calcification at the inferior aspect of this. Most likely represents an area of scarring. Underlying mass lesion not completely excludable and follow-up should be considered as clinically indicated.Other chronic changes, as described, mostly involving the right lobe. Minimal upper lobe hyperinflation. No acute abnormality. -01/15 CXR: No acute findings in the chest. Afebrile Mild leukocytosis; improving orthostatic hypotension hx of prior syncopal episode- thought 2ry to bradycardia from severe hypothyroidism hypothyroidism Afib HLD COPD HTN BPH Dm2 glaucoma Plan: -Start empiric Aztreonam for possible PNA -f/u cx -Monitor CBC/CMP, temperature -f/u AFB cx, MTB PCR -Will continue airborne isolation pending MTB PCR- if neg will dc -needs urgent transfer to [facility] for Aflutter ablation per window glass cutter off -f/u fungal serologies -COVID neg x2- ok to dc covid isolation -u/a w/ reflex, sp cx DW RN and infection control Thank you for consulting [facility]. Will continue to follow along with you. Subjective Allergies: Coded Allergies: AMOXICILLIN (Verified Allergy, Unknown, 03/13/19) CLINDAMYCIN (Verified Allergy, Unknown, 03/13/19) Subjective afebrile at RA mild leukocytosis improving awaiting MTB PCR pt going in and out of aflutter with tachy- needs urgent transfer to [facility] for Aflutter ablation per cardiology Objective Vital Signs Last 24 Hour Vital Signs Date Time Temp Pulse Resp B/P (MAP) Pulse Ox O2 Delivery O2 Flow Rate FiO2 01/25/20 12:00 77 01/25/20 12:00 98.1 79 18 109/49 (69) 96 01/25/20 10:09 83 119/59 01/25/20 09:00 Room Air 01/25/20 08:00 96.8 83 20 119/59 (79) 96 01/25/20 07:24 70 01/25/20 04:00 70 01/25/20 04:00 99.5 98 20 120/78 (92) 96 01/25/20 00:00 74 01/25/20 00:00 99.2 95 18 116/50 (72) 95 01/24/20 21:37 111 119/56 01/24/20 21:00 Room Air 01/24/20 20:00 99.7 111 20 117/56 (76) 97 01/24/20 20:00 136 01/24/20 16:00 130 01/24/20 16:00 99.9 71 18 101/56 (71) 96 Height (Feet): 5 Height (Inches): 1.00 Weight (Pounds): 136 Objective GENERAL: Patient is a well-developed and well-nourished thin appearing, male, in no apparent distress. HEENT: Eyes, pupils are equal and responsive to light and accommodation. Extraocular movements are intact. NECK: Supple without lymphadenopathy. CHEST: Lungs are clear to auscultation bilaterally without wheezes or rales. CARDIOVASCULAR: Regular rate. S1, S2 are normal without murmurs, rubs, or gallops. ABDOMEN: Soft, nontender, nondistended. Positive bowel sounds. No evidence of hepatosplenomegaly. Currently, no rebound or guarding noted. EXTREMITIES: Negative for clubbing, cyanosis, edema. Microbiology Date/Time Source Procedure Growth Status 01/23/20 14:45 Nasopharynx Coronavirus COVID-19 PCR ([facility]) - Final Complete Laboratory Tests Test 01/25/20 00:15 01/25/20 05:30 01/25/20 07:45 Activated Partial Thromboplast Time 98 SEC (23-33) H 95 SEC (23-33) H White Blood Count 11.6 K/UL (4.8-10.8) H Red Blood Count 3.53 M/UL (4.70-6.10) L Hemoglobin 11.6 G/DL (14.2-18.0) L Hematocrit 31.9 % (42.0-52.0) L Mean Corpuscular Volume 90 FL (80-99) Mean Corpuscular Hemoglobin 32.9 PG (27.0-31.0) H Mean Corpuscular Hemoglobin Concent 36.4 G/DL (32.0-36.0) H Red Cell Distribution Width 11.1 % (11.6-14.8) L Platelet Count 297 K/UL (150-450) Mean Platelet Volume 4.8 FL (6.5-10.1) L Neutrophils (%) (Auto) 57.5 % (45.0-75.0) Lymphocytes (%) (Auto) 30.5 % (20.0-45.0) Monocytes (%) (Auto) 9.6 % (1.0-10.0) Eosinophils (%) (Auto) 1.6 % (0.0-3.0) Basophils (%) (Auto) 0.9 % (0.0-2.0) Sodium Level 136 MMOL/L (136-145) Potassium Level 3.7 MMOL/L (3.5-5.1) Chloride Level 98 MMOL/L (98-107) Carbon Dioxide Level 28 MMOL/L (21-32) Anion Gap 10 mmol/L (5-15) Blood Urea Nitrogen 18 mg/dL (7-18) Creatinine 0.9 MG/DL (0.55-1.30) Estimat Glomerular Filtration Rate > 60 mL/min (>60) Glucose Level 111 MG/DL (74-106) H Calcium Level 8.2 MG/DL (8.5-10.1) L Pro-B-Type Natriuretic Peptide 1993 pg/mL (0-125) H Current Medications Medications (Trade) Dose Ordered Sig/Lisa Route PRN Reason Start Time Stop Time Status Last Admin Dose Admin Acetaminophen (Tylenol) 500 mg Q4H PRN ORAL Mild Pain (Pain Scale 1-3) 01/22/20 13:30 02/21/20 13:29 Acetaminophen (Tylenol) 650 mg Q4H PRN ORAL fever 01/16/20 19:15 02/15/20 19:14 01/19/20 08:54 Acetaminophen/ Codeine Phosphate (Tylenol #3) 1 tab Q6H PRN ORAL Moderate Pain (Pain Scale 4-6) 01/22/20 13:30 01/29/20 13:29 Acetaminophen/ Hydrocodone Bitart ([place] 10/325) 1 tab Q4H PRN ORAL For Pain 4-6 01/22/20 15:15 01/29/20 15:14 Artificial Tears (Lacri-Lube) 1 applic PRN PRN BOTH EYES eye dry 01/20/20 13:15 02/19/20 13:14 Dextrose (Dextrose 50%) 25 ml Q30MIN PRN IV Hypoglycemia 01/16/20 19:15 04/15/20 19:14 Dextrose (Dextrose 50%) 50 ml Q30MIN PRN IV Hypoglycemia 01/16/20 19:15 04/15/20 19:14 Heparin Sodium/ Dextrose 500 ml @ 19.74 mls/ hr ADJUST PER PROTOCOL IV 01/25/20 01:15 02/23/20 17:27 01/25/20 01:43 Insulin Aspart (NovoLOG) BEFORE MEALS AND HS SUBQ 01/19/20 16:30 04/18/20 16:29 01/25/20 12:19 Levothyroxine Sodium (Synthroid) 88 mcg DAILY@0630 ORAL 01/19/20 06:30 02/16/20 06:29 01/25/20 06:26 Metoprolol Tartrate (Lopressor) 25 mg Q12HR ORAL 01/24/20 13:45 04/23/20 13:44 01/25/20 10:09 Midodrine (Pro-Amatine) 2.5 mg THREE TIMES A DAY ORAL 01/22/20 18:00 04/21/20 08:59 01/25/20 12:04 Morphine Sulfate (Morphine Sulfate) 2 mg Q4H PRN IVP severe pain 7-10 01/22/20 15:00 01/29/20 14:59 Ondansetron HCl (Zofran) 4 mg Q6H PRN IVP Nausea & Vomiting 01/16/20 19:15 02/15/20 19:14 Polyethylene Glycol (Miralax) 17 gm HSPRN PRN ORAL Constipation 5/31/20 21:00 02/15/20 20:59 01/19/20 18:30 Tamsulosin HCl (Flomax) 0.4 mg DAILY ORAL 01/17/20 09:00 02/16/20 08:59 01/25/20 10:09 Zolpidem Tartrate (Ambien) 5 mg HSPRN PRN ORAL Insomnia 01/22/20 15:00 01/29/20 14:59 Tresa Moreau M.D. Jan 25, 2020 14:26
[2020-01-25] MEDS ORDERED: Aztreonam Inj 1 GM in D5W 55 ML IVPB SCH (15:00)
--- NOTE | 2020-01-25 15:34 | NUR ---
*-* INSURANCE *-* UPDATED CLINICALS AND REVIEWS HAVE BEEN FAXED TO: Ref# [id number] #[phone] fax#[phone]
[2020-01-25 16:00] VITALS: BP 110/57
--- NOTE | 2020-01-25 16:04 | NUR ---
DISCHARGE PLANNED RECEIVED CALL FROM DEVORA @ [facility] THEY NOW HAVE AN ISOLATION ROOM FOR PATIENT HE WILL BE GOING TO: [facility] [address] [facility] ROOM 6959 T :[phone] FOR REPORT [facility] HAS BEEN ARRANGED FOR 1800 GENERAL CONTRACTOR SPOKE WITH YVON,DIRECTOR OF MED/SURG AND ID,WHO STATED SHE DISCUSSED IT WITH MALATHI THE CNO AND THEY BOTH AGREED IT WAS OK TO SEND PATIENT TO [facility] EVEN THOUGH WE HAVE NOT HEARD BACK FROM THE HEALTH DEPARTMENT.
--- NOTE | 2020-01-25 16:43 | Internal Med Progress Note ---
Subjective Date of Service: Jan 25, 2020 Physician Name Micah Contreras Attending Physician Neel De MD Current Medications Medications (Trade) Dose Ordered Sig/Lisa Route PRN Reason Start Time Stop Time Status Last Admin Dose Admin Acetaminophen (Tylenol) 500 mg Q4H PRN ORAL Mild Pain (Pain Scale 1-3) 01/22/20 13:30 02/21/20 13:29 Acetaminophen (Tylenol) 650 mg Q4H PRN ORAL fever 01/16/20 19:15 02/15/20 19:14 01/19/20 08:54 Acetaminophen/ Codeine Phosphate (Tylenol #3) 1 tab Q6H PRN ORAL Moderate Pain (Pain Scale 4-6) 01/22/20 13:30 01/29/20 13:29 Acetaminophen/ Hydrocodone Bitart ([place] 10/325) 1 tab Q4H PRN ORAL For Pain 4-6 01/22/20 15:15 01/29/20 15:14 Artificial Tears (Lacri-Lube) 1 applic PRN PRN BOTH EYES eye dry 01/20/20 13:15 02/19/20 13:14 Aztreonam 1 gm/ Dextrose 55 ml @ 110 mls/hr Q8HR IVPB 01/25/20 15:00 02/01/20 14:59 01/25/20 15:21 Dextrose (Dextrose 50%) 25 ml Q30MIN PRN IV Hypoglycemia 01/16/20 19:15 04/15/20 19:14 Dextrose (Dextrose 50%) 50 ml Q30MIN PRN IV Hypoglycemia 01/16/20 19:15 04/15/20 19:14 Heparin Sodium/ Dextrose 500 ml @ 19.74 mls/ hr ADJUST PER PROTOCOL IV 01/25/20 01:15 02/23/20 17:27 01/25/20 01:43 Insulin Aspart (NovoLOG) BEFORE MEALS AND HS SUBQ 01/19/20 16:30 04/18/20 16:29 01/25/20 12:19 Levothyroxine Sodium (Synthroid) 88 mcg DAILY@0630 ORAL 01/19/20 06:30 02/16/20 06:29 01/25/20 06:26 Metoprolol Tartrate (Lopressor) 25 mg Q12HR ORAL 01/24/20 13:45 04/23/20 13:44 01/25/20 10:09 Midodrine (Pro-Amatine) 2.5 mg THREE TIMES A DAY ORAL 01/22/20 18:00 04/21/20 08:59 01/25/20 12:04 Morphine Sulfate (Morphine Sulfate) 2 mg Q4H PRN IVP severe pain 7-10 01/22/20 15:00 01/29/20 14:59 Ondansetron HCl (Zofran) 4 mg Q6H PRN IVP Nausea & Vomiting 01/16/20 19:15 02/15/20 19:14 Polyethylene Glycol (Miralax) 17 gm HSPRN PRN ORAL Constipation 01/16/20 21:00 02/15/20 20:59 01/19/20 18:30 Tamsulosin HCl (Flomax) 0.4 mg DAILY ORAL 01/17/20 09:00 02/16/20 08:59 01/25/20 10:09 Zolpidem Tartrate (Ambien) 5 mg HSPRN PRN ORAL Insomnia 01/22/20 15:00 01/29/20 14:59 Allergies: Coded Allergies: AMOXICILLIN (Verified Allergy, Unknown, 03/13/19) CLINDAMYCIN (Verified Allergy, Unknown, 03/13/19) Subjective 84 YO M admitted with back pain. Now compression fracture L2 vertebrae. S/P pacemaker implantation 01/22/20. Cover for Int Med-Dr De. Await transfer to [facility] for ablation of atrial flutter. Objective Last Vital Signs Date Time Temp Pulse Resp B/P (MAP) Pulse Ox O2 Delivery O2 Flow Rate FiO2 01/25/20 12:00 77 01/25/20 12:00 98.1 18 109/49 (69) 96 01/25/20 09:00 Room Air 01/23/20 09:49 2.0 Laboratory Tests Test 01/25/20 00:15 01/25/20 05:30 01/25/20 07:45 Activated Partial Thromboplast Time 98 SEC (23-33) H 95 SEC (23-33) H White Blood Count 11.6 K/UL (4.8-10.8) H Red Blood Count 3.53 M/UL (4.70-6.10) L Hemoglobin 11.6 G/DL (14.2-18.0) L Hematocrit 31.9 % (42.0-52.0) L Mean Corpuscular Volume 90 FL (80-99) Mean Corpuscular Hemoglobin 32.9 PG (27.0-31.0) H Mean Corpuscular Hemoglobin Concent 36.4 G/DL (32.0-36.0) H Red Cell Distribution Width 11.1 % (11.6-14.8) L Platelet Count 297 K/UL (150-450) Mean Platelet Volume 4.8 FL (6.5-10.1) L Neutrophils (%) (Auto) 57.5 % (45.0-75.0) Lymphocytes (%) (Auto) 30.5 % (20.0-45.0) Monocytes (%) (Auto) 9.6 % (1.0-10.0) Eosinophils (%) (Auto) 1.6 % (0.0-3.0) Basophils (%) (Auto) 0.9 % (0.0-2.0) Sodium Level 136 MMOL/L (136-145) Potassium Level 3.7 MMOL/L (3.5-5.1) Chloride Level 98 MMOL/L (98-107) Carbon Dioxide Level 28 MMOL/L (21-32) Anion Gap 10 mmol/L (5-15) Blood Urea Nitrogen 18 mg/dL (7-18) Creatinine 0.9 MG/DL (0.55-1.30) Estimat Glomerular Filtration Rate > 60 mL/min (>60) Glucose Level 111 MG/DL (74-106) H Calcium Level 8.2 MG/DL (8.5-10.1) L Pro-B-Type Natriuretic Peptide 1993 pg/mL (0-125) H Microbiology Date/Time Source Procedure Growth Status 01/23/20 14:45 Nasopharynx Coronavirus COVID-19 PCR ([facility]) - Final Complete Intake and Output 01/24/20 01/25/20 19:00 07:00 Intake Total 600 ml Output Total 1050 ml Balance -450 ml Intake Oral 600 ml Output Urine Total 1050 ml # Voids 5 Objective PHYSICAL EXAMINATION: GENERAL: Patient is a well-developed and well-nourished thin appearing, male, in no apparent distress. HEENT: Eyes, pupils are equal and responsive to light and accommodation. Extraocular movements are intact. NECK: Supple without lymphadenopathy. CHEST: Lungs are clear to auscultation bilaterally without wheezes or rales. CARDIOVASCULAR: Regular rate. S1, S2 are normal without murmurs, rubs, or gallops. ABDOMEN: Soft, nontender, nondistended. Positive bowel sounds. No evidence of hepatosplenomegaly. Currently, no rebound or guarding noted. EXTREMITIES: Negative for clubbing, cyanosis, edema. RECTAL/GENITAL: Not performed. NEUROLOGIC: Cranial nerves II to XII grossly intact without focal deficits. Motor strength is 5/5 bilaterally. Deep tendon reflexes are 2+ plantar. Assessment/Plan Assessment/Plan ASSESSMENT: This is an 84-year-old male. 1. Low back pain. 2. Lumbar level 2 compression fracture. 3. Syncopal episode. 4. Atrial fibrillation/flutter 5. Diabetes type 2. 6. Hypertension. 7. Chronic obstructive pulmonary disease. 8. Hypothyroidism. 9. Hypercholesterolemia. 10. Glaucoma. 11. Benign prostatic hypertrophy. 12. Right lung mass 13. Symptomatic Bradycardia TREATMENT: 1. Low back pain/lumbar level 2 compression fraction. An Orthopedic consultation has been obtained with Dr. Ren Draper. We will follow recommendations of Orthopedic Surgery. 2. Syncopal episode. A CT scan was reported as no acute infarct or hemorrhage. 3. Atrial fibrillation. Patient is currently off amiodarone. 4. Diabetes type 2. Patient is currently off antihyperglycemic medication. 5. Hypertension. Patient is currently off antihypertensive medication. 6. Chronic obstructive pulmonary disease. A Pulmonary consultation has been obtained with Dr. Zoe Lynn. 7. Hypothyroidism. Patient is currently on levothyroxine 75 mcg p.o. daily. TSH is elevated. A thyroid function panel is pending. Patient has been on levothyroxine for approximately one and half months. 8. Hypercholesterolemia. 9. Glaucoma. 10. Benign prostatic hypertrophy. 11. Await AFB culture results. Off antibiotics. ID=Dr Moreau 12. S/P pacemeker implantation 01/22/[address] Harper 13. Transfer to [facility] for ablation atrial flutter (not performed at [place]) by Micah Leslie MD Jan 25, 2020 16:43
--- NOTE | 2020-01-25 17:04 | Cardiology Progress Note ---
Assessment/Plan Assessment/Plan 1. Possible syncope. 2. Compression fracture of the lumbar spine. 3. History of paroxysmal atrial fibrillation. 4. Diabetes mellitus. 5. Hypertension. 6. Hyperlipidemia. 7. COPD. 8. History of orthostatic hypotension. 9. lung mass vs scar 10. deepti / SSS s/p ppi 11 tachy atrial flutter covid neg x2 on tb isolation 3 sputum neg for afb await pcr however felt to be lwo risk now post pacer implantation likely has 2 problem 1 with hypotension and one with arrthymia tele personally reviewed afluter adn sinus a pacing echo prelim report normal lv function kyphoplasty post id patiño in light of recurrent persistent atrial flutter and inablity to fci treat with med due to potential orthostatic hypotension will undergo atrial flutter ablation will need transfer to [facility] for ablation arranged for this evening as a neg pressuer isolation room has become avaialbe at [facility] will dc heparin on travel to [facility] resume there again d/w rn orthostatic vital wrer performed i am trying to locate with staff Subjective Cardiovascular: Denies: chest pain, lightheadedness, palpitations Respiratory: Denies: cough, shortness of breath Gastrointestinal/Abdominal: Denies: abdominal pain Genitourinary: Denies: burning Objective Last 24 Hour Vital Signs Date Time Temp Pulse Resp B/P (MAP) Pulse Ox O2 Delivery O2 Flow Rate FiO2 01/25/20 12:00 77 01/25/20 12:00 98.1 79 18 109/49 (69) 96 01/25/20 10:09 83 119/59 01/25/20 09:00 69 83 88 01/25/20 09:00 Room Air 01/25/20 08:00 96.8 83 20 119/59 (79) 96 01/25/20 07:24 70 01/25/20 04:00 70 01/25/20 04:00 99.5 98 20 120/78 (92) 96 01/25/20 00:00 74 01/25/20 00:00 99.2 95 18 116/50 (72) 95 01/24/20 21:37 111 119/56 01/24/20 21:00 Room Air 01/24/20 20:00 99.7 111 20 117/56 (76) 97 01/24/20 20:00 136 General Appearance: no apparent distress, alert Neck: supple Cardiovascular: normal rate Respiratory/Chest: lungs clear Abdomen: normal bowel sounds, non tender, soft Extremities: non-tender, no swelling Intake and Output 01/24/20 01/25/20 19:00 07:00 Intake Total 600 ml Output Total 1050 ml Balance -450 ml Intake Oral 600 ml Output Urine Total 1050 ml # Voids 5 Laboratory Tests Test 01/25/20 00:15 01/25/20 05:30 01/25/20 07:45 Activated Partial Thromboplast Time 98 SEC (23-33) H 95 SEC (23-33) H White Blood Count 11.6 K/UL (4.8-10.8) H Red Blood Count 3.53 M/UL (4.70-6.10) L Hemoglobin 11.6 G/DL (14.2-18.0) L Hematocrit 31.9 % (42.0-52.0) L Mean Corpuscular Volume 90 FL (80-99) Mean Corpuscular Hemoglobin 32.9 PG (27.0-31.0) H Mean Corpuscular Hemoglobin Concent 36.4 G/DL (32.0-36.0) H Red Cell Distribution Width 11.1 % (11.6-14.8) L Platelet Count 297 K/UL (150-450) Mean Platelet Volume 4.8 FL (6.5-10.1) L Neutrophils (%) (Auto) 57.5 % (45.0-75.0) Lymphocytes (%) (Auto) 30.5 % (20.0-45.0) Monocytes (%) (Auto) 9.6 % (1.0-10.0) Eosinophils (%) (Auto) 1.6 % (0.0-3.0) Basophils (%) (Auto) 0.9 % (0.0-2.0) Sodium Level 136 MMOL/L (136-145) Potassium Level 3.7 MMOL/L (3.5-5.1) Chloride Level 98 MMOL/L (98-107) Carbon Dioxide Level 28 MMOL/L (21-32) Anion Gap 10 mmol/L (5-15) Blood Urea Nitrogen 18 mg/dL (7-18) Creatinine 0.9 MG/DL (0.55-1.30) Estimat Glomerular Filtration Rate > 60 mL/min (>60) Glucose Level 111 MG/DL (74-106) H Calcium Level 8.2 MG/DL (8.5-10.1) L Pro-B-Type Natriuretic Peptide 1993 pg/mL (0-125) H Microbiology Date/Time Source Procedure Growth Status 01/23/20 14:45 Nasopharynx Coronavirus COVID-19 PCR ([facility]) - Final Complete Objective in isolation per dr cannon Respiratory: chest wall non-tender, lungs clear Cardiovascular: normal peripheral pulses, normal rate Abdomen: normal bowel sounds, soft, non tender Genitourinary: normal external genitalia Extremities: no cyanosis Efrain Plaza MD Jan 25, 2020 17:04
--- NOTE | 2020-01-25 18:53 | Cardiac Electrophysiology PN ---
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 ? orthostasis He is s/p dual chamber pacemaker on 01/21 - normal device function. He has paroxysmal AFlutter with rapid ventricular rates Assessment/Plan Normal pacemaker function. Pacing threshold 0.75 v/0.4 ms atr 0.375 v/0.4 ms ventr, Sensing 5 mv atr, 10 mv ventr impedances: 480 ohm atr, 640 ohm ventr anticoagulation w/ eliquis will be started Pacemaker reprogrammed to shorter blanking periods and lower detect rates. He is on iv heparin and b blockers. He will be transferred to [facility] for EP testing and catheter ablation. AFL ablation will allow him to be off anticoagulation, provided no AF is noted. The procedure was discussed with him and his family. He is agreeable to proceeding. Subjective ROS Limited/Unobtainable: No Subjective Mr Berman has no c/o AFL today at 7 am and 410 pm, rates 130s Objective Last 24 Hour Vital Signs Date Time Temp Pulse Resp B/P (MAP) Pulse Ox O2 Delivery O2 Flow Rate FiO2 01/25/20 17:46 79 82 83 01/25/20 16:00 96.9 89 19 110/57 (74) 98 01/25/20 15:58 80 01/25/20 12:00 77 01/25/20 12:00 98.1 79 18 109/49 (69) 96 01/25/20 10:09 83 119/59 01/25/20 09:00 69 83 88 01/25/20 09:00 Room Air 01/25/20 08:00 96.8 83 20 119/59 (79) 96 01/25/20 07:24 70 01/25/20 04:00 70 01/25/20 04:00 99.5 98 20 120/78 (92) 96 01/25/20 00:00 74 01/25/20 00:00 99.2 95 18 116/50 (72) 95 01/24/20 21:37 111 119/56 01/24/20 21:00 Room Air 01/24/20 20:00 99.7 111 20 117/56 (76) 97 01/24/20 20:00 136 General Appearance: WD/WN EENT: PERRL/EOMI Neck: supple, no JVD Rhythm: NSR Cardiovascular: normal rate, regular rhythm, no gallop/murmur Respiratory/Chest: lungs clear, other - L infraclav incision - clean, no hematoma Abdomen: non tender, soft Intake and Output 01/24/20 01/25/20 19:00 07:00 Intake Total 600 ml Output Total 1050 ml Balance -450 ml Intake Oral 600 ml Output Urine Total 1050 ml # Voids 5 Laboratory Tests Test 01/25/20 00:15 01/25/20 05:30 01/25/20 07:45 Activated Partial Thromboplast Time 98 SEC (23-33) H 95 SEC (23-33) H White Blood Count 11.6 K/UL (4.8-10.8) H Red Blood Count 3.53 M/UL (4.70-6.10) L Hemoglobin 11.6 G/DL (14.2-18.0) L Hematocrit 31.9 % (42.0-52.0) L Mean Corpuscular Volume 90 FL (80-99) Mean Corpuscular Hemoglobin 32.9 PG (27.0-31.0) H Mean Corpuscular Hemoglobin Concent 36.4 G/DL (32.0-36.0) H Red Cell Distribution Width 11.1 % (11.6-14.8) L Platelet Count 297 K/UL (150-450) Mean Platelet Volume 4.8 FL (6.5-10.1) L Neutrophils (%) (Auto) 57.5 % (45.0-75.0) Lymphocytes (%) (Auto) 30.5 % (20.0-45.0) Monocytes (%) (Auto) 9.6 % (1.0-10.0) Eosinophils (%) (Auto) 1.6 % (0.0-3.0) Basophils (%) (Auto) 0.9 % (0.0-2.0) Sodium Level 136 MMOL/L (136-145) Potassium Level 3.7 MMOL/L (3.5-5.1) Chloride Level 98 MMOL/L (98-107) Carbon Dioxide Level 28 MMOL/L (21-32) Anion Gap 10 mmol/L (5-15) Blood Urea Nitrogen 18 mg/dL (7-18) Creatinine 0.9 MG/DL (0.55-1.30) Estimat Glomerular Filtration Rate > 60 mL/min (>60) Glucose Level 111 MG/DL (74-106) H Calcium Level 8.2 MG/DL (8.5-10.1) L Pro-B-Type Natriuretic Peptide 1993 pg/mL (0-125) H Microbiology Date/Time Source Procedure Growth Status 01/23/20 14:45 Nasopharynx Coronavirus COVID-19 PCR ([facility]) - Final Complete Felicia Morales MD Jan 25, 2020 18:53
--- NOTE | 2020-01-25 20:00 | NUR ---
NURSE NOTES: pt has discharge order, all D/C assessments and instructions done and pt verbally confirmed to understand all. pt is stable, V/S stable, all belongings are with pt and he signed belonging list, pt's son is aware about D/C, Pt has intact iv access RFA 22G and heparin drip is hold now because of transferring per Dr Plaza and report given to Jay Kennedy and she is aware to continue hep drip as order, all strips and ECG are with pt per Dr order, CD is with pt, pt has instructions about pace maker, pt has mask and left hospital with ambulance personnel. Addendum: 01/25/20 at 2023 by Tess Lamb RN skin is intact. Addendum: 01/25/20 at 2026 by Tess Lamb RN pt doesn't have sputum and Urin to collect, endorsed to Marcia to F/U for U/A and sputum culture.
--- NOTE | 2020-01-27 07:41 | Discharge Summary ---
Discharge Summary Discharge Summary _ DATE OF ADMISSION: 01/16/2020 DATE OF DISCHARGE: 01/25/2020 DISCHARGED BY: REASON FOR ADMISSION: 84 years old male with past medical history of COPD, diabetes mellitus, hypertension, atrial fibrillation, hypothyroidism, hypercholesterolemia, BPH, glaucoma, presented to emergency department after syncopal episode. Patient complained of back pain. Back pain reported as being dull, nonradiating, 5 out of 10 . Patient also reported shortness of breath. No chest pain. Patient was unclear if he hit his head. Upon evaluation vital signs were stable. Laboratory work-up revealed no leukocytosis, hemoglobin 13.5, hematocrit 42.5, platelet count 251. Stable electrolytes and renal parameters. Glucose 137. Stable LFT. Troponin negative, pro BNP 432. EKG revealed sinus rhythm with some PVC. Albumin 3.5. Chest x-ray revealed no acute cardiopulmonary pathology. CT of the head revealed no acute intracranial pathology. CT scan of the lumbar spine demonstrated superior endplate compression fracture at L2 with approximately 25% height loss and extension to the posterior cortex with mild osseous retropulsion, causing mild canal stenosis. Patient admitted to telemetry floor for further management CONSULTANTS: gamemaster Dr. Plaza cardiac senior financial analyst Dr. Harper pulmonary Dr. Lynn ID specialist Dr. Moreau customer service sales consultant [facility] COURSE: Patient admitted to telemetry floor. Pain management was addressed. Patient was swabbed for COVID and initially placed in isolation room. Supplemental oxygen provided and titrated to keep pulse oximetry above 92%. Pulmonary toilet provided. DVT prophylaxis provided. Telemetry revealed PAF/ AFL. Flake Drier and cardiac senior financial analyst followed. Patient required rate control medication. Per cardio, unable to start antiarrhythmic agents at this point, as it would likely worsen his bradyarrhythmia Patient had sinus node and possible AVN conduction disease with possible contribution of orthostatic hypotension as well. Patient subsequently undergone pacemaker implantation on 01/21. Chest x-ray post-procedure was stable ; no evidence of pneumothorax. CT of the chest revealed irregular masslike opacity with central calcification, most likely representing area of scaring. Underlying mass lesion was not completely excludable. Patient was placed on airborne isolation. AFB smear x3 were negative. T spot was negative. COVID-19 from 01/16 was negative. Fungal serology was negative. MTB by PCR still pending. Follow-up chest x-ray revealed a right apical 1 cm nodular opacity , may be a small acute inflammatory focus . No acute process otherwise. Recommended to repeat CT chest in 3 months. Hemodynamic status was closely monitored . Patient was off antihypertensive . CT of the head was repeated and again demonstrated no findings of acute intracranial pathology. Patient was on midodrine for blood rpessure support., Bloos ncreased as per customer service sales consultant. Fall precaution maintained. Kyphoplasty was recommended after ID clearance. Pacemaker interrogated and showed normal functioning. Patient started on anticoagulation with Eliquis. Pacemaker actually was reprogrammed for shorter blanking periods and lower detect rates. Patient started on beta-erma for rate control. Flake Drier recommended transfer to [facility] for EP testing and catheter ablation. AFL ablation will allow him to be off anticoagulation , provided no atrial fibrillation will be noted. Procedure was discussed with the patient and his family , who agreed to proceed. Patient was on empiric antibiotics for possible pneumonia. Blood sugar was managed as per customer service sales consultant recommendations. Airborne isolation continued, pending MTB PCR. Discussed with the [facility], isolation room was available . 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 Jeanette Willams NP Jan 27, 2020 07:41
--- NOTE | 2020-01-27 15:56 | NUR ---
*-* INSURANCE *-* DISCHARGE SUMMARY HAS BEEN FAXED TO: [facility] Ref# [id number] #[phone] fax#[phone]
--- NOTE | 2020-02-01 15:01 | NUR ---
*-* INSURANCE *-* CLINICALS FROM 01/19/20-01/25/20 HAVE BEEN REFAXED.. [facility] Ref# [id number] P: [phone] F: [phone] F: [phone]
== END 2020-01-25 19:55 | disposition critical access hospital, planned readmission (94) | DRG 242 ==
LOC: EMR 16:15 → 2E 16:51 → EDBEDREQ 20:28 → 2E 01-17 14:55
PROC: 02HK3JZ Insertion of Pacemaker Lead into Right Ventricle, Percutaneous Approach (ICD-10-PCS; principal; 2020-01-22 11:00)
PROC: 0JH606Z Insertion of Pacemaker, Dual Chamber into Chest Subcutaneous Tissue and Fascia, Open Approach (ICD-10-PCS; principal; 2020-01-22 11:00)
PROC: 02H63JZ Insertion of Pacemaker Lead into Right Atrium, Percutaneous Approach (ICD-10-PCS; principal; 2020-01-22 11:00)
DX: I49.5 Sick sinus syndrome (principal); J18.9 Pneumonia, unspecified organism; S32.020A Wedge compression fracture of second lumbar vertebra, initial encounter for closed fracture; G93.40 Encephalopathy, unspecified; I48.92 Unspecified atrial flutter; W19.XXXA Unspecified fall, initial encounter; I95.1 Orthostatic hypotension; I10 Essential (primary) hypertension; J44.9 Chronic obstructive pulmonary disease, unspecified; Z88.1 Allergy status to other antibiotic agents; H40.9 Unspecified glaucoma; E11.9 Type 2 diabetes mellitus without complications; N40.0 Benign prostatic hyperplasia without lower urinary tract symptoms; E03.9 Hypothyroidism, unspecified; E78.5 Hyperlipidemia, unspecified; I44.1 Atrioventricular block, second degree
CPT/HCPCS: 36415; 70450; 71045; 71250; 72131; 80048; 80053; 80061; 82164; 82378; 82962; 83036; 83615; 83735; 83880; 84100; 84439; 84443; 84480; 84481; 84484; 85025; 85610; 85651; 85730; 86140; 86171; 86580; 86612; 86635; 87116; 87449; 87556; 93005; 93306; 94003; 94150; 96374; 99285; J1815; J7030